=== PATIENT | female | born 1965 | race Caucasian/White ===

== ENCOUNTER 2017-12-24 20:36 | Emergency (ER) | payer OTHER, SELFPAY ==
[2017-12-24 21:08] VITALS: BP 127/78; PULSE 87; RESP 18; TEMP 37.1; O2SAT 99; BMI 25.7
--- NOTE | 2017-12-24 21:46 | ED.LOWEXIN ---
HPI - Extremity Injury (Lower) General Chief Complaint: Extremity Injury, Lower Stated Complaint: LT KNEE PAIN S/P SURGERY TODAY Time Seen by Provider: 12/24/17 21:46 Source: patient and RN notes reviewed Mode of arrival: wheelchair Limitations: no limitations History of Present Illness HPI Narrative: Patient is a 52-year-old female who presents with left knee pain. She had an outpatient arthroscopic again this morning he was released about 4:00 p.m.. She has bled through her bandage and her knee is pain is quite severe. She has no numbness or tingling. She does have Oxy Contin at home she has not taken any because she knew she was coming to the ER. She is able to move her toes. But she is not able to weight bear. Onset (ago): hour(s) Severity: severe Related Data Home Medications Medication Instructions Recorded Confirmed oxycodone 5 mg PO Q4-6H PRN MDD 4 12/24/17 12/24/17 Previous Rx's Medication Instructions Recorded progesterone micronized 100 mg PO BID #60 cap 03/18/17 ibuprofen 800 mg PO BID PRN #180 tab 04/17/17 albuterol sulfate [Ventolin HFA] 1 puff INH QID PRN #2 inh 07/14/17 cyclobenzaprine 10 mg PO HS PRN #90 tab 07/14/17 hydrocodone-acetaminophen 1 tab PO Q6HP PRN #30 tab 07/23/17 estradiol 1 mg PO QDAY #90 tab 07/28/17 nicotine [Nicoderm CQ] 14 mg TD SEE INSTRUCTIONS #30 patch 08/20/17 hydroxyzine pamoate [Vistaril] 1 - 2 mg PO Q6HP PRN #15 cap 09/19/17 alprazolam [Xanax] 0.5 mg PO BID PRN #30 tab 09/30/17 Allergies Allergy/AdvReac Type Severity Reaction Status Date / Time codeine [CODEINE] Allergy Mild NAUSEA Verified 12/24/17 21:11 Review of Systems Review of Systems All systems reviewed & are unremarkable except as noted in HPI and below Constitutional Denies chills, Denies fever(s), Denies lethargy and Denies weakness Cardiovascular Reports dyspnea on exertion Respiratory Reports cough and Reports dyspnea on exertion Gastrointestinal Gastrointestinal: Denies abdominal pain, Denies nausea and Denies vomiting Musculoskeletal Reports as per HPI, Denies muscle weakness, Denies numbness, Denies stiffness and Denies tingling Neurologic Denies numbness, Denies tingling, Denies paresthesias, Denies tremor(s) and Denies weakness Hematologic/Lymphatic Reports as per HPI PFSH Surgical History History of splenectomy Social History Smoking Status: Current every day smoker Exam Const General: in distress (In pain, crying) Resp Effort & Inspection: normal respiratory effort and able to speak in complete sentences Cardio Pulses: dorsalis pedis present on the left Skin General: No erythema, No mottling, No purpura and warm Other: No active bleeding at incision sites. Right inferior site was bleeding but it is now controlled. Steri-Strips in place. Neuro General: alert, awake and oriented x3 Extrem Right lower extremity: knee Details: swelling (Postsurgical swelling) and abnormal ROM Details: pain with active ROM during and pain with passive ROM during Course Hospital Course: Dressing removed site exam and no active bleeding. Dressing is replaced. His pain is much better controlled. She is offered crutches however she has crutches at home. Orders Ordered: Discontinued Medications Acetaminophen (Tylenol) 975 mg PO NOW ONE Stop: 12/24/17 21:47 Last Admin: 12/24/17 22:14 Dose: 975 mg Hydromorphone HCl (Dilaudid) 1 mg SUBCUT Q4H PRN PRN Reason: Severe Pain Last Admin: 12/24/17 22:15 Dose: 1 mg Last Vital Signs Temp 97.0 F L 12/24/17 23:38 Pulse 86 12/24/17 23:38 Resp 14 12/24/17 23:38 BP 111/73 12/24/17 23:38 Pulse Ox 99 12/24/17 23:38 Discharge Plan Departure Patient Disposition: Home, Self-Care Clinical Impression: Postoperative hemorrhage from incision, Post-operative pain Discharge Date/Time: 12/24/17 23:39 Interventions: ED Discharge Assessment Last Done: 12/24/17 23:38 Instructions: DI for Post-Surgical Bleeding Activity Restrictions/Additional Instructions: *You have been diagnosed with postoperative pain and postoperative bleeding *What to do: Keep dressing on and follow Orthopedic's instructions *Take medications as previously directed *Follow up with your primary care provider in 2-3 days, follow up with Orthopedics as instructed *Return to ER if you should have numbness, tingling, persistent bleeding or any new, worsening or concerning symptoms Prescriptions: No Action progesterone micronized 100 MG capsule 100 mg PO BID Qty: 60 RF: 3 ibuprofen 800 MG tablet 800 mg PO BID PRNQty: 180 RF: 1 albuterol sulfate [Ventolin HFA] 90 MCG/PUFF HFA aerosol inhaler 1 puff INH QID PRNQty: 2 RF: 3 cyclobenzaprine 10 MG tablet 10 mg PO HS PRNQty: 90 RF: 3 hydrocodone-acetaminophen 5 MG/325 MG tablet 1 tab PO Q6HP PRNQty: 30 RF: 0 estradiol 1 MG tablet 1 mg PO QDAY Qty: 90 RF: 3 nicotine [Nicoderm CQ] 14 MG patch 24 hour 14 mg TD SEE INSTRUCTIONS Qty: 30 RF: 1 hydroxyzine pamoate [Vistaril] 25 MG capsule 1 - 2 mg PO Q6HP PRNQty: 15 RF: 0 alprazolam [Xanax] 0.5 MG tablet 0.5 mg PO BID PRNQty: 30 RF: 2 oxycodone 5 mg Tablet 5 mg PO Q4-6H MDD 4 PRN (Reason: Pain (Scale Score 4-6)) RF: 0 Referrals: Elaina Resendiz PA-C [Primary Care Provider] - Pasha Alonso MD [Physician] -
[2017-12-24] MEDS: ACETAMINOPHEN 325 MG TABLET 975 MG PO (22:14)
[2017-12-24] MEDS: HYDROMORPHONE 2 MG INJ 1 MG SUBCUT (22:15)
[2017-12-24 23:38] VITALS: BP 111/73; PULSE 86; RESP 14; TEMP 36.1; O2SAT 99
== END 2017-12-24 23:39 | disposition home or self-care (01) ==
PROVIDERS: Emergency Provider Emergency Medicine; Family Provider Physician Assistant; PCP Physician Assistant
DX: L76.32 Postprocedural hematoma of skin and subcutaneous tissue following other procedure (principal)
CPT/HCPCS: 96372; 99282; 99283; J1170

== ENCOUNTER 2018-03-19 18:31 | Emergency (ER) | payer OTHER, SELFPAY ==
[2018-03-19 18:57] VITALS: BP 142/90; PULSE 80; RESP 16; TEMP 36.7; O2SAT 99; BMI 56.7
--- NOTE | 2018-03-19 19:12 | ED.NECK ---
HPI - Neck Pain/Injury <REENA Camacho - Last Filed: 03/19/18 22:19> General Chief Complaint: Neck Pain/Injury Stated Complaint: LEFT SHOULDER INJURY Time Seen by Provider: 03/19/18 19:12 Source: patient Mode of arrival: ambulatory Limitations: no limitations History of Present Illness HPI Narrative: 52-year-old female here for complaint of pain into left posterior shoulder status post getting hit in the back of the ball with a fall this evening. She states that she was out on a patio when a ball came up from people playing in the sand and hit her on her left shoulder. She denies any head injury. She reports increased pain with motion of the left shoulder. No other injuries or concerns at this timeframe. She is ambulatory into the emergency room. Related Data Home Medications Medication Instructions Recorded Confirmed oxycodone 5 mg PO Q4-6H PRN MDD 4 12/24/17 01/23/18 Previous Rx's Medication Instructions Recorded progesterone micronized 100 mg PO BID #60 cap 03/18/17 ibuprofen 800 mg PO BID PRN #180 tab 04/17/17 albuterol sulfate [Ventolin HFA] 1 puff INH QID PRN #2 inh 07/14/17 cyclobenzaprine 10 mg PO HS PRN #90 tab 07/14/17 estradiol 1 mg PO QDAY #90 tab 07/28/17 alprazolam [Xanax] 0.5 mg PO BID PRN #30 tab 09/30/17 promethazine 6.25 mg-codeine 10 5 ml PO Q6H PRN #118 ml MDD 10 mL 01/23/18 mg/5 mL syrup beclomethasone dipropionate 80 1 puff INHALATION BID #8.7 gram 01/26/18 mcg/actuation aerosol inhaler Allergies Allergy/AdvReac Type Severity Reaction Status Date / Time codeine [CODEINE] AdvReac Mild NAUSEA Verified 01/23/18 09:09 Review of Systems <REENA Camacho - Last Filed: 03/19/18 22:19> Constitutional Denies chills, Denies fever(s), Denies lethargy and Denies weakness Eyes Denies change in vision, Denies eye discharge, Denies irritation and Denies loss of vision ENT Ears, Nose, Mouth, and Throat: Denies change in voice, Denies neck pain and Denies sore throat Cardiovascular Denies chest pain, Denies irregular heart rhythm, Denies lightheadedness, Denies palpitations, Denies dyspnea, Denies dyspnea on exertion and Denies orthopnea Respiratory Denies cough, Denies dyspnea, Denies dyspnea on exertion and Denies wheezing Gastrointestinal Gastrointestinal: Denies abdominal pain, Denies change in bowel habits, Denies diarrhea, Denies nausea and Denies vomiting Genitourinary Denies hematuria, Denies flank pain, Denies urinary incontinence and Denies urinary urgency Musculoskeletal Denies neck pain Comments: Left posterior shoulder pain Integumentary/Breasts Denies pruritus, Denies erythema, Denies rash and Denies wounds Neurologic Denies confusion, Denies loss of vision and Denies weakness Psychiatric Denies anxiety, Denies confusion, Denies depression, Denies homicidal ideation and Denies suicidal ideation Endocrine Denies palpitations Hematologic/Lymphatic Denies easy bruising Allergic/Immunologic Denies wheezing Exam <REENA Camacho - Last Filed: 03/19/18 22:19> Initial Vital Signs Initial Vital Signs: Vital Signs Temperature 98.1 F 03/19/18 18:57 Pulse Rate 80 03/19/18 18:57 Respiratory Rate 16 03/19/18 18:57 Blood Pressure 142/90 H 03/19/18 18:57 Pulse Oximetry 99 03/19/18 18:57 Const General: cooperative and well developed Nutritional Appearance: well nourished Orientation: alert, awake, oriented x3 and not confused [facility] Mouth: oral mucosae normal and moist mucous membranes Eyes Conjunctivae: conjunctivae normal Sclera: sclerae normal Pupils: PERRL EOM: EOM intact bilaterally Chest Chest: normal inspection of the chest Resp Effort & Inspection: normal respiratory effort, able to speak in complete sentences, no respiratory distress and no use of accessory muscles Auscultation: clear to auscultation bilaterally, no rales, no rhonchi and no wheezes Cardio Rate: regular rate Rhythm: regular rhythm Heart Sounds: no click, no gallops, no murmurs and no rubs Skin General: no rashes or lesions noted, No jaundice and No petechiae Neuro General: alert, oriented x3, gait normal and no focal motor deficits Speech: speech normal Extrem General: full ROM, no clubbing, cyanosis or edema, no pedal edema and no calf tenderness <DO Crystal Dougherty Last Filed: 03/20/18 03:23> Initial Vital Signs Initial Vital Signs: Vital Signs Temperature 98.1 F 03/19/18 18:57 Pulse Rate 80 03/19/18 18:57 Respiratory Rate 16 03/19/18 18:57 Blood Pressure 142/90 H 03/19/18 18:57 Pulse Oximetry 99 03/19/18 18:57 Course <REENA Camacho - Last Filed: 03/19/18 22:19> Orders Ordered: ED Orders 03/19/18 19:44 XR shoulder LT min 2V Stat Discontinued Medications Ibuprofen (Advil) 400 mg PO NOW ONE Stop: 03/19/18 19:46 Last Admin: 03/19/18 19:50 Dose: 400 mg Vital Signs - 8 hr 03/19/18 19:57 03/19/18 20:37 Temperature 98.1 F 98.0 F Pulse Rate 80 75 Respiratory Rate 16 16 Blood Pressure 142/90 H Blood Pressure [Left Arm] 148/89 H Pulse Oximetry 99 99 <Peggy Dale DO - Last Filed: 03/20/18 03:23> Orders Ordered: ED Orders 03/19/18 19:44 XR shoulder LT min 2V Stat Discontinued Medications Ibuprofen (Advil) 400 mg PO NOW ONE Stop: 03/19/18 19:46 Last Admin: 03/19/18 19:50 Dose: 400 mg Vital Signs - 8 hr 03/19/18 19:57 03/19/18 20:37 Temperature 98.1 F 98.0 F Pulse Rate 80 75 Respiratory Rate 16 16 Blood Pressure 142/90 H Blood Pressure [Left Arm] 148/89 H Pulse Oximetry 99 99 MDM - Neck Pain/Injury <REENA Camacho - Last Filed: 03/19/18 22:19> Imaging Data Left shoulder: Radiologist's impression: Age/Sex: 52 / F Date of Service: 03/19/18 Loc: ED Accession Number: [id number] Procedure: XR shoulder LT min 2V Ordering Provider: Davide Cabrera PROCEDURE: XR SHOULDER LT MIN 2V INDICATIONS: States was hit with a ball to the posterior left shoulder TECHNIQUE: 3 views of the shoulder were acquired. COMPARISON: None. FINDINGS: Bones: No fractures or dislocations. No suspicious bony lesions. Visualized ribs appear intact. Mild to moderate a.c. and glenohumeral joint osteoarthritis. Soft tissues: No suspicious soft tissue calcifications. What appears to be a bone island within the humeral head marrow space is noted, measuring approximately 8 mm in maximal dimension IMPRESSION: No trauma found. Mild to moderate a.c. and glenohumeral joint osteoarthritis. Small bone island noted within the medullary space of the humeral head. Dictated by: Srinath Waters M.D. on 03/19/2018 at 21:08 Approved by: Srinath Waters M.D. on 03/19/2018 at 21:08 MDM Narrative Medical decision making narrative: X-ray of the left shoulder was obtained and was negative for any acute findings. Patient will eloped prior to results being returned from radiology. Patient was instructed to follow up with her primary care provider in the next few days. Return emergency room for any worsening symptom Discharge Plan Departure Patient Disposition: Left Against Medical Advice Clinical Impression: Acute pain of left shoulder Discharge Date/Time: 03/19/18 21:06 Interventions: ED Discharge Assessment Last Done: 03/19/18 21:04 Instructions: DI for Shoulder Pain Activity Restrictions/Additional Instructions: Tylenol Motrin as needed for any discomfort. Follow up with primary care provider. Return emergency room for any worsening symptoms. Prescriptions: No Action promethazine-codeine 6.25-10 mg/5 mL syrup 5 ml PO Q6H MDD 10 mL PRN (Reason: cough) Qty: 118 RF: 0 progesterone micronized 100 MG capsule 100 mg PO BID Qty: 60 RF: 3 ibuprofen 800 MG tablet 800 mg PO BID PRNQty: 180 RF: 1 albuterol sulfate [Ventolin HFA] 90 MCG/PUFF HFA aerosol inhaler 1 puff INH QID PRNQty: 2 RF: 3 cyclobenzaprine 10 MG tablet 10 mg PO HS PRNQty: 90 RF: 3 estradiol 1 MG tablet 1 mg PO QDAY Qty: 90 RF: 3 alprazolam [Xanax] 0.5 MG tablet 0.5 mg PO BID PRNQty: 30 RF: 2 beclomethasone dipropionate [Qvar] 80 mcg/actuation aerosol 1 puff INHALATION BID Qty: 8.7 RF: 3 oxycodone 5 mg Tablet 5 mg PO Q4-6H MDD 4 PRN (Reason: Pain (Scale Score 4-6)) RF: 0 Stand Alone Forms: Against Medical Advice <Peggy Dale DO - Last Filed: 03/20/18 03:23> Cosign ED Attending Jessica Attestation: I was immediately available in the department for consultation. Documentation has been reviewed. I agree with assessment and plan.
--- NOTE | 2018-03-19 19:44 | DI.RAD.S_ITS ---
PROCEDURE: XR SHOULDER LT MIN 2V INDICATIONS: States was hit with a ball to the posterior left shoulder TECHNIQUE: 3 views of the shoulder were acquired. COMPARISON: None. FINDINGS: Bones: No fractures or dislocations. No suspicious bony lesions. Visualized ribs appear intact. Mild to moderate a.c. and glenohumeral joint osteoarthritis. Soft tissues: No suspicious soft tissue calcifications. What appears to be a bone island within the humeral head marrow space is noted, measuring approximately 8 mm in maximal dimension IMPRESSION: No trauma found. Mild to moderate a.c. and glenohumeral joint osteoarthritis. Small bone island noted within the medullary space of the humeral head. Dictated by: Srinath Waters M.D. on 03/19/2018 at 21:08 Approved by: Srinath Waters M.D. on 03/19/2018 at 21:08
[2018-03-19] MEDS: IBUPROFEN 400 MG TABLET PO (19:50)
[2018-03-19 19:57] VITALS: BP 142/90; PULSE 80; RESP 16; TEMP 36.7; O2SAT 99; BMI 56.7
--- NOTE | 2018-03-19 19:58 | PC.NURSE ---
Pt states left shoulder pain 5/10 onset at 5pm today when hit by bocce ball at [employer]. Pt given icepack.
[2018-03-19 20:37] VITALS: BP 148/89; PULSE 75; RESP 16; TEMP 36.7; O2SAT 99
--- NOTE | 2018-03-19 21:02 | PC.NURSE ---
Pt states wants to leave she is fine and will followup with PCP, states she came here for insurance documenation purpose in case of a lawsuit.
== END 2018-03-19 21:06 | disposition left against medical advice (07) ==
PROVIDERS: Emergency Provider Nurse Practitioner Family; Family Provider Physician Assistant; PCP Family Medicine
DX: M25.512 Pain in left shoulder (principal); W21.09XA Struck by other hit or thrown ball, initial encounter
CPT/HCPCS: 73030; 99282; 99283

== ENCOUNTER → 2018-10-25 13:30 | Outpatient (CLI) | payer OTHER, SELFPAY ==
[2018-10-28 20:45] LABS: Fecal Immunochemical Test DETECTED (NOT DETECTED)
== END ==
PROVIDERS: PCP Student in an Organized Health Care Education/Training Program; Visit Provider Student in an Organized Health Care Education/Training Program
DX: Z12.11 Encounter for screening for malignant neoplasm of colon (principal)
CPT/HCPCS: 82274

== ENCOUNTER 2018-11-20 12:42 | Emergency (ER) | payer OTHER, SELFPAY ==
[2018-11-20 12:50] VITALS: BP 138/67; PULSE 99; RESP 14; TEMP 37.3; O2SAT 96
--- NOTE | 2018-11-20 13:15 | DI.RAD.S_ITS ---
PROCEDURE: XR HAND RT MIN 3V INDICATIONS: car hernández crushed it. Pain diya base of 2nd finger. IN ED WR TECHNIQUE: 3 views of the hand(s) acquired. COMPARISON: None. FINDINGS: Bones: No fractures or dislocations. Carpal bones are normally aligned. No suspicious bony lesions. First CMC and triscaphe joint degeneration Soft tissues: No suspicious soft tissue calcifications. IMPRESSION: No fracture Dictated by: Mathieu Preciado M.D. on 11/20/2018 at 14:03 Approved by: Mathieu Preciado M.D. on 11/20/2018 at 14:05
[2018-11-20] MEDS: KETOROLAC 60 MG/2 ML VIAL 30 MG IM (14:52)
--- NOTE | 2018-11-20 14:58 | ED.UPPEXIN ---
HPI - Extremity Injury (Upper) <DALTON Willoughby-BC - Last Filed: 11/20/18 15:19> General Chief Complaint: Extremity Injury, Upper Stated Complaint: r Time Seen by Provider: 11/20/18 14:30 Source: patient Mode of arrival: ambulatory Limitations: no limitations History of Present Illness HPI narrative: Patient is a 53-year-old female current everyday smoker with history of chronic neck pain and asthma who presents after closing her right hand in a car door. She took ibuprofen approximately 5 hours ago. She applied ice while waiting in the emergency department. She denies any lacerations or abrasions, but states is red and swollen. She is right-hand dominant and works writing. Related Data Previous Rx's Medication Instructions Recorded albuterol sulfate HFA 90 1 puff INHALATION QID PRN #6.7 gram 09/17/18 mcg/actuation aerosol inhaler cyclobenzaprine 10 mg tablet 10 mg PO HS PRN #90 tab 09/17/18 estradiol 1 mg tablet 1 mg PO QDAY #90 tab 09/17/18 ibuprofen 800 mg tablet 800 mg PO TID PRN #90 tab 09/17/18 diclofenac 1 % topical gel 4 gram TOP QID PRN #100 gram MDD 4 11/03/18 applications ketorolac 10 mg tablet 10 mg PO ONCE PRN #4 tab 11/03/18 Allergies Allergy/AdvReac Type Severity Reaction Status Date / Time No Known Drug Allergies Allergy Verified 11/20/18 13:14 Review of Systems <DALTON Willoughby-BC - Last Filed: 11/20/18 15:19> Review of Systems GENERAL: Denies chills, fatigue, malaise, fever, sweats. HEENT: Denies sinus pain, ear pain, sore throat, difficulty swallowing, dizziness. RESPIRATORY: Denies dyspnea, cough, wheezing, hemoptysis, sputum. CARDIOVASCULAR: Denies chest pain, palpitations, orthopnea, edema, GASTROINTESTINAL: Denies nausea, vomiting, abdominal pain, diarrhea, constipation, melena. : Denies dysuria, frequency, incontinence, hematuria, urinary retention. MUSCULOSKELETAL: See HPI SKIN: See HPI NEUROLOGIC: Denies weakness, headache, numbness, change in speech, confusion, seizures, incoordination. PSYCHIATRIC: No concerning psychosocial issues. 12 point review of systems is negative except for those stated above PFSH <CADE Willoughby - Last Filed: 11/20/18 15:19> Medical History Arthritis (Chronic Unknown) Asthma (Chronic Unknown) Chronic neck pain (Chronic Unknown) Hepatitis C antibody test positive (Chronic) Hx of idiopathic thrombocytopenic purpura (Resolved 2007) Surgical History H/O hernia repair (Resolved) Hx of arthroscopy of knee (Resolved ~2002) History of splenectomy (2007) Family History (Updated 03/17/18 @ 10:34 by Ruhtann Torres LPN) Family/Other Adopted Social History Smoking Status: Current every day smoker quit status: considering quitting (Has nicotine patches) alcohol intake: current (Occasionally. Couple of glasses usually.) substance use type: does not use Family History (Updated 03/17/18 @ 10:34 by Ruthann Torres LPN) Family/Other Adopted Social History Smoking Status: Current every day smoker quit status: considering quitting (Has nicotine patches) alcohol intake: current (Occasionally. Couple of glasses usually.) substance use type: does not use Exam <CADE Willoughby - Last Filed: 11/20/18 15:19> Narrative Exam Narrative: GENERAL: This is a well-nourished, well-developed patient, holding ice on hand HEAD: Atraumatic. Normocephalic. No temporal or scalp tenderness. EYES: Pupils equal round and reactive. Extraocular motions intact. No scleral icterus. No injection or drainage. ENT: Nose without bleeding, purulent drainage or septal hematoma. Throat without erythema, tonsillar hypertrophy or exudate. Uvula midline. Airway patent. NECK: Trachea midline. No JVD or lymphadenopathy. Supple, nontender, no meningeal signs. CARDIOVASCULAR: Regular rate and rhythm RESPIRATORY: No increased respiratory effort. No accessory muscle use. EXTREMITIES: Generalized pain to palpation right hand. Slight swelling noted on the dorsal aspect of right hand. Positive radial pulse. Capillary refill less than 2 seconds all fingers right hand. Patient is able to make a fist. BACK: Nontender without deformity or crepitance. No flank tenderness. NEURO: AOx3. SKIN: Slight swelling noted over the base of right pointer finger. Pain to palpation all knuckles of hand. No ecchymosis abrasion laceration or opening of the skin. Initial Vital Signs Initial Vital Signs: Vital Signs Temperature 99.1 F 11/20/18 12:50 Pulse Rate 99 H 11/20/18 12:50 Respiratory Rate 14 11/20/18 12:50 Blood Pressure 138/67 11/20/18 12:50 Pulse Oximetry 96 11/20/18 12:50 <Rosmery Goldstein DO - Last Filed: 11/20/18 18:13> Initial Vital Signs Initial Vital Signs: Vital Signs Temperature 99.1 F 11/20/18 12:50 Pulse Rate 99 H 11/20/18 12:50 Respiratory Rate 14 11/20/18 12:50 Blood Pressure 138/67 11/20/18 12:50 Pulse Oximetry 96 11/20/18 12:50 Course <KIMBERLY WilloughbyBC - Last Filed: 11/20/18 15:19> Orders Ordered: ED Orders 11/20/18 13:15 XR hand RT min 3V Stat Discontinued Medications Ketorolac Tromethamine (Toradol) 30 mg IM NOW ONE Stop: 11/20/18 14:41 Last Admin: 11/20/18 14:52 Dose: 30 mg Vital Signs - 8 hr 11/20/18 12:50 11/20/18 15:19 Temperature 99.1 F Pulse Rate 99 H 92 H Respiratory Rate 14 Blood Pressure 138/67 123/76 Pulse Oximetry 96 <DO Crystal Shea Last Filed: 11/20/18 18:13> Orders Ordered: ED Orders 11/20/18 13:15 XR hand RT min 3V Stat Discontinued Medications Ketorolac Tromethamine (Toradol) 30 mg IM NOW ONE Stop: 11/20/18 14:41 Last Admin: 11/20/18 14:52 Dose: 30 mg Vital Signs - 8 hr 11/20/18 12:50 11/20/18 15:19 Temperature 99.1 F Pulse Rate 99 H 92 H Respiratory Rate 14 Blood Pressure 138/67 123/76 Pulse Oximetry 96 MDM - Extremity Injury (Upper) <DALTON Willoughby-BC - Last Filed: 11/20/18 15:19> Imaging Data hand xray : Radiologist's impression: [address] [address] XRay Report Signed Patient: Debbie Dixon LMR#: [id number] : 1965Acct:[id number] Age/Sex: 53 / FDate of Service: 11/20/18 Loc: ED Accession Number: [id number] Procedure: XR hand RT min 3V Ordering Provider: Rosmery Goldstein D.O. PROCEDURE: XR HAND RT MIN 3V INDICATIONS: car hernández crushed it. Pain diya base of 2nd finger. IN ED WR TECHNIQUE: 3 views of the hand(s) acquired. COMPARISON: None. FINDINGS: Bones: No fractures or dislocations. Carpal bones are normally aligned. No suspicious bony lesions. First CMC and triscaphe joint degeneration Soft tissues: No suspicious soft tissue calcifications. IMPRESSION: No fracture Dictated by: Mathieu Preciado M.D. on 11/20/2018 at 14:03 Approved by: Mathieu Preciado M.D. on 11/20/2018 at 14:05 [facility] Narrative Medical decision making narrative: The patient is a 53-year-old female who presents with hand pain after closing her hand in the car door. She had a negative x-ray finding no fracture. She was given Toradol in the emergency department. I encouraged rest ice compression elevation as well as [id number]-[id number] pain medications as needed and able. I discussed following up with her primary care provider coming back to the emergency department for any acute concerns. She is neurovascularly intact throughout her right hand. Discharge Plan Departure Patient Disposition: Home Clinical Impression: Contusion of hand Qualifiers: Encounter type: initial encounter Laterality: right Qualified Code(s): S60.221A - Contusion of right hand, initial encounter Discharge Date/Time: 11/20/18 15:20 Interventions: ED Discharge Assessment Last Done: 11/20/18 15:19 Instructions: DI for Contusion, DI for Hand Pain Activity Restrictions/Additional Instructions: Your x-ray came back with no fracture today. Please use [id number] medications as needed and able as well as rest ice compression elevation. Please follow up with her primary care provider for worsening or no improvement next few days. Please come back to the emergency department for any acute concerns such as shortness of breath or chest pain. please do not take ibuprofen for 6-8 hours after the Toradol in the emergency department. Prescriptions: No Action albuterol sulfate [Ventolin HFA] 90 mcg/actuation HFA aerosol inhaler 1 puff INHALATION QID PRN (Reason: shortness of breath or wheezing) Qty: 6.7 RF: 11 estradiol 1 mg tablet 1 mg PO QDAY Qty: 90 RF: 1 cyclobenzaprine 10 mg tablet 10 mg PO HS PRN (Reason: muscle spasm) Qty: 90 RF: 1 ibuprofen 800 mg tablet 800 mg PO TID PRN (Reason: pain) Qty: 90 RF: 5 Hold Instructions: While on Ketorolac ketorolac 10 mg tablet 10 mg PO ONCE PRN (Reason: pain) Qty: 4 RF: 0 diclofenac sodium 1 % gel 4 gram TOP QID MDD 4 applications PRN (Reason: pain (scale score 4-6)) Qty: 100 RF: 2 Referrals: Lazaro Solorzano MD [Primary Care Provider] - Stand Alone Forms: Work Release Note <Rosmery Goldstein DO - Last Filed: 11/20/18 18:13> Cosign ED Attending Coslilianaature Attestation: I was immediately available in the department for consultation. This documentation has been reviewed and I agree with assessment and plan. Supervised by Rosmery Goldstein DO
[2018-11-20 15:19] VITALS: BP 123/76; PULSE 92
--- NOTE | 2018-11-20 15:19 | ED_ITS ---
HPI - Extremity Injury (Upper) <DALTON Willoughby-BC - Last Filed: 11/20/18 15:19> General Chief Complaint: Extremity Injury, Upper Stated Complaint: r Time Seen by Provider: 11/20/18 14:30 Source: patient Mode of arrival: ambulatory Limitations: no limitations History of Present Illness HPI narrative: Patient is a 53-year-old female current everyday smoker with history of chronic neck pain and asthma who presents after closing her right hand in a car door. She took ibuprofen approximately 5 hours ago. She applied ice while waiting in the emergency department. She denies any lacerations or abrasions, but states is red and swollen. She is right-hand dominant and works writing. Related Data Previous Rx's Medication Instructions Recorded albuterol sulfate HFA 90 1 puff INHALATION QID PRN #6.7 gram 09/17/18 mcg/actuation aerosol inhaler cyclobenzaprine 10 mg tablet 10 mg PO HS PRN #90 tab 09/17/18 estradiol 1 mg tablet 1 mg PO QDAY #90 tab 09/17/18 ibuprofen 800 mg tablet 800 mg PO TID PRN #90 tab 09/17/18 diclofenac 1 % topical gel 4 gram TOP QID PRN #100 gram MDD 4 11/03/18 applications ketorolac 10 mg tablet 10 mg PO ONCE PRN #4 tab 11/03/18 Allergies Allergy/AdvReac Type Severity Reaction Status Date / Time No Known Drug Allergies Allergy Verified 11/20/18 13:14 Review of Systems <DALTON Willoughby-BC - Last Filed: 11/20/18 15:19> Review of Systems GENERAL: Denies chills, fatigue, malaise, fever, sweats. HEENT: Denies sinus pain, ear pain, sore throat, difficulty swallowing, dizziness. RESPIRATORY: Denies dyspnea, cough, wheezing, hemoptysis, sputum. CARDIOVASCULAR: Denies chest pain, palpitations, orthopnea, edema, GASTROINTESTINAL: Denies nausea, vomiting, abdominal pain, diarrhea, constipation, melena. : Denies dysuria, frequency, incontinence, hematuria, urinary retention. MUSCULOSKELETAL: See HPI SKIN: See HPI NEUROLOGIC: Denies weakness, headache, numbness, change in speech, confusion, seizures, incoordination. PSYCHIATRIC: No concerning psychosocial issues. 12 point review of systems is negative except for those stated above PFSH <CADE Willoughby - Last Filed: 11/20/18 15:19> Medical History Arthritis (Chronic Unknown) Asthma (Chronic Unknown) Chronic neck pain (Chronic Unknown) Hepatitis C antibody test positive (Chronic) Hx of idiopathic thrombocytopenic purpura (Resolved 2007) Surgical History H/O hernia repair (Resolved) Hx of arthroscopy of knee (Resolved ~2002) History of splenectomy (2007) Family History (Updated 03/17/18 @ 10:34 by Ruthann Torres LPN) Family/Other Adopted Social History Smoking Status: Current every day smoker quit status: considering quitting (Has nicotine patches) alcohol intake: current (Occasionally. Couple of glasses usually.) substance use type: does not use Family History (Updated 03/17/18 @ 10:34 by Ruthann Torres LPN) Family/Other Adopted Social History Smoking Status: Current every day smoker quit status: considering quitting (Has nicotine patches) alcohol intake: current (Occasionally. Couple of glasses usually.) substance use type: does not use Exam <CADE Willoughby - Last Filed: 11/20/18 15:19> Narrative Exam Narrative: GENERAL: This is a well-nourished, well-developed patient, holding ice on hand HEAD: Atraumatic. Normocephalic. No temporal or scalp tenderness. EYES: Pupils equal round and reactive. Extraocular motions intact. No scleral icterus. No injection or drainage. ENT: Nose without bleeding, purulent drainage or septal hematoma. Throat without erythema, tonsillar hypertrophy or exudate. Uvula midline. Airway patent. NECK: Trachea midline. No JVD or lymphadenopathy. Supple, nontender, no meningeal signs. CARDIOVASCULAR: Regular rate and rhythm RESPIRATORY: No increased respiratory effort. No accessory muscle use. EXTREMITIES: Generalized pain to palpation right hand. Slight swelling noted on the dorsal aspect of right hand. Positive radial pulse. Capillary refill less than 2 seconds all fingers right hand. Patient is able to make a fist. BACK: Nontender without deformity or crepitance. No flank tenderness. NEURO: AOx3. SKIN: Slight swelling noted over the base of right pointer finger. Pain to palpation all knuckles of hand. No ecchymosis abrasion laceration or opening of the skin. Initial Vital Signs Initial Vital Signs: Vital Signs Temperature 99.1 F 11/20/18 12:50 Pulse Rate 99 H 11/20/18 12:50 Respiratory Rate 14 11/20/18 12:50 Blood Pressure 138/67 11/20/18 12:50 Pulse Oximetry 96 11/20/18 12:50 <Rosmery Goldstein DO - Last Filed: 11/20/18 18:13> Initial Vital Signs Initial Vital Signs: Vital Signs Temperature 99.1 F 11/20/18 12:50 Pulse Rate 99 H 11/20/18 12:50 Respiratory Rate 14 11/20/18 12:50 Blood Pressure 138/67 11/20/18 12:50 Pulse Oximetry 96 11/20/18 12:50 Course <KIMBERLY WilloughbyBC - Last Filed: 11/20/18 15:19> Orders Ordered: ED Orders 11/20/18 13:15 XR hand RT min 3V Stat Discontinued Medications Ketorolac Tromethamine (Toradol) 30 mg IM NOW ONE Stop: 11/20/18 14:41 Last Admin: 11/20/18 14:52 Dose: 30 mg Vital Signs - 8 hr 11/20/18 12:50 11/20/18 15:19 Temperature 99.1 F Pulse Rate 99 H 92 H Respiratory Rate 14 Blood Pressure 138/67 123/76 Pulse Oximetry 96 <DO Crystal Shea Last Filed: 11/20/18 18:13> Orders Ordered: ED Orders 11/20/18 13:15 XR hand RT min 3V Stat Discontinued Medications Ketorolac Tromethamine (Toradol) 30 mg IM NOW ONE Stop: 11/20/18 14:41 Last Admin: 11/20/18 14:52 Dose: 30 mg Vital Signs - 8 hr 11/20/18 12:50 11/20/18 15:19 Temperature 99.1 F Pulse Rate 99 H 92 H Respiratory Rate 14 Blood Pressure 138/67 123/76 Pulse Oximetry 96 MDM - Extremity Injury (Upper) <DALTON Willoughby-BC - Last Filed: 11/20/18 15:19> Imaging Data hand xray : Radiologist's impression: [address] [address] XRay Report Signed Patient: Debbie Dixon LMR#: [id number] : 1965Acct:[id number] Age/Sex: 53 / FDate of Service: 11/20/18 Loc: ED Accession Number: [id number] Procedure: XR hand RT min 3V Ordering Provider: Rosmery Goldstein D.O. PROCEDURE: XR HAND RT MIN 3V INDICATIONS: car hernández crushed it. Pain diya base of 2nd finger. IN ED WR TECHNIQUE: 3 views of the hand(s) acquired. COMPARISON: None. FINDINGS: Bones: No fractures or dislocations. Carpal bones are normally aligned. No suspicious bony lesions. First CMC and triscaphe joint degeneration Soft tissues: No suspicious soft tissue calcifications. IMPRESSION: No fracture Dictated by: Mathieu Preciado M.D. on 11/20/2018 at 14:03 Approved by: Mathieu Preciado M.D. on 11/20/2018 at 14:05 [facility] Narrative Medical decision making narrative: The patient is a 53-year-old female who presents with hand pain after closing her hand in the car door. She had a negative x-ray finding no fracture. She was given Toradol in the emergency department. I encouraged rest ice compression elevation as well as [id number] nter pain medications as needed and able. I discussed following up with her primary care provider coming back to the emergency department for any acute concerns. She is neurovascularly intact throughout her right hand. Discharge Plan Departure Patient Disposition: Home Clinical Impression: Contusion of hand Qualifiers: Encounter type: initial encounter Laterality: right Qualified Code(s): S60.221A - Contusion of right hand, initial encounter Discharge Date/Time: 11/20/18 15:20 Interventions: ED Discharge Assessment Last Done: 11/20/18 15:19 Instructions: DI for Contusion, DI for Hand Pain Activity Restrictions/Additional Instructions: Your x-ray came back with no fracture today. Please use [id number] medications as needed and able as well as rest ice compression elevation. Please follow up with her primary care provider for worsening or no improvement next few days. Please come back to the emergency department for any acute concerns such as shortness of breath or chest pain. please do not take ibuprofen for 6-8 hours after the Toradol in the emergency department. Prescriptions: No Action albuterol sulfate [Ventolin HFA] 90 mcg/actuation HFA aerosol inhaler 1 puff INHALATION QID PRN (Reason: shortness of breath or wheezing) Qty: 6.7 RF: 11 estradiol 1 mg tablet 1 mg PO QDAY Qty: 90 RF: 1 cyclobenzaprine 10 mg tablet 10 mg PO HS PRN (Reason: muscle spasm) Qty: 90 RF: 1 ibuprofen 800 mg tablet 800 mg PO TID PRN (Reason: pain) Qty: 90 RF: 5 Hold Instructions: While on Ketorolac ketorolac 10 mg tablet 10 mg PO ONCE PRN (Reason: pain) Qty: 4 RF: 0 diclofenac sodium 1 % gel 4 gram TOP QID MDD 4 applications PRN (Reason: pain (scale score 4-6)) Qty: 100 RF: 2 Referrals: Lazaro Solorzano MD [Primary Care Provider] - Stand Alone Forms: Work Release Note <Rosmery Goldstein DO - Last Filed: 11/20/18 18:13> Cosign ED Attending Cosignature Attestation: I was immediately available in the department for consultation. This documentation has been reviewed and I agree with assessment and plan. Supervised by Rosmery Goldstein DO
== END 2018-11-20 15:20 | disposition home or self-care (01) ==
PROVIDERS: Emergency Provider Nurse Practitioner Family; PCP Student in an Organized Health Care Education/Training Program
DX: S60.221A Contusion of right hand, initial encounter (principal)
CPT/HCPCS: 73130; 96372; 99282; 99283; J1885

== ENCOUNTER → 2018-12-06 13:27 | Outpatient (CLI) | payer OTHER, SELFPAY ==
[2018-12-06 14:16] LABS: Add Manual Diff / Slide Review NO; Basophils Absolute Auto 100 /uL (0-100); Basophils Percent Auto 1.2 % (0-2); Eosinophils Absolute Auto 300 /uL (0-450); Eosinophils Percent Auto 3.9 % (2-4); Hematocrit 35.4 % (36-46); Hemoglobin 12.1 g/dL (12.0-16.0); Lymphocytes Absolute Auto 3800 /uL (1100-4500); Lymphocytes Percent Auto 44.4 % (25-40); Mean Corpuscular HGB Conc 34.1 % (30-36); Mean Corpuscular Hemoglobin 32.2 PG (26-34); Mean Corpuscular Volume 94.2 fL (80-100); Monocytes Absolute Auto 700 /uL (0-900); Monocytes Percent Auto 7.6 % (3-14); Neutrophils Absolute Auto 3700 /uL (1500-7000); Neutrophils Percent Auto 42.9 % (50-75); Platelet Count 304 X10^3/uL (150-400); Red Blood Cell Count 3.76 X10^6/uL (4.0-5.2); Red Cell Distribution Width 12.5 % (11.6-14.8); White Blood Cell Count 8.6 X10^3/uL (4.5-11.0)
[2018-12-06 14:32] LABS: Alanine Aminotransferase 35 IU/L (9-52); Albumin 3.9 g/dL (3.5-5.0); Albumin Globulin Ratio 1.4 (1.0-2.8); Alkaline Phosphatase 66 U/L (38-126); Aspartate Aminotransferase 25 IU/L (14-36); Bilirubin Total 0.3 mg/dL (0.2-1.3); Blood Urea Nitrogen 20 mg/dL (7-17); Calcium 9.1 mg/dL (8.4-10.2); Carbon Dioxide 24 mmol/L (22-32); Chloride 104 mmol/L (98-107); Cholesterol 116 mg/dL (140-199); Estimated Glomerular Filt Rate > 60.0 mL/min (>60); Globulin 2.7 g/dL (1.7-4.1); Glucose 87 mg/dL (70-100); HDL Cholesterol 61 mg/dL (40-60); HEMOLYSIS < 15 (0-50); LDL Cholesterol Calculated 26 mg/dL (<100); Potassium 4.5 mmol/L (3.4-5.1); Sodium 136 mmol/L (137-145); Total Protein 6.6 g/dL (6.3-8.2); Triglycerides 147 mg/dL (35-150)
[2018-12-06 15:25] LABS: Vitamin D 25 Hydroxy (D3) 52.7 ng/mL (30.0-100.0)
== END ==
PROVIDERS: PCP Student in an Organized Health Care Education/Training Program; Visit Provider Physician Assistant
DX: B18.2 Chronic viral hepatitis C (principal); D69.6 Thrombocytopenia, unspecified; E55.9 Vitamin D deficiency, unspecified; Z90.81 Acquired absence of spleen; Z13.220 Encounter for screening for lipoid disorders
CPT/HCPCS: 36415; 80053; 80061; 82306; 85025; 87902

== ENCOUNTER → 2019-01-20 14:10 | Outpatient (CLI) | payer OTHER, SELFPAY ==
--- NOTE | 2019-01-20 | DI.MRI.S_ITS ---
PROCEDURE: MR KNEE RT WO CON INDICATIONS: Medial and posterior right knee pain TECHNIQUE: Noncontrast sagittal PD fast spin echo and T2 fast spin echo with fat saturation, sagittal 3-D FLASH with fat saturation; coronal T1 spin echo and PD fast spin echo with fat saturation, and axial PD fast spin echo with fat saturation through the knee. COMPARISON: None. FINDINGS: Image quality: Excellent. Menisci: Medial meniscal tear involving the posterior horn and extending to the undersurface. There is associated para meniscal cyst measuring 1.2 x 0.6 cm on sagittal image 26 series 8. Prominent myxoid degeneration involving the anterior horn of the lateral meniscus. Cruciate ligaments: The anterior and posterior cruciate ligaments appear intact. There is early mucoid degeneration of the anterior cruciate ligament with associated periligamentous intraosseous ganglion cystic change or edema in the tibial eminence. Medial structures: The medial collateral ligament appears intact. The posterior oblique ligament, semimembranosus tendon insertions, oblique popliteal ligament, and meniscocapsular junction appear intact. Visualized portions of the pes anserinus tendons appear normal. No abnormal bursal fluid. Lateral structures: The lateral collateral ligament, long and short heads of the biceps femoris tendon appear intact. The popliteus tendon appears normal; the popliteofibular ligament appears intact. The posterosuperior and anteroinferior popliteomeniscal fascicles appear intact. The arcuate and fabellofibular ligaments appear intact, on either side of the lateral inferior geniculate artery. Iliotibial band appears normal. Anterior structures: The quadriceps and patellar tendons appear intact. Minimal proximal patellar tendinopathy Patellar alignment is normal. No femoral trochlear dysplasia or ventral trochlear prominence. No edema in the infrapatellar fat pad. Bones and cartilage: No focal marrow contusion or discrete low signal fracture line. Within the medial compartment, diffuse partial-thickness loss of femoral and tibial articular cartilage. Within the lateral compartment, intrasubstance signal change involving the weightbearing tibial articular cartilage without focal defect. Within the patellofemoral compartment, surface fraying of the cartilage overlying the median patellar ridge. Joint space: No pathologic joint effusion. Small Pop's cyst which may be ruptured. No intra-articular loose body identified. IMPRESSION: Medial meniscal tear involving the posterior horn, with associated parameniscal cyst. Degenerative joint disease as above. Small Pop's cyst, ruptured. Minimal proximal patellar tendinopathy. Early/mild mucoid degeneration of the anterior cruciate ligament. Dictated by: Mathieu Preciado M.D. on 01/20/2019 at 15:56 Approved by: Mathieu Preciado M.D. on 01/20/2019 at 16:05
== END ==
PROVIDERS: PCP Student in an Organized Health Care Education/Training Program; Visit Provider Orthopaedic Surgery
DX: M25.561 Pain in right knee (principal); S83.241A Other tear of medial meniscus, current injury, right knee, initial encounter; M17.11 Unilateral primary osteoarthritis, right knee; M66.0 Rupture of popliteal cyst
CPT/HCPCS: 73721

== ENCOUNTER → 2019-02-15 13:22 | Outpatient (CLI) | payer OTHER, SELFPAY ==
[2019-02-15 16:14] LABS: Alanine Aminotransferase 20 IU/L (9-52); Albumin 4.1 g/dL (3.5-5.0); Albumin Globulin Ratio 1.4 (1.0-2.8); Alkaline Phosphatase 72 U/L (38-126); Aspartate Aminotransferase 16 IU/L (14-36); BUN Creatinine Ratio 21.4 (6-22); Bilirubin Total 0.4 mg/dL (0.2-1.3); Blood Urea Nitrogen 15 mg/dL (7-17); Calcium 9.5 mg/dL (8.4-10.2); Carbon Dioxide 26 mmol/L (22-32); Chloride 103 mmol/L (98-107); Estimated Glomerular Filt Rate > 60.0 mL/min (>60); Glucose 120 mg/dL (70-100); HEMOLYSIS < 15 (0-50); Potassium 4.1 mmol/L (3.4-5.1); Sodium 137 mmol/L (137-145); Total Protein 7.1 g/dL (6.3-8.2)
== END ==
PROVIDERS: PCP Student in an Organized Health Care Education/Training Program; Visit Provider Physician Assistant
DX: B19.20 Unspecified viral hepatitis C without hepatic coma (principal)
CPT/HCPCS: 36415; 80053; 87522

== ENCOUNTER → 2019-03-08 11:45 | Outpatient (CLI) | payer OTHER, SELFPAY ==
[2019-03-08 12:34] LABS: Cholesterol 182 mg/dL (140-199); HDL Cholesterol 77 mg/dL (40-60); LDL Cholesterol Calculated 81 mg/dL (<100); Triglycerides 119 mg/dL (35-150)
[2019-03-08 12:37] LABS: Rheumatoid Factor < 8.6 IU/mL (<12.0)
== END ==
PROVIDERS: PCP Student in an Organized Health Care Education/Training Program; Visit Provider Orthopaedic Surgery
DX: M25.561 Pain in right knee (principal); G89.29 Other chronic pain
CPT/HCPCS: 36415; 80061; 86430

== ENCOUNTER → 2019-05-12 14:45 | Outpatient (CLI) | payer OTHER, SELFPAY ==
[2019-05-12 15:33] LABS: Add Manual Diff / Slide Review NO; Basophils Absolute Auto 0 /uL (0-100); Basophils Percent Auto 0.4 % (0-2); Eosinophils Absolute Auto 300 /uL (0-450); Eosinophils Percent Auto 3.1 % (2-4); Hematocrit 36.6 % (36-46); Hemoglobin 12.5 g/dL (12.0-16.0); Lymphocytes Absolute Auto 3600 /uL (1100-4500); Lymphocytes Percent Auto 34.9 % (25-40); Mean Corpuscular HGB Conc 34.1 % (30-36); Mean Corpuscular Hemoglobin 32.2 PG (26-34); Mean Corpuscular Volume 94.3 fL (80-100); Monocytes Absolute Auto 900 /uL (0-900); Monocytes Percent Auto 8.6 % (3-14); Neutrophils Absolute Auto 5400 /uL (1500-7000); Platelet Count 377 X10^3/uL (150-400); Red Blood Cell Count 3.88 X10^6/uL (4.0-5.2); Red Cell Distribution Width 12.6 % (11.6-14.8); White Blood Cell Count 10.2 X10^3/uL (4.5-11.0)
== END ==
PROVIDERS: PCP Student in an Organized Health Care Education/Training Program; Visit Provider Physician Assistant
DX: B19.20 Unspecified viral hepatitis C without hepatic coma (principal)
CPT/HCPCS: 36415; 85025; 87522

== ENCOUNTER 2019-05-24 06:12 | Emergency (ER) | payer OTHER, SELFPAY ==
[2019-05-24 06:20] VITALS: BP 143/95; PULSE 71; RESP 19; TEMP 36.7; O2SAT 100; BMI 22.3
[2019-05-24] MEDS: ALBUTEROL/IPRATROPIUM 3 ML AMPUL INH (06:29)
--- NOTE | 2019-05-24 06:30 | ED_ITS ---
HPI - SOB/Dyspnea General Chief Complaint: Shortness of Breath/Dyspnea Stated Complaint: hard time breathing chest hurts on antibiotics Time Seen by Provider: 05/24/19 06:13 Source: patient Mode of arrival: Ambulatory Limitations: no limitations History of Present Illness HPI Narrative: 54-year-old female who has had several days of cough, congestion, wheezing, subjective fevers, problems breathing. Last she went to the walk-in clinic where she was given steroids and doxycycline. She states she has been taking these medications. She also states that she has had a history of wheezing in the past. She has an albuterol inhaler at home. Denies any formal diagnosis of asthma. States that since last she has had continued problems with breathing. Has been using her albuterol at home without much improvement. Has been taking the other medications. Return to the emergency department today for worsening symptoms Related Data Previous Rx's Medication Instructions Recorded albuterol sulfate 90 mcg/actuation 1 puff INHALATION QID PRN #6.7 gram 09/17/18 aerosol inhaler ibuprofen 800 mg tablet 800 mg PO TID PRN #90 tab 09/17/18 diclofenac sodium 1 % topical gel 4 gram TOP QID PRN #100 gram MDD 4 11/03/18 applications cyclobenzaprine 10 mg tablet 10 mg PO HS PRN #90 tab 12/24/18 estradiol 1 mg tablet 1 mg PO QDAY #90 tab 02/23/19 hydroxyzine HCl 25 mg tablet 25 mg PO BEDTIME PRN #14 tab 03/09/19 doxycycline monohydrate 100 mg 100 mg PO BID 7 Days #14 tab 05/19/19 tablet prednisone 20 mg tablet 20 mg PO DAILY #14 tab 05/19/19 Allergies Allergy/AdvReac Type Severity Reaction Status Date / Time No Known Drug Allergies Allergy Verified 05/19/19 08:17 Review of Systems Constitutional Constitutional: Reports fever(s) (Subjective) ENT Ears, Nose, Mouth, and Throat: Denies dizziness Cardiovascular Cardiovascular: Denies chest pain, Reports dyspnea and Reports dyspnea on exertion Respiratory Respiratory: Reports chest congestion, Reports cough, Reports pain on inspiration, Reports dyspnea, Reports dyspnea on exertion and Reports wheezing Gastrointestinal Gastrointestinal: Denies abdominal pain, Denies nausea and Denies vomiting Musculoskeletal Musculoskeletal: Denies myalgias and Denies arthralgias Integumentary/Breasts Skin/Breast: Denies lesions and Denies rash Neurologic Neurologic: Denies behavioral changes and Denies dizziness Psychiatric Psychiatric: Denies behavioral changes Hematologic/Lymphatic Hematologic/Lymphatic: Denies easy bleeding and Denies easy bruising Allergic/Immunologic Allergic/Immunologic: Reports wheezing [facility] Medical History Arthritis (Chronic Unknown) Asthma (Chronic Unknown) Chronic neck pain (Chronic Unknown) Hepatitis C antibody test positive (Chronic) Hx of idiopathic thrombocytopenic purpura (Resolved 2007) Surgical History H/O hernia repair (Resolved) History of splenectomy (2007) Hx of arthroscopy of knee (Resolved ~2002) Family History (Updated 03/17/18 @ 10:34 by Ruthann Torres LPN) Family/Other Adopted Social History Smoking Status: Current every day smoker quit status: considering quitting (Has nicotine patches) alcohol intake: current (Occasionally. Couple of glasses usually.) substance use type: does not use Family History (Updated 03/17/18 @ 10:34 by Ruthann Torres LPN) Family/Other Adopted Social History Smoking Status: Current every day smoker quit status: considering quitting (Has nicotine patches) alcohol intake: current (Occasionally. Couple of glasses usually.) substance use type: does not use Exam Initial Vital Signs Initial Vital Signs: Vital Signs Temperature 98.1 F 05/24/19 06:20 Pulse Rate 71 05/24/19 06:20 Respiratory Rate 19 05/24/19 06:20 Blood Pressure 143/95 H 05/24/19 06:20 Pulse Oximetry 100 05/24/19 06:20 Const General: cooperative, comfortable and well developed Orientation: alert and awake Resp Effort & Inspection: no respiratory distress, no retractions and tachypneic Auscultation: rhonchi and wheezes Cardio Rate: regular rate Rhythm: regular rhythm Pulses: radial pulses present Skin Lesions: no lesions Rashes: no rashes Neuro General: alert and awake Cognition: normal cognition Speech: speech normal Extrem General: normal to inspection and capillary refill normal Psych Appearance: grossly normal and well kempt Course Orders Ordered: ED Orders 05/24/19 06:16 EKG-12 Lead Routine Discontinued Medications Albuterol/Ipratropium (Duoneb) 3 ml INH NOW ONE Stop: 05/24/19 06:26 Last Admin: 05/24/19 06:29 Dose: 3 ml Documented by: MESSI Vital Signs Vital signs: Vital Signs - 8 hr 05/24/19 06:20 05/24/19 06:31 05/24/19 06:51 Temperature 98.1 F Pulse Rate 71 68 80 Respiratory Rate 19 20 22 Blood Pressure 143/95 H Blood Pressure [Right Arm] 131/85 Pulse Oximetry 100 99 96 05/24/19 06:55 Temperature Pulse Rate 77 Respiratory Rate 18 Blood Pressure Blood Pressure [Right Arm] Pulse Oximetry 96 MDM - SOB/Dyspnea ECG Data Attestation: I personally reviewed and interpreted this ECG as follows: Prior ECG tracings: not available for review Interpretation: Sinus rhythm Ventricular rate 82 Normal axis Normal QRS Normal QTC No ST T wave changes MDM Narrative Medical decision making narrative: 54-year-old female. Currently is on antib iotics and steroids prescribed by prior providers. She was encouraged to continue to take these. She did report improvement after the nebulizer here in the ER. She was provided AeroChamber. She reported improvement of her symptoms. no fevers. Will hold on any x-rays for now. Did discuss the use of antihistamines. She expressed understanding and agreement plan. Discharge Plan Departure Patient Disposition: Home Clinical Impression: Wheezing Instructions: DI for Reactive Airway Disease-Adult Activity Restrictions/Additional Instructions: Recommend that you continue the steroids in the antibiotics. I also recommend you start on an antihistamine such as Claritin or Veda or Zyrtec. You can buy these [id number]. Use the AeroChamber and the albuterol inhaler like we discussed. Return to the emergency department for any new or worsening symptoms Prescriptions: No Action prednisone 20 mg tablet 20 mg PO DAILY Qty: 14 RF: 0 doxycycline monohydrate 100 mg tablet 100 mg PO BID 7 Days Qty: 14 RF: 0 cyclobenzaprine 10 mg tablet 10 mg PO HS PRN (Reason: muscle spasm) Qty: 90 RF: 1 estradiol 1 mg tablet 1 mg PO QDAY Qty: 90 RF: 3 albuterol sulfate [Ventolin HFA] 90 mcg/actuation HFA aerosol inhaler 1 puff INHALATION QID PRN (Reason: shortness of breath or wheezing) Qty: 6.7 RF: 11 ibuprofen 800 mg tablet 800 mg PO TID PRN (Reason: pain) Qty: 90 RF: 5 Hold Instructions: While on Ketorolac diclofenac sodium 1 % gel 4 gram TOP QID MDD 4 applications PRN (Reason: pain (scale score 4-6)) Qty: 100 RF: 2 hydroxyzine HCl 25 mg tablet 25 mg PO BEDTIME PRN (Reason: anxiety) Qty: 14 RF: 0 Hold Instructions: Switch to pamoate Referrals: Lazaro Solorzano MD [Primary Care Provider] - Stand Alone Forms: Work Release Note
[2019-05-24 06:31] VITALS: PULSE 68; RESP 20; O2SAT 99
--- NOTE | 2019-05-24 06:42 | PC.NURSE ---
reports being on abx for a week, not getting better. Now states feels like my lungs are drowning Denies chest pain.
[2019-05-24 06:51] VITALS: BP 131/85; PULSE 80; RESP 22; O2SAT 96
[2019-05-24 06:55] VITALS: PULSE 77; RESP 18; O2SAT 96
[2019-05-24 07:13] VITALS: BP 133/75; PULSE 80; RESP 22; O2SAT 96
== END 2019-05-24 07:14 | disposition home or self-care (01) ==
PROVIDERS: Emergency Provider Emergency Medicine; PCP Student in an Organized Health Care Education/Training Program
DX: R06.2 Wheezing (principal)
CPT/HCPCS: 93005; 94640; 99282; 99283

== ENCOUNTER → 2019-05-26 14:57 | Outpatient (CLI) | payer OTHER, SELFPAY ==
--- NOTE | 2019-05-26 14:59 | DI.RAD.S_ITS ---
PROCEDURE: XR CHEST 2V INDICATIONS: Cough TECHNIQUE: 2 views of the chest were acquired. COMPARISON: [facility], CHEST 1 VIEW, 02/28/2015, 14:14. [facility], CHEST 2 VIEW, 08/14/2014, 14:54. FINDINGS: Surgical changes and devices: None. Lungs and pleura: Lungs are clear. No pleural effusions or pneumothorax. Mediastinum: Mediastinal contours are normal. Heart size is normal. Bones and chest wall: No suspicious bony abnormalities. Soft tissues appear unremarkable. IMPRESSION: Relatively large lung volumes, a COPD versus aggressive inspiratory effort. No source of cough is found. Dictated by: Srinath Waters M.D. on 05/26/2019 at 15:13 Approved by: Srinath Waters M.D. on 05/26/2019 at 15:23
== END ==
PROVIDERS: PCP Student in an Organized Health Care Education/Training Program; Visit Provider Student in an Organized Health Care Education/Training Program
DX: R05 Cough (principal); R06.2 Wheezing
CPT/HCPCS: 71046

== ENCOUNTER → 2019-06-22 11:49 | Outpatient (CLI) | payer OTHER, SELFPAY | PROVIDERS: PCP Student in an Organized Health Care Education/Training Program; Visit Provider Physician Assistant | DX: J02.9 Acute pharyngitis, unspecified (principal) | CPT/HCPCS: 87070 ==

== ENCOUNTER → 2019-07-15 06:52 | Outpatient (CLI) | payer OTHER, SELFPAY ==
[2019-07-15 09:41] LABS: Add Manual Diff / Slide Review NO; Basophils Absolute Auto 0 /uL (0-100); Basophils Percent Auto 0.3 % (0-2); Eosinophils Absolute Auto 100 /uL (0-450); Eosinophils Percent Auto 0.7 % (2-4); Hemoglobin 13.9 g/dL (12.0-16.0); Lymphocytes Absolute Auto 4200 /uL (1100-4500); Lymphocytes Percent Auto 36.4 % (25-40); Mean Corpuscular HGB Conc 34.6 % (30-36); Mean Corpuscular Hemoglobin 32.4 PG (26-34); Mean Corpuscular Volume 93.6 fL (80-100); Monocytes Absolute Auto 700 /uL (0-900); Monocytes Percent Auto 6.1 % (3-14); Neutrophils Absolute Auto 6500 /uL (1500-7000); Neutrophils Percent Auto 56.5 % (50-75); Platelet Count 364 X10^3/uL (150-400); Red Blood Cell Count 4.28 X10^6/uL (4.0-5.2); Red Cell Distribution Width 12.9 % (11.6-14.8); White Blood Cell Count 11.5 X10^3/uL (4.5-11.0)
--- NOTE | 2019-07-22 08:08 | PM.PFT.1 ---
Pulmonary Function Test Referral & Results Date Patient Seen: 07/15/19 Requesting provider: Lazaro Solorzano Results: The spirometry demonstrates an FVC of 3.98 L which is 114% of predicted. The FEV1 was measured at 2.35 L which is 85% of predicted. The FEV1/FVC ratio was 59 which is 73% of predicted. Following the administration of bronchodilator there was a 17% improvement in FEV1 and a 45% improvement in FEF 25-75%. Lung volumes show an SVC of 3.71 L which is 115% of predicted. The diffusing capacity was measured at 24.70 which is 101% of predicted. The maximum voluntary ventilation was normal Interpretation: This study demonstrates mild obstructive lung disease with evidence of benefit following bronchodilator particularly small airway flow based on improvement in FEF 25-75% as above Otherwise the remainder of the study is normal Altogether this is consistent with a diagnosis of asthma
== END ==
PROVIDERS: Family Provider Physician Assistant; PCP Student in an Organized Health Care Education/Training Program; Visit Provider Student in an Organized Health Care Education/Training Program
DX: J44.9 Chronic obstructive pulmonary disease, unspecified (principal); B19.20 Unspecified viral hepatitis C without hepatic coma
CPT/HCPCS: 36415; 85025; 87522; 94060; 94726; 94729

== ENCOUNTER → 2020-10-30 08:31 | Outpatient (CLI) | payer BC, SELFPAY | PROVIDERS: Family Provider Physician Assistant; PCP Student in an Organized Health Care Education/Training Program; Visit Provider Physician Assistant | DX: L03.012 Cellulitis of left finger (principal) | CPT/HCPCS: 87070; 87077; 87147; 87205 ==

== ENCOUNTER → 2020-12-08 09:28 | Outpatient (CLI) | payer BC, SELFPAY ==
[2020-12-08 12:21] LABS: COVID19 -Nasal RAPID Negative (Negative)
== END ==
PROVIDERS: Family Provider Physician Assistant; PCP Student in an Organized Health Care Education/Training Program; Visit Provider Physician Assistant
DX: Z20.822 Contact with and (suspected) exposure to COVID-19 (principal)
CPT/HCPCS: 87635

== ENCOUNTER → 2021-03-30 10:51 | Outpatient (CLI) | payer BC, SELFPAY ==
[2021-03-30 11:42] LABS: COVID19 -Nasal RAPID Negative (Negative)
== END ==
PROVIDERS: Family Provider Physician Assistant; PCP Student in an Organized Health Care Education/Training Program; Visit Provider Physician Assistant
DX: R05 Cough (principal); R09.81 Nasal congestion; R53.83 Other fatigue; Z20.822 Contact with and (suspected) exposure to COVID-19
CPT/HCPCS: 87635

== ENCOUNTER → 2022-05-22 14:44 | Outpatient (CLI) | payer OTHER, SELFPAY | PROVIDERS: Family Provider Physician Assistant; PCP Student in an Organized Health Care Education/Training Program; Visit Provider Student in an Organized Health Care Education/Training Program | DX: J02.9 Acute pharyngitis, unspecified (principal) | CPT/HCPCS: 87070 ==

== ENCOUNTER → 2022-05-24 16:38 | Outpatient (CLI) | payer OTHER, SELFPAY ==
--- NOTE | 2022-05-24 16:39 | DI.RAD.S_ITS ---
PROCEDURE: XR CHEST 2V INDICATIONS: Chest congestion TECHNIQUE: 2 views of the chest were acquired. COMPARISON: [facility], , CHEST 1 VIEW, 02/28/2015, 14:14. [facility], , XR CHEST 2V, 05/26/2019, 14:58. FINDINGS: Surgical changes and devices: Left upper quadrant postoperative clips are seen. Lungs and pleura: Lungs are clear. No pleural effusions or pneumothorax. The lungs are hyperexpanded, with flattening of the hemidiaphragms seen. Mediastinum: Mediastinal contours are normal. Heart size is normal. Bones and chest wall: No suspicious bony abnormalities. Accentuated thoracic kyphosis is seen. Age-appropriate bony degenerative changes are seen. Soft tissues appear unremarkable. IMPRESSION: Hyperexpanded lungs, without an acute cardiopulmonary process identified. No focal infiltrates are seen. Postoperative and degenerative changes are seen. Dictated by: Dima Balderrama M.D. on 05/24/2022 at 16:30 Approved by: Dima Balderrama M.D. on 05/24/2022 at 16:31
== END ==
PROVIDERS: Family Provider Physician Assistant; PCP Student in an Organized Health Care Education/Training Program; Referring Provider Nurse Practitioner Family; Visit Provider Nurse Practitioner Family
DX: R09.89 Other specified symptoms and signs involving the circulatory and respiratory systems (principal)
CPT/HCPCS: 71046

== ENCOUNTER → 2022-09-17 10:05 | Outpatient (CLI) | payer OTHER, SELFPAY ==
[2022-09-17 14:05] LABS: Ur Creatinine Normal (Normal); Ur Specific Gravity Normal (Normal); Urine Tetrahydrocannabinol Negative (Negative); Urine pH Normal (Normal)
[2022-09-17 14:06] LABS: UR Morphine/Opiate cutoff 300 Negative (Negative); Urine Amphetamines Positive (Negative); Urine Barbiturates Negative (Negative); Urine Benzodiazepines Negative (Negative); Urine Cocaine Negative (Negative); Urine MDMA Negative (Negative); Urine Methadone Negative (Negative); Urine Methamphetamines Positive (Negative); Urine Oxycodone Negative (Negative); Urine Phencyclidine Negative (Negative); Urine Tricyclic Antidepressant Negative (Negative)
== END ==
PROVIDERS: Family Provider Physician Assistant; PCP Student in an Organized Health Care Education/Training Program; Referring Provider Student in an Organized Health Care Education/Training Program; Visit Provider Student in an Organized Health Care Education/Training Program
DX: F11.10 Opioid abuse, uncomplicated (principal)
CPT/HCPCS: 80305

== ENCOUNTER 2023-04-25 17:06 | Emergency (ER) | payer OTHER, SELFPAY ==
[2023-04-25 17:21] VITALS: BP 99/65; PULSE 82; RESP 18; TEMP 36.6; O2SAT 96; BMI 22.3
[2023-04-25 17:50] VITALS: PULSE 81; RESP 16; O2SAT 94
[2023-04-25] MEDS: ALBUTEROL/IPRATROPIUM 3 ML AMPUL INH (17:50)
[2023-04-25] MEDS: predniSONE 20 MG TABLET 40 MG PO (18:00)
--- NOTE | 2023-04-25 18:03 | ED_ITS ---
HPI - SOB/Dyspnea <Irving Wilson PA-C - Last Filed: 04/25/23 18:21> General Chief Complaint: Shortness of Breath/Dyspnea Stated Complaint: SOB Time Seen by Provider: 04/25/23 17:46 Source: patient Mode of arrival: Ambulatory Limitations: no limitations History of Present Illness HPI Narrative: This is a 58-year-old female with a history of asthma presents emergency department due to acute on onset asthma exacerbation. Patient states that she ran out of her albuterol inhaler who was unable to get a refill causing her come in due to increased shortness of breath. She denies any chest pain, nausea, vomiting, or abdominal pain, fevers, or any other concerning signs or symptoms. Related Data Previous Rx's Medication Instructions Recorded albuterol sulfate 90 mcg/actuation 1 puff inhalation QID PRN 06/26/22 aerosol inhaler (Ventolin HFA) shortness of breath or wheezing #18 grams estradiol 1 mg tablet 1 mg PO QDAY #90 tabs 06/30/22 ipratropium 0.5 mg-albuterol 3 mg 3 ml inhalation BEDTIME PRN 06/30/22 (2.5 mg base)/3 mL nebulization shortness of breath or wheezing soln #90 mL fluocinonide 0.1 % topical cream 1 applic topical BID PRN rash #60 08/25/22 grams ipratropium 20 mcg-albuterol 100 1 puff inhalation QID #4 grams 11/17/22 mcg/actuation mist for inhalation (Combivent Respimat) fluticasone 250 mcg-salmeterol 50 1 inh inhalation BID #60 ea 01/26/23 mcg/dose blistr powdr for inhalation (Wixela Inhub) ibuprofen 800 mg tablet 800 mg PO TID PRN pain #90 tabs 03/09/23 albuterol sulfate 90 mcg/actuation 1 inh inhalation Q4-6H PRN 04/25/23 breath activated powder inhaler shortness of breath #1 ea Allergies Allergy/AdvReac Type Severity Reaction Status Date / Time No Known Drug Allergies Allergy Verified 04/25/23 17:25 Review of Systems <Irving Wilson PA-C - Last Filed: 04/25/23 18:21> Review of Systems Narrative: GENERAL: Denies chills, fatigue, malaise, fever, sweats. HEENT: Denies sinus pain, ear pain, sore throat, difficulty swallowing, dizziness. RESPIRATORY: Reports shortness of breath, wheezing, denies cough, , hemoptysis, sputum. CARDIOVASCULAR: Denies chest pain, palpitations, orthopnea, edema, GASTROINTESTINAL: Denies nausea, vomiting, abdominal pain, diarrhea, constipation, melena. : Denies dysuria, frequency, incontinence, hematuria, urinary retention. MUSCULOSKELETAL: denies weakness, joint pain, or bony pain SKIN: Denies rash, skin lesions, or other NEUROLOGIC: Denies weakness, headache, numbness, change in speech, confusion, seizures, incoordination. PSYCHIATRIC: No concerning psychosocial issues. 12 point review of systems is negative except for those stated above Patient History <Irving Wilson PA-C - Last Filed: 04/25/23 18:21> Medical History (Updated 04/25/23 @ 18:20 by Irving Wilson PA-C) Arthritis (Unknown) Chronic hepatitis C Chronic neck pain (Unknown) Hepatitis C antibody test positive Hx of idiopathic thrombocytopenic purpura (2007) Osteoarthritis of both hands Surgical History H/O hernia repair History of splenectomy (2007) Hx of arthroscopy of knee (~2002) Status post knee replacement Family History Family/Other Adopted Social History Smoking Status: Current every day smoker quit status: considering quitting alcohol intake: current substance use type: does not use Smoking Status: Current every day smoker alcohol intake frequency: a few times a month Substance Use Type: does not use Exam <Irving Wilson PA-C - Last Filed: 04/25/23 18:21> Narrative Exam Narrative: GENERAL: [] year old patient appears stated age. Well-developed patient, in mild distress. HEAD: Atraumatic. Normocephalic. EYES: Pupils equal round and reactive. Extraocular motions intact. No scleral icterus. No injection or drainage. ENT: Nose without bleeding, purulent drainage. Throat without erythema, tonsillar hypertrophy or exudate. Airway patent. NECK: Trachea midline. Non tender CARDIOVASCULAR: Regular rate and rhythm without murmurs, gallops, or rubs. RESPIRATORY: Unable to assess prior to breathing treatment being given. After breathing treatment lungs were Clear to auscultation. Breath sounds equal bilaterally. No wheezes, rales, or rhonchi. GASTROINTESTINAL: Abdomen soft, non-tender, nondistended. EXTREMITIES: No edema or joint tenderness. BACK: Nontender without deformity or crepitance. No flank tenderness. NEURO: AOx3. SKIN: No rash or erythema of visible areas Initial Vital Signs Initial Vital Signs: Vital Signs Temperature 98 F 04/25/23 17:21 Pulse Rate 82 04/25/23 17:21 Respiratory Rate 18 04/25/23 17:21 Blood Pressure 99/65 04/25/23 17:21 Pulse Oximetry 96 04/25/23 17:21 Oxygen Delivery Method Room Air 04/25/23 17:21 <Rosmery Goldstein DO - Last Filed: 04/25/23 18:41> Initial Vital Signs Initial Vital Signs: Vital Signs Temperature 98 F 04/25/23 17:21 Pulse Rate 82 04/25/23 17:21 Respiratory Rate 18 04/25/23 17:21 Blood Pressure 99/65 04/25/23 17:21 Pulse Oximetry 96 04/25/23 17:21 Oxygen Delivery Method Room Air 04/25/23 17:21 Course <Irving Wilson PA-C - Last Filed: 04/25/23 18:21> Orders Ordered: ED Orders 04/25/23 17:29 RT Consult Eval and Treat NOW Discontinued Medications Albuterol/Ipratropium (Albuterol/Ipratropium 3 Ml Ampul) 3 ml INH NOW ONE Stop: 04/25/23 17:41 Last Admin: 04/25/23 17:50 Dose: 3 ml Documented By: RADHA Prednisone (Prednisone 20 Mg Tablet) 40 mg PO NOW ONE Stop: 04/25/23 17:48 Last Admin: 04/25/23 18:00 Dose: 40 mg Documented By: JUSTIN Vital Signs Vital signs: Vital Signs - 8 hr 04/25/23 17:21 04/25/23 17:50 Temperature 98 F Pulse Rate 82 81 Respiratory Rate 18 16 Blood Pressure 99/65 Pulse Oximetry 96 94 Oxygen Delivery Method Room Air Room Air <Rosmery Goldstein DO - Last Filed: 04/25/23 18:41> Orders Ordered: ED Orders 04/25/23 17:29 RT Consult Eval and Treat NOW Discontinued Medications Albuterol/Ipratropium (Albuterol/Ipratropium 3 Ml Ampul) 3 ml INH NOW ONE Stop: 04/25/23 17:41 Last Admin: 04/25/23 17:50 Dose: 3 ml Documented By: RADHA Prednisone (Prednisone 20 Mg Tablet) 40 mg PO NOW ONE Stop: 04/25/23 17:48 Last Admin: 04/25/23 18:00 Dose: 40 mg Documented By: JUSTIN Vital Signs Vital signs: Vital Signs - 8 hr 04/25/23 17:21 04/25/23 17:50 Temperature 98 F Pulse Rate 82 81 Respiratory Rate 18 16 Blood Pressure 99/65 Pulse Oximetry 96 94 Oxygen Delivery Method Room Air Room Air MDM - SOB/Dyspnea <Irving Wilson PA-C - Last Filed: 04/25/23 18:21> MDM Narrative Medical decision making narrative: MDM * differential diagnosis includes but not limited to asthma exacerbation, pneumonia, URI, COVID-19, COPD exacerbation * Prior records reviewed: Patient was seen here approximately 4 years ago due to wheezing. Received nebulizer treatment in the emergency department with improved symptoms. * My lab interpretation: None obtained * My imaging interpretation: None obtained this is a 58-year-old female with a history of asthma presents to the emergency department due to a mild asthma exacerbation. Patient ran of her usual rescue inhaler causing her to come in due to worsening symptoms. Patient not present with a significant chest pain, fevers, abdominal pain, or any other concerning signs or symptoms. Patient was giving breathing treatment as well as 40 mg of prednisone p.o. which significantly helped improve her symptoms. No wheezing after treatment. Kenton perez will be prescribed a refill of her albuterol inhaler and recommended she follow up with the primary care provider for continued care. * Clinical Decision Rules/Scores evaluated: None * Independent discussions with: None ED Course: Shared Decision Making: Discussed plan with patient who is comfortable with the plan Social Considerations: None Disposition: Discharged to home Discharge Plan Departure Patient Disposition: Home Clinical Impression: Asthma with exacerbation Instructions: DI for Asthma -- Adult Activity Restrictions/Additional Instructions: Thank you for coming to the [facility] Emergency Department today. I am glad you are feeling better after the breathing treatments steroids. I have refilled your medication and sent to the [facility]'s in [place]. Please follow up with the primary care provider for continued care. I hope you feel better soon. Please follow up with your primary care provider within a week if your symptoms continue. If you do not have a primary care provider please contact the [facility] Resource line at [phone]. They will ask some questions about your medical history and help you get set up with a provider in the community. Prescriptions: New albuterol sulfate 90 mcg/actuation aerosol powdr breath activated 1 inh inhalation Q4-6H PRN (Reason: shortness of breath) Qty: 1 0RF No Action albuterol sulfate [Ventolin HFA] 90 mcg/actuation HFA aerosol inhaler 1 puff INHALATION QID PRN (Reason: shortness of breath or wheezing) Qty: 18 6RF fluocinonide 0.1 % cream 1 applic topical BID PRN (Reason: rash) Qty: 60 0RF Combivent Respimat 20-100 mcg/actuation mist 1 puff INHALATION QID Qty: 4 11RF Rx Instructions: space evenly during waking hours fluticasone propion-salmeterol [Wixela Inhub] 250-50 mcg/dose blister with device 1 inh inhalation BID Qty: 60 1RF Rx Instructions: PT WILL NEED TO BE SEEN BEFORE ANYMORE FILL 01/26/23 ibuprofen 800 mg tablet 800 mg PO TID PRN (Reason: pain) Qty: 90 0RF Hold Instructions: While on Ketorolac estradiol 1 mg tablet 1 mg PO QDAY Qty: 90 3RF ipratropium-albuterol 0.5 mg-3 mg(2.5 mg base)/3 mL solution for nebulization 3 ml inhalation BEDTIME PRN (Reason: shortness of breath or wheezing) Qty: 90 1RF Referrals: Lazaro Solorzano MD [Primary Care Provider] - Stand Alone Forms: Patient Portal/API <Rosmery Goldstein DO - Last Filed: 04/25/23 18:41> Cosign ED Attending Jennieature Attestation: I was immediately available in the department for consultation. Documentation has been reviewed.
[2023-04-25 18:11] VITALS: BP 135/79; PULSE 81; RESP 19; O2SAT 94
== END 2023-04-25 18:35 | disposition home or self-care (01) ==
PROVIDERS: Emergency Provider Physician Assistant Medical; Family Provider Physician Assistant; PCP Student in an Organized Health Care Education/Training Program
DX: J45.901 Unspecified asthma with (acute) exacerbation (principal)
CPT/HCPCS: 94640; 99283

== ENCOUNTER 2024-03-21 11:19 | Inpatient (IN) | payer OTHER, SELFPAY ==
[2024-03-21] VITALS (32 sets, daily range): BP systolic 98–147; BP diastolic 54–72; PULSE 78–112; RESP 17–35; TEMP 37.2–37.6; O2SAT 91–98; BMI 22.3; BMI 23.3
[2024-03-21] MEDS: MORPHINE 4 MG/ML INJ IV ×2 (11:29→14:25)
[2024-03-21] MEDS: ONDANSETRON 4 MG/2 ML INJ IV (11:29)
[2024-03-21 11:41] LABS: Add Manual Diff / Slide Review NO; Basophils Absolute Auto 0 /uL (0-100); Basophils Percent Auto 0.2 % (0-2); Eosinophils Absolute Auto 0 /uL (0-450); Hematocrit 36.7 % (36-46); Hemoglobin 12.1 g/dL (12.0-16.0); Lymphocytes Absolute Auto 900 /uL (1100-4500); Lymphocytes Percent Auto 4.1 % (25-40); Monocytes Absolute Auto 500 /uL (0-900); Monocytes Percent Auto 2.2 % (3-14); Neutrophils Absolute Auto 20100 /uL (1500-7000); Neutrophils Percent Auto 93.5 % (50-75); Platelet Count 316 X10^3/uL (150-400); Red Blood Cell Count 4.03 X10^6/uL (4.0-5.2); Red Cell Distribution Width 13.1 % (11.6-14.8); White Blood Cell Count 21.5 X10^3/uL (4.5-11.0)
[2024-03-21 11:51] LABS: Alanine Aminotransferase 21 IU/L (<35); Albumin 4.1 g/dL (3.5-5.0); Albumin Globulin Ratio 1.5 (1.0-2.8); Alkaline Phosphatase 67 U/L (38-126); Aspartate Aminotransferase 24 IU/L (14-36); BUN Creatinine Ratio 41.9 (6-22); Bilirubin Total 0.5 mg/dL (0.2-1.3); Blood Urea Nitrogen 26 mg/dL (7-17); Calcium 9.1 mg/dL (8.4-10.2); Carbon Dioxide 27 mmol/L (22-32); Chloride 105 mmol/L (98-107); Estimated Glomerular Filt Rate > 60 mL/min (>60); Globulin 2.8 g/dL (1.7-4.1); Glucose 133 mg/dL (70-100); HEMOLYSIS 22 (0-50); Lipase 37 U/L (23-300); Potassium 4.1 mmol/L (3.4-5.1); Sodium 137 mmol/L (137-145); Total Protein 6.9 g/dL (6.3-8.2)
--- NOTE | 2024-03-21 11:55 | EKG_ITS ---
[address] [address] Test Date: 2024-03-21 Pat Name: Debbie Dixon Department: [facility] Room: Gender: Female Web Services Developer: : [id number] Requested By: Order Number: [id number] Reading MD: Spike Sánchez MD Measurements Intervals [place] Rate: 80 P: 63 WV: 154 QRS: 65 QRSD: 80 T: 59 QT: 366 QTc: 422 Interpretive Statements Normal sinus rhythm with sinus arrhythmia Electronically Signed On 03-21-2024 12:03:03 PDT by Spike Sánchez MD
--- NOTE | 2024-03-21 13:27 | ED.ABDPAIN ---
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 States little bit of back pain but states it is mostly in the front. She states she has had bowel movements she denies black or bloody stools denies diarrhea or constipation. States she was felt like she is needed to urinate and felt very painful when she needs to urinate but has not been able to actually urinate since this morning. Patient appears quite uncomfortable during evaluation. She states she is on prescription medications but has trouble remembering what they are currently. States she has had prior splenectomy. Denies any drug allergies, uses tobacco daily denies alcohol denies recreational drugs but has history of methamphetamine and opiate abuse. Primary care physician is Dr. Sanchez. Related Data Home Medications Medication Instructions Recorded Confirmed progesterone micronized 100 mg 100 mg PO ONCE PM 01/25/24 01/25/24 capsule Previous Rx's Medication Instructions Recorded albuterol sulfate 90 mcg/actuation 1 inh inhalation Q4-6H PRN 04/25/23 breath activated powder inhaler shortness of breath #1 ea albuterol sulfate 90 mcg/actuation 1 puff inhalation QID PRN 04/28/23 aerosol inhaler (Ventolin HFA) shortness of breath or wheezing #18 grams fluticasone 250 mcg-salmeterol 50 1 inh inhalation BID #60 ea 08/24/23 mcg/dose blistr powdr for inhalation (Advair Diskus) ipratropium 20 mcg-albuterol 100 1 puff inhalation QID #4 grams 08/24/23 mcg/actuation mist for inhalation (Combivent Respimat) ibuprofen 800 mg tablet 800 mg PO QD-TID PRN severe back 11/30/23 or joint pain #90 tabs amoxicillin 875 mg-potassium 1 tab PO BID #14 tabs 01/25/24 clavulanate 125 mg tablet estradiol 1 mg tablet 1 mg PO QDAY #90 tabs 07/22/24 Allergies Allergy/AdvReac Type Severity Reaction Status Date / Time No Known Drug Allergies Allergy Verified 03/21/24 11:20 Review of Systems Review of Systems ROS Unobtainable: All systems reviewed & are unremarkable except as noted in HPI and below Patient History Medical History Eczema, dyshidrotic (~2020) Anxiety Chronic hepatitis C Osteoarthritis of both hands Hepatitis C antibody test positive Arthritis (Unknown) Chronic neck pain (Unknown) Hx of idiopathic thrombocytopenic purpura (2007) Surgical History Anesthesia H/O hernia repair Hx of arthroscopy of knee (~2002) History of splenectomy (2007) Status post knee replacement Family History Family/Other Adopted Social History Smoking Status: Current every day smoker quit status: considering quitting alcohol intake: current substance use type: does not use Smoking Status: Current every day smoker alcohol intake frequency: a few times a month Substance Use Type: does not use Exam Narrative Exam Narrative: GENERAL: Alert and oriented x three, thin female in moderate distress. HEENT: Head normocephalic, atraumatic, EOMI, pupils reactive, face symmetric, mucous membranes appear dry NECK: Supple, full range of motion CARDIOVASCULAR: Regular rate and rhythm without murmurs, rubs or gallops. No edema bilateral lower extremities. RESPIRATORY: Breath sounds equal bilaterally, no wheezes rales or rhonchi. No tachypnea, no accessory muscle use. ABDOMEN: Soft, patient is slightly distended. She has quite a bit of tenderness bilateral lower abdomen is equal left compared to right.. Normoactive bowel sounds all 4 quadrants. No guarding, positive for rebound, rigidity, no mass, patient has healed incisions consistent with prior splenectomy history. : No CVA tenderness EXTREMITIES: Normal range of motion, no clubbing or edema. Neurovascularly intact NEUROLOGICAL: Cranial nerves II through XII grossly intact. Moving all extremities SKIN: Warm, dry, no petechiae, no rashes or lesions. Initial Vital Signs Initial Vital Signs: Vital Signs Temperature 99.1 F 03/21/24 11:20 Pulse Rate 78 03/21/24 11:20 Respiratory Rate 17 03/21/24 11:20 Blood Pressure 135/64 03/21/24 11:20 Pulse Oximetry 95 03/21/24 11:20 Oxygen Delivery Method Room Air 03/21/24 11:20 Course Orders Ordered: ED Orders 03/21/24 11:15 Complete Blood Count AUTO DIFF Stat Comprehensive Metabolic Panel Stat Lactate (Lactic Acid) Stat Lipase Stat Procalcitonin Stat 03/21/24 11:20 EKG-12 Lead Stat 03/21/24 13:34 CT abdomen pelvis w con Stat 03/21/24 13:59 Blood Culture Stat 03/21/24 14:16 Ammonia (NH3) Stat 03/21/24 14:30 UA Complete [Urinalysis and Microscopic] Stat 03/21/24 16:06 US abdomen limited Stat 03/21/24 16:11 GI Panel (Film Array) Stat Sodium Chloride (Normal Saline 0.9%) 1,000 mls @ 1,000 mls/hr IV BOLUS ONE Stop: 03/21/24 19:12 Last Admin: 03/21/24 18:26 Dose: 1,000 mls/hr Documented By: EDWIN Ondansetron HCl (Ondansetron 4 Mg/2 Ml Inj) 4 mg IV NOW PRN PRN Reason: Nausea And Vomiting Last Admin: 03/21/24 11:29 Dose: 4 mg Documented By: EDWIN Ondansetron HCl (Ondansetron 4 Mg Odt) 4 mg PO NOW PRN PRN Reason: Nausea And Vomiting Discontinued Medications Lactated Ringer's (Lactated Ringers) 1,769.01 mls @ 589.67 mls/hr 30 ml/kg infuse over 3 hr (1769.01 ml) IV NOW ONE Stop: 03/21/24 16:33 Last Infusion: 03/21/24 17:30 Dose: Infused Documented By: Admin: 03/21/24 14:32 Dose: 589.67 mls/hr Documented By: EDWIN Piperacillin Sod/Tazobactam (Sod 4.5 gm/ Sodium Chloride) 100 mls @ 200 mls/hr IV NOW ONE Stop: 03/21/24 13:35 Last Infusion: 03/21/24 15:40 Dose: Infused Documented By: Admin: 03/21/24 14:34 Dose: 200 mls/hr Documented By: EDWIN Morphine Sulfate (Morphine 4 Mg/Ml Inj) 4 mg IV NOW ONE Stop: 03/21/24 11:22 Last Admin: 03/21/24 11:29 Dose: 4 mg Documented By: EDWIN Morphine Sulfate (Morphine 4 Mg/Ml Inj) 4 mg IV NOW ONE Stop: 03/21/24 13:36 Last Admin: 03/21/24 14:25 Dose: 4 mg Documented By: EDWIN Vital Signs Vital signs: Vital Signs - 8 hr 03/21/24 11:20 03/21/24 11:21 03/21/24 11:30 Temperature 99.1 F Pulse Rate 78 80 93 H Respiratory Rate 17 Blood Pressure 135/64 Pulse Oximetry 95 98 96 Oxygen Delivery Method Room Air 03/21/24 11:30 03/21/24 12:00 03/21/24 12:02 Temperature Pulse Rate 79 Respiratory Rate 22 Blood Pressure 147/65 H 117/62 Pulse Oximetry 93 Oxygen Delivery Method Room Air 03/21/24 12:02 03/21/24 12:30 03/21/24 12:30 Temperature Pulse Rate 80 86 Respiratory Rate 26 H 17 Blood Pressure 120/59 L Pulse Oximetry 94 94 Oxygen Delivery Method 03/21/24 13:00 03/21/24 13:00 03/21/24 13:30 Temperature Pulse Rate 88 97 H Respiratory Rate 23 22 Blood Pressure 128/58 L Pulse Oximetry 94 95 Oxygen Delivery Method Room Air 03/21/24 13:30 03/21/24 14:00 03/21/24 14:00 Temperature Pulse Rate 95 H Respiratory Rate 24 Blood Pressure 125/58 L 120/59 L Pulse Oximetry 95 Oxygen Delivery Method 03/21/24 14:30 03/21/24 14:30 03/21/24 15:00 Temperature Pulse Rate 93 H 101 H Respiratory Rate 25 H 19 Blood Pressure 141/72 H Pulse Oximetry 95 94 Oxygen Delivery Method Room Air 03/21/24 15:20 03/21/24 15:20 03/21/24 15:30 Temperature Pulse Rate 98 H Respiratory Rate 20 Blood Pressure 132/62 136/64 Pulse Oximetry 94 Oxygen Delivery Method 03/21/24 15:30 03/21/24 16:00 03/21/24 16:00 Temperature Pulse Rate 100 H 103 H Respiratory Rate 19 19 Blood Pressure 136/68 Pulse Oximetry 95 94 Oxygen Delivery Method Room Air 03/21/24 16:05 03/21/24 16:30 03/21/24 16:32 Temperature 99.0 F Pulse Rate 109 H 109 H Respiratory Rate 23 22 Blood Pressure Pulse Oximetry 93 94 Oxygen Delivery Method 03/21/24 16:32 03/21/24 17:00 03/21/24 17:00 Temperature Pulse Rate 96 H Respiratory Rate 18 Blood Pressure 118/54 L 125/60 Pulse Oximetry 94 Oxygen Delivery Method Room Air 03/21/24 17:30 03/21/24 17:30 03/21/24 18:00 Temperature Pulse Rate 99 H 102 H Respiratory Rate 17 17 Blood Pressure 130/62 Pulse Oximetry 94 92 Oxygen Delivery Method 03/21/24 18:01 03/21/24 18:01 Temperature Pulse Rate 102 H Respiratory Rate 20 Blood Pressure 104/57 L Pulse Oximetry 93 Oxygen Delivery Method Room Air MDM - Abdominal Pain Lab Data 03/21/24 11:15 03/21/24 11:15 Labs: Lab Results 03/21/24 03/21/24 03/21/24 Range/Units 11:15 14:16 14:30 WBC 21.5 H (4.5-11.0) X10^3/uL RBC 4.03 (4.0-5.2) X10^6/uL Hgb 12.1 (12.0-16.0) g/dL Hct 36.7 (36-46) % MCV 91.0 (80-100) fL MCH 30.0 (26-34) PG MCHC 33.0 (30-36) % RDW 13.1 (11.6-14.8) % Plt Count 316 (150-400) X10^3/uL Neut % (Auto) 93.5 H (50-75) % Lymph % (Auto) 4.1 L (25-40) % Centre % (Auto) 2.2 L (3-14) % Eos % (Auto) 0.0 L (2-4) % Baso % (Auto) 0.2 (0-2) % Neut # (Auto) 26106 H (7450-0216) /uL Lymph # (Auto) 900 L (5281-0928) /uL Centre # (Auto) 500 (0-900) /uL Eos # (Auto) 0 (0-450) /uL Baso # (Auto) 0 (0-100) /uL Sodium 137 (137-145) mmol/L Potassium 4.1 (3.4-5.1) mmol/L Chloride 105 (98-107) mmol/L Carbon Dioxide 27 (22-32) mmol/L BUN 26 H (7-17) mg/dL Creatinine 0.62 (0.52-1.04) mg/dL Estimated GFR > 60 (>60) mL/min BUN/Creatinine Ratio 41.9 H (6-22) Glucose 133 H (70-100) mg/dL Lactate 1.7 (0.7-2.1) mmol/L Calcium 9.1 (8.4-10.2) mg/dL Total Bilirubin 0.5 (0.2-1.3) mg/dL AST 24 (14-36) IU/L ALT 21 (<35) IU/L Alkaline Phosphatase 67 (38-126) U/L Ammonia < 9 L (9-30) umol/L Total Protein 6.9 (6.3-8.2) g/dL Albumin 4.1 (3.5-5.0) g/dL Globulin 2.8 (1.7-4.1) g/dL Albumin/Globulin Ratio 1.5 (1.0-2.8) Lipase 37 (23-300) U/L Procalcitonin 1.33 H (<0.5) ng/mL Urine Color Yellow Urine Appearance Clear Urine pH 8.5 H (4.5-8.0) Ur Specific [place] 1.015 (1.000-1.035) Urine Protein Trace H (Negative) Urine Glucose (UA) Negative (Negative) g/dL Urine Ketones Negative (NEGATIVE) Urine Occult Blood Negative (Negative) Urine Nitrate Negative (Negative) Urine Bilirubin Negative (NEGATIVE) Urine Urobilinogen 1.0 (0.2) E.U./dL Ur Leukocyte Esterase Negative (NEGATIVE) Urine RBC None seen (0-5/HPF) Urine WBC 0-1/hpf (0-5/HPF) Ur Squamous Epith Cells 1-5 /hpf (0-5/HPF) Urine Bacteria None seen (None) Ur Culture Indicated? Cult not indicated Vol Urine Centrifuged 10ml (spun) Imaging Data CT scan - abdomen/pelvis: Radiologist's Impression: Debbie Dixon??58??F??1965 ? Allergy/Adv: No Known Drug Allergies Close Abdomen/Pelvis CT (Signed) Herberth Pop - 03/21/24 Chest X-Ray (Signed) Dima Balderrama - 05/24/22 PFT Result 07/15/19 Chest X-Ray (Signed) Srinath Waters - 05/26/19 Knee MRI (Signed) Mathieu Preciado - 01/20/19 Hand X-Ray (Signed) Mathieu Preciado - 11/20/18 Shoulder X-Ray (Signed) Srinath Waters - 03/19/18 [facility]?[place] [address] CT Scan Report Signed Patient: Debbie Dixon MR#: [id number] : 1965 Acct:[id number] Age/Sex: 58 / F Date of Service: 03/21/24 Loc: ED Accession Number: [id number] Procedure: CT abdomen pelvis w con Ordering Provider: Rosmery Goldstein D.O. PROCEDURE: CT ABDOMEN PELVIS W CON INDICATIONS: abd pain, b/l lower, hx splenectomy for itp TECHNIQUE: After the administration of intravenous contrast, axial sections acquired from the lung bases to the pubic symphysis. Coronal and sagittal reformats were performed. For radiation dose reduction, the following was used: automated exposure control, adjustment of mA and/or kV according to patient size. COMPARISON: None. FINDINGS: Image quality: Diagnostic Lower chest: Lower lung atelectasis. Change moderately patulous esophagus, with mild distal wall thickening and fluid. Liver: There is nonspecific periportal edema Gallbladder and biliary system: Gallbladder is mildly distended. CBD is at the upper limit of normal, about 7 mm. There is mild intrahepatic dilation Pancreas: No ductal dilation Spleen: Absent Adrenals: No discrete nodules Kidneys: No solid mass or hydronephrosis Vessels and lymph nodes: The main portal vein is patent. No abdominal aortic aneurysm. No pathologic lymph nodes by size criteria. Bowel and peritoneum: The stomach is moderately distended. There is no acute small bowel obstruction. There is moderate wall thickening throughout the jejunal loops. There is also moderate to large fecal loading. Small amount pelvic ascites. There is no drainable abscess. Scattered segmental areas of colonic wall thickening and under distention, for example in the mid descending colon Body wall: Small fat containing midline ventral hernias Pelvis: Bladder is not well evaluated on this study. Carreno is in place. Unremarkable limited CT evaluation of the reproductive organs Bones: Degenerative changes. No acute or suspicious abnormality. IMPRESSION: Moderate multifocal findings of enterocolitis. There is no acute small bowel obstruction. Overall moderate to large fecal loading also seen. Nonspecific periportal edema in the liver, as well as small ascites. Mildly distended biliary tree and gallbladder, consider LFT correlation. Moderately patulous distal esophagus, possibly related to esophagitis and reflux. Consider endoscopy correlation if needed. Other findings as above. Dictated by: Herberth Pop M.D. on 03/21/2024 at 15:18 Approved by: Herberth Pop M.D. on 03/21/2024 at 15:25 ECG Data Attestation: I personally reviewed and interpreted this ECG as follows: Prior ECG tracings: available for review Interpretation: Sinus rhythm with sinus arrhythmia rate 80 WA 154 QRS 80 QTC 422, no acute ST elevation, possible artifact in V2. No other acute ST changes appreciated. Patient has prior from 05/24/2019 which appears similar no acute ST changes noted. MDM Narrative Medical decision making narrative: 58-year-old history of prior splenectomy, patient presents with the acute lower abdominal pain bilateral with some difficulty with urination the past 12-24 hours. Patient is afebrile did have a heart rate in the 90s initially, has not been hypotensive but has a white count of 21, patient is painful on examination. Patient's hemoglobin is 12 platelets are 316 predominance of neutrophils, total neutrophil count is 20,000 range. Electrolytes are overall appropriate, BUN 26, creatinine 0.62 glucose is 133 calcium is 9.1, bilirubin AST ALT are all appropriate lipase is negative. Patient has not been able to give a urine. Patient given sepsis fluids, lactate, blood cultures and procalcitonin were added on. Patient is started on IV antibiotic with Zosyn. Patient had bladder scan to evaluate for urinary retention. They show 270 on bladder scan. Patient had Carreno catheter placed. Lactate normal at 1.7 ammonia is less than 9, procalcitonin is 1.33. Cath urine shows pH 8.5 trace protein negative glucose negative for ketones blood, negative for nitrates bilirubin no RBCs 1 white cell 1-5 squamous no bacteria. Plan for CT abdomen pelvis to evaluate for diverticulitis, colitis, urinary infection versus other.? Patient did receive a dose of pain medication somewhat helpful but she is still very uncomfortable. CT abdomen pelvis shows moderate multifocal findings of enterocolitis no acute small-bowel obstruction. Overall moderate to large fecal loading also seen. Nonspecific periportal edema in the liver as well as small ascites. Mildly distended biliary tree and gallbladder considered LFT correlation, moderately patulous distal esophagus. On recheck patient states she feels improved but is still very tender on examination she is tender in right upper quadrant but throughout her abdomen as well. Plan for abdominal ultrasound limited to evaluate gallbladder. Patient states she has had some diarrhea we will attempt to get a GI panel for her colitis with white count positive procalcitonin. Patient has been afebrile heart rates been slowly increasing over time, blood pressure has not dropped no hypoxia increased respiratory rate but patient is quite uncomfortable on exam she generally appears unwell. White count of 21 with a positive procalcitonin. Patient is quite tender particularly in the right upper quadrant but throughout exam. CT shows possible some gallbladder changes but also some moderate enterocolitis. Discussed with Dr. Aquino on-call for General surgery we will obtain abdominal ultrasound if negative admit to medicine for observation they are happy to consult. If positive to re-contact. Agrees with plan to cover with IV antibiotics. Ultrasound shows overall echogenicities mildly heterogeneous increased suspect periportal edema and echogenicity. Capsular fluid present possible free fluid adjacent to gallbladder which is distended CBD measures 12 mm no intrahepatic dilation. Pancreatic head unremarkable. Correlate with LFTs MRCP or ERCP further eval needed. Not specific free fluid adjacent to gallbladder and liver. No sonographic Fuentes's sign. Spoke with Dr. Torres who reviewed antibiotics so far asked for call for PICC line to be placed as patient is tachycardic is increased throughout the day her blood pressure slowly decreased. Dr. Torres saw patient in the department. Call out for PICC line. Re-contacted Dr. Aquino for formal consult and evaluation as patient is still significantly tender on exam with slowly worsening vitals. Critical Care Time Critical Care Time Critical Care Time: Yes Total Critical Care Time: 45 Attestation: The high probability of a clinically significant, sudden or life threatening deterioration of the cardiac, GI system(s) required my full and direct attention, intervention and personal management. The aggregate critical care time was [--] minutes. This time is in addition to time spent performing reported procedures but includes the following: [x] Data Review and interpretation [x] Patient assessment and monitoring of vital signs [x] Documentation [x] Medication orders and management Discharge Plan Departure Patient Disposition: Admitted As Inpatient Clinical Impression: Sepsis, Enterocolitis Admit Date/Time: 03/21/24 18:14 Admit Provider: Tacho Torres
--- NOTE | 2024-03-21 13:34 | DI.CT.S_ITS ---
PROCEDURE: CT ABDOMEN PELVIS W CON INDICATIONS: abd pain, b/l lower, hx splenectomy for itp TECHNIQUE: After the administration of intravenous contrast, axial sections acquired from the lung bases to the pubic symphysis. Coronal and sagittal reformats were performed. For radiation dose reduction, the following was used: automated exposure control, adjustment of mA and/or kV according to patient size. COMPARISON: None. FINDINGS: Image quality: Diagnostic Lower chest: Lower lung atelectasis. Change moderately patulous esophagus, with mild distal wall thickening and fluid. Liver: There is nonspecific periportal edema Gallbladder and biliary system: Gallbladder is mildly distended. CBD is at the upper limit of normal, about 7 mm. There is mild intrahepatic dilation Pancreas: No ductal dilation Spleen: Absent Adrenals: No discrete nodules Kidneys: No solid mass or hydronephrosis Vessels and lymph nodes: The main portal vein is patent. No abdominal aortic aneurysm. No pathologic lymph nodes by size criteria. Bowel and peritoneum: The stomach is moderately distended. There is no acute small bowel obstruction. There is moderate wall thickening throughout the jejunal loops. There is also moderate to large fecal loading. Small amount pelvic ascites. There is no drainable abscess. Scattered segmental areas of colonic wall thickening and under distention, for example in the mid descending colon Body wall: Small fat containing midline ventral hernias Pelvis: Bladder is not well evaluated on this study. Carreno is in place. Unremarkable limited CT evaluation of the reproductive organs Bones: Degenerative changes. No acute or suspicious abnormality. IMPRESSION: Moderate multifocal findings of enterocolitis. There is no acute small bowel obstruction. Overall moderate to large fecal loading also seen. Nonspecific periportal edema in the liver, as well as small ascites. Mildly distended biliary tree and gallbladder, consider LFT correlation. Moderately patulous distal esophagus, possibly related to esophagitis and reflux. Consider endoscopy correlation if needed. Other findings as above. Dictated by: eHrberth Pop M.D. on 03/21/2024 at 15:18 Approved by: Herberth Pop M.D. on 03/21/2024 at 15:25
[2024-03-21 13:53] LABS: Lactate (Lactic Acid) 1.7 mmol/L (0.7-2.1)
[2024-03-21 14:10] LABS: Procalcitonin 1.33 ng/mL (<0.5)
[2024-03-21] MEDS: LACTATED RINGERS 1,769.01 ML 589.67 ML IV (14:32)
[2024-03-21] MEDS: PIPERACILLIN/TAZO 4.5 GM in SODIUM CHLORIDE 0.9% 100 ML IV (14:34)
[2024-03-21 14:36] LABS: Appearance Urine UA CLEAR; Bilirubin Urine UA NEGATIVE (NEGATIVE); Color Urine UA YELLOW; Glucose Urine UA NEGATIVE (Negative); Ketones Urine UA NEGATIVE (NEGATIVE); Leukocyte Esterase Urine UA NEGATIVE (NEGATIVE); Nitrite Urine UA NEGATIVE (Negative); Occult Blood Urine UA NEGATIVE (Negative); Protein Urine UA TRACE (Negative); Specific Gravity Urine UA 1.015 (1.000-1.035)
[2024-03-21 14:40] LABS: Ammonia (NH3) < 9 umol/L (9-30)
[2024-03-21 14:43] LABS: pH Urine UA 8.5 (4.5-8.0)
[2024-03-21 14:51] LABS: Bacteria Urine None Seen; RBC Urine None Seen (0-5/HPF); Squamous Epithelial Cell Urine 1-5 /HPF (0-5/HPF); Urine Volume 10mL (spun); WBC Urine 0-1/HPF (0-5/HPF)
[2024-03-21 14:52] LABS: Culture Indicated Urine Cult Not Indicated
--- NOTE | 2024-03-21 16:06 | DI.US.S_ITS ---
PROCEDURE: US ABDOMEN LIMITED INDICATIONS: abd pain, gallbladder thickend, r/o cholecystitis TECHNIQUE: Real-time focused scanning was performed of the abdomen, with image documentation. COMPARISON: None. FINDINGS: Liver measures 16 cm. Overall echogenicity is mildly heterogeneous and increased. Suspected periportal edema and echogenicity, and pericapsular fluid is present. Possible free fluid adjacent to the gallbladder, which is distended. No radiopaque stones or focal tenderness. CBD measures 12 mm. There is intrahepatic dilation. Pancreatic head is unremarkable. IMPRESSION: Nonspecific heterogeneous echogenic appearance of the liver, particularly along the portal triads, correlate with LFTs. Findings may represent hepatitis or reactive edema to other causes. Biliary ductal dilation is seen. Correlate with LFTs. MRCP or ERCP could further evaluate if needed. Nonspecific free fluid adjacent to the gallbladder and liver. No sonographic Fuentes sign. Dictated by: Herberth Pop M.D. on 03/21/2024 at 17:32 Approved by: Herberth Pop M.D. on 03/21/2024 at 17:34
--- NOTE | 2024-03-21 18:09 | P.HP_ITS ---
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 States little bit of back pain but states it is mostly in the front. She states she has had bowel movements she denies black or bloody stools denies diarrhea or constipation. States she was felt like she is needed to urinate and felt very painful when she needs to urinate but has not been able to actually urinate since this morning. Patient appears quite uncomfortable during evaluation. She states she is on prescription medications but has trouble remembering what they are currently. States she has had prior splenectomy. Denies any drug allergies, uses tobacco daily denies alcohol denies recreational drugs but has history of methamphetamine and opiate abuse. Primary care physician is Dr. Sanchez. Additional informational: She has been ill for about 2 days. She was diffuse abdominal pain which feels cramping like gas pain. She has had some small amounts of diarrhea but nothing high volume or constant. She has had pain like this before which improved with a GI cocktail. She denies any fevers, chills, vomiting, or hematemesis. No hematuria, or dysuria. A Carreno was placed in the ED with a about 300 mL of urine out. She notes some difficulty getting her urine to come out recently but no bleeding, or burning. [facility] Medical History Eczema, dyshidrotic (~2020) Anxiety Chronic hepatitis C Osteoarthritis of both hands Hepatitis C antibody test positive Arthritis (Unknown) Chronic neck pain (Unknown) Hx of idiopathic thrombocytopenic purpura (2007) Surgical History Anesthesia H/O hernia repair Hx of arthroscopy of knee (~2002) History of splenectomy (2007) Status post knee replacement Family History Family/Other Adopted Social History Smoking Status: Current every day smoker quit status: considering quitting alcohol intake: current substance use type: does not use Meds Home Medications and Allergies Home Medications Medication Instructions Recorded Confirmed Type albuterol sulfate 90 mcg/actuation 1 inh inhalation Q4-6H PRN 04/25/23 01/25/24 Rx breath activated powder inhaler shortness of breath #1 ea albuterol sulfate 90 mcg/actuation 1 puff inhalation QID PRN 04/28/23 01/25/24 Rx aerosol inhaler (Ventolin HFA) shortness of breath or wheezing #18 grams fluticasone 250 mcg-salmeterol 50 1 inh inhalation BID #60 ea 08/24/23 01/25/24 Rx mcg/dose blistr powdr for inhalation (Advair Diskus) ipratropium 20 mcg-albuterol 100 1 puff inhalation QID #4 grams 08/24/23 01/25/24 Rx mcg/actuation mist for inhalation (Combivent Respimat) ibuprofen 800 mg tablet 800 mg PO QD-TID PRN severe back 11/30/23 01/25/24 Rx or joint pain #90 tabs amoxicillin 875 mg-potassium 1 tab PO BID #14 tabs 01/25/24 01/25/24 Rx clavulanate 125 mg tablet progesterone micronized 100 mg 100 mg PO ONCE PM 01/25/24 01/25/24 History capsule estradiol 1 mg tablet 1 mg PO QDAY #90 tabs 03/07/24 Rx Allergies Allergy/AdvReac Type Severity Reaction Status Date / Time No Known Drug Allergies Allergy Verified 03/21/24 11:20 Review of Systems Review of Systems Narrative: All else reviewed and otherwise unremarkable except as noted in the history and physical. Exam Vital Signs (past 8 hours): - 03/21/24 11:20 03/21/24 11:21 03/21/24 11:30 Temperature 99.1 F Pulse Rate 78 80 93 H Respiratory Rate 17 Blood Pressure 135/64 Pulse Oximetry 95 98 96 Oxygen Delivery Method Room Air 03/21/24 11:30 03/21/24 12:00 03/21/24 12:02 Temperature Pulse Rate 79 Respiratory Rate 22 Blood Pressure 147/65 H 117/62 Pulse Oximetry 93 Oxygen Delivery Method Room Air 03/21/24 12:02 03/21/24 12:30 03/21/24 12:30 Temperature Pulse Rate 80 86 Respiratory Rate 26 H 17 Blood Pressure 120/59 L Pulse Oximetry 94 94 Oxygen Delivery Method 03/21/24 13:00 03/21/24 13:00 03/21/24 13:30 Temperature Pulse Rate 88 97 H Respiratory Rate 23 22 Blood Pressure 128/58 L Pulse Oximetry 94 95 Oxygen Delivery Method Room Air 03/21/24 13:30 03/21/24 14:00 03/21/24 14:00 Temperature Pulse Rate 95 H Respiratory Rate 24 Blood Pressure 125/58 L 120/59 L Pulse Oximetry 95 Oxygen Delivery Method 03/21/24 14:30 03/21/24 14:30 03/21/24 15:00 Temperature Pulse Rate 93 H 101 H Respiratory Rate 25 H 19 Blood Pressure 141/72 H Pulse Oximetry 95 94 Oxygen Delivery Method Room Air 03/21/24 15:20 03/21/24 15:20 03/21/24 15:30 Temperature Pulse Rate 98 H Respiratory Rate 20 Blood Pressure 132/62 136/64 Pulse Oximetry 94 Oxygen Delivery Method 03/21/24 15:30 03/21/24 16:00 03/21/24 16:00 Temperature Pulse Rate 100 H 103 H Respiratory Rate 19 19 Blood Pressure 136/68 Pulse Oximetry 95 94 Oxygen Delivery Method Room Air 03/21/24 16:05 03/21/24 16:30 03/21/24 16:32 Temperature 99.0 F Pulse Rate 109 H 109 H Respiratory Rate 23 22 Blood Pressure Pulse Oximetry 93 94 Oxygen Delivery Method 03/21/24 16:32 03/21/24 17:00 03/21/24 17:00 Temperature Pulse Rate 96 H Respiratory Rate 18 Blood Pressure 118/54 L 125/60 Pulse Oximetry 94 Oxygen Delivery Method Room Air 03/21/24 17:30 03/21/24 17:30 Temperature Pulse Rate 99 H Respiratory Rate 17 Blood Pressure 130/62 Pulse Oximetry 94 Oxygen Delivery Method Oxygen Delivery Method Room Air Narrative Exam Narrative: NAD, alert and oriented, fluent speech, calm. Normocephalic skull, EOMI, anicteric sclera, symmetric pupils. Oropharynx unremarkable, no droop. Neck supple, midline trachea, no adenopathy. Lungs clear, normal rate and effort. Heart regular, no murmur gallop or rub. Abdomen is soft, non distended and fairly tender to palpation all quadrants. There is no guarding or rebound but her exam is concerning. Extremities are free of edema. Skin is free of rash or lesions. Joints are not swollen or deformed. Judgment appears to be normal. Objective Imaging CT scan - abdomen: Radiologist's impression: Moderate multifocal findings of enterocolitis. There is no acute small bowel obstruction. Overall moderate to large fecal loading also seen. Nonspecific periportal edema in the liver, as well as small ascites. Mildly distended biliary tree and gallbladder, consider LFT correlation. Moderately patulous distal esophagus, possibly related to esophagitis and reflux. Consider endoscopy correlation if needed. Other findings as above. US - abdomen: Radiologist's impression: IMPRESSION: Nonspecific heterogeneous echogenic appearance of the liver, particularly along the portal triads, correlate with LFTs. Findings may represent hepatitis or reactive edema to other causes. Biliary ductal dilation is seen. Correlate with LFTs. MRCP or ERCP could further evaluate if needed. Nonspecific free fluid adjacent to the gallbladder and liver. No sonographic Fuentes sign. Labs 03/21/24 11:15 03/21/24 11:15 Labs: Laboratory Results - last 24 hr 03/21/24 03/21/24 03/21/24 11:15 14:16 14:30 WBC 21.5 H RBC 4.03 Hgb 12.1 Hct 36.7 MCV 91.0 MCH 30.0 MCHC 33.0 RDW 13.1 Plt Count 316 Neut % (Auto) 93.5 H Lymph % (Auto) 4.1 L [place] % (Auto) 2.2 L Eos % (Auto) 0.0 L Baso % (Auto) 0.2 Neut # (Auto) 19966 H Lymph # (Auto) 900 L [place] # (Auto) 500 Eos # (Auto) 0 Baso # (Auto) 0 Sodium 137 Potassium 4.1 Chloride 105 Carbon Dioxide 27 BUN 26 H Creatinine 0.62 Estimated GFR > 60 BUN/Creatinine Ratio 41.9 H Glucose 133 H Lactate 1.7 Calcium 9.1 Total Bilirubin 0.5 AST 24 ALT 21 Alkaline Phosphatase 67 Ammonia < 9 L Total Protein 6.9 Albumin 4.1 Globulin 2.8 Albumin/Globulin Ratio 1.5 Lipase 37 Procalcitonin 1.33 H Urine Color Yellow Urine Appearance Clear Urine pH 8.5 H Ur Specific [place] 1.015 Urine Protein Trace H Urine Glucose (UA) Negative Urine Ketones Negative Urine Occult Blood Negative Urine Nitrate Negative Urine Bilirubin Negative Urine Urobilinogen 1.0 Ur Leukocyte Esterase Negative Urine RBC None seen Urine WBC 0-1/hpf Ur Squamous Epith Cells 1-5 /hpf Urine Bacteria None seen Ur Culture Indicated? Cult not indicated Vol Urine Centrifuged 10ml (spun) Assessment & Plan Assessment & Plan narrative: 1. Severe abdominal pain with leukocytosis, present on admission. The differential includes enteral colitis, infectious colitis, or ischemic colitis. The liver is abnormal on imaging as well. LFTs are normal however. 2. Chronic hepatitis-C, present on admission and active. 3. Prior splenectomy, present on admission and active. This related to ITP. 4. Severe sepsis with abdominal pain, hypotension, leukocytosis. She was given a 30 mL/kilogram bolus of lactated Ringer's and will be followed with maintenance fluid. Plan: -central access with a PICC line for fluid resuscitation and pressors if needed. -broad-spectrum antibiotics with Zosyn, stool PCR and urine cultures. C diff toxin is on the differential. -surgical consult given the acuity of her abdominal exam. Ischemic colitis is on the differential. -monitor lactic acid, the 1st was normal. She is full resuscitation. Admitted inpatient status, 2 nights are expected. Time-Based Coding :: 35 min spent with patient and on the chart (including review of chart, obtaining history, exam, reviewing outside data, placing orders, documenting exam and treatment plan, and counseling patient) on 03/21. Quality MIPS - Admit I confirm the patient?s Advance Care Plan is present, Code status is documented, Surrogate decision maker is in patient?s record [If Yes, STOP here]: Yes MIPS - Meds 'Current medications' to include all prescriptions, [id number] products, herbals, cannabis/cannabidiol products, and vitamin/mineral/dietary (nutritional) supplements. I have utilized all available resources to obtain, update, or review the patient?s current medications. [If Yes, STOP here]: Yes
[2024-03-21] MEDS: SODIUM CHLORIDE 0.9% 1,000 ML 1000 ML IV (18:26)
[2024-03-21 18:50] LABS: Lactate (Lactic Acid) 1.5 mmol/L (0.7-2.1)
[2024-03-21] MEDS: ALBUTEROL/IPRATROPIUM 3 ML AMPUL INH (19:30)
[2024-03-21] MEDS: LACTATED RINGERS 1,000 ML 100 ML IV (19:58)
[2024-03-21] MEDS: HEPARIN 5,000 UNIT/ML VIAL 5000 UNIT SUBCUT (20:42)
[2024-03-21] MEDS: FAMOTIDINE 20 MG/2 ML VIAL IV (20:43)
[2024-03-21] MEDS: ACETAMINOPHEN 325 MG TABLET 650 MG PO (20:46)
[2024-03-21] MEDS: HYDROMORPHONE 0.5 MG INJ IV (21:48)
[2024-03-22] VITALS (7 sets, daily range): BP systolic 107–141; BP diastolic 58–66; PULSE 86–94; RESP 18–24; TEMP 36.8–37.4; O2SAT 94–100
[2024-03-22] MEDS: HYDROMORPHONE 0.5 MG INJ IV ×4 (02:10→22:06)
[2024-03-22] MEDS: PIPERACILLIN/TAZO 3.375 GM in SODIUM CHLORIDE 0.9% 100 ML IV ×3 (02:28→17:10)
--- NOTE | 2024-03-22 06:53 | PC.NURSE ---
pt reports that she is withdrawing from fentanyl. pt states that she snorts 2-3 pills a day and has done this for the past two years. Pt states that her last time using was march 21 at approximately 0700. pt has abdominal pain and is diaphoretic. notified. no new orders have been placed.
[2024-03-22 06:54] LABS: Hematocrit 31.8 % (36-46); Hemoglobin 10.7 g/dL (12.0-16.0); Mean Corpuscular HGB Conc 33.5 % (30-36); Mean Corpuscular Hemoglobin 30.4 PG (26-34); Mean Corpuscular Volume 90.6 fL (80-100); Platelet Count 269 X10^3/uL (150-400); Red Blood Cell Count 3.51 X10^6/uL (4.0-5.2); Red Cell Distribution Width 13.3 % (11.6-14.8)
[2024-03-22 06:57] LABS: Add Manual Diff / Slide Review YES
[2024-03-22 06:58] LABS: White Blood Cell Count 30.5 X10^3/uL (4.5-11.0)
[2024-03-22 07:02] LABS: Alanine Aminotransferase 27 IU/L (<35); Albumin 3.2 g/dL (3.5-5.0); Albumin Globulin Ratio 1.2 (1.0-2.8); Alkaline Phosphatase 71 U/L (38-126); Aspartate Aminotransferase 29 IU/L (14-36); BUN Creatinine Ratio 29.9 (6-22); Bilirubin Total 0.6 mg/dL (0.2-1.3); Blood Urea Nitrogen 20 mg/dL (7-17); Calcium 8.3 mg/dL (8.4-10.2); Carbon Dioxide 24 mmol/L (22-32); Chloride 107 mmol/L (98-107); Estimated Glomerular Filt Rate > 60 mL/min (>60); Globulin 2.6 g/dL (1.7-4.1); Glucose 116 mg/dL (70-100); HEMOLYSIS < 15 (0-50); Potassium 3.6 mmol/L (3.4-5.1); Sodium 135 mmol/L (137-145); Total Protein 5.8 g/dL (6.3-8.2)
--- NOTE | 2024-03-22 07:05 | PC.NURSE ---
Lab notified this RN of a critical lab value. White blood cell count 30.5 MD notified. No new orders placed.
[2024-03-22 07:08] LABS: Neutrophils Absolute Manual 28670 /uL (3000-5900); Total Cells Counted 100
[2024-03-22 07:09] LABS: RBC Morphology Normal Morphology
--- NOTE | 2024-03-22 07:18 | PM.PN.1 ---
Subjective Subjective Interval history: Summary: She was admitted with a diffuse abdominal pain and a white count of 20 K. Surgery was consulted from the emergency department. Overnight she admitted using fentanyl and has had withdrawal symptoms[place] [address]. S: Her abdomen is still has [place] [address]. No nausea. Minimal flatus. CT revealed evidence of enterocolitis. She did admit to using fentanyl and has been placed on methadone this morning to mitigate withdrawal symptoms. Exam Vital Signs (past 8 hours): - 03/22/24 02:06 03/22/24 05:42 Temperature 99.3 F 98.2 F Pulse Rate 94 H 89 Respiratory Rate 18 24 Blood Pressure 115/59 L 107/61 Pulse Oximetry 96 94 Oxygen Flow Rate 0 Oxygen Delivery Method Room Air Oxygen Flow Rate 0 Narrative Exam Narrative: NAD, alert and oriented. Fluent speech. Lungs are clear, normal rate and effort. Heart is regular, no murmur gallop or rub. Abdomen: Hypoactive bowel tones, exquisitely tender in lower quadrants on left and right. No rebound. Extremities are free of edema. Objective Imaging CT scan - abdomen: Radiologist's impression: CT scan - abdomen: Radiologist's impression: Moderate multifocal findings of enterocolitis. There is no acute small bowel obstruction. Overall moderate to large fecal loading also seen. Nonspecific periportal edema in the liver, as well as small ascites. Mildly distended biliary tree and gallbladder, consider LFT correlation. Moderately patulous distal esophagus, possibly related to esophagitis and reflux. Consider endoscopy correlation if needed. Other findings as above. US - abdomen: Radiologist's impression: IMPRESSION: Nonspecific heterogeneous echogenic appearance of the liver, particularly along the portal triads, correlate with LFTs. Findings may represent hepatitis or reactive edema to other causes. Biliary ductal dilation is seen. Correlate with LFTs. MRCP or ERCP could further evaluate if needed. Nonspecific free fluid adjacent to the gallbladder and liver. No sonographic Fuentes sign. Labs 03/22/24 06:33 03/22/24 06:33 Labs: Laboratory Results - last 24 hr 03/21/24 03/21/24 03/21/24 11:15 14:16 14:30 WBC 21.5 H RBC 4.03 Hgb 12.1 Hct 36.7 MCV 91.0 MCH 30.0 MCHC 33.0 RDW 13.1 Plt Count 316 Neut % (Auto) 93.5 H Lymph % (Auto) 4.1 L [place] % (Auto) 2.2 L Eos % (Auto) 0.0 L Baso % (Auto) 0.2 Neut # (Auto) 02925 H Lymph # (Auto) 900 L [place] # (Auto) 500 Eos # (Auto) 0 Baso # (Auto) 0 Total Counted Seg Neutrophils % Band Neutrophils % Lymphocytes % (Manual) Monocytes % (Manual) Metamyelocytes % Neutrophils # (Manual) RBC Morphology Sodium 137 Potassium 4.1 Chloride 105 Carbon Dioxide 27 BUN 26 H Creatinine 0.62 Estimated GFR > 60 BUN/Creatinine Ratio 41.9 H Glucose 133 H Lactate 1.7 Calcium 9.1 Total Bilirubin 0.5 AST 24 ALT 21 Alkaline Phosphatase 67 Ammonia < 9 L Total Protein 6.9 Albumin 4.1 Globulin 2.8 Albumin/Globulin Ratio 1.5 Lipase 37 Procalcitonin 1.33 H Urine Color Yellow Urine Appearance Clear Urine pH 8.5 H Ur Specific [place] 1.015 Urine Protein Trace H Urine Glucose (UA) Negative Urine Ketones Negative Urine Occult Blood Negative Urine Nitrate Negative Urine Bilirubin Negative Urine Urobilinogen 1.0 Ur Leukocyte Esterase Negative Urine RBC None seen Urine WBC 0-1/hpf Ur Squamous Epith Cells 1-5 /hpf Urine Bacteria None seen Ur Culture Indicated? Cult not indicated Vol Urine Centrifuged 10ml (spun) 03/21/24 03/22/24 18:35 06:33 WBC 30.5 H* RBC 3.51 L Hgb 10.7 L Hct 31.8 L MCV 90.6 MCH 30.4 MCHC 33.5 RDW 13.3 Plt Count 269 Neut % (Auto) Not Reportable Lymph % (Auto) Not Reportable [place] % (Auto) Not Reportable Eos % (Auto) Not Reportable Baso % (Auto) Not Reportable Neut # (Auto) Lymph # (Auto) Not Reportable [place] # (Auto) Not Reportable Eos # (Auto) Baso # (Auto) Not Reportable Total Counted 100 Seg Neutrophils % 71.0 H Band Neutrophils % 23.0 H Lymphocytes % (Manual) 4.0 L Monocytes % (Manual) 1.0 L Metamyelocytes % 1.0 H Neutrophils # (Manual) 45612 H RBC Morphology Normal morphology Sodium 135 L Potassium 3.6 Chloride 107 Carbon Dioxide 24 BUN 20 H Creatinine 0.67 Estimated GFR > 60 BUN/Creatinine Ratio 29.9 H Glucose 116 H Lactate 1.5 Calcium 8.3 L Total Bilirubin 0.6 AST 29 ALT 27 Alkaline Phosphatase 71 Ammonia Total Protein 5.8 L Albumin 3.2 L Globulin 2.6 Albumin/Globulin Ratio 1.2 Lipase Procalcitonin Urine Color Urine Appearance Urine pH Ur Specific [place] Urine Protein Urine Glucose (UA) Urine Ketones Urine Occult Blood Urine Nitrate Urine Bilirubin Urine Urobilinogen Ur Leukocyte Esterase Urine RBC Urine WBC Ur Squamous Epith Cells Urine Bacteria Ur Culture Indicated? Vol Urine Centrifuged [facility] Medical History Eczema, dyshidrotic (~2020) Anxiety Chronic hepatitis C Osteoarthritis of both hands Hepatitis C antibody test positive Arthritis (Unknown) Chronic neck pain (Unknown) Hx of idiopathic thrombocytopenic purpura (2007) Surgical History Anesthesia H/O hernia repair Hx of arthroscopy of knee (~2002) History of splenectomy (2007) Status post knee replacement Family History Family/Other Adopted Social History household members: spouse Smoking Status: Current every day smoker quit status: considering quitting alcohol intake: current substance use type: does not use Assessment & Plan Assessment & Plan narrative: 1. Severe abdominal pain with severe leukocytosis, present on admission. The differential includes enteral colitis, infectious colitis, or ischemic colitis. The liver is abnormal on imaging as well. LFTs are normal however. 2. Chronic hepatitis-C, present on admission and active. 3. Prior splenectomy, present on admission and active. This related to ITP. 4. Severe sepsis with abdominal pain, hypotension, and leukocytosis. She was given a 30 mL/kilogram bolus of lactated Ringer's and will be followed with maintenance fluid. 5. Fentanyl use with withdrawal, new and active. Plan: -continue IV fluids -broad-spectrum antibiotics with Zosyn, stool PCR and urine cultures. C diff toxin is on the differential. -surgical consult called from ED. -discuss with surgery -repeat WBC count 1300. She is full resuscitation. Admitted inpatient status, 2 nights are expected. Time-Based Coding :: 25 min spent with patient and on the chart (including review of chart, obtaining history, exam, reviewing outside data, placing orders, documenting exam and treatment plan, and counseling patient) on 03/22. Quality VTE Deep Vein Thrombosis/Pulmonary Embolism Present on Admission: No
[2024-03-22] MEDS: BUDESONIDE 0.5 MG/2 ML NEB INH (07:24)
[2024-03-22] MEDS: ALBUTEROL 2.5 MG/3 ML NEB (ADULT) INH ×2 (07:24→11:08)
--- NOTE | 2024-03-22 08:07 | P.CONS_ITS ---
History of Present Illness Consult details Date Patient Seen: 03/22/24 Time Patient Seen: 08:08 Chief complaint: Abd pain Narrative: Debbie Dixon is a 58-year-old woman who presented to the emergency yesterday with 2 days of abdominal pain. She has a history of splenectomy for ITP many years ago. She has a history of chronic hepatitis-C and substance abuse. She smokes. Her CT scan showed some ascites and enterocolitis. Her lactate was normal in the ER. She is unaware if she has ever had vaccination against the encapsulated organisms. Meds Home Medications and Allergies Home Medications Medication Instructions Recorded Confirmed Type ibuprofen 800 mg tablet 800 mg PO QD-TID PRN severe back 11/30/23 03/21/24 Rx or joint pain #90 tabs estradiol 1 mg tablet 1 mg PO QDAY #90 tabs 03/07/24 03/21/24 Rx albuterol sulfate 90 mcg/actuation 1 puff inhalation QID PRN 03/21/24 03/21/24 History aerosol inhaler Shortness Of Breath Or Wheezing fluticasone 250 mcg-salmeterol 50 1 inh inhalation BID 03/21/24 03/21/24 History mcg/dose blistr powdr for inhalation (Wixela Inhub) Allergies Allergy/AdvReac Type Severity Reaction Status Date / Time No Known Drug Allergies Allergy Verified 03/21/24 11:20 Exam Vital Signs (past 8 hours): - 03/22/24 02:06 03/22/24 05:42 03/22/24 07:24 Temperature 99.3 F 98.2 F Pulse Rate 94 H 89 90 Respiratory Rate 18 24 Blood Pressure 115/59 L 107/61 Pulse Oximetry 96 94 98 Oxygen Delivery Method Room Air Oxygen Flow Rate 0 Oxygen Delivery Method Room Air Oxygen Flow Rate 0 Const General: anxious Other: Abdomen is diffusely tender to palpation Objective Labs 03/22/24 12:58 03/22/24 06:33 Labs: Laboratory Results - last 24 hr 03/21/24 03/21/24 03/21/24 11:15 14:16 14:30 WBC 21.5 H RBC 4.03 Hgb 12.1 Hct 36.7 MCV 91.0 MCH 30.0 MCHC 33.0 RDW 13.1 Plt Count 316 Neut % (Auto) 93.5 H Lymph % (Auto) 4.1 L [place] % (Auto) 2.2 L Eos % (Auto) 0.0 L Baso % (Auto) 0.2 Neut # (Auto) 19744 H Lymph # (Auto) 900 L [place] # (Auto) 500 Eos # (Auto) 0 Baso # (Auto) 0 Total Counted Seg Neutrophils % Band Neutrophils % Lymphocytes % (Manual) Monocytes % (Manual) Metamyelocytes % Neutrophils # (Manual) RBC Morphology Sodium 137 Potassium 4.1 Chloride 105 Carbon Dioxide 27 BUN 26 H Creatinine 0.62 Estimated GFR > 60 BUN/Creatinine Ratio 41.9 H Glucose 133 H Lactate 1.7 Calcium 9.1 Total Bilirubin 0.5 AST 24 ALT 21 Alkaline Phosphatase 67 Ammonia < 9 L Total Protein 6.9 Albumin 4.1 Globulin 2.8 Albumin/Globulin Ratio 1.5 Lipase 37 Procalcitonin 1.33 H Urine Color Yellow Urine Appearance Clear Urine pH 8.5 H Ur Specific [place] 1.015 Urine Protein Trace H Urine Glucose (UA) Negative Urine Ketones Negative Urine Occult Blood Negative Urine Nitrate Negative Urine Bilirubin Negative Urine Urobilinogen 1.0 Ur Leukocyte Esterase Negative Urine RBC None seen Urine WBC 0-1/hpf Ur Squamous Epith Cells 1-5 /hpf Urine Bacteria None seen Ur Culture Indicated? Cult not indicated Vol Urine Centrifuged 10ml (spun) 03/21/24 03/22/24 18:35 06:33 WBC 30.5 H* RBC 3.51 L Hgb 10.7 L Hct 31.8 L MCV 90.6 MCH 30.4 MCHC 33.5 RDW 13.3 Plt Count 269 Neut % (Auto) Not Reportable Lymph % (Auto) Not Reportable [place] % (Auto) Not Reportable Eos % (Auto) Not Reportable Baso % (Auto) Not Reportable Neut # (Auto) Lymph # (Auto) Not Reportable [place] # (Auto) Not Reportable Eos # (Auto) Baso # (Auto) Not Reportable Total Counted 100 Seg Neutrophils % 71.0 H Band Neutrophils % 23.0 H Lymphocytes % (Manual) 4.0 L Monocytes % (Manual) 1.0 L Metamyelocytes % 1.0 H Neutrophils # (Manual) 44603 H RBC Morphology Normal morphology Sodium 135 L Potassium 3.6 Chloride 107 Carbon Dioxide 24 BUN 20 H Creatinine 0.67 Estimated GFR > 60 BUN/Creatinine Ratio 29.9 H Glucose 116 H Lactate 1.5 Calcium 8.3 L Total Bilirubin 0.6 AST 29 ALT 27 Alkaline Phosphatase 71 Ammonia Total Protein 5.8 L Albumin 3.2 L Globulin 2.6 Albumin/Globulin Ratio 1.2 Lipase Procalcitonin Urine Color Urine Appearance Urine pH Ur Specific [place] Urine Protein Urine Glucose (UA) Urine Ketones Urine Occult Blood Urine Nitrate Urine Bilirubin Urine Urobilinogen Ur Leukocyte Esterase Urine RBC Urine WBC Ur Squamous Epith Cells Urine Bacteria Ur Culture Indicated? Vol Urine Centrifuged [facility] Medical History Eczema, dyshidrotic (~2020) Anxiety Chronic hepatitis C Osteoarthritis of both hands Hepatitis C antibody test positive Arthritis (Unknown) Chronic neck pain (Unknown) Hx of idiopathic thrombocytopenic purpura (2007) Surgical History Anesthesia H/O hernia repair Hx of arthroscopy of knee (~2002) History of splenectomy (2007) Status post knee replacement Family History Family/Other Adopted Social History household members: spouse Tobacco & Substance Use Smoking Status: Current every day smoker quit status: considering quitting alcohol intake: current substance use type: does not use Assessment & Plan Assessment and plan (1) Enterocolitis: Status: Acute Plan Unclear etiology for abdominal pain. Lactate is normal. Leukocytosis is difficult to interpret in light of history of a splenectomy. Recommend ruling out overwhelming post splenectomy sepsis. Time-Based Coding :: [TOTAL MINUTES] spent with patient and on the chart (including review of chart, obtaining history, exam, reviewing outside data, placing orders, documenting exam and treatment plan, and counseling patient) on [DATE].
[2024-03-22] MEDS: FAMOTIDINE 20 MG/2 ML VIAL IV ×2 (08:11→21:00)
[2024-03-22] MEDS: ALPRAZolam 0.25 MG TABLET PO (08:11)
[2024-03-22] MEDS: LACTATED RINGERS 1,000 ML 100 ML IV ×2 (09:33→21:08)
--- NOTE | 2024-03-22 10:35 | CM.DANOTE ---
Initial DCP Assessment Visit Note Reviewed EMR and team rounds for pt's medical status and updates. POWERHOUSE OPERATOR went to the room to meet pt f/f, however she was found to be sleeping. Pt lives independently at baseline in her own home with her spouse here in [place]. His will also plan to transport him back home once he's medically cleared for home d/c. Payor: [facility] PCP: Tangelaanibal Sanchez Pt is a 58 year-old F with a hx of Hep-C and prior methadone/opiate abuse presents to the ED with c/o bilateral lower abd. pain. CT abd/pelvis showed multifocal findings of enterocolitis. She was started on IV antibiotics, lactate, and blood cultures are pending. They placed a PICC line, surgery was consulted. Surgery did their f/f consultation with pt today, pending documentation. Plan for now is continue IV fluids/antibiotics for severe sepsis. DCP will continue to follow and assist with any evolving d/c needs prior to her departure. Discharge Planning/Care Management CM Discharge Assessment Start: 03/22/24 10:30 Freq: Status: Active Protocol: Document 03/22/24 10:30 DPL (Rec: 03/22/24 10:35 DPL [id number]) Discharge Planning Assessment Assigned Marketing Administrative Assistant GERALDINE Loja Advance Directives? No History Provided By Medical Record Expected Length of Stay 3 Has Patient been admitted in last 30 No days? Prior Living Arrangements House Household Members spouse Type of transporation used prior to Drives own vehicle admit Independent with ADL's Yes Is patient alert and oriented? Yes Caregiver for Another No Comment No anticipated d/c needs at this time. Barriers to Discharge No Discharge Plan Home Transportation Arrangement Spouse Referrals Initiated None needed Whiteboard Updated in Patient Room with Yes name and ext. # of Marketing Administrative Assistant Review Status In Process Please Provide Date Initial DC 03/22/24 Assessment Was Performed
[2024-03-22] MEDS: METHADONE 10 MG TABLET 20 MG PO ×4 (11:04→20:59)
[2024-03-22 13:14] LABS: Hematocrit 29.8 % (36-46); Mean Corpuscular HGB Conc 33.7 % (30-36); Mean Corpuscular Hemoglobin 30.2 PG (26-34); Mean Corpuscular Volume 89.7 fL (80-100); Platelet Count 249 X10^3/uL (150-400); Red Blood Cell Count 3.32 X10^6/uL (4.0-5.2); Red Cell Distribution Width 13.2 % (11.6-14.8)
[2024-03-22 13:16] LABS: White Blood Cell Count 32.2 X10^3/uL (4.5-11.0)
[2024-03-22 13:25] LABS: Lactate (Lactic Acid) 1.4 mmol/L (0.7-2.1)
--- NOTE | 2024-03-22 13:26 | DI.RAD.S_ITS ---
PROCEDURE: XR KUB INDICATIONS: abdomen pain TECHNIQUE: One view of the abdomen acquired. COMPARISON: [facility], CT, CT ABDOMEN PELVIS W CON, 03/21/2024, 13:55. FINDINGS: Surgical changes and devices: Left upper quadrant postoperative clips are seen. Bowel: Bowel gas pattern is normal. There is a moderate volume of stool seen within the proximal colon. Soft tissues: No suspicious abdominal calcifications. Pelvic phleboliths are incidentally noted. Visualized solid organ contours appear normal in size. Bones: No suspicious bony lesions. IMPRESSION: There is a moderate amount of stool seen within the colon. Please correlate with an underlying history of constipation. Dictated by: Dima Balderrama M.D. on 03/22/2024 at 13:36 Approved by: Dima Balderrama M.D. on 03/22/2024 at 13:37
[2024-03-22 17:49] LABS: Hematocrit 30.4 % (36-46); Hemoglobin 10.1 g/dL (12.0-16.0); Mean Corpuscular HGB Conc 33.2 % (30-36); Mean Corpuscular Hemoglobin 30.2 PG (26-34); Mean Corpuscular Volume 90.7 fL (80-100); Platelet Count 248 X10^3/uL (150-400); Red Blood Cell Count 3.35 X10^6/uL (4.0-5.2); Red Cell Distribution Width 13.3 % (11.6-14.8)
[2024-03-22 17:51] LABS: Lactate (Lactic Acid) 1.5 mmol/L (0.7-2.1)
[2024-03-22 17:52] LABS: White Blood Cell Count 30.9 X10^3/uL (4.5-11.0)
[2024-03-22] MEDS: BISACODYL 10 MG SUPP PR (18:32)
[2024-03-22] MEDS: HEPARIN 5,000 UNIT/ML VIAL 5000 UNIT SUBCUT (21:00)
[2024-03-22 22:01] LABS: Adenovirus F 40/41 Not Detected (Not Detect); Astrovirus Not Detected (Not Detect); Campylobacter Not Detected (Not Detect); Clostridium difficile toxin AB Not Detected (Not Detect); Cryptosporidium Not Detected (Not Detect); Cyclospora cayetanensis Not Detected (Not Detect); Entamoeba histolytica Not Detected (Not Detect); Enteroaggregative E.coli Not Detected (Not Detect); Enteropathogenic E.coli Not Detected (Not Detect); Enterotoxigenic E.coli It/st Not Detected (Not Detect); Giardia lamblia Not Detected (Not Detect); Norovirus GI/GII Not Detected (Not Detect); Plesiomonsa shigelloides Not Detected (Not Detect); Rotavirus A Not Detected (Not Detect); Salmonella Not Detected (Not Detect); Sapovirus Not Detected (Not Detect); Shiga-like toxin-prod E.coli Not Detected (Not Detect); Shigella/Enteroinvasive E.coli Not Detected (Not Detect); Vibrio Not Detected (Not Detect); Vibrio cholerae Not Detected (Not Detect); Yersinia enterocolitica Not Detected (Not Detect)
[2024-03-23] VITALS (9 sets, daily range): BP systolic 108–153; BP diastolic 60–77; PULSE 77–88; RESP 16–20; TEMP 36–37.7; O2SAT 87–96
[2024-03-23] MEDS: ACETAMINOPHEN 325 MG TABLET 650 MG PO (00:33)
[2024-03-23] MEDS: PIPERACILLIN/TAZO 3.375 GM in SODIUM CHLORIDE 0.9% 100 ML IV ×3 (01:02→17:38)
[2024-03-23] MEDS: LACTATED RINGERS 1,000 ML 100 ML IV ×2 (05:56→13:56)
[2024-03-23 06:45] LABS: Alanine Aminotransferase 17 IU/L (<35); Albumin 2.8 g/dL (3.5-5.0); Albumin Globulin Ratio 1.1 (1.0-2.8); Alkaline Phosphatase 83 U/L (38-126); Aspartate Aminotransferase 33 IU/L (14-36); BUN Creatinine Ratio 22.1 (6-22); Bilirubin Total 0.4 mg/dL (0.2-1.3); Blood Urea Nitrogen 15 mg/dL (7-17); Calcium 8.2 mg/dL (8.4-10.2); Carbon Dioxide 23 mmol/L (22-32); Chloride 107 mmol/L (98-107); Estimated Glomerular Filt Rate > 60 mL/min (>60); Globulin 2.5 g/dL (1.7-4.1); Glucose 89 mg/dL (70-100); HEMOLYSIS < 15 (0-50); Potassium 3.1 mmol/L (3.4-5.1); Sodium 132 mmol/L (137-145); Total Protein 5.3 g/dL (6.3-8.2)
[2024-03-23 06:49] LABS: Hematocrit 27.3 % (36-46); Hemoglobin 9.4 g/dL (12.0-16.0); Mean Corpuscular HGB Conc 34.4 % (30-36); Mean Corpuscular Hemoglobin 30.8 PG (26-34); Mean Corpuscular Volume 89.5 fL (80-100); Platelet Count 218 X10^3/uL (150-400); Red Blood Cell Count 3.05 X10^6/uL (4.0-5.2); Red Cell Distribution Width 13.2 % (11.6-14.8); White Blood Cell Count 25.5 X10^3/uL (4.5-11.0)
[2024-03-23 06:53] LABS: Add Manual Diff / Slide Review YES
[2024-03-23 07:05] LABS: Neutrophils Absolute Manual 23715 /uL (3000-5900); RBC Morphology Normal Morphology; Total Cells Counted 100
--- NOTE | 2024-03-23 07:07 | PM.PN.1 ---
Subjective Subjective Interval history: Subjective: She was admitted with abdominal pain and profound leukocytosis, this is improving. Initial white count was 30, then 32, 25 today. She was diffusely tender but this is improving. She was had a bowel movement. No nausea. She denies any shortness a breath. No diarrhea or rectal bleeding. Stool studies are negative. Exam Vital Signs (past 8 hours): - 03/23/24 00:00 03/23/24 00:33 03/23/24 01:13 Temperature 99.8 F H 99.8 F H 99.1 F Pulse Rate 87 Respiratory Rate 19 Blood Pressure 115/60 Pulse Oximetry 87 L 92 Oxygen Flow Rate 0 03/23/24 01:13 03/23/24 05:00 Temperature 99.1 F 97.5 F L Pulse Rate 77 Respiratory Rate 19 Blood Pressure 108/64 Pulse Oximetry 95 Oxygen Flow Rate Oxygen Delivery Method Room Air Oxygen Flow Rate 0 Narrative Exam Narrative: NAD, alert and oriented. Fluent speech. Lungs are clear, normal rate and effort. Heart is regular, no murmur gallop or rub. Abdomen is soft, non distended. Her abdomen is tender but much less so today. Extremities are free of edema. Objective Labs 03/23/24 06:14 03/23/24 06:14 Labs: Laboratory Results - last 24 hr 03/22/24 03/22/24 03/22/24 06:33 12:58 17:30 WBC 32.2 H* 30.9 H* RBC 3.32 L 3.35 L Hgb 10.0 L 10.1 L Hct 29.8 L 30.4 L MCV 89.7 90.7 MCH 30.2 30.2 MCHC 33.7 33.2 RDW 13.2 13.3 Plt Count 249 248 Neut % (Auto) Lymph % (Auto) Calvert % (Auto) Eos % (Auto) Baso % (Auto) Lymph # (Auto) Calvert # (Auto) Baso # (Auto) Total Counted 100 Seg Neutrophils % 71.0 H Band Neutrophils % 23.0 H Lymphocytes % (Manual) 4.0 L Atypical Lymphs % Monocytes % (Manual) 1.0 L Metamyelocytes % 1.0 H Neutrophils # (Manual) 00919 H RBC Morphology Normal morphology Sodium Potassium Chloride Carbon Dioxide BUN Creatinine Estimated GFR BUN/Creatinine Ratio Glucose Lactate 1.4 1.5 Calcium Total Bilirubin AST ALT Alkaline Phosphatase Total Protein Albumin Globulin Albumin/Globulin Ratio Stl C. cayetanensis PCR Stool Rotavirus (PCR) Stool Adenovirus (PCR) Stool Astrovirus (PCR) Stool Cryptosporidium PCR Stl E.coli Shiga Tox PCR St Sh/Enteroin Ecoli PCR Stl Enterotoxigenic E PCR Stool EPEC (PCR) Stl E. histolytica PCR Stool Giardia Lamblia PCR Stool Sapovirus (PCR) Stl P. shigelloides PCR St Y.enterocolitica PCR Stool Vibrio (PCR) Stl Vibrio cholerae PCR Stl Enteroaggr Ecoli PCR Stl Norovirus GI/GII PCR Campylobacter (PCR) C. difficile Tox (PCR) Salmonella (PCR) 03/22/24 03/23/24 20:31 06:14 WBC 25.5 H RBC 3.05 L Hgb 9.4 L Hct 27.3 L MCV 89.5 MCH 30.8 MCHC 34.4 RDW 13.2 Plt Count 218 Neut % (Auto) Not Reportable Lymph % (Auto) Not Reportable Calvert % (Auto) Not Reportable Eos % (Auto) Not Reportable Baso % (Auto) Not Reportable Lymph # (Auto) Not Reportable Calvert # (Auto) Not Reportable Baso # (Auto) Not Reportable Total Counted 100 Seg Neutrophils % 88.0 H Band Neutrophils % 5.0 Lymphocytes % (Manual) 1.0 L Atypical Lymphs % 4.0 H Monocytes % (Manual) 2.0 Metamyelocytes % Neutrophils # (Manual) 30989 H RBC Morphology Normal morphology Sodium 132 L Potassium 3.1 L Chloride 107 Carbon Dioxide 23 BUN 15 Creatinine 0.68 Estimated GFR > 60 BUN/Creatinine Ratio 22.1 H Glucose 89 Lactate Calcium 8.2 L Total Bilirubin 0.4 AST 33 ALT 17 Alkaline Phosphatase 83 Total Protein 5.3 L Albumin 2.8 L Globulin 2.5 Albumin/Globulin Ratio 1.1 Stl C. cayetanensis PCR Not detected Stool Rotavirus (PCR) Not detected Stool Adenovirus (PCR) Not detected Stool Astrovirus (PCR) Not detected Stool Cryptosporidium PCR Not detected Stl E.coli Shiga Tox PCR Not detected St Sh/Enteroin Ecoli PCR Not detected Stl Enterotoxigenic E PCR Not detected Stool EPEC (PCR) Not detected Stl E. histolytica PCR Not detected Stool Giardia Lamblia PCR Not detected Stool Sapovirus (PCR) Not detected Stl P. shigelloides PCR Not detected St Y.enterocolitica PCR Not detected Stool Vibrio (PCR) Not detected Stl Vibrio cholerae PCR Not detected Stl Enteroaggr Ecoli PCR Not detected Stl Norovirus GI/GII PCR Not detected Campylobacter (PCR) Not detected C. difficile Tox (PCR) Not detected Salmonella (PCR) Not detected PFSH Medical History Eczema, dyshidrotic (~2020) Anxiety Chronic hepatitis C Osteoarthritis of both hands Hepatitis C antibody test positive Arthritis (Unknown) Chronic neck pain (Unknown) Hx of idiopathic thrombocytopenic purpura (2007) Surgical History Anesthesia H/O hernia repair Hx of arthroscopy of knee (~2002) History of splenectomy (2007) Status post knee replacement Family History Family/Other Adopted Social History household members: spouse Smoking Status: Current every day smoker quit status: considering quitting alcohol intake: current substance use type: does not use Assessment & Plan Assessment & Plan narrative: 1. Severe abdominal pain with severe leukocytosis, present on admission and improving. Possible ischemic colitis. 2. Chronic hepatitis-C, present on admission and active. 3. Prior splenectomy, present on admission and active. This related to ITP. 4. Severe sepsis with abdominal pain, hypotension, and leukocytosis. She was given a 30 mL/kilogram bolus of lactated Ringer's and will be followed with maintenance fluid. 5. Fentanyl use with withdrawal, new and active. Plan: -discontinue IV fluids -broad-spectrum antibiotics with Zosyn, plan on a 5 day course. -discussed with general surgery, Dr. Banerjee. -monitor WBC, out of bed, ambulate. Advance diet. She is full resuscitation. Admitted inpatient status, 2 nights are expected. LUPIS: 03/24 if white count and pain are improved substantially. Time-Based Coding :: 20 min spent with patient and on the chart (including review of chart, obtaining history, exam, reviewing outside data, placing orders, documenting exam and treatment plan, and counseling patient) on 03/23. Quality VTE Deep Vein Thrombosis/Pulmonary Embolism Present on Admission: No
[2024-03-23] MEDS: BUDESONIDE 0.5 MG/2 ML NEB INH ×2 (08:38→18:40)
[2024-03-23] MEDS: ALBUTEROL 2.5 MG/3 ML NEB (ADULT) INH ×3 (08:38→18:40)
[2024-03-23] MEDS: FAMOTIDINE 20 MG/2 ML VIAL IV (09:01)
[2024-03-23] MEDS: METHADONE 10 MG TABLET 20 MG PO ×4 (09:01→21:10)
[2024-03-23] MEDS: HEPARIN 5,000 UNIT/ML VIAL 5000 UNIT SUBCUT ×2 (09:01→21:10)
[2024-03-23] MEDS: POTASSIUM CHLORIDE 20 MEQ TAB 40 MEQ PO ×2 (11:09→15:45)
--- NOTE | 2024-03-23 11:17 | CM.DPC ---
Reviewed EMR and team rounds for status updates. Per Hospitalist, pt will need another 2-days inpt before being medically stable for home d/c. Will continue to monitor for any further needs.
--- NOTE | 2024-03-23 11:37 | P.PN_ITS ---
Subjective Subjective Date Patient Seen: 03/23/24 Time Patient Seen: 11:37 Interval history: Feeling better today +BM Exam Vital Signs (past 8 hours): - 03/23/24 05:00 03/23/24 08:00 Temperature 97.5 F L 96.8 F L Pulse Rate 77 78 Respiratory Rate 19 Blood Pressure 108/64 115/61 Pulse Oximetry 95 Oxygen Delivery Method Room Air Oxygen Flow Rate 0 Narrative Exam Narrative: Adult woman alert and oriented Abdomen-Soft, mildly tender to palpation no peritonitis Objective Labs 03/23/24 06:14 03/23/24 06:14 Labs: Laboratory Results - last 24 hr 03/22/24 03/22/24 03/22/24 12:58 17:30 20:31 WBC 32.2 H* 30.9 H* RBC 3.32 L 3.35 L Hgb 10.0 L 10.1 L Hct 29.8 L 30.4 L MCV 89.7 90.7 MCH 30.2 30.2 MCHC 33.7 33.2 RDW 13.2 13.3 Plt Count 249 248 Neut % (Auto) Lymph % (Auto) [place]erry % (Auto) Eos % (Auto) Baso % (Auto) Lymph # (Auto) [place] # (Auto) Baso # (Auto) Total Counted Seg Neutrophils % Band Neutrophils % Lymphocytes % (Manual) Atypical Lymphs % Monocytes % (Manual) Neutrophils # (Manual) RBC Morphology Sodium Potassium Chloride Carbon Dioxide BUN Creatinine Estimated GFR BUN/Creatinine Ratio Glucose Lactate 1.4 1.5 Calcium Total Bilirubin AST ALT Alkaline Phosphatase Total Protein Albumin Globulin Albumin/Globulin Ratio Stl C. cayetanensis PCR Not detected Stool Rotavirus (PCR) Not detected Stool Adenovirus (PCR) Not detected Stool Astrovirus (PCR) Not detected Stool Cryptosporidium PCR Not detected Stl E.coli Shiga Tox PCR Not detected St Sh/Enteroin Ecoli PCR Not detected Stl Enterotoxigenic E PCR Not detected Stool EPEC (PCR) Not detected Stl E. histolytica PCR Not detected Stool Giardia Lamblia PCR Not detected Stool Sapovirus (PCR) Not detected Stl P. shigelloides PCR Not detected St Y.enterocolitica PCR Not detected Stool Vibrio (PCR) Not detected Stl Vibrio cholerae PCR Not detected Stl Enteroaggr Ecoli PCR Not detected Stl Norovirus GI/GII PCR Not detected Campylobacter (PCR) Not detected C. difficile Tox (PCR) Not detected Salmonella (PCR) Not detected 03/23/24 06:14 WBC 25.5 H RBC 3.05 L Hgb 9.4 L Hct 27.3 L MCV 89.5 MCH 30.8 MCHC 34.4 RDW 13.2 Plt Count 218 Neut % (Auto) Not Reportable Lymph % (Auto) Not Reportable Ferry % (Auto) Not Reportable Eos % (Auto) Not Reportable Baso % (Auto) Not Reportable Lymph # (Auto) Not Reportable [place]erry # (Auto) Not Reportable Baso # (Auto) Not Reportable Total Counted 100 Seg Neutrophils % 88.0 H Band Neutrophils % 5.0 Lymphocytes % (Manual) 1.0 L Atypical Lymphs % 4.0 H Monocytes % (Manual) 2.0 Neutrophils # (Manual) 52376 H RBC Morphology Normal morphology Sodium 132 L Potassium 3.1 L Chloride 107 Carbon Dioxide 23 BUN 15 Creatinine 0.68 Estimated GFR > 60 BUN/Creatinine Ratio 22.1 H Glucose 89 Lactate Calcium 8.2 L Total Bilirubin 0.4 AST 33 ALT 17 Alkaline Phosphatase 83 Total Protein 5.3 L Albumin 2.8 L Globulin 2.5 Albumin/Globulin Ratio 1.1 Stl C. cayetanensis PCR Stool Rotavirus (PCR) Stool Adenovirus (PCR) Stool Astrovirus (PCR) Stool Cryptosporidium PCR Stl E.coli Shiga Tox PCR St Sh/Enteroin Ecoli PCR Stl Enterotoxigenic E PCR Stool EPEC (PCR) Stl E. histolytica PCR Stool Giardia Lamblia PCR Stool Sapovirus (PCR) Stl P. shigelloides PCR St Y.enterocolitica PCR Stool Vibrio (PCR) Stl Vibrio cholerae PCR Stl Enteroaggr Ecoli PCR Stl Norovirus GI/GII PCR Campylobacter (PCR) C. difficile Tox (PCR) Salmonella (PCR) [facility] Medical History Eczema, dyshidrotic (~2020) Anxiety Chronic hepatitis C Osteoarthritis of both hands Hepatitis C antibody test positive Arthritis (Unknown) Chronic neck pain (Unknown) Hx of idiopathic thrombocytopenic purpura (2007) Surgical History Anesthesia H/O hernia repair Hx of arthroscopy of knee (~2002) History of splenectomy (2008) Status post knee replacement Family History Family/Other Adopted Social History household members: spouse Smoking Status: Current every day smoker quit status: considering quitting alcohol intake: current substance use type: does not use Assessment & Plan Assessment & Plan narrative: 58F with enterocolitis and constipation improving. WBC downtrending. Continue abx No surgical intervention needed. Time-Based Coding :: [TOTAL MINUTES] spent with patient and on the chart (including review of chart, obtaining history, exam, reviewing outside data, placing orders, documenting exam and treatment plan, and counseling patient) on [DATE]. Quality VTE Deep Vein Thrombosis/Pulmonary Embolism Present on Admission: No
[2024-03-23] MEDS: ALPRAZolam 0.25 MG TABLET PO (17:48)
[2024-03-23] MEDS: BISACODYL 10 MG SUPP PR (17:48)
[2024-03-23] MEDS: NICOTINE 14 PATCH 14 MG TOP (17:55)
[2024-03-23] MEDS: FAMOTIDINE 20 MG TABLET PO (21:09)
[2024-03-24] MEDS: LACTATED RINGERS 1,000 ML 100 ML IV (01:16)
[2024-03-24] MEDS: PIPERACILLIN/TAZO 3.375 GM in SODIUM CHLORIDE 0.9% 100 ML IV (01:16)
[2024-03-24] MEDS: ALBUTEROL 2.5 MG/3 ML NEB (ADULT) INH ×3 (01:23→14:27)
[2024-03-24 03:00] VITALS: BP 160/94; PULSE 84; RESP 19; TEMP 37.2; O2SAT 95
[2024-03-24 06:54] LABS: Add Manual Diff / Slide Review NO; Basophils Absolute Auto 0 /uL (0-100); Basophils Percent Auto 0.2 % (0-2); Eosinophils Absolute Auto 100 /uL (0-450); Eosinophils Percent Auto 0.7 % (2-4); Hematocrit 26.6 % (36-46); Hemoglobin 8.9 g/dL (12.0-16.0); Lymphocytes Absolute Auto 1400 /uL (1100-4500); Mean Corpuscular HGB Conc 33.4 % (30-36); Mean Corpuscular Volume 89.7 fL (80-100); Monocytes Absolute Auto 800 /uL (0-900); Monocytes Percent Auto 4.2 % (3-14); Neutrophils Absolute Auto 15700 /uL (1500-7000); Neutrophils Percent Auto 86.9 % (50-75); Platelet Count 228 X10^3/uL (150-400); Red Blood Cell Count 2.97 X10^6/uL (4.0-5.2); Red Cell Distribution Width 13.6 % (11.6-14.8); White Blood Cell Count 18.1 X10^3/uL (4.5-11.0)
[2024-03-24 07:08] LABS: Alanine Aminotransferase 17 IU/L (<35); Albumin 2.9 g/dL (3.5-5.0); Albumin Globulin Ratio 1.1 (1.0-2.8); Alkaline Phosphatase 77 U/L (38-126); Aspartate Aminotransferase 30 IU/L (14-36); BUN Creatinine Ratio 14.9 (6-22); Bilirubin Total 0.5 mg/dL (0.2-1.3); Blood Urea Nitrogen 10 mg/dL (7-17); Calcium 8.2 mg/dL (8.4-10.2); Carbon Dioxide 23 mmol/L (22-32); Chloride 108 mmol/L (98-107); Estimated Glomerular Filt Rate > 60 mL/min (>60); Globulin 2.7 g/dL (1.7-4.1); Glucose 96 mg/dL (70-100); HEMOLYSIS < 15 (0-50); Potassium 3.5 mmol/L (3.4-5.1); Sodium 135 mmol/L (137-145); Total Protein 5.6 g/dL (6.3-8.2)
--- NOTE | 2024-03-24 07:42 | P.PN_ITS ---
Subjective Subjective Interval history: Summary: She was [place] [address]. She has been on empiric antibiotics for entero colitis by CT scan. Surgery has been following, and feels he was no indication for surgery. The patient is improving with a white count down to 18,000 today. No diarrhea, negative stool PCR. She does abuse fentanyl. Subjective: She was improving. She had a bowel movement today and has been walking a lot. She has been eating without nausea. Her white count he was improving but is still at 18,000. She lost her IV and we will convert to oral medications today. We are also tapering her methadone. She was his fentanyl outside of the hospital. Exam Vital Signs (past 8 hours): - 03/24/24 03:00 Temperature 98.9 F Pulse Rate 84 Respiratory Rate 19 Blood Pressure 160/94 H Pulse Oximetry 95 Oxygen Delivery Method Room Air Oxygen Flow Rate 0 Narrative Exam Narrative: NAD, alert and oriented. Fluent speech. Lungs are clear, normal rate and effort. Heart is regular, no murmur gallop or rub. Abdomen is soft, somewhat distended and hypertympanic, positive bowel tones, less tender in the lower quadrants. Extremities are free of edema. Objective Imaging CT scan - abdomen: Radiologist's impression: Radiologist's impression: Moderate multifocal findings of enterocolitis. There is no acute small bowel obstruction. Overall moderate to large fecal loading also seen. Nonspecific periportal edema in the liver, as well as small ascites. Mildly distended biliary tree and gallbladder, consider LFT correlation. Moderately patulous distal esophagus, possibly related to esophagitis and reflux. Consider endoscopy correlation if needed. Other findings as above. US - abdomen: Radiologist's impression: Radiologist's impression: IMPRESSION: Nonspecific heterogeneous echogenic appearance of the liver, particularly along the portal triads, correlate with LFTs. Findings may represent hepatitis or reactive edema to other causes. Biliary ductal dilation is seen. Correlate with LFTs. MRCP or ERCP could further evaluate if needed. Nonspecific free fluid adjacent to the gallbladder and liver. No sonographic Fuentes sign. Labs 03/24/24 06:45 03/24/24 06:45 Labs: Laboratory Results - last 24 hr 03/24/24 06:45 WBC 18.1 H RBC 2.97 L Hgb 8.9 L Hct 26.6 L MCV 89.7 MCH 30.0 MCHC 33.4 RDW 13.6 Plt Count 228 Neut % (Auto) 86.9 H Lymph % (Auto) 8.0 L Scott % (Auto) 4.2 Eos % (Auto) 0.7 L Baso % (Auto) 0.2 Neut # (Auto) 45084 H Lymph # (Auto) 1400 Scott # (Auto) 800 Eos # (Auto) 100 Baso # (Auto) 0 Sodium 135 L Potassium 3.5 Chloride 108 H Carbon Dioxide 23 BUN 10 Creatinine 0.67 Estimated GFR > 60 BUN/Creatinine Ratio 14.9 Glucose 96 Calcium 8.2 L Total Bilirubin 0.5 AST 30 ALT 17 Alkaline Phosphatase 77 Total Protein 5.6 L Albumin 2.9 L Globulin 2.7 Albumin/Globulin Ratio 1.1 [facility] Medical History Eczema, dyshidrotic (~2020) Anxiety Chronic hepatitis C Osteoarthritis of both hands Hepatitis C antibody test positive Arthritis (Unknown) Chronic neck pain (Unknown) Hx of idiopathic thrombocytopenic purpura (2007) Surgical History Anesthesia H/O hernia repair Hx of arthroscopy of knee (~2002) History of splenectomy (2007) Status post knee replacement Family History Family/Other Adopted Social History household members: spouse Smoking Status: Current every day smoker quit status: considering quitting alcohol intake: current substance use type: does not use Assessment & Plan Assessment & Plan narrative: 1. Severe abdominal pain with leukocytosis, present on admission and improving. 2. Chronic hepatitis-C, present on admission and active. 3. Prior splenectomy, present on admission and active. This related to ITP. 4. Severe sepsis with abdominal pain, hypotension, leukocytosis. She was given a 30 mL/kilogram bolus of lactated Ringer's and will be followed with maintenance fluid. Present on admission and improving. 5. Fentanyl abuse, , present on admission and active. Plan: -switch to PO Abx, negative stool PCR. -continue to monitor, hospital discharge tomorrow with her white counts under 15,000 and she continues to improve. -OOB, advance activity. -she was placed on methadone to prevent withdrawal upon arrival to the hospital, we are tapering this. I will bring it down to 20 mg b.i.d. starting this evening She is full resuscitation. Admitted inpatient status, 2 nights are expected. LUPIS: 03/25. Time-Based Coding :: 20 min spent with patient and on the chart (including review of chart, obtaining history, exam, reviewing outside data, placing orders, documenting exam and treatment plan, and counseling patient) on 03/24. Quality VTE Deep Vein Thrombosis/Pulmonary Embolism Present on Admission: No
[2024-03-24 08:00] VITALS: BP 138/82; PULSE 90; RESP 18; TEMP 36.8; O2SAT 93
[2024-03-24] MEDS: METHADONE 10 MG TABLET 20 MG PO ×3 (08:16→20:10)
[2024-03-24] MEDS: estradioL 1 MG TABLET PO (08:16)
[2024-03-24] MEDS: HEPARIN 5,000 UNIT/ML VIAL 5000 UNIT SUBCUT ×2 (08:16→20:54)
[2024-03-24] MEDS: FAMOTIDINE 20 MG TABLET PO ×2 (08:16→20:10)
[2024-03-24] MEDS: NICOTINE 14 PATCH 14 MG TOP (08:16)
[2024-03-24 09:19] VITALS: PULSE 81; RESP 18; O2SAT 90
[2024-03-24] MEDS: BUDESONIDE 0.5 MG/2 ML NEB INH (09:19)
--- NOTE | 2024-03-24 10:36 | CM.DPC ---
DCP Cont. Reviewed EMR and team rounds for status updates. Pt is beginning to improve, however still has quite an elevated white blood cell count, and she will also be having a surgical consult due to the acuity of her abdominal pain. Per Hospitalist, likely ready for home d/c on Thursday. Monitor closely for d/c needs.
[2024-03-24] MEDS: ACETAMINOPHEN 325 MG TABLET 650 MG PO (12:15)
[2024-03-24] MEDS: AMOXICILLIN/CLAV 875/125 MG 1 TAB PO ×2 (12:15→20:10)
[2024-03-24 14:28] VITALS: O2SAT 93
[2024-03-24] MEDS: POTASSIUM CHLORIDE 20 MEQ TAB 40 MEQ PO (14:40)
[2024-03-24] MEDS: ONDANSETRON 4 MG/2 ML INJ IV (18:34)
[2024-03-24] MEDS: ALPRAZolam 0.25 MG TABLET PO (18:34)
[2024-03-24 19:00] VITALS: BP 137/63; PULSE 82; RESP 18; TEMP 36.4; O2SAT 87
[2024-03-24 20:00] VITALS: BP 137/63; PULSE 82; RESP 18; TEMP 36.4; O2SAT 87
[2024-03-25] VITALS (10 sets, daily range): BP systolic 123–174; BP diastolic 62–77; PULSE 85–95; RESP 16–20; TEMP 37–38.1; O2SAT 91–105
[2024-03-25] MEDS: ALPRAZolam 0.25 MG TABLET PO ×2 (01:24→20:28)
[2024-03-25] MEDS: ACETAMINOPHEN 325 MG TABLET 650 MG PO ×2 (01:24→18:32)
[2024-03-25] MEDS: ALBUTEROL 2.5 MG/3 ML NEB (ADULT) INH ×4 (01:29→20:00)
[2024-03-25 06:39] LABS: Hematocrit 27.6 % (36-46); Hemoglobin 9.2 g/dL (12.0-16.0); Mean Corpuscular HGB Conc 33.4 % (30-36); Mean Corpuscular Hemoglobin 29.9 PG (26-34); Mean Corpuscular Volume 89.5 fL (80-100); Platelet Count 265 X10^3/uL (150-400); Red Blood Cell Count 3.08 X10^6/uL (4.0-5.2); Red Cell Distribution Width 13.3 % (11.6-14.8); White Blood Cell Count 17.5 X10^3/uL (4.5-11.0)
[2024-03-25 06:56] LABS: BUN Creatinine Ratio 15.2 (6-22); Blood Urea Nitrogen 10 mg/dL (7-17); Calcium 8.4 mg/dL (8.4-10.2); Carbon Dioxide 26 mmol/L (22-32); Chloride 104 mmol/L (98-107); Estimated Glomerular Filt Rate > 60 mL/min (>60); Glucose 89 mg/dL (70-100); HEMOLYSIS < 15 (0-50); Sodium 134 mmol/L (137-145)
[2024-03-25] MEDS: BUDESONIDE 0.5 MG/2 ML NEB INH ×2 (08:59→20:00)
[2024-03-25] MEDS: FAMOTIDINE 20 MG TABLET PO ×2 (09:35→20:28)
[2024-03-25] MEDS: METHADONE 10 MG TABLET 20 MG PO ×2 (09:35→20:28)
[2024-03-25] MEDS: NICOTINE 14 PATCH 14 MG TOP ×2 (09:35→20:28)
[2024-03-25] MEDS: HEPARIN 5,000 UNIT/ML VIAL 5000 UNIT SUBCUT ×2 (09:35→20:28)
[2024-03-25] MEDS: estradioL 1 MG TABLET PO (09:35)
[2024-03-25] MEDS: AMOXICILLIN/CLAV 875/125 MG 1 TAB PO ×2 (09:36→20:28)
[2024-03-25] MEDS: SODIUM CHLORIDE 0.9% FLUSH 10 ML IV ×2 (09:36→20:29)
--- NOTE | 2024-03-25 10:27 | CM.DPC ---
Addendum entered by GERALDINE Wei 03/25/24 13:25: DCP consulted by hospitalist to refer pt to outpatient [facility]/MAT services. Per hospitalist, pt still experiencing SBO and will wait for bowel movement until medically cleared. DCP met with pt in room, pt was found sitting up in chair. Pt was cooperative and appreciative when discussing MAT services and counseling. Pt reports fentanyl use and would be interested in suboxone interventions. [facility] provided handout for [facility] for pt to refer to for contact, pt consented to this DC to send referral utilizing email address ([email or web address]) and other contact information. Pt declined intake scheduling at this time, hopes to connect with [facility] right before discharge/when medically stable. [facility] sent online referral to [facility] with pt demographic information, per pt's consent. Plan: Pt stay one more night, until medically cleared for discharge. Spouse to transport when cleared. CM team following for any other discharge needs. ALETHA Ferrara Original Note: DCP Continued: Reviewed EMR and team rounds for pt?s medical status. No new discharge needs identified at this time. Per hospitalist, pt should be ready for discharge today if white count still improving. Plan: Anticipating discharge today, or when medically cleared, with spouse to transport. CM Team will continue to follow if any discharge needs arise. ALETHA Ferrara
--- NOTE | 2024-03-25 11:09 | PM.PN.1 ---
Subjective Subjective Date Patient Seen: 03/25/24 Time Patient Seen: 10:05 Interval history: Summary: She was admitted [place] [address]. She has been on empiric antibiotics for entero colitis by CT scan. Surgery has been following, and feels he was no indication for surgery. The patient is improving with a white count down to 18,000 today. No diarrhea, negative stool PCR. She does abuse fentanyl. Interval history: She reports ongoing abdominal distention. She has been passing flatus. She is interested in drug treatment options after discharge. Exam Vital Signs (past 8 hours): - 03/25/24 07:00 03/25/24 08:00 03/25/24 09:00 Temperature 98.6 F Pulse Rate 90 91 H Respiratory Rate 20 18 Blood Pressure 145/77 H Pulse Oximetry 91 94 Oxygen Delivery Method Room Air Room Air Oxygen Flow Rate 0 Fraction of Inspired Oxygen 21 SaO2/FiO2 Ratio 428 Oxygen Delivery Method Room Air Oxygen Flow Rate 0 Narrative Exam Narrative: GENERAL: This is a thin female patient, in no apparent distress. HEAD: Atraumatic. Normocephalic. No temporal or scalp tenderness. EYES: Pupils equal round and reactive. Extraocular motions intact. No scleral icterus. No injection or drainage. ENT: Mucous membranes pink and moist. NECK: Trachea midline. No JVD, bruits or lymphadenopathy. Supple, nontender, no meningeal signs. CARDIOVASCULAR: Regular rate and rhythm without murmurs, gallops, or rubs. RESPIRATORY: Clear to auscultation. GASTROINTESTINAL: Abdomen with rare bowel tones, soft, non-tender, moderately distended. EXTREMITIES: No clubbing, cyanosis, or edema. BACK: Nontender without deformity or crepitance. No flank tenderness. NEUROLOGIC: Alert, oriented, speech fluent, full upper and lower motor strength, no focal deficits evident. DERMATOLOGIC: No rashes or skin lesions. Objective Labs 03/25/24 06:12 03/25/24 06:12 Labs: Laboratory Results - last 24 hr 03/25/24 06:12 WBC 17.5 H RBC 3.08 L Hgb 9.2 L Hct 27.6 L MCV 89.5 MCH 29.9 MCHC 33.4 RDW 13.3 Plt Count 265 Sodium 134 L Potassium 4.0 Chloride 104 Carbon Dioxide 26 BUN 10 Creatinine 0.66 Estimated GFR > 60 BUN/Creatinine Ratio 15.2 Glucose 89 Calcium 8.4 PFSH Medical History Eczema, dyshidrotic (~2020) Anxiety Chronic hepatitis C Osteoarthritis of both hands Hepatitis C antibody test positive Arthritis (Unknown) Chronic neck pain (Unknown) Hx of idiopathic thrombocytopenic purpura (2007) Surgical History Anesthesia H/O hernia repair Hx of arthroscopy of knee (~2002) History of splenectomy (2007) Status post knee replacement Family History Family/Other Adopted Social History household members: spouse Smoking Status: Current every day smoker quit status: considering quitting alcohol intake: current substance use type: does not use Assessment & Plan Assessment & Plan narrative: 1. Severe abdominal pain with leukocytosis, present on admission and slowly improving with gradually decreasing white blood count. 2. Chronic hepatitis-C, present on admission and active. 3. Prior splenectomy, present on admission and active. This related to ITP. 4. Severe sepsis with abdominal pain, hypotension, leukocytosis. She was given a 30 mL/kilogram bolus of lactated Ringer's and will be followed with maintenance fluid. Present on admission and improving. 5. Fentanyl abuse, , present on admission and active. Plan: -switch to PO Abx, negative stool PCR. -continue to monitor, hospital discharge tomorrow with her white counts under 15,000 and she continues to improve. -OOB, advance activity. -she was placed on methadone to prevent withdrawal upon arrival to the hospital, we are tapering this. Decrease to 10 mg b.i.d. starting this evening -explore outpatient drug treatment options She is full resuscitation. Admitted inpatient status, 2 nights are expected. LUPIS: 03/26. Time-Based Coding :: [TOTAL MINUTES] spent with patient and on the chart (including review of chart, obtaining history, exam, reviewing outside data, placing orders, documenting exam and treatment plan, and counseling patient) on [DATE]. Quality VTE Deep Vein Thrombosis/Pulmonary Embolism Present on Admission: No PROFEE Charge codes Subsequent inpatient/observation care: 67270
[2024-03-25 12:29] LABS: Acinetobacter calcoa-baumannii Not Detected (Not Detect); Bacteroides fragilis Not Detected (Not Detect); Candida albicans Not Detected (Not Detect); Candida auris Not Detected (Not Detect); Candida glabrata Not Detected (Not Detect); Candida krusei Not Detected (Not Detect); Candida parapsilosis Not Detected (Not Detect); Candida tropicalis Not Detected (Not Detect); Cryptococcus neoformans/gatti Not Detected (Not Detect); Enterobacter cloacae complex Not Detected (Not Detect); Enterobacterales Not Detected (Not Detect); Enterococcus faecalis Not Detected (Not Detect); Enterococcus faecium Not Detected (Not Detect); Haemophilus influenzae Not Detected (Not Detect); Klebsiella aerogenes Not Detected (Not Detect); Listeria monocytogenes Not Detected (Not Detect); Neisseria meningitidis Not Detected (Not Detect); Proteus species Not Detected (Not Detect); Pseudomonas aeruginosa Not Detected (Not Detect); Salmonella species Not Detected (Not Detect); Serratia marcescens Not Detected (Not Detect); Staphylococcus epidermidis Not Detected (Not Detect); Staphylococcus lugdunensis Not Detected (Not Detect); Staphylococcus species Not Detected (Not Detect); Stenotrophomonas maltophilia Not Detected (Not Detect); Streptococcus agalactiae (Gr B Not Detected (Not Detect); Streptococcus pneumonia Not Detected (Not Detect); Streptococcus pyogenes (Gr A) Not Detected (Not Detect); Streptococcus species Not Detected (Not Detect)
--- NOTE | 2024-03-25 19:51 | PC.NURSE ---
Pt reported that her nicotine patch fell off at approx 18:30. [address] Dr. Perez, ok to put another patch on tonight.
[2024-03-26] VITALS (23 sets, daily range): BP systolic 103–158; BP diastolic 60–87; PULSE 80–137; RESP 16–31; TEMP 36.7–37.4; O2SAT 87–97
--- NOTE | 2024-03-26 | DI.CT.S_ITS ---
PROCEDURE: CT ABDOMEN PELVIS W CON INDICATIONS: EXTREMEABDOMEN PAIN TECHNIQUE: After the administration of intravenous contrast, axial sections acquired from the lung bases to the pubic symphysis. Coronal and sagittal reformats were performed. For radiation dose reduction, the following was used: automated exposure control, adjustment of mA and/or kV according to patient size. COMPARISON: [facility], CT, CT ABDOMEN PELVIS W CON, 03/21/2024, 13:55. FINDINGS: Image quality: Diagnostic. Lower Chest: Bilateral pleural effusions, right greater than left.1 ABDOMEN: Liver: No solid mass. Gallbladder: No radiopaque gallstones or wall thickening. Biliary ducts: No biliary dilation. Pancreas: No ductal dilation. Spleen: Absent2 Adrenal Glands: No adrenal nodules. Kidneys and Ureters: No hydronephrosis. No solid mass. No complex renal cystic lesion which requires follow up. Stomach and Bowel: The jejunum demonstrates diffuse circumferential wall thickening which extends into the ileum. There is now distention of bowel loops. The colon demonstrates no significant wall thickening but does show a large stool burden. High attenuation material in the distal colon likely represents prior ingested oral contrast. Peritoneum: There is free fluid throughout the abdomen as well as a large amount of anti-dependent free air. Smaller foci of free air are seen throughout the mesentery. Ventral Wall: No significant ventral hernia. Abdominal Nodes: No retroperitoneal or mesenteric adenopathy by size criteria. Vessels: Aorta and inferior vena cava are normal in size. PELVIS: Pelvic Organs: Unremarkable. Bladder: No bladder wall thickening, accounting for underdistention. Pelvic Nodes: No enlarged lymph nodes. Miscellaneous: No inguinal hernias are seen. Bones: No aggressive osseous abnormality. IMPRESSION: Constellation of findings concerning for perforation of small-bowel secondary to enteritis. Dictated by: Macy Suárez M.D. on 03/26/2024 at 11:19 Approved by: Macy Suárez M.D. on 03/26/2024 at 11:38
--- NOTE | 2024-03-26 | PATH_ITS ---
[facility] Accession Number: [id number] No. of containers..01 Tissue . 01 Material submitted: . sigmoid colon - SIGMOID COLON, SEGMENTAL RESECTION . 01 Diagnosis: SIGMOID COLON, SEGMENTAL RESECTION: Segment of colon with transmural perforation and associated abscess formation. No dysplasia or malignancy identified. [facility] 03/31/2024 112 Local . 01 Electronically signed: . Agapito Zepeda MD, Pathologist NPI- [id number] . 01 Gross description: . Received in formalin with two identifiers and sigmoid colon, is an unoriented segment of colon (14.5 cm in length by 3.7 cm in diameter) with huitron smooth serosa and a full thickness defect measuring 3.1 x 2.4 cm with visible mucosa and fecal material. The defect is directly adjacent to one staple line which is inked blue, the defect is inked orange, and the opposite staple line is inked black. Adherent material consistent with exudate is identified. The lumen contains solid brown fecal material and the mucosa is huitron and velvety with diffusely attenuated folds, and no polyps or lesions identified. The pandya average 0.3 cm thick with no diverticula identified. No lymph node candidates are identified upon palpation. Industrial Electrical Engineer sections are submitted as follows: A1: Industrial Electrical Engineer blue margin en face. A2: Industrial Electrical Engineer black margin en face. A3: Area of defect. A4: Unremarkable full thickness sections. ([id number]) . The remaining orange-inked area of defect is submitted entirely in A5-A8. ([id number]) /[facility] 03/31/2024 1123 Local . 01 Microscopic: . SIGMOID COLON: Sections of the perforated colon shows focal mucosal necrosis and more extensive dense active inflammation involving the subserosal adipose tissue. Admixed foreign material consistent with fecal debris is present among inflammatory exudate in places. . 01 Pathologist provided ICD-10: K63.1, K65.1 . 01 CPT . 065218 Specimen Comment: A courtesy copy of this report has been sent to [phone] Performed at: [address] [address], [place], [place] [id number] MD Agapito Zepeda MD Phone: [phone]
--- NOTE | 2024-03-26 | DI.CT.S_ITS ---
PROCEDURE: CT ANGIO CHEST PE PROTOCOL INDICATIONS: abd pain,hypoxia TECHNIQUE: After the administration of intravenous contrast, 2 mm thick sections acquired from the pulmonary apices to the posterior costophrenic angles. 3-dimensional maximum intensity projection (MIP) coronal and sagittal reformats were then acquired through the thorax. For radiation dose reduction, the following was used: automated exposure control, adjustment of mA and/or kV according to patient size. COMPARISON: None. FINDINGS: Image quality: Diagnostic. Contrast bolus is insufficient for the diagnosis of pulmonary embolism. Pulmonary arteries: Pulmonary arteries are normal in size. Aorta: Normal in course and caliber without dissection. No significant atherosclerosis. Lower Neck: No enlarged lymph nodes. Thyroid: No thyroid nodules which require sonographic follow up, per consensus guidelines. Axillae: No enlarged lymph nodes. Chest Wall: Unremarkable. Bones: Unremarkable. Lungs and Pleura: There bilateral pleural effusions, right larger than left, with associated compressive atelectasis. No focal consolidation or pneumothorax. Heart: Heart size is normal. No pericardial effusion. Thoracic Vessels: No aortic aneurysm. Mediastinum and Kena: No enlarged lymph nodes. Esophagus: No wall thickening. Some layering intraluminal fluid and gas distally. Upper Abdomen: See same day CT report. IMPRESSION: Bilateral pleural effusions without other acute cardiopulmonary process. Nondiagnostic for pulmonary embolism. Dictated by: Macy Suárez M.D. on 03/26/2024 at 11:39 Approved by: Macy Suárez M.D. on 03/26/2024 at 11:47
[2024-03-26] MEDS: ACETAMINOPHEN 325 MG TABLET 650 MG PO (04:03)
[2024-03-26] MEDS: ALPRAZolam 0.25 MG TABLET PO ×2 (04:03→10:06)
[2024-03-26 06:28] LABS: Hematocrit 26.6 % (36-46); Mean Corpuscular HGB Conc 33.7 % (30-36); Mean Corpuscular Hemoglobin 29.9 PG (26-34); Mean Corpuscular Volume 88.8 fL (80-100); Platelet Count 283 X10^3/uL (150-400); Red Cell Distribution Width 13.1 % (11.6-14.8); White Blood Cell Count 18.4 X10^3/uL (4.5-11.0)
[2024-03-26 06:47] LABS: BUN Creatinine Ratio 12.5 (6-22); Blood Urea Nitrogen 8 mg/dL (7-17); Calcium 8.4 mg/dL (8.4-10.2); Carbon Dioxide 28 mmol/L (22-32); Chloride 103 mmol/L (98-107); Estimated Glomerular Filt Rate > 60 mL/min (>60); Glucose 110 mg/dL (70-100); HEMOLYSIS < 15 (0-50); Potassium 3.8 mmol/L (3.4-5.1); Sodium 134 mmol/L (137-145)
[2024-03-26] MEDS: BUDESONIDE 0.5 MG/2 ML NEB INH ×2 (08:50→19:50)
[2024-03-26] MEDS: ALBUTEROL 2.5 MG/3 ML NEB (ADULT) INH ×2 (08:50→19:50)
[2024-03-26] MEDS: METHADONE 10 MG TABLET 20 MG PO (09:35)
[2024-03-26] MEDS: FAMOTIDINE 20 MG TABLET PO (09:35)
[2024-03-26] MEDS: estradioL 1 MG TABLET PO (09:35)
[2024-03-26] MEDS: HEPARIN 5,000 UNIT/ML VIAL 5000 UNIT SUBCUT ×2 (09:36→20:12)
[2024-03-26] MEDS: AMOXICILLIN/CLAV 875/125 MG 1 TAB PO (09:36)
[2024-03-26] MEDS: NICOTINE 14 PATCH 14 MG TOP (09:36)
[2024-03-26] MEDS: SODIUM CHLORIDE 0.9% FLUSH 10 ML IV ×2 (09:37→20:12)
--- NOTE | 2024-03-26 10:19 | PM.PN.1 ---
Subjective Subjective Date Patient Seen: 03/26/24 Time Patient Seen: 09:30 Interval history: Summary: She was admitted with acute [place] [address]. She has been on empiric antibiotics for entero colitis by CT scan. Surgery has been following, and feels he was no indication for surgery. The patient is improving with a white count down to 18,000 today. No diarrhea, negative stool PCR. She does abuse fentanyl. Interval history: She reports improved abdominal distention, and has been up walking about. She has been eating and passing flatus and had a bowel movement yesterday.. She has been passing flatus. She was given requested information yesterday regarding drug treatment options after discharge. Exam Vital Signs (past 8 hours): - 03/26/24 07:00 03/26/24 08:50 Temperature 99.3 F Pulse Rate 85 80 Respiratory Rate 16 16 Blood Pressure 118/62 Pulse Oximetry 92 96 Oxygen Delivery Method Room Air Oxygen Flow Rate 0 Fraction of Inspired Oxygen 21 SaO2/FiO2 Ratio 428 Oxygen Delivery Method Room Air Oxygen Flow Rate 0 Narrative Exam Narrative: GENERAL: This is a thin female patient, in no apparent distress. EYES: Pupils equal round and reactive. Extraocular motions intact. No scleral icterus. No injection or drainage. ENT: Mucous membranes pink and moist. NECK: Supple, nontender, no meningeal signs. CARDIOVASCULAR: Regular rate and rhythm without murmurs, gallops, or rubs. RESPIRATORY: Clear to auscultation. GASTROINTESTINAL: Abdomen with rare bowel tones, soft, non-tender, mildly distended. EXTREMITIES: No clubbing, cyanosis, or edema. NEUROLOGIC: Alert, oriented, speech fluent, full upper and lower motor strength, no focal deficits evident. DERMATOLOGIC: No rashes or skin lesions. Objective Labs 03/26/24 06:06 03/26/24 06:06 Labs: Laboratory Results - last 24 hr 03/21/24 03/26/24 11:17 06:06 WBC 18.4 H RBC 3.00 L Hgb 9.0 L Hct 26.6 L MCV 88.8 MCH 29.9 MCHC 33.7 RDW 13.1 Plt Count 283 Sodium 134 L Potassium 3.8 Chloride 103 Carbon Dioxide 28 BUN 8 Creatinine 0.64 Estimated GFR > 60 BUN/Creatinine Ratio 12.5 Glucose 110 H Calcium 8.4 A.calcoaceticus-baumannii cmplx PCR Not detected Bacteroides fragilis Not detected Katie albicans (PCR) Not detected Katie auris (PCR) Not detected C. glabrata (PCR) Not detected C. krusei (PCR) Not detected C. parapsilosis (PCR) Not detected C. tropicalis (PCR) Not detected C. neoform/gattii (PCR) Not detected Enterobacterales (PCR) Not detected E. cloacae complex PCR Not detected Enterococc faecalis PCR Not detected Enterococc faecium PCR Not detected E. coli (PCR) Not detected H. influenzae (PCR) Not detected Klebsiella aerogenes (PCR) Not detected Klebsiella oxytoca PCR Not detected Klebsiella pneumoniae Not detected List. monocytogenes PCR Not detected N. meningitidis (PCR) Not detected Proteus species (PCR) Not detected Salmonella spp. (PCR) Not detected Serratia marcescens PCR Not detected Staphylococcus sp PCR Not detected Staph aureus (PCR) Not detected mecA/C & MREJ Resist Gene Not applicable mecA/C-Methicil Resis Gene Not applicable mcr-1 Colistin Res Gene PCR Not applicable Staph epidermidis (PCR) Not detected Staph lugdunensis PCR Not detected S. maltophilia (PCR) Not detected Streptococcus sp PCR Not detected Group A Strep (PCR) Not detected Strep agalactiae (PCR) Not detected Strep pneumoniae (PCR) Not detected P. aeruginosa (PCR) Not detected Gee/B-Vanco Res Genes Not applicable blaIMP Car res Gene PCR Not applicable KPC-Carbap Res Gene PCR Not applicable blaNDM Car Res Gene PCR Not applicable OXA-48 Carbapenem Resis Gene (PCR) Not applicable blaVIM Car Res Gene PCR Not applicable CTX-M Gene Resistance (PCR) Not applicable [facility] Medical History Eczema, dyshidrotic (~2020) Anxiety Chronic hepatitis C Osteoarthritis of both hands Hepatitis C antibody test positive Arthritis (Unknown) Chronic neck pain (Unknown) Hx of idiopathic thrombocytopenic purpura (2007) Surgical History Anesthesia H/O hernia repair Hx of arthroscopy of knee (~2002) History of splenectomy (2007) Status post knee replacement Family History Family/Other Adopted Social History household members: spouse Smoking Status: Current every day smoker quit status: considering quitting alcohol intake: current substance use type: does not use Assessment & Plan Assessment & Plan narrative: 1. Severe abdominal pain with leukocytosis, present on admission and slowly improving with gradually decreasing white blood count, slightly increased today but overall improving. Negative stool PCR. 2. Chronic hepatitis-C, present on admission and active. 3. Prior splenectomy, present on admission and active. This related to ITP. 4. Severe sepsis with abdominal pain, hypotension, leukocytosis. She was given a 30 mL/kilogram bolus of lactated Ringer's and will be followed with maintenance fluid. Present on admission and improving. 5. Fentanyl abuse, , present on admission and active. Plan: -continue PO Abx -continue to monitor, hospital discharge tomorrow with her white counts under 15,000 and she continues to improve. -OOB, advance activity. -she was placed on methadone to prevent withdrawal upon arrival to the hospital, we are tapering this. Decrease to 10 mg b.i.d. starting last evening, once daily today and stop at discharge -outpatient drug treatment Full code. Admitted inpatient status, 2 nights are expected. LUPIS: 03/26. Time-Based Coding :: [TOTAL MINUTES] spent with patient and on the chart (including review of chart, obtaining history, exam, reviewing outside data, placing orders, documenting exam and treatment plan, and counseling patient) on [DATE]. Quality VTE Deep Vein Thrombosis/Pulmonary Embolism Present on Admission: No IH PROFEE Charge codes Subsequent inpatient/observation care: 43015
[2024-03-26] MEDS: SIMETHICONE 80 MG TABLET PO (10:47)
[2024-03-26] MEDS: HYDROMORPHONE 0.5 MG INJ IV ×4 (11:13→20:13)
--- NOTE | 2024-03-26 11:27 | DI.RAD.S_ITS ---
PROCEDURE: XR ABDOMEN 1V INDICATIONS: abdominal pain TECHNIQUE: One view of the abdomen acquired. COMPARISON: None. FINDINGS: Surgical changes and devices: None. Bowel: Bowel gas pattern is nonobstructive. Soft tissues: No suspicious abdominal calcifications. Visualized solid organ contours appear normal in size. Bones: No suspicious bony lesions. IMPRESSION: No acute abnormality. Dictated by: Macy Suárez M.D. on 03/26/2024 at 11:09 Approved by: Macy Suárez M.D. on 03/26/2024 at 11:11
--- NOTE | 2024-03-26 12:13 | PM.PREOP ---
Pre-operative Note Interval Note History & Physical reviewed/Exam performed by Physician: Yes Changes to H&P: Yes H&P completed within 30 days and has changed as indicated here:: persistent elevated WBC, was clinically improved until sudden onset abdominal pain today and CT scan shows free air and increased free fluid. Enlarging bilateral pleural effusions. Going to OR for Xlap
[2024-03-26] MEDS: SODIUM CHLORIDE 0.9% 500 ML 1000 ML IV (12:15)
--- NOTE | 2024-03-26 13:16 | PC.NURSE ---
event note/abdominal pain approximately 0950 pt up to the bathroom, pulled cord/call light in the bathroom. This RN and TRAY PACKER went to check on pt. pt states having sudden increase in abdominal pain. Pt states had an ensure at breakfast and felt her stomach rumbling and went in to try and have a bowel movement but just feels pain. Pt assisted back to bed and encouraged a side laying position to alleviate gas pressure. Pt medicated with xanax at approx 1000 (reference EMAR) and web ex message sent to notifying of discomfort and requesting simethicone or other. Order received/administered (EMAR). VSS but pain continued. Medicated with Dilaudid approx 1100 and asked to come see pt as pain was not improving and was now stating SOB with sats noted to be 87% on RA. O2 via NC. assessed pt and ordered stat x-ray followed by stat CT. imaging performed. pt notified by MD of need for surgery. This RN notified pt's spouse of the same. [address] ABDUL up to AC to transfer pt to surgery. Spouse updated on the same.
[2024-03-26] MEDS: ACETAMINOPHEN IV 1,000 MG/100 ML VIAL 400 MG IV (13:25)
--- NOTE | 2024-03-26 13:37 | CM.DPC ---
DCP Cont. Reviewed EMR and team rounds for status updates. Per Hospitalist, pt will need 1-more day before she's medically stable for home d/c. No anticipated needs from DCP. Spouse will transport home.
--- NOTE | 2024-03-26 13:51 | SUR.OPER ---
Supine on padded OR bed, head on pillow, arms secured on padded arm boards at <90 degrees abduction, legs uncrossed, safety belt at thigh, tape over blanket over lower legs.
[2024-03-26] MEDS: BUPIVACAINE 0.25% (PF) 30 ML, EPINEPHrine 0.15 MG INJ (14:03)
[2024-03-26] MEDS: LACTATED RINGERS 1,000 ML 42 ML IV (14:23)
--- NOTE | 2024-03-26 16:02 | P.OP_ITS ---
Operative Date/Time/Diagnoses Date of procedure: 03/26/24 Time of procedure: 16:02 Pre-op diagnosis: Perforated viscus Post-op diagnosis: same Procedure & Clinicians Procedure: Exploratory laparotomy with Maye's procedure Same procedure as scheduled: Yes Indications: Colonic perforation with fecal contamination of the peritoneum Surgeon: Molly Nugent Click Yes if Unassisted: Yes Anesthesia Type: General Operative Notes Findings: Patient had a colonic perforation which spilled mostly liquid stool into the abdomen. It emanated from a sacral ulcer in the sigmoid colon. There is cons istent formed stool below the site of perforation with evidence of intraloop abscesses possibly from a previous perforation. Small bowel looks fine, no ischemia. Given that the rectosigmoid colon still contained formed stool and that the contamination was so profound I decided to do a Maye diverting colostomy. Wound VAC would have been optimal however the narrowness of her abdomen did not allow us to occupied with both wound VAC and stoma bag. Skin was left open with wet-to-dry dressing Closure Type: non-primary Specimen(s): other (Sigmoid colon) Applied: drain(s) (15 RADHA drains x 2) Estimated Blood Loss (mL): 15 Blood products transfused: none Procedure in detail: Preop diagnosis: Perforated viscus Postop diagnosis: Same Operative procedure: Exploratory laparotomy with diverting colostomy Surgeon: Lilia Nugent MD Anesthetic was general with ET tube intubation Findings: Abdomen filled with liquid stool coming from perforation of the sigmoid colon. Sigmoid colon and rectum were filled with solid stool. Sacral ulcer was identified at the site of perforation Procedure: Patient placed in a supine position. Prepped and draped in sterile fashion to expose her abdomen. Midline incision was created using electrocautery and open technique we were greeted immediately with proximally 3 L of liquid stool found throughout the abdomen. This was removed and the abdomen was rinsed with normal saline to the best of our ability to remove the contamination. Once we had good visualization it was clear that a sacral ulcer was the cause a perforation in the sigmoid colon. Colon was resected the length of the perforation, small interloop abscesses were unroofed and removed from the small bowel. I then created a stoma site in the left lower quadrant through which I matured the stoma. Again abdomen was washed out, a drain was placed in the right colic gutter up and over the liver. The 2nd 15. Drain was placed into the pelvis. Fascia was closed with a running looped 0 PDS. SubQ was irrigated again. An attempt was made to place a wound VAC simultaneously with a colostomy bag, however we were unsuccessful in acquiring a seal. The wound VAC was removed and we went to a wet-to-dry dressing for the midline incision. Stoma bag was put in place. Sterile dressings were placed and patient remained intubated was taken to the ICU in improving but guarded condition. Needle, sponges, and instruments were were counted prior to closure of fascia. Blood loss: 15 mL Specimen: Sigmoid colon Complications: none Post-operative Condition: stable Disposition: ICU
--- NOTE | 2024-03-26 16:06 | SUR.PHASEI ---
Patient transported directly to ICU room 230 in stable condition, remains intubated. Transported with assistance of Anesthesiology and OR circulating nurse on monitoring specialist. All Vital signs stable. Bedside report given to FRANKO Hardin .
[2024-03-26] MEDS: DEXTROSE 5%-0.9% NS 1,000 ML 125 ML IV ×2 (16:10→23:38)
[2024-03-26] MEDS: propofoL 1,000 MG/100 ML VIAL 4.08 MG IV (16:18)
--- NOTE | 2024-03-26 16:41 | PM.CN.EICU ---
History of Present Illness Consult details IF CAMERA ACTIVATED, patient seen via real-time interactive audiovisual communication: Camera activated Chief complaint: Abd pain Consent obtained for tele-surveillance dual rate officer care: Yes Patient Location: ICU Provider location (State): [place] Other participants/roles: Hospitalist Narrative: Patient is a 58 year old female with history of Hep C and chronic pain syndrome on methadone who presents with abdominal pain on 03/21/2024. Today patient was found to be hypoxemia with severe abdominal pain. CT abdomen/pelvis showed free air with fluids consistent with perforation from stercoral colitis. She was taken to OR emergently and underwent ex-lap w/ Maye's procedure. Taken out to ICU intubated and sedated. Tele intensivsit consulted for vent management. Currently intubated and sedated with propofol. [facility]LY [facility], LAT[facility] Medical History Eczema, dyshidrotic (~2020) Anxiety Chronic hepatitis C Osteoarthritis of both hands Hepatitis C antibody test positive Arthritis (Unknown) Chronic neck pain (Unknown) Hx of idiopathic thrombocytopenic purpura (2007) Surgical History Anesthesia H/O hernia repair Hx of arthroscopy of knee (~2002) History of splenectomy (2007) Status post knee replacement Family History Family/Other Adopted Social History household members: spouse Smoking Status: Current every day smoker quit status: considering quitting alcohol intake: current substance use type: does not use Current Medications Current Medications Medications: Home Medications ibuprofen 800 mg tablet 800 mg PO QD-TID PRN severe back or joint pain #90 tabs 11/30/23 [Rx Confirmed 03/21/24] estradiol 1 mg tablet 1 mg PO QDAY #90 tabs 03/07/24 [Rx Confirmed 03/21/24] albuterol sulfate 90 mcg/actuation aerosol inhaler 1 puff inhalation QID PRN Shortness Of Breath Or Wheezing 03/21/24 [History Confirmed 03/21/24] fluticasone 250 mcg-salmeterol 50 mcg/dose blistr powdr for inhalation (Wixela Inhub) 1 inh inhalation BID 03/21/24 [History Confirmed 03/21/24] Visit Medications (administered) Generic Name Dose Route Start Last Admin Trade Name Freq PRN Reason Stop Dose Admin Acetaminophen 650 mg 03/21/24 18:50 03/26/24 04:03 Acetaminophen 325 Mg Tablet PO 650 mg Q6H PRN Administration Fever/Mild Pain (1-3) Albuterol 2.5 mg 03/22/24 00:08 03/25/24 01:29 Albuterol 2.5 Mg/3 Ml Neb (Adult) INH 2.5 mg [id number] PRN Administration Shortness Of Breath Albuterol 2.5 mg 03/23/24 07:00 03/26/24 14:17 Albuterol 2.5 Mg/3 Ml Neb (Adult) INH Not Given [id number] SHAHRAM Alprazolam 0.25 mg 03/22/24 04:38 03/26/24 10:06 Alprazolam 0.25 Mg Tablet PO 0.25 mg Q6H PRN Administration Anxiety Bisacodyl 10 mg 03/22/24 17:36 03/23/24 17:48 Bisacodyl 10 Mg Supp NV 10 mg PRN PRN Administration Constipation Budesonide 0.5 mg 03/22/24 08:00 03/26/24 08:50 Budesonide 0.5 Mg/2 Ml Neb INH 0.5 mg RTBID SHAHRAM Administration Estradiol 1 mg 03/24/24 09:00 03/26/24 09:35 Estradiol 1 Mg Tablet PO 1 mg DAILY SHAHRAM Administration Heparin Sodium (Porcine) 5,000 unit 03/21/24 21:00 03/26/24 09:36 Heparin 5,000 Unit/Ml Vial SUBCUT 5,000 unit BID SHAHRAM Administration Hydromorphone HCl 0.5 mg 03/26/24 11:42 03/26/24 12:15 Hydromorphone 0.5 Mg Inj IV 0.5 mg Q1H PRN Administration Pain, Severe (7-10) Lactated Ringer's 1,000 mls @ 42 mls/hr 03/26/24 13:00 03/26/24 14:23 Lactated Ringers IV 42 mls/hr CONT SHAHRAM Administration Dextrose/Sodium Chloride 1,000 mls @ 125 mls/hr 03/26/24 16:15 03/26/24 16:10 Dextrose 5%-0.9% Ns IV 125 mls/hr CONT SHAHRAM Administration Propofol 1,000 mg in 100 mls @ 2.04 mls/hr 03/26/24 16:15 03/26/24 16:18 Propofol IV 10 mcg/kg/min TITRATE SHAHRAM 4.08 mls/hr Administration Protocol 5 MCG/KG/MIN Nicotine 14 mg 03/23/24 17:50 03/26/24 09:36 Nicotine 14 Patch TOP 14 mg DAILY SHAHRAM Administration Ondansetron HCl 4 mg 03/21/24 11:20 03/21/24 11:29 Ondansetron 4 Mg/2 Ml Inj IV 4 mg NOW PRN Administration Nausea And Vomiting Sodium Chloride 10 ml 03/25/24 09:00 03/26/24 09:37 Sodium Chloride 0.9% Flush IV 10 ml BID SHAHRAM Administration Exam Vital Signs (past 8 hours): - 03/26/24 08:50 03/26/24 10:26 03/26/24 11:00 Temperature 98.7 F Pulse Rate 80 120 H Respiratory Rate 16 Blood Pressure Pulse Oximetry 96 87 L Oxygen Delivery Method Room Air Oxygen Flow Rate 0 03/26/24 11:02 03/26/24 12:01 03/26/24 12:33 Temperature Pulse Rate 132 H 137 H Respiratory Rate Blood Pressure 146/84 H 158/87 H Pulse Oximetry 95 94 95 Oxygen Delivery Method Oxygen Flow Rate 4 6 6 Fraction of Inspired Oxygen 21 SaO2/FiO2 Ratio 428 Oxygen Delivery Method Room Air Oxygen Flow Rate 6 Narrative Exam Narrative: Intubated and sedated Objective Labs 03/26/24 06:06 03/26/24 06:06 Labs: Laboratory Results - last 24 hr 03/26/24 06:06 WBC 18.4 H RBC 3.00 L Hgb 9.0 L Hct 26.6 L MCV 88.8 MCH 29.9 MCHC 33.7 RDW 13.1 Plt Count 283 Sodium 134 L Potassium 3.8 Chloride 103 Carbon Dioxide 28 BUN 8 Creatinine 0.64 Estimated GFR > 60 BUN/Creatinine Ratio 12.5 Glucose 110 H Calcium 8.4 Assessment & Plan Assessment & Plan narrative: Neuro: # Acute encephalopathy -- Secondary to sepsis and sedatives -- Intubated and sedated -- Daily SAT -- On propofol gtt -- RASS goal -1 to 0 RESP: # Acute respiratory insufficiency -- Intubated and sedated -- Secondary to sepsis w/ ALI -- Check CXR and ABG -- HOB elevation - Aspiration precaution -- Goal SpO2 > 88% -- Daily SAT and SBT CVS: -- Not in shock -- MAP goal > 65 -- Sepsis rx as below ID: # severe sepsis -- Secondary to bowel perforation -- On zosyn -- Follow up cx -- MAP goal > 65 -- On IVF per surgery GI: # Sterocoral colitis c/w perofration -- s/p ex-lap w/ Maye procedure -- Strict NPO -- On IVF -- On zosyn -- Management per surgery ENDO: -- Goal BS < 180 -- Need accucheck every 6 hr VTE: Heparin SQ PPI: Protonix IV daily Time-Based Coding :: 35 minutes spent with patient and on the chart (including review of chart, obtaining history, exam, reviewing outside data, placing orders, documenting exam and treatment plan, and counseling patient) on [DATE].
[2024-03-26 17:14] LABS: Base Excess ABG -5.4 mmol/L (-2-3); Blood Gas Mode Assist Cont Ventilat; Delivery System Adult Ventilator; HCO3 ABG 23 mmol/L (23-27); Oxygen Saturation ABG 88 % (95-100); PCO2 ABG 56.8 mmHg (35-45); PO2 ABG 67 mmHg (80-100); TCO2 ABG 24 mmol/L (23-27); pH ABG 7.22 (7.35-7.45)
[2024-03-26] MEDS: PIPERACILLIN/TAZO 3.375 GM in SODIUM CHLORIDE 0.9% 100 ML IV (17:17)
[2024-03-26 17:26] LABS: Hematocrit 41.4 % (36-46); Hemoglobin 13.9 g/dL (12.0-16.0); Mean Corpuscular HGB Conc 33.6 % (30-36); Mean Corpuscular Hemoglobin 30.5 PG (26-34); Mean Corpuscular Volume 90.9 fL (80-100); Platelet Count 335 X10^3/uL (150-400); Red Blood Cell Count 4.56 X10^6/uL (4.0-5.2); Red Cell Distribution Width 13.6 % (11.6-14.8); White Blood Cell Count 5.3 X10^3/uL (4.5-11.0)
[2024-03-26 17:27] LABS: Alanine Aminotransferase 21 IU/L (<35); Albumin 2.3 g/dL (3.5-5.0); Albumin Globulin Ratio 0.9 (1.0-2.8); Alkaline Phosphatase 254 U/L (38-126); Aspartate Aminotransferase 32 IU/L (14-36); BUN Creatinine Ratio 16.3 (6-22); Bilirubin Total 0.7 mg/dL (0.2-1.3); Blood Urea Nitrogen 13 mg/dL (7-17); Carbon Dioxide 21 mmol/L (22-32); Chloride 104 mmol/L (98-107); Estimated Glomerular Filt Rate > 60 mL/min (>60); Globulin 2.5 g/dL (1.7-4.1); Glucose 179 mg/dL (70-100); HEMOLYSIS < 15 (0-50); Potassium 4.7 mmol/L (3.4-5.1); Sodium 132 mmol/L (137-145); Total Protein 4.8 g/dL (6.3-8.2)
[2024-03-26] MEDS: fentaNYL 1,000 MCG in DEXTROSE 5% IN WATER 230 ML 11.9 MCG IV (17:30)
[2024-03-26 17:33] LABS: Add Manual Diff / Slide Review YES
[2024-03-26 17:49] LABS: Neutrophils Absolute Manual 3816 /uL (3000-5900); Total Cells Counted 100
[2024-03-26 17:50] LABS: RBC Morphology Normal Morphology
[2024-03-26] MEDS: CHLORHEXIDINE GLUCONATE 15 ML CUP PO ×2 (19:01→23:12)
--- NOTE | 2024-03-26 20:29 | DI.RAD.S_ITS ---
PROCEDURE: XR CHEST 1V INDICATIONS: ETT confirmation TECHNIQUE: One view of the chest was acquired. COMPARISON: [facility], CR, XR CHEST 2V, 05/24/2022, 16:43. [facility], CR, XR CHEST 2V, 05/26/2019, 14:58. FINDINGS: Surgical changes and devices: Endotracheal tube extends below the medial clavicular head lower margin but does not come in close proximity to the sarahy. Lungs and pleura: Lungs are clear on the left but there is reduced inspiration on the right and alveolar consolidation from atelectasis or mild pneumonia seen at the right lower lobe.. No pleural effusions or pneumothorax. Mediastinum: Mediastinal contours appear normal. Heart size is normal. Bones and chest wall: No suspicious bony lesions. Overlying soft tissues appear unremarkable. IMPRESSION: The endotracheal tube could be withdrawn approximately 2-3 cm. However it is not within the right mainstem bronchus. Reduced inspiratory volume on the right, right lung base atelectasis or mild pneumonia. Dictated by: Srinath Waters M.D. on 03/26/2024 at 21:29 Approved by: Srinath Waters M.D. on 03/26/2024 at 21:30
--- NOTE | 2024-03-26 20:35 | PM.ICURNDS ---
- Date Patient Seen: 03/26/24 :: This patient was seen via real time interactive two-way audiovisual telecommunication. Note: Patient admitted for bowel perforation s/p Gerardo's procedure. Remains intubated and sedated postop. CXR pending. Per RN, stoma appears dark in color. Recommend notifying surgery team and check stat lactic acid. Ordered 1 liter bolus. D/w bo ABDUL.
[2024-03-26] MEDS: LACTATED RINGERS 1,000 ML 1000 ML IV (20:58)
--- NOTE | 2024-03-26 22:15 | DI.RAD.S_ITS ---
PROCEDURE: XR CHEST 1V INDICATIONS: Confirm OG placement TECHNIQUE: One view of the chest was acquired. COMPARISON: [facility], CR, XR CHEST 1V, 03/26/2024, 20:31. [facility], CR, XR CHEST 2V, 05/24/2022, 16:43. FINDINGS: Surgical changes and devices: Esophagogastric tube extends into the gastric antrum.. Lungs and pleura: Lungs are unchanged with right greater than left lung base pneumonia pattern. No pleural effusions or pneumothorax. Mediastinum: Mediastinal contours appear normal. Heart size is normal. Bones and chest wall: No suspicious bony lesions. Overlying soft tissues appear unremarkable. IMPRESSION: Esophagogastric tube positioning normal. Otherwise no change. Dictated by: Srinath Waters M.D. on 03/26/2024 at 23:11 Approved by: Srinath Waters M.D. on 03/26/2024 at 23:11
[2024-03-26 22:32] LABS: Lactate (Lactic Acid) 4.4 mmol/L (0.7-2.1)
[2024-03-26 23:52] LABS: Reflexed Lactate in 2 Hours Y
[2024-03-27] VITALS (111 sets, daily range): BP systolic 78–153; BP diastolic 48–77; PULSE 89–130; RESP 27–37; TEMP 36.8–37.4; O2SAT 90–97
[2024-03-27 00:33] LABS: Lactate 2HR (Lactic Acid Rflx) 4.2 mmol/L (0.7-2.1)
[2024-03-27] MEDS: PIPERACILLIN/TAZO 3.375 GM in SODIUM CHLORIDE 0.9% 100 ML IV ×3 (01:18→17:30)
[2024-03-27] MEDS: HYDROMORPHONE 0.5 MG INJ IV (01:33)
[2024-03-27] MEDS: propofoL 1,000 MG/100 ML VIAL 8.568 MG IV (02:42)
[2024-03-27 05:21] LABS: Add Manual Diff / Slide Review NO; Basophils Absolute Auto 0 /uL (0-100); Basophils Percent Auto 0.2 % (0-2); Eosinophils Absolute Auto 0 /uL (0-450); Eosinophils Percent Auto 0.2 % (2-4); Hematocrit 44.1 % (36-46); Hemoglobin 14.6 g/dL (12.0-16.0); Lymphocytes Absolute Auto 700 /uL (1100-4500); Lymphocytes Percent Auto 4.8 % (25-40); Mean Corpuscular HGB Conc 33.1 % (30-36); Mean Corpuscular Volume 90.8 fL (80-100); Monocytes Absolute Auto 500 /uL (0-900); Monocytes Percent Auto 3.5 % (3-14); Neutrophils Absolute Auto 12700 /uL (1500-7000); Neutrophils Percent Auto 91.3 % (50-75); Platelet Count 356 X10^3/uL (150-400); Red Blood Cell Count 4.86 X10^6/uL (4.0-5.2); Red Cell Distribution Width 14.5 % (11.6-14.8); White Blood Cell Count 13.9 X10^3/uL (4.5-11.0)
[2024-03-27 05:37] LABS: Blood Urea Nitrogen 20 mg/dL (7-17); Calcium 7.5 mg/dL (8.4-10.2); Carbon Dioxide 13 mmol/L (22-32); Chloride 107 mmol/L (98-107); Estimated Glomerular Filt Rate 36 mL/min (>60); Glucose 235 mg/dL (70-100); HEMOLYSIS 39 (0-50); Potassium 4.5 mmol/L (3.4-5.1); Sodium 134 mmol/L (137-145)
[2024-03-27] MEDS: LACTATED RINGERS 1,000 ML 1000 ML IV (06:05)
[2024-03-27] MEDS: BUDESONIDE 0.5 MG/2 ML NEB INH ×2 (07:23→19:31)
[2024-03-27] MEDS: ALBUTEROL 2.5 MG/3 ML NEB (ADULT) INH ×3 (07:23→19:31)
[2024-03-27] MEDS: SODIUM CHLORIDE 0.9% 500 ML 1000 ML IV ×9 (07:50→18:03)
[2024-03-27] MEDS: CHLORHEXIDINE GLUCONATE 15 ML CUP PO ×3 (08:10→17:30)
[2024-03-27] MEDS: DEXTROSE 5%-0.9% NS 1,000 ML 125 ML IV (08:10)
[2024-03-27] MEDS: fentaNYL 1,000 MCG in DEXTROSE 5% IN WATER 230 ML 13.6 MCG IV (09:00)
--- NOTE | 2024-03-27 09:32 | P.PN_ITS ---
Subjective Subjective Date Patient Seen: 03/27/24 Time Patient Seen: 07:40 Interval history: Summary: She was admitted [place] [id number]. She has been on empiric antibiotics for entero colitis by CT scan. Surgery has been following, and feels he was no indication for surgery. The patient is improving with a white count down to 18,000 today. No diarrhea, negative stool PCR. She does abuse fentanyl. Interval history: She experienced acute abdominal pain yesterday morning and was found to have pneumoperitoneum. She was taken to the operating room where she was found to have a distal descending colon perforation from stercoral colitis from impacted stool due to narcotic ileus from fentanyl use. She was mildly hypoxic and kept intubated overnight. She developed mild hypotension. She was given some fluid boluses by the ICU service overnight but remains tachycardic this morning with elevated creatinine of 1.66. Lactate was elevated at 4.2. She has poor IV access peripherally and a PICC line is planned this morning. Exam Vital Signs (past 8 hours): - 03/27/24 02:00 03/27/24 02:00 03/27/24 02:30 Temperature Pulse Rate 119 H Respiratory Rate 32 H Blood Pressure 107/68 115/56 L Pulse Oximetry 95 Oxygen Delivery Method Oxygen Flow Rate Fraction of Inspired Oxygen 03/27/24 02:30 03/27/24 03:00 03/27/24 03:00 Temperature 98.3 F Pulse Rate 120 H 120 H Respiratory Rate 31 H 32 H Blood Pressure Pulse Oximetry 95 94 94 Oxygen Delivery Method Oxygen Flow Rate 0 Fraction of Inspired Oxygen 50 03/27/24 03:00 03/27/24 03:30 03/27/24 03:30 Temperature Pulse Rate 120 H Respiratory Rate 31 H Blood Pressure 121/74 96/70 Pulse Oximetry 94 Oxygen Delivery Method Oxygen Flow Rate Fraction of Inspired Oxygen 03/27/24 04:00 03/27/24 04:00 03/27/24 04:00 Temperature Pulse Rate 121 H Respiratory Rate 32 H Blood Pressure 103/67 Pulse Oximetry 94 Oxygen Delivery Method Mechanical Ventilation Oxygen Flow Rate Fraction of Inspired Oxygen 03/27/24 04:30 03/27/24 04:30 03/27/24 04:55 Temperature Pulse Rate 121 H 121 H Respiratory Rate 31 H 31 H Blood Pressure 89/68 L Pulse Oximetry 94 95 Oxygen Delivery Method Oxygen Flow Rate Fraction of Inspired Oxygen 03/27/24 04:55 03/27/24 05:00 03/27/24 05:00 Temperature 98.3 F Pulse Rate 121 H Respiratory Rate 32 H Blood Pressure 105/55 L 95/52 L Pulse Oximetry 94 Oxygen Delivery Method Oxygen Flow Rate 0 Fraction of Inspired Oxygen 50 03/27/24 05:00 03/27/24 05:30 03/27/24 05:30 Temperature Pulse Rate 122 H Respiratory Rate 31 H Blood Pressure 95/52 L 99/63 Pulse Oximetry 93 Oxygen Delivery Method Oxygen Flow Rate Fraction of Inspired Oxygen 03/27/24 06:00 03/27/24 06:00 03/27/24 06:00 Temperature 98.3 F Pulse Rate 123 H Respiratory Rate 33 H Blood Pressure 92/58 L Pulse Oximetry 93 93 Oxygen Delivery Method Oxygen Flow Rate 0 Fraction of Inspired Oxygen 50 03/27/24 06:30 03/27/24 06:38 03/27/24 06:38 Temperature Pulse Rate 120 H 114 H Respiratory Rate 31 H 29 H Blood Pressure 108/64 Pulse Oximetry 94 95 Oxygen Delivery Method Oxygen Flow Rate Fraction of Inspired Oxygen 03/27/24 07:00 03/27/24 07:00 03/27/24 07:23 Temperature Pulse Rate 108 H 110 H Respiratory Rate 28 H 27 H Blood Pressure 109/71 Pulse Oximetry 97 96 Oxygen Delivery Method Mechanical Ventilation Oxygen Flow Rate Fraction of Inspired Oxygen 40 03/27/24 07:30 03/27/24 07:30 03/27/24 08:00 Temperature Pulse Rate 115 H Respiratory Rate 30 H Blood Pressure 108/65 Pulse Oximetry 93 Oxygen Delivery Method Mechanical Ventilation Oxygen Flow Rate Fraction of Inspired Oxygen 03/27/24 08:00 03/27/24 08:00 03/27/24 08:30 Temperature Pulse Rate 116 H 112 H Respiratory Rate 29 H 29 H Blood Pressure 114/67 Pulse Oximetry 94 95 Oxygen Delivery Method Oxygen Flow Rate Fraction of Inspired Oxygen 03/27/24 08:30 03/27/24 08:52 03/27/24 09:00 Temperature 99.3 F Pulse Rate Respiratory Rate Blood Pressure 122/71 124/67 Pulse Oximetry Oxygen Delivery Method Oxygen Flow Rate Fraction of Inspired Oxygen 03/27/24 09:00 Temperature Pulse Rate 108 H Respiratory Rate 28 H Blood Pressure Pulse Oximetry 96 Oxygen Delivery Method Oxygen Flow Rate Fraction of Inspired Oxygen Fraction of Inspired Oxygen 40 SaO2/FiO2 Ratio 240 Oxygen Delivery Method Mechanical Ventilation Oxygen Flow Rate 0 Narrative Exam Narrative: GENERAL: This is a thin female patient, intubated and sedated on propofol infusion. EYES: Pupils equal round and reactive. Extraocular motions intact. No scleral icterus. No injection or drainage. ENT: Mucous membranes pink and moist. Orotracheal and orogastric tubes in place. NECK: Unremarkable. CARDIOVASCULAR: Tachycardic rhythm without murmurs, gallops, or rubs. RESPIRATORY: Clear to auscultation, vent sounds. GASTROINTESTINAL: Abdomen with colostomy site in place, bandages in place are clean, dry and intact. GENITOURINARY: Carreno catheter in place. LOW URINE OUTPUTS NOTED OVERNIGHT. EXTREMITIES: No clubbing, cyanosis, or edema. NEUROLOGIC: Sedated, intubated, exam not feasible. DERMATOLOGIC: No rashes or skin lesions. Objective Labs 03/27/24 04:33 03/27/24 05:18 Labs: Laboratory Results - last 24 hr 03/26/24 03/26/24 03/26/24 17:06 17:10 22:12 WBC 5.3 D RBC 4.56 Hgb 13.9 Hct 41.4 MCV 90.9 MCH 30.5 MCHC 33.6 RDW 13.6 Plt Count 335 Neut % (Auto) Not Reportable Lymph % (Auto) Not Reportable [place] % (Auto) Not Reportable Eos % (Auto) Not Reportable Baso % (Auto) Not Reportable Neut # (Auto) Lymph # (Auto) Not Reportable [place] # (Auto) Not Reportable Eos # (Auto) Baso # (Auto) Not Reportable Total Counted 100 Seg Neutrophils % 25.0 L Band Neutrophils % 47.0 H Lymphocytes % (Manual) 15.0 L Monocytes % (Manual) 12.0 H Myelocytes % 1.0 H Neutrophils # (Manual) 3816 RBC Morphology Normal morphology ABG pH 7.22 L* ABG pCO2 56.8 H ABG pO2 67 L ABG HCO3 23 ABG Total CO2 24 ABG O2 Saturation 88 L ABG Base Excess -5.4 L O2 Delivery Device Adult ventilator Mode of Support Assist cont ventilat Sodium 132 L Potassium 4.7 Chloride 104 Carbon Dioxide 21 L BUN 13 Creatinine 0.80 Estimated GFR > 60 BUN/Creatinine Ratio 16.3 Glucose 179 H Lactate 4.4 H* Calcium 8.0 L Total Bilirubin 0.7 AST 32 ALT 21 Alkaline Phosphatase 254 H D Total Protein 4.8 L Albumin 2.3 L Globulin 2.5 Albumin/Globulin Ratio 0.9 L 03/27/24 03/27/24 03/27/24 00:14 04:33 05:18 WBC 13.9 H D RBC 4.86 Hgb 14.6 Hct 44.1 MCV 90.8 MCH 30.0 MCHC 33.1 RDW 14.5 Plt Count 356 Neut % (Auto) 91.3 H Lymph % (Auto) 4.8 L [place] % (Auto) 3.5 Eos % (Auto) 0.2 L Baso % (Auto) 0.2 Neut # (Auto) 87933 H Lymph # (Auto) 700 L [place] # (Auto) 500 Eos # (Auto) 0 Baso # (Auto) 0 Total Counted Seg Neutrophils % Band Neutrophils % Lymphocytes % (Manual) Monocytes % (Manual) Myelocytes % Neutrophils # (Manual) RBC Morphology ABG pH ABG pCO2 ABG pO2 ABG HCO3 ABG Total CO2 ABG O2 Saturation ABG Base Excess O2 Delivery Device Mode of Support Sodium 134 L Potassium 4.5 Chloride 107 Carbon Dioxide 13 L BUN 20 H Creatinine 1.66 H Estimated GFR 36 L BUN/Creatinine Ratio 12.0 Glucose 235 H Lactate 4.2 H* Calcium 7.5 L Total Bilirubin AST ALT Alkaline Phosphatase Total Protein Albumin Globulin Albumin/Globulin Ratio [facility] Medical History Eczema, dyshidrotic (~2020) Anxiety Chronic hepatitis C Osteoarthritis of both hands Hepatitis C antibody test positive Arthritis (Unknown) Chronic neck pain (Unknown) Hx of idiopathic thrombocytopenic purpura (2007) Surgical History Anesthesia H/O hernia repair Hx of arthroscopy of knee (~2002) History of splenectomy (2007) Status post knee replacement Family History Family/Other Adopted Social History household members: spouse Smoking Status: Current every day smoker quit status: considering quitting alcohol intake: current substance use type: does not use Assessment & Plan Assessment & Plan narrative: 1. Severe abdominal pain with leukocytosis, present on admission and slowly improving with gradually decreasing white blood count, slightly increased today but overall improving. Negative stool PCR. 2. Perforated descending colon due to stercoral colitis with cecal intraperitoneal contamination, status post exploratory laparotomy with diverting colostomy 03/26/2024. Postoperative management of her surgery. Continue IV Zosyn. 3. Acute hypoxemic respiratory failure, likely noncardiogenic pulmonary edema. monitor on ventilator and hopeful extubation today. 4. Sepsis with elevated lactate, likely due to poor tissue perfusion from volume depletion. Hydrate intravenously and monitor closely. 5. Acute kidney injury due to volume depletion/sepsis. Monitor with hydration. 6. Chronic hepatitis-C, present on admission and active. 7. Prior splenectomy, present on admission and active. This related to ITP. 8. Severe sepsis with abdominal pain, hypotension, leukocytosis. She was given a 30 mL/kilogram bolus of lactated Ringer's and will be followed with maintenance fluid. Present on admission and improving. 9. Fentanyl abuse, present on admission and active. 10. DVT prophylaxis: Heparin 5000 units subcutaneous b.i.d.. Plan: -ventilator protocol, possible extubation/weaning trial later today -volume resuscitation -continue IV Zosyn -she was placed on methadone to prevent withdrawal upon arrival to the hospital. She is on IV fentanyl for analgesia presently. -continue ICU level care -outpatient drug treatment will need to be arranged Full code. 45 minutes of critical care time spent today. Time-Based Coding :: [TOTAL MINUTES] spent with patient and on the chart (including review of chart, obtaining history, exam, reviewing outside data, placing orders, documenting exam and treatment plan, and counseling patient) on [DATE]. Quality VTE Deep Vein Thrombosis/Pulmonary Embolism Present on Admission: No PROFEE Charge codes Critical Care: 73784
[2024-03-27] MEDS: HEPARIN 5,000 UNIT/ML VIAL 5000 UNIT SUBCUT ×2 (09:34→20:02)
[2024-03-27] MEDS: PANTOPRAZOLE 40 MG VIAL 20 MG IV (09:34)
[2024-03-27] MEDS: SODIUM CHLORIDE 0.9% FLUSH 10 ML IV ×2 (09:37→20:13)
[2024-03-27 10:30] LABS: Allen Test for ABG Passed? Positive; Base Excess ABG -9.1 mmol/L (-2-3); Blood Gas Collection Site Left Radial; Blood Gas Mode Assist Cont Ventilat; Delivery System Adult Ventilator; HCO3 ABG 17 mmol/L (23-27); Oxygen Saturation ABG 88 % (95-100); PEEP 7; PO2 ABG 61 mmHg (80-100); Respiratory Rate 24; TCO2 ABG 16 mmol/L (23-27)
[2024-03-27] MEDS: SODIUM CHLORIDE 0.9% 1,000 ML 1000 ML IV (10:43)
[2024-03-27] MEDS: LACTATED RINGERS 1,000 ML 100 ML IV (10:43)
--- NOTE | 2024-03-27 10:45 | DI.RAD.S_ITS ---
PROCEDURE: XR CHEST 1V INDICATIONS: picc line placement TECHNIQUE: One view of the chest was acquired. COMPARISON: [facility], CR, XR CHEST 1V, 03/26/2024, 22:47. [facility], CR, XR CHEST 1V, 03/26/2024, 20:31. FINDINGS: Surgical changes and devices: Endotracheal tube terminates greater than 2 cm above the sarahy. An enteric tube terminates within the stomach. A right upper extremity PICC terminates in the SVC. Lungs and pleura: Hypoinflated without focal consolidation or effusion. Mediastinum: Mediastinal contours appear normal. Heart size is normal. Bones and chest wall: No suspicious bony lesions. Overlying soft tissues appear unremarkable. IMPRESSION: Appropriately positioned right upper extremity PICC. Dictated by: Macy Suárez M.D. on 03/27/2024 at 10:10 Approved by: Macy Suárez M.D. on 03/27/2024 at 10:12
[2024-03-27] MEDS: FLUCONAZOLE 400 MG/200 ML PIGGYBACK 100 MG IV (11:16)
--- NOTE | 2024-03-27 11:34 | P.PN_ITS ---
Subjective Subjective Date Patient Seen: 03/27/24 Time Patient Seen: 11:34 Interval history: Remains intubated and pre renal dehydration. Sedated Exam Vital Signs (past 8 hours): - 03/27/24 04:00 03/27/24 04:00 03/27/24 04:00 Temperature Pulse Rate 121 H Respiratory Rate 32 H Blood Pressure 103/67 Pulse Oximetry 94 Oxygen Delivery Method Mechanical Ventilation Oxygen Flow Rate Fraction of Inspired Oxygen 03/27/24 04:30 03/27/24 04:30 03/27/24 04:55 Temperature Pulse Rate 121 H 121 H Respiratory Rate 31 H 31 H Blood Pressure 89/68 L Pulse Oximetry 94 95 Oxygen Delivery Method Oxygen Flow Rate Fraction of Inspired Oxygen 03/27/24 04:55 03/27/24 05:00 03/27/24 05:00 Temperature 98.3 F Pulse Rate 121 H Respiratory Rate 32 H Blood Pressure 105/55 L 95/52 L Pulse Oximetry 94 Oxygen Delivery Method Oxygen Flow Rate 0 Fraction of Inspired Oxygen 50 03/27/24 05:00 03/27/24 05:30 03/27/24 05:30 Temperature Pulse Rate 122 H Respiratory Rate 31 H Blood Pressure 95/52 L 99/63 Pulse Oximetry 93 Oxygen Delivery Method Oxygen Flow Rate Fraction of Inspired Oxygen 03/27/24 06:00 03/27/24 06:00 03/27/24 06:00 Temperature 98.3 F Pulse Rate 123 H Respiratory Rate 33 H Blood Pressure 92/58 L Pulse Oximetry 93 93 Oxygen Delivery Method Oxygen Flow Rate 0 Fraction of Inspired Oxygen 50 03/27/24 06:30 03/27/24 06:38 03/27/24 06:38 Temperature Pulse Rate 120 H 114 H Respiratory Rate 31 H 29 H Blood Pressure 108/64 Pulse Oximetry 94 95 Oxygen Delivery Method Oxygen Flow Rate Fraction of Inspired Oxygen 03/27/24 07:00 03/27/24 07:00 03/27/24 07:23 Temperature Pulse Rate 108 H 110 H Respiratory Rate 28 H 27 H Blood Pressure 109/71 Pulse Oximetry 97 96 Oxygen Delivery Method Mechanical Ventilation Oxygen Flow Rate Fraction of Inspired Oxygen 40 03/27/24 07:30 03/27/24 07:30 03/27/24 08:00 Temperature Pulse Rate 115 H Respiratory Rate 30 H Blood Pressure 108/65 Pulse Oximetry 93 Oxygen Delivery Method Mechanical Ventilation Oxygen Flow Rate Fraction of Inspired Oxygen 03/27/24 08:00 03/27/24 08:00 03/27/24 08:30 Temperature Pulse Rate 116 H 112 H Respiratory Rate 29 H 29 H Blood Pressure 114/67 Pulse Oximetry 94 95 Oxygen Delivery Method Oxygen Flow Rate Fraction of Inspired Oxygen 03/27/24 08:30 03/27/24 08:52 03/27/24 09:00 Temperature 99.3 F Pulse Rate Respiratory Rate Blood Pressure 122/71 124/67 Pulse Oximetry Oxygen Delivery Method Oxygen Flow Rate Fraction of Inspired Oxygen 03/27/24 09:00 03/27/24 09:30 03/27/24 09:30 Temperature Pulse Rate 108 H 109 H Respiratory Rate 28 H 29 H Blood Pressure 131/65 Pulse Oximetry 96 93 Oxygen Delivery Method Oxygen Flow Rate Fraction of Inspired Oxygen 03/27/24 10:00 03/27/24 10:00 03/27/24 10:10 Temperature Pulse Rate 117 H 121 H Respiratory Rate 32 H 33 H Blood Pressure 131/68 Pulse Oximetry 91 91 Oxygen Delivery Method Oxygen Flow Rate Fraction of Inspired Oxygen 03/27/24 10:20 03/27/24 10:30 03/27/24 10:30 Temperature Pulse Rate 122 H 123 H Respiratory Rate 33 H 34 H Blood Pressure 133/77 Pulse Oximetry 90 L 90 L Oxygen Delivery Method Oxygen Flow Rate Fraction of Inspired Oxygen 03/27/24 10:40 03/27/24 10:50 03/27/24 11:00 Temperature Pulse Rate 124 H 123 H 120 H Respiratory Rate 33 H 30 H 32 H Blood Pressure Pulse Oximetry 90 L 90 L 92 Oxygen Delivery Method Oxygen Flow Rate Fraction of Inspired Oxygen 03/27/24 11:00 Temperature Pulse Rate Respiratory Rate Blood Pressure 130/69 Pulse Oximetry Oxygen Delivery Method Oxygen Flow Rate Fraction of Inspired Oxygen Fraction of Inspired Oxygen 40 SaO2/FiO2 Ratio 240 Oxygen Delivery Method Mechanical Ventilation Oxygen Flow Rate 0 Const General: cooperative and comfortable Nutritional Appearance: average body habitus Orientation: alert, awake and oriented x3 HENMT Head: normocephalic and atraumatic Ears: hearing grossly normal bilaterally Eyes Periorbital: periorbital findings normal Neck Neck: trachea midline and No JVD Resp Effort & Inspection: normal respiratory effort Cardio Rate: tachycardic Rhythm: regular rhythm GI Inspection: distended Palpation: soft Skin General: No turgor normal Neuro General: patient alert, patient awake and patient oriented x3 Cognition: normal cognition Speech: speech normal Extrem General: normal to inspection Psych Appearance: grossly normal Mental Status: mental status grossly normal Judgment: judgment good Objective Labs 03/27/24 04:33 03/27/24 05:18 Labs: Laboratory Results - last 24 hr 03/26/24 03/26/24 03/26/24 17:06 17:10 22:12 WBC 5.3 D RBC 4.56 Hgb 13.9 Hct 41.4 MCV 90.9 MCH 30.5 MCHC 33.6 RDW 13.6 Plt Count 335 Neut % (Auto) Not Reportable Lymph % (Auto) Not Reportable [place] % (Auto) Not Reportable Eos % (Auto) Not Reportable Baso % (Auto) Not Reportable Neut # (Auto) Lymph # (Auto) Not Reportable [place] # (Auto) Not Reportable Eos # (Auto) Baso # (Auto) Not Reportable Total Counted 100 Seg Neutrophils % 25.0 L Band Neutrophils % 47.0 H Lymphocytes % (Manual) 15.0 L Monocytes % (Manual) 12.0 H Myelocytes % 1.0 H Neutrophils # (Manual) 3816 RBC Morphology Normal morphology ABG Sample Site ABG pH 7.22 L* ABG pCO2 56.8 H ABG pO2 67 L ABG HCO3 23 ABG Total CO2 24 ABG O2 Saturation 88 L ABG Base Excess -5.4 L [place] Test Respiration Rate O2 Delivery Device Adult ventilator Mode of Support Assist cont ventilat FiO2 % PEEP or CPAP Sodium 132 L Potassium 4.7 Chloride 104 Carbon Dioxide 21 L BUN 13 Creatinine 0.80 Estimated GFR > 60 BUN/Creatinine Ratio 16.3 Glucose 179 H Lactate 4.4 H* Calcium 8.0 L Total Bilirubin 0.7 AST 32 ALT 21 Alkaline Phosphatase 254 H D Total Protein 4.8 L Albumin 2.3 L Globulin 2.5 Albumin/Globulin Ratio 0.9 L 03/27/24 03/27/24 03/27/24 00:14 04:33 05:18 WBC 13.9 H D RBC 4.86 Hgb 14.6 Hct 44.1 MCV 90.8 MCH 30.0 MCHC 33.1 RDW 14.5 Plt Count 356 Neut % (Auto) 91.3 H Lymph % (Auto) 4.8 L [place] % (Auto) 3.5 Eos % (Auto) 0.2 L Baso % (Auto) 0.2 Neut # (Auto) 35179 H Lymph # (Auto) 700 L [place] # (Auto) 500 Eos # (Auto) 0 Baso # (Auto) 0 Total Counted Seg Neutrophils % Band Neutrophils % Lymphocytes % (Manual) Monocytes % (Manual) Myelocytes % Neutrophils # (Manual) RBC Morphology ABG Sample Site ABG pH ABG pCO2 ABG pO2 ABG HCO3 ABG Total CO2 ABG O2 Saturation ABG Base Excess [place] Test Respiration Rate O2 Delivery Device Mode of Support FiO2 % PEEP or CPAP Sodium 134 L Potassium 4.5 Chloride 107 Carbon Dioxide 13 L BUN 20 H Creatinine 1.66 H Estimated GFR 36 L BUN/Creatinine Ratio 12.0 Glucose 235 H Lactate 4.2 H* Calcium 7.5 L Total Bilirubin AST ALT Alkaline Phosphatase Total Protein Albumin Globulin Albumin/Globulin Ratio 03/27/24 10:27 WBC RBC Hgb Hct MCV MCH MCHC RDW Plt Count Neut % (Auto) Lymph % (Auto) [place] % (Auto) Eos % (Auto) Baso % (Auto) Neut # (Auto) Lymph # (Auto) [place] # (Auto) Eos # (Auto) Baso # (Auto) Total Counted Seg Neutrophils % Band Neutrophils % Lymphocytes % (Manual) Monocytes % (Manual) Myelocytes % Neutrophils # (Manual) RBC Morphology ABG Sample Site Left radial ABG pH 7.29 L* ABG pCO2 35.0 ABG pO2 61 L ABG HCO3 17 L ABG Total CO2 16 L ABG O2 Saturation 88 L ABG Base Excess -9.1 L [place] Test Positive Respiration Rate 24 O2 Delivery Device Adult ventilator Mode of Support Assist cont ventilat FiO2 % 30.0 % PEEP or CPAP 7 Sodium Potassium Chloride Carbon Dioxide BUN Creatinine Estimated GFR BUN/Creatinine Ratio Glucose Lactate Calcium Total Bilirubin AST ALT Alkaline Phosphatase Total Protein Albumin Globulin Albumin/Globulin Ratio FORMERLY [facility], [facility]–1983 Medical History Eczema, dyshidrotic (~2020) Anxiety Chronic hepatitis C Osteoarthritis of both hands Hepatitis C antibody test positive Arthritis (Unknown) Chronic neck pain (Unknown) Hx of idiopathic thrombocytopenic purpura (2007) Surgical History Anesthesia H/O hernia repair Hx of arthroscopy of knee (~2002) History of splenectomy (2007) Status post knee replacement Family History Family/Other Adopted Social History household members: spouse Smoking Status: Current every day smoker quit status: considering quitting alcohol intake: current substance use type: does not use Assessment & Plan Post-op Postoperative Procedures: Procedures Operation Date: 03/26/24 13:15 Actual Procedure Side Surgeon p Exploratory Laparotomy GEN with colostomy and wound vac placement Molly Nugent MD Postoperative day: 9 Postoperative status narrative: Dealing acutely with watery diarrhea and feeling unwell. CT is conserning for ileus, 3rd spacing of fluid and ileus. Labs support dehydration. Postoperative plan narrative: Allow diet. check stool for Cdif. IV hydration and replacement of electrolytes. Dr. De La Cruz consulted to evaluate for any cardiac issues. Quality VTE Deep Vein Thrombosis/Pulmonary Embolism Present on Admission: No
--- NOTE | 2024-03-27 11:53 | PM.PNPO.1 ---
Subjective Subjective Date Patient Seen: 03/27/24 Time Patient Seen: 11:53 Interval history: Intubated, sedated and prerenal dehydration. S/p Zelaya's for colonic perforation due to pressure ulcer of constipation. Exam Vital Signs (past 8 hours): - 03/27/24 04:00 03/27/24 04:00 03/27/24 04:00 Temperature Pulse Rate 121 H Respiratory Rate 32 H Blood Pressure 103/67 Pulse Oximetry 94 Oxygen Delivery Method Mechanical Ventilation Oxygen Flow Rate Fraction of Inspired Oxygen 03/27/24 04:30 03/27/24 04:30 03/27/24 04:55 Temperature Pulse Rate 121 H 121 H Respiratory Rate 31 H 31 H Blood Pressure 89/68 L Pulse Oximetry 94 95 Oxygen Delivery Method Oxygen Flow Rate Fraction of Inspired Oxygen 03/27/24 04:55 03/27/24 05:00 03/27/24 05:00 Temperature 98.3 F Pulse Rate 121 H Respiratory Rate 32 H Blood Pressure 105/55 L 95/52 L Pulse Oximetry 94 Oxygen Delivery Method Oxygen Flow Rate 0 Fraction of Inspired Oxygen 50 03/27/24 05:00 03/27/24 05:30 03/27/24 05:30 Temperature Pulse Rate 122 H Respiratory Rate 31 H Blood Pressure 95/52 L 99/63 Pulse Oximetry 93 Oxygen Delivery Method Oxygen Flow Rate Fraction of Inspired Oxygen 03/27/24 06:00 03/27/24 06:00 03/27/24 06:00 Temperature 98.3 F Pulse Rate 123 H Respiratory Rate 33 H Blood Pressure 92/58 L Pulse Oximetry 93 93 Oxygen Delivery Method Oxygen Flow Rate 0 Fraction of Inspired Oxygen 50 03/27/24 06:30 03/27/24 06:38 03/27/24 06:38 Temperature Pulse Rate 120 H 114 H Respiratory Rate 31 H 29 H Blood Pressure 108/64 Pulse Oximetry 94 95 Oxygen Delivery Method Oxygen Flow Rate Fraction of Inspired Oxygen 03/27/24 07:00 03/27/24 07:00 03/27/24 07:23 Temperature Pulse Rate 108 H 110 H Respiratory Rate 28 H 27 H Blood Pressure 109/71 Pulse Oximetry 97 96 Oxygen Delivery Method Mechanical Ventilation Oxygen Flow Rate Fraction of Inspired Oxygen 40 03/27/24 07:30 03/27/24 07:30 03/27/24 08:00 Temperature Pulse Rate 115 H Respiratory Rate 30 H Blood Pressure 108/65 Pulse Oximetry 93 Oxygen Delivery Method Mechanical Ventilation Oxygen Flow Rate Fraction of Inspired Oxygen 03/27/24 08:00 03/27/24 08:00 03/27/24 08:30 Temperature Pulse Rate 116 H 112 H Respiratory Rate 29 H 29 H Blood Pressure 114/67 Pulse Oximetry 94 95 Oxygen Delivery Method Oxygen Flow Rate Fraction of Inspired Oxygen 03/27/24 08:30 03/27/24 08:52 03/27/24 09:00 Temperature 99.3 F Pulse Rate Respiratory Rate Blood Pressure 122/71 124/67 Pulse Oximetry Oxygen Delivery Method Oxygen Flow Rate Fraction of Inspired Oxygen 03/27/24 09:00 03/27/24 09:30 03/27/24 09:30 Temperature Pulse Rate 108 H 109 H Respiratory Rate 28 H 29 H Blood Pressure 131/65 Pulse Oximetry 96 93 Oxygen Delivery Method Oxygen Flow Rate Fraction of Inspired Oxygen 03/27/24 10:00 03/27/24 10:00 03/27/24 10:10 Temperature Pulse Rate 117 H 121 H Respiratory Rate 32 H 33 H Blood Pressure 131/68 Pulse Oximetry 91 91 Oxygen Delivery Method Oxygen Flow Rate Fraction of Inspired Oxygen 03/27/24 10:20 03/27/24 10:30 03/27/24 10:30 Temperature Pulse Rate 122 H 123 H Respiratory Rate 33 H 34 H Blood Pressure 133/77 Pulse Oximetry 90 L 90 L Oxygen Delivery Method Oxygen Flow Rate Fraction of Inspired Oxygen 03/27/24 10:40 03/27/24 10:50 03/27/24 11:00 Temperature Pulse Rate 124 H 123 H 120 H Respiratory Rate 33 H 30 H 32 H Blood Pressure Pulse Oximetry 90 L 90 L 92 Oxygen Delivery Method Oxygen Flow Rate Fraction of Inspired Oxygen 03/27/24 11:00 03/27/24 11:10 03/27/24 11:20 Temperature Pulse Rate 116 H 117 H Respiratory Rate 30 H 32 H Blood Pressure 130/69 Pulse Oximetry 93 92 Oxygen Delivery Method Oxygen Flow Rate Fraction of Inspired Oxygen 03/27/24 11:30 03/27/24 11:30 03/27/24 11:40 Temperature Pulse Rate 116 H 115 H Respiratory Rate 31 H 31 H Blood Pressure 138/65 Pulse Oximetry 93 93 Oxygen Delivery Method Oxygen Flow Rate Fraction of Inspired Oxygen 03/27/24 11:50 Temperature Pulse Rate 116 H Respiratory Rate 33 H Blood Pressure Pulse Oximetry 93 Oxygen Delivery Method Oxygen Flow Rate Fraction of Inspired Oxygen Fraction of Inspired Oxygen 40 SaO2/FiO2 Ratio 240 Oxygen Delivery Method Mechanical Ventilation Oxygen Flow Rate 0 Narrative Exam Narrative: OGT in place, abdomen is soft but distended. Stoma congested, on function. Objective Labs 03/27/24 04:33 03/27/24 05:18 Labs: Laboratory Results - last 24 hr 03/26/24 03/26/24 03/26/24 17:06 17:10 22:12 WBC 5.3 D RBC 4.56 Hgb 13.9 Hct 41.4 MCV 90.9 MCH 30.5 MCHC 33.6 RDW 13.6 Plt Count 335 Neut % (Auto) Not Reportable Lymph % (Auto) Not Reportable [place] % (Auto) Not Reportable Eos % (Auto) Not Reportable Baso % (Auto) Not Reportable Neut # (Auto) Lymph # (Auto) Not Reportable [place] # (Auto) Not Reportable Eos # (Auto) Baso # (Auto) Not Reportable Total Counted 100 Seg Neutrophils % 25.0 L Band Neutrophils % 47.0 H Lymphocytes % (Manual) 15.0 L Monocytes % (Manual) 12.0 H Myelocytes % 1.0 H Neutrophils # (Manual) 3816 RBC Morphology Normal morphology ABG Sample Site ABG pH 7.22 L* ABG pCO2 56.8 H ABG pO2 67 L ABG HCO3 23 ABG Total CO2 24 ABG O2 Saturation 88 L ABG Base Excess -5.4 L [place] Test Respiration Rate O2 Delivery Device Adult ventilator Mode of Support Assist cont ventilat FiO2 % PEEP or CPAP Sodium 132 L Potassium 4.7 Chloride 104 Carbon Dioxide 21 L BUN 13 Creatinine 0.80 Estimated GFR > 60 BUN/Creatinine Ratio 16.3 Glucose 179 H Lactate 4.4 H* Calcium 8.0 L Total Bilirubin 0.7 AST 32 ALT 21 Alkaline Phosphatase 254 H D Total Protein 4.8 L Albumin 2.3 L Globulin 2.5 Albumin/Globulin Ratio 0.9 L 03/27/24 03/27/24 03/27/24 00:14 04:33 05:18 WBC 13.9 H D RBC 4.86 Hgb 14.6 Hct 44.1 MCV 90.8 MCH 30.0 MCHC 33.1 RDW 14.5 Plt Count 356 Neut % (Auto) 91.3 H Lymph % (Auto) 4.8 L [place] % (Auto) 3.5 Eos % (Auto) 0.2 L Baso % (Auto) 0.2 Neut # (Auto) 90013 H Lymph # (Auto) 700 L [place] # (Auto) 500 Eos # (Auto) 0 Baso # (Auto) 0 Total Counted Seg Neutrophils % Band Neutrophils % Lymphocytes % (Manual) Monocytes % (Manual) Myelocytes % Neutrophils # (Manual) RBC Morphology ABG Sample Site ABG pH ABG pCO2 ABG pO2 ABG HCO3 ABG Total CO2 ABG O2 Saturation ABG Base Excess [place] Test Respiration Rate O2 Delivery Device Mode of Support FiO2 % PEEP or CPAP Sodium 134 L Potassium 4.5 Chloride 107 Carbon Dioxide 13 L BUN 20 H Creatinine 1.66 H Estimated GFR 36 L BUN/Creatinine Ratio 12.0 Glucose 235 H Lactate 4.2 H* Calcium 7.5 L Total Bilirubin AST ALT Alkaline Phosphatase Total Protein Albumin Globulin Albumin/Globulin Ratio 03/27/24 10:27 WBC RBC Hgb Hct MCV MCH MCHC RDW Plt Count Neut % (Auto) Lymph % (Auto) [place] % (Auto) Eos % (Auto) Baso % (Auto) Neut # (Auto) Lymph # (Auto) [place] # (Auto) Eos # (Auto) Baso # (Auto) Total Counted Seg Neutrophils % Band Neutrophils % Lymphocytes % (Manual) Monocytes % (Manual) Myelocytes % Neutrophils # (Manual) RBC Morphology ABG Sample Site Left radial ABG pH 7.29 L* ABG pCO2 35.0 ABG pO2 61 L ABG HCO3 17 L ABG Total CO2 16 L ABG O2 Saturation 88 L ABG Base Excess -9.1 L [place] Test Positive Respiration Rate 24 O2 Delivery Device Adult ventilator Mode of Support Assist cont ventilat FiO2 % 30.0 % PEEP or CPAP 7 Sodium Potassium Chloride Carbon Dioxide BUN Creatinine Estimated GFR BUN/Creatinine Ratio Glucose Lactate Calcium Total Bilirubin AST ALT Alkaline Phosphatase Total Protein Albumin Globulin Albumin/Globulin Ratio [facility] Medical History Eczema, dyshidrotic (~2020) Anxiety Chronic hepatitis C Osteoarthritis of both hands Hepatitis C antibody test positive Arthritis (Unknown) Chronic neck pain (Unknown) Hx of idiopathic thrombocytopenic purpura (2007) Surgical History Anesthesia H/O hernia repair Hx of arthroscopy of knee (~2002) History of splenectomy (2007) Status post knee replacement Family History Family/Other Adopted Social History household members: spouse Smoking Status: Current every day smoker quit status: considering quitting alcohol intake: current substance use type: does not use Assessment & Plan Post-op Postoperative Procedures: Procedures Operation Date: 03/26/24 13:15 Actual Procedure Side Surgeon p Exploratory Laparotomy GEN with colostomy and wound vac placement Molly Nugent MD Postoperative day: 1 Postoperative status: other (guarded condition in ICU needs resuscitation, continue broad coverage antibiotics, PPI and wound care. ) Postoperative plan narrative: Sack Maker managing ICU care. Added Fluconazole to coverage. Time Spent With Patient Time with patient: 15-24 minutes Quality VTE Deep Vein Thrombosis/Pulmonary Embolism Present on Admission: No
--- NOTE | 2024-03-27 12:17 | CM.DPC ---
DCP Cont. Reviewed EMR and team rounds for status updates. Pt was taken to the OR yesterday after she suddenly developed a perforation in her colon from stool impaction from her Fentanyl use. She was contaminated inside from stool spillage, and required a diverting colostomy, is now intubated and on IV ABO's, among other ICU interventions. Monitor for final d/c plan, likely more days inpt.
[2024-03-27] MEDS: propofoL 1,000 MG/100 ML VIAL 8.16 MG IV (12:47)
--- NOTE | 2024-03-27 13:38 | P.TELICUPN_ITS ---
Subjective Subjective IF CAMERA ACTIVATED, patient seen via real-time interactive audiovisual communication: Camera activated Consent obtained for tele-education faculty member care: Yes Patient Location: ICU Provider location (State): [place] Other participants/roles: rn Interval history: pt remains intubated and sedated. BP imrpoved. but she remains acidotic. with repeat abg and bmp pending Current Medications Current Medications Medications: Home Medications ibuprofen 800 mg tablet 800 mg PO QD-TID PRN severe back or joint pain #90 tabs 11/30/23 [Rx Confirmed 03/21/24] estradiol 1 mg tablet 1 mg PO QDAY #90 tabs 03/07/24 [Rx Confirmed 03/21/24] albuterol sulfate 90 mcg/actuation aerosol inhaler 1 puff inhalation QID PRN Shortness Of Breath Or Wheezing 03/21/24 [History Confirmed 03/21/24] fluticasone 250 mcg-salmeterol 50 mcg/dose blistr powdr for inhalation (Wixela Inhub) 1 inh inhalation BID 03/21/24 [History Confirmed 03/21/24] Visit Medications (administered) Generic Name Dose Route Start Last Admin Trade Name Freq PRN Reason Stop Dose Admin Acetaminophen 650 mg 03/21/24 18:50 03/26/24 04:03 Acetaminophen 325 Mg Tablet PO 650 mg Q6H PRN Administration Fever/Mild Pain (1-3) Albuterol 2.5 mg 03/22/24 00:08 03/25/24 01:29 Albuterol 2.5 Mg/3 Ml Neb (Adult) INH 2.5 mg [id number] PRN Administration Shortness Of Breath Albuterol 2.5 mg 03/23/24 07:00 03/27/24 13:21 Albuterol 2.5 Mg/3 Ml Neb (Adult) INH 2.5 mg [id number] SHAHRAM Administration Alprazolam 0.25 mg 03/22/24 04:38 03/26/24 10:06 Alprazolam 0.25 Mg Tablet PO 0.25 mg Q6H PRN Administration Anxiety Bisacodyl 10 mg 03/22/24 17:36 03/23/24 17:48 Bisacodyl 10 Mg Supp SC 10 mg PRN PRN Administration Constipation Budesonide 0.5 mg 03/22/24 08:00 03/27/24 07:23 Budesonide 0.5 Mg/2 Ml Neb INH 0.5 mg RTBID SHAHRAM Administration Chlorhexidine Gluconate 15 ml 03/26/24 18:00 03/27/24 13:19 Chlorhexidine Gluconate 15 Ml Cup PO 15 ml Q6HR SHAHRAM Administration Estradiol 1 mg 03/24/24 09:00 03/27/24 09:08 Estradiol 1 Mg Tablet PO Not Given DAILY SHAHRAM Heparin Sodium (Porcine) 5,000 unit 03/21/24 21:00 03/27/24 09:34 Heparin 5,000 Unit/Ml Vial SUBCUT 5,000 unit BID SHAHRAM Administration Hydromorphone HCl 0.5 mg 03/26/24 11:42 03/27/24 01:33 Hydromorphone 0.5 Mg Inj IV 0.5 mg Q1H PRN Administration Pain, Severe (7-10) Piperacillin Sod/Tazobactam 100 mls @ 25 mls/hr 03/26/24 17:00 03/27/24 09:34 Sod 3.375 gm/ Sodium Chloride IV 25 mls/hr Q8H SHAHRAM Administration Propofol 1,000 mg in 100 mls @ 2.04 mls/hr 03/26/24 16:15 03/27/24 12:47 Propofol IV 20 mcg/kg/min TITRATE SHAHRAM 8.16 mls/hr Administration Protocol 5 MCG/KG/MIN Fentanyl 1,000 mcg/ Dextrose 250 mls @ 11.9 mls/hr 03/26/24 17:15 03/27/24 10:08 IV 0.7 mcg/kg/hr TITRATE SHAHRAM 11.9 mls/hr Titration Protocol 0.7 MCG/KG/HR Lactated Ringer's 1,000 mls @ 100 mls/hr 03/27/24 10:15 03/27/24 10:43 Lactated Ringers IV 100 mls/hr CONT SHAHRAM Administration Fluconazole 400 mg in 200 mls @ 100 mls/hr 03/27/24 11:00 03/27/24 11:16 Diflucan IV 100 mls/hr Q24H SHAHRAM Administration Sodium Chloride 500 mls @ 1,000 mls/hr 03/27/24 13:12 03/27/24 13:12 Normal Saline 0.9% IV 1,000 mls/hr BOLUS PRN Administration Fluid replacement Methadone HCl 10 mg 03/26/24 21:00 03/27/24 13:19 Methadone 10 Mg Tablet PO Not Given BID SHAHRAM Nicotine 14 mg 03/23/24 17:50 03/27/24 09:09 Nicotine 14 Patch TOP Not Given DAILY SHAHRAM Ondansetron HCl 4 mg 03/21/24 11:20 03/21/24 11:29 Ondansetron 4 Mg/2 Ml Inj IV 4 mg NOW PRN Administration Nausea And Vomiting Pantoprazole Sodium 20 mg 03/27/24 09:00 03/27/24 09:34 Pantoprazole 40 Mg Vial IV 20 mg DAILY SHAHRAM Administration Sodium Chloride 10 ml 03/25/24 09:00 03/27/24 09:37 Sodium Chloride 0.9% Flush IV 10 ml BID SHAHRAM Administration Objective Ventilator Parameters: Ventilator Settings FiO2 30 RT Vent Frequency 24 Ventilator Tidal Volume 400 Exhaled Vt/kg IBW 7.5 Positive End Expiratory 7 Pressure Inspiratory Phase Time 0.7 I:E Ratio 1:2.6 Patient Position HOB >= 30 degrees Labs 03/27/24 04:33 03/27/24 05:18 Labs: Laboratory Results - last 24 hr 03/26/24 03/26/24 03/26/24 17:06 17:10 22:12 WBC 5.3 D RBC 4.56 Hgb 13.9 Hct 41.4 MCV 90.9 MCH 30.5 MCHC 33.6 RDW 13.6 Plt Count 335 Neut % (Auto) Not Reportable Lymph % (Auto) Not Reportable [place] % (Auto) Not Reportable Eos % (Auto) Not Reportable Baso % (Auto) Not Reportable Neut # (Auto) Lymph # (Auto) Not Reportable [place] # (Auto) Not Reportable Eos # (Auto) Baso # (Auto) Not Reportable Total Counted 100 Seg Neutrophils % 25.0 L Band Neutrophils % 47.0 H Lymphocytes % (Manual) 15.0 L Monocytes % (Manual) 12.0 H Myelocytes % 1.0 H Neutrophils # (Manual) 3816 RBC Morphology Normal morphology ABG Sample Site ABG pH 7.22 L* ABG pCO2 56.8 H ABG pO2 67 L ABG HCO3 23 ABG Total CO2 24 ABG O2 Saturation 88 L ABG Base Excess -5.4 L [place]acho Test Respiration Rate O2 Delivery Device Adult ventilator Mode of Support Assist cont ventilat FiO2 % PEEP or CPAP Sodium 132 L Potassium 4.7 Chloride 104 Carbon Dioxide 21 L BUN 13 Creatinine 0.80 Estimated GFR > 60 BUN/Creatinine Ratio 16.3 Glucose 179 H Lactate 4.4 H* Calcium 8.0 L Total Bilirubin 0.7 AST 32 ALT 21 Alkaline Phosphatase 254 H D Total Protein 4.8 L Albumin 2.3 L Globulin 2.5 Albumin/Globulin Ratio 0.9 L 03/27/24 03/27/24 03/27/24 00:14 04:33 05:18 WBC 13.9 H D RBC 4.86 Hgb 14.6 Hct 44.1 MCV 90.8 MCH 30.0 MCHC 33.1 RDW 14.5 Plt Count 356 Neut % (Auto) 91.3 H Lymph % (Auto) 4.8 L [place] % (Auto) 3.5 Eos % (Auto) 0.2 L Baso % (Auto) 0.2 Neut # (Auto) 85015 H Lymph # (Auto) 700 L [place] # (Auto) 500 Eos # (Auto) 0 Baso # (Auto) 0 Total Counted Seg Neutrophils % Band Neutrophils % Lymphocytes % (Manual) Monocytes % (Manual) Myelocytes % Neutrophils # (Manual) RBC Morphology ABG Sample Site ABG pH ABG pCO2 ABG pO2 ABG HCO3 ABG Total CO2 ABG O2 Saturation ABG Base Excess Tacho Test Respiration Rate O2 Delivery Device Mode of Support FiO2 % PEEP or CPAP Sodium 134 L Potassium 4.5 Chloride 107 Carbon Dioxide 13 L BUN 20 H Creatinine 1.66 H Estimated GFR 36 L BUN/Creatinine Ratio 12.0 Glucose 235 H Lactate 4.2 H* Calcium 7.5 L Total Bilirubin AST ALT Alkaline Phosphatase Total Protein Albumin Globulin Albumin/Globulin Ratio 03/27/24 10:27 WBC RBC Hgb Hct MCV MCH MCHC RDW Plt Count Neut % (Auto) Lymph % (Auto) [place] % (Auto) Eos % (Auto) Baso % (Auto) Neut # (Auto) Lymph # (Auto) [place] # (Auto) Eos # (Auto) Baso # (Auto) Total Counted Seg Neutrophils % Band Neutrophils % Lymphocytes % (Manual) Monocytes % (Manual) Myelocytes % Neutrophils # (Manual) RBC Morphology ABG Sample Site Left radial ABG pH 7.29 L* ABG pCO2 35.0 ABG pO2 61 L ABG HCO3 17 L ABG Total CO2 16 L ABG O2 Saturation 88 L ABG Base Excess -9.1 L [place] Test Positive Respiration Rate 24 O2 Delivery Device Adult ventilator Mode of Support Assist cont ventilat FiO2 % 30.0 % PEEP or CPAP 7 Sodium Potassium Chloride Carbon Dioxide BUN Creatinine Estimated GFR BUN/Creatinine Ratio Glucose Lactate Calcium Total Bilirubin AST ALT Alkaline Phosphatase Total Protein Albumin Globulin Albumin/Globulin Ratio Exam Vital Signs (past 8 hours): - 03/27/24 06:00 03/27/24 06:00 03/27/24 06:00 Temperature 98.3 F Pulse Rate 123 H Respiratory Rate 33 H Blood Pressure 92/58 L Pulse Oximetry 93 93 Oxygen Delivery Method Oxygen Flow Rate 0 Fraction of Inspired Oxygen 50 03/27/24 06:30 03/27/24 06:38 03/27/24 06:38 Temperature Pulse Rate 120 H 114 H Respiratory Rate 31 H 29 H Blood Pressure 108/64 Pulse Oximetry 94 95 Oxygen Delivery Method Oxygen Flow Rate Fraction of Inspired Oxygen 03/27/24 07:00 03/27/24 07:00 03/27/24 07:23 Temperature Pulse Rate 108 H 110 H Respiratory Rate 28 H 27 H Blood Pressure 109/71 Pulse Oximetry 97 96 Oxygen Delivery Method Mechanical Ventilation Oxygen Flow Rate Fraction of Inspired Oxygen 40 03/27/24 07:30 03/27/24 07:30 03/27/24 08:00 Temperature Pulse Rate 115 H Respiratory Rate 30 H Blood Pressure 108/65 Pulse Oximetry 93 Oxygen Delivery Method Mechanical Ventilation Oxygen Flow Rate Fraction of Inspired Oxygen 03/27/24 08:00 03/27/24 08:00 03/27/24 08:30 Temperature Pulse Rate 116 H 112 H Respiratory Rate 29 H 29 H Blood Pressure 114/67 Pulse Oximetry 94 95 Oxygen Delivery Method Oxygen Flow Rate Fraction of Inspired Oxygen 03/27/24 08:30 03/27/24 08:52 03/27/24 09:00 Temperature 99.3 F Pulse Rate Respiratory Rate Blood Pressure 122/71 124/67 Pulse Oximetry Oxygen Delivery Method Oxygen Flow Rate Fraction of Inspired Oxygen 03/27/24 09:00 03/27/24 09:30 03/27/24 09:30 Temperature Pulse Rate 108 H 109 H Respiratory Rate 28 H 29 H Blood Pressure 131/65 Pulse Oximetry 96 93 Oxygen Delivery Method Oxygen Flow Rate Fraction of Inspired Oxygen 03/27/24 10:00 03/27/24 10:00 03/27/24 10:10 Temperature Pulse Rate 117 H 121 H Respiratory Rate 32 H 33 H Blood Pressure 131/68 Pulse Oximetry 91 91 Oxygen Delivery Method Oxygen Flow Rate Fraction of Inspired Oxygen 03/27/24 10:20 03/27/24 10:30 03/27/24 10:30 Temperature Pulse Rate 122 H 123 H Respiratory Rate 33 H 34 H Blood Pressure 133/77 Pulse Oximetry 90 L 90 L Oxygen Delivery Method Oxygen Flow Rate Fraction of Inspired Oxygen 03/27/24 10:40 03/27/24 10:50 03/27/24 11:00 Temperature Pulse Rate 124 H 123 H 120 H Respiratory Rate 33 H 30 H 32 H Blood Pressure Pulse Oximetry 90 L 90 L 92 Oxygen Delivery Method Oxygen Flow Rate Fraction of Inspired Oxygen 03/27/24 11:00 03/27/24 11:10 03/27/24 11:20 Temperature Pulse Rate 116 H 117 H Respiratory Rate 30 H 32 H Blood Pressure 130/69 Pulse Oximetry 93 92 Oxygen Delivery Method Oxygen Flow Rate Fraction of Inspired Oxygen 03/27/24 11:30 03/27/24 11:30 03/27/24 11:40 Temperature Pulse Rate 116 H 115 H Respiratory Rate 31 H 31 H Blood Pressure 138/65 Pulse Oximetry 93 93 Oxygen Delivery Method Oxygen Flow Rate Fraction of Inspired Oxygen 03/27/24 11:50 03/27/24 12:00 03/27/24 12:00 Temperature Pulse Rate 116 H 118 H Respiratory Rate 33 H 33 H Blood Pressure 137/76 Pulse Oximetry 93 92 Oxygen Delivery Method Oxygen Flow Rate Fraction of Inspired Oxygen 03/27/24 12:00 03/27/24 12:10 03/27/24 12:20 Temperature Pulse Rate 119 H 121 H Respiratory Rate 34 H 33 H Blood Pressure Pulse Oximetry 91 91 Oxygen Delivery Method Mechanical Ventilation Oxygen Flow Rate Fraction of Inspired Oxygen 03/27/24 12:30 03/27/24 12:30 03/27/24 12:40 Temperature Pulse Rate 122 H 124 H Respiratory Rate 35 H 34 H Blood Pressure 134/68 Pulse Oximetry 91 90 L Oxygen Delivery Method Oxygen Flow Rate Fraction of Inspired Oxygen 03/27/24 12:50 03/27/24 13:00 03/27/24 13:00 Temperature Pulse Rate 124 H 123 H Respiratory Rate 33 H 35 H Blood Pressure 129/71 Pulse Oximetry 90 L 90 L Oxygen Delivery Method Oxygen Flow Rate Fraction of Inspired Oxygen 03/27/24 13:22 Temperature Pulse Rate 121 H Respiratory Rate 35 H Blood Pressure Pulse Oximetry 92 Oxygen Delivery Method Mechanical Ventilation Oxygen Flow Rate Fraction of Inspired Oxygen 30 Fraction of Inspired Oxygen 30 SaO2/FiO2 Ratio 306 Oxygen Delivery Method Mechanical Ventilation Oxygen Flow Rate 0 Narrative Exam Narrative: intubated sedated synchronous with vent rate controlled Quality TeleICU VTE Deep Vein Thrombosis/Pulmonary Embolism Present on Admission: No Assessment & Plan Assessment & Plan narrative: Neuro: # Acute encephalopathy -- Secondary to sepsis and sedatives -- Intubated and sedated -- Daily SAT -- On propofol gtt -- RASS goal -1 to 0 RESP: # Acute respiratory insufficiency -- Intubated and sedated -- Secondary to sepsis w/ ALI -- LTVV --trend abg -- HOB elevation - Aspiration precaution -- Goal SpO2 > 88% -- Daily SAT and SBT -- not a candidate for etubation given acidosis CVS: -- Not in shock -- MAP goal > 65 -- Sepsis rx as below ID: # severe sepsis -- Secondary to bowel perforation -- On zosyn -- Follow up cx -- MAP goal > 65 -- On IVF per surgery GI: # Sterocoral colitis c/w perofration -- s/p ex-lap w/ Maye procedure -- Strict NPO -- On IVF -- On zosyn -- Management per surgery ENDO: -- Goal BS < 180 -- Need accucheck every 6 hr Renal -- trend bmp -- monitoir UO -- worsenign acidosis, f/u repeat bicarb since LR bolus x2 VTE: Heparin SQ PPI: Protonix IV daily Time-Based Coding :: [35] spent with patient and on the chart (including review of chart, obtaining history, exam, reviewing outside data, placing orders, documenting exam and treatment plan, and counseling patient) on [03/27/24].
[2024-03-27 13:39] LABS: Lactate (Lactic Acid) 6.6 mmol/L (0.7-2.1)
[2024-03-27 14:44] LABS: Allen Test for ABG Passed? Positive; Base Excess ABG -9.4 mmol/L (-2-3); Blood Gas Collection Site Left Radial; Blood Gas Mode Assist Cont Ventilat; Delivery System Adult Ventilator; HCO3 ABG 16 mmol/L (23-27); Oxygen Saturation ABG 91 % (95-100); PCO2 ABG 31.9 mmHg (35-45); PEEP 7; PO2 ABG 65 mmHg (80-100); Respiratory Rate 24; TCO2 ABG 15 mmol/L (23-27); pH ABG 7.31 (7.35-7.45)
[2024-03-27 14:47] LABS: Reflexed Lactate in 2 Hours Y
--- NOTE | 2024-03-27 15:16 | DI.RAD.S_ITS ---
PROCEDURE: XR CHEST 1V INDICATIONS: increased work of breathing TECHNIQUE: One view of the chest was acquired. COMPARISON: [facility], CR, XR CHEST 1V, 03/27/2024, 10:45. [facility], CR, XR CHEST 1V, 03/26/2024, 22:47. FINDINGS: Surgical changes and devices: Endotracheal tube terminates greater than 2 cm above the sarahy. An enteric tube terminates within the stomach. A right upper extremity PICC terminates in the SVC. Lungs and pleura: Right basilar consolidation is unchanged. Mediastinum: Mediastinal contours appear normal. Heart size is normal. Bones and chest wall: No suspicious bony lesions. Overlying soft tissues appear unremarkable. IMPRESSION: 1. Appropriately positioned lines and tubes as described. 2. Unchanged right basilar pneumonia. Dictated by: Macy Suárez M.D. on 03/27/2024 at 14:35 Approved by: Macy Suárez M.D. on 03/27/2024 at 14:37
--- NOTE | 2024-03-27 15:28 | PC.NURSE ---
Addendum entered by Winifred Guzman R.N. 03/27/24 16:25: Took over care of pt at 1600, all gtts infusing as ordered, critical lab values called to provider and charge nurse per protocol, new orders received. Precedex, and calcium gluconate added to gtts Addendum entered by Lashawn Bates R.N. 03/27/24 15:48: Dr. De La Cruz discussing with eICU provider. Providers comfortable with keeping patient in this level of care. New orders received. Provider to call family. HR 130, BP 139/60, RR 33 on mechanical ventilation, O2 92%. Original Note: notified provider of continued tachycardia, worsening distension of abdomen, critical lab results. Provider Dr. De La Cruz at bedside. Provider Dr. Nugent surgery notified, discussing with Dr. De La Cruz.
[2024-03-27 15:49] LABS: Lactate 2HR (Lactic Acid Rflx) 5.1 mmol/L (0.7-2.1)
[2024-03-27 15:54] LABS: BUN Creatinine Ratio 16.1 (6-22); Blood Urea Nitrogen 20 mg/dL (7-17); Carbon Dioxide 13 mmol/L (22-32); Chloride 111 mmol/L (98-107); Estimated Glomerular Filt Rate 51 mL/min (>60); Glucose 128 mg/dL (70-100); HEMOLYSIS 25 (0-50); Potassium 4.5 mmol/L (3.4-5.1); Sodium 132 mmol/L (137-145)
[2024-03-27 15:58] LABS: Calcium 6.3 mg/dL (8.4-10.2)
[2024-03-27] MEDS: dexmedeTOMIDine in 0.9 % NaCL 400 MCG/100 ML PLAST..BAG 10.2 MCG IV (16:09)
[2024-03-27] MEDS: CALCIUM GLUCONATE 9.3 MEQ in SODIUM CHLORIDE 0.9% 50 ML 140 MEQ IV (16:32)
[2024-03-27] MEDS: LACTATED RINGERS 1,000 ML 150 ML IV (18:07)
--- NOTE | 2024-03-27 18:27 | PC.NURSE ---
Repeated notifications to Dr De La Cruz regarding pt dropping BP (currently 88/53 MAP 66 dropped from 122/66) orders were to give boluses of 500mL NS (see emar for documentation). Updated Dr Post on current BP, new orders for Albumin 25% and Levophed pressers if the albumin is unsuccessful. Dr Post is to be notified if Albumin gtt does not increase BP to a MAP above 65. Pt is resting peacefully, chest rise and fall noted RR 32, no further needs at this time.
[2024-03-27] MEDS: ALBUMIN HUMAN 12.5 GM/50 ML VIAL IV (19:40)
[2024-03-27] MEDS: propofoL 1,000 MG/100 ML VIAL 12.24 MG IV (19:59)
--- NOTE | 2024-03-27 20:45 | PM.ICURNDS ---
- :: This patient was seen via real time interactive two-way audiovisual telecommunication. pt has been hypotensive over the last few hours, seems non responive to fluid bolus but addiiotnal albumin is being given now. I ordered levophed as we need to go up on sedation and will likely have a further impact on reducing BP. she remains acidotic, and will have a low threshold for starting a bicarb gtt
[2024-03-27] MEDS: NOREPINEPHRINE BITARTRATE/D5W 4 MG/250 ML PLAST..BAG 25.5 MG IV (21:04)
[2024-03-27] MEDS: ALBUMIN HUMAN 50 GM/200 ML VIAL IV (21:08)
[2024-03-27] MEDS: dexmedeTOMIDine in 0.9 % NaCL 400 MCG/100 ML PLAST..BAG 11.9 MCG IV (22:31)
[2024-03-28] VITALS (109 sets, daily range): BP systolic 90–159; BP diastolic 51–93; PULSE 82–100; RESP 24–45; TEMP 36.6–38.1; O2SAT 90–97
[2024-03-28] MEDS: CHLORHEXIDINE GLUCONATE 15 ML CUP PO ×4 (00:15→18:26)
[2024-03-28] MEDS: PIPERACILLIN/TAZO 3.375 GM in SODIUM CHLORIDE 0.9% 100 ML IV ×3 (01:14→17:21)
[2024-03-28] MEDS: fentaNYL 1,000 MCG in DEXTROSE 5% IN WATER 230 ML 15.3 MCG IV ×2 (01:56→17:16)
[2024-03-28] MEDS: LACTATED RINGERS 1,000 ML 150 ML IV ×2 (01:57→09:21)
[2024-03-28] MEDS: propofoL 1,000 MG/100 ML VIAL 10.2 MG IV ×2 (01:59→11:40)
[2024-03-28 04:12] LABS: Hematocrit 22.9 % (36-46); Hemoglobin 7.8 g/dL (12.0-16.0); Mean Corpuscular HGB Conc 33.9 % (30-36); Mean Corpuscular Volume 88.4 fL (80-100); Platelet Count 303 X10^3/uL (150-400); Red Blood Cell Count 2.59 X10^6/uL (4.0-5.2); Red Cell Distribution Width 14.4 % (11.6-14.8); White Blood Cell Count 23.7 X10^3/uL (4.5-11.0)
[2024-03-28 04:21] LABS: Lactate (Lactic Acid) 2.5 mmol/L (0.7-2.1)
[2024-03-28 04:23] LABS: Alanine Aminotransferase 28 IU/L (<35); Albumin 2.2 g/dL (3.5-5.0); Alkaline Phosphatase 109 U/L (38-126); Aspartate Aminotransferase 42 IU/L (14-36); BUN Creatinine Ratio 17.8 (6-22); Bilirubin Total 0.7 mg/dL (0.2-1.3); Blood Urea Nitrogen 24 mg/dL (7-17); Calcium 7.3 mg/dL (8.4-10.2); Carbon Dioxide 17 mmol/L (22-32); Chloride 112 mmol/L (98-107); Estimated Glomerular Filt Rate 46 mL/min (>60); Globulin 2.2 g/dL (1.7-4.1); Glucose 92 mg/dL (70-100); HEMOLYSIS < 15 (0-50); Potassium 4.4 mmol/L (3.4-5.1); Sodium 134 mmol/L (137-145); Total Protein 4.4 g/dL (6.3-8.2)
[2024-03-28 05:05] LABS: Hematocrit 23.1 % (36-46); Hemoglobin 7.7 g/dL (12.0-16.0); Mean Corpuscular HGB Conc 33.3 % (30-36); Mean Corpuscular Hemoglobin 29.5 PG (26-34); Mean Corpuscular Volume 88.4 fL (80-100); Platelet Count 297 X10^3/uL (150-400); Red Blood Cell Count 2.61 X10^6/uL (4.0-5.2); Red Cell Distribution Width 14.2 % (11.6-14.8); White Blood Cell Count 23.5 X10^3/uL (4.5-11.0)
--- NOTE | 2024-03-28 05:06 | PC.NURSE ---
Addendum entered by Kusum Ward R.N. 03/28/24 05:26: OG put out 150 mL overnight Original Note: Neuro: Sedated on propofol, precedex, and fentanyl. Appears comfortable when resting but gets extremely agitated during turns and cares. CACERES but not to command. Pulm: Vent at 30% and 7+, set to RR24 but pt overbreathing the vent 30-36. No inline secretions so unable to send sputum culture. LS very diminished on R base Cardiac: SR, 90s. BP soft - albumin given and norepi titrated, goal MAP >65. +1-2 generalized edema GI: NPO. OG to LIS - large amount brown drainage. New ostomy has loose brown stool. Abd increasingly firm and distended overnight - There seems to be wound dehiscence at the lower midline - Dr. Nugent was called at 0000 about this, CTM : Carreno with adequate UOP, tea colored Drains: 2 RADHA drains on R abdomen Skin: Midline incision is partially closed with ne. There is shadowing on the dressing. The upper and lower parts were left open and have wet to dry dressings - the bottom dressing was changed overnight. Access: DL PICC on R, R PIV, L PIVx2 Labs: Hgb dropped from 14.6 to 7.7 overnight - Dr. Nugent was notified of this at 0440, type and screen ordered. Heparin on hold
[2024-03-28 05:43] LABS: Reflexed Lactate in 2 Hours Y
[2024-03-28] MEDS: dexmedeTOMIDine in 0.9 % NaCL 400 MCG/100 ML PLAST..BAG 10.2 MCG IV ×2 (06:31→17:53)
--- NOTE | 2024-03-28 06:48 | PM.CALLCOV.1 ---
Call Coverage Note Note Date of Patient Contact: 03/28/24 Narrative of Care Provided: Possible post op bleeding contributing to instability.Lovenox held and a type and screen done
[2024-03-28] MEDS: ALBUTEROL 2.5 MG/3 ML NEB (ADULT) INH ×3 (07:12→17:31)
[2024-03-28] MEDS: BUDESONIDE 0.5 MG/2 ML NEB INH ×2 (07:12→17:31)
[2024-03-28] MEDS: PANTOPRAZOLE 40 MG VIAL 20 MG IV (08:40)
[2024-03-28] MEDS: SODIUM CHLORIDE 0.9% FLUSH 10 ML IV ×2 (08:41→21:22)
--- NOTE | 2024-03-28 09:30 | DI.CT.S_ITS ---
PROCEDURE: CT ABDOMEN PELVIS WO CON INDICATIONS: abd dist h/h drop after recent Maye w/ colostomy TECHNIQUE: Axial sections were acquired from the lung bases to the pubic symphysis. Coronal and sagittal reformats were performed. For radiation dose reduction, the following was used: automated exposure control, adjustment of mA and/or kV according to patient size. COMPARISON: [facility], CT, CT ABDOMEN PELVIS W CON, 03/26/2024, 11:47. FINDINGS: Image quality: Diagnostic. Lower Chest: Moderate bilateral pleural effusions and compressive bibasilar atelectasis. ABDOMEN: Liver: No contour-deforming solid mass. Gallbladder: No radiopaque gallstones or wall thickening. Biliary ducts: No biliary dilation. Pancreas: No ductal dilation. Spleen: Surgically absent Adrenal Glands: No adrenal nodules. Right Kidney: No stones or hydronephrosis. Right Ureter: No hydroureter. Left Kidney: No stones or hydronephrosis. Left Ureter: No hydroureter. Stomach and Bowel: Interval proximal colectomy with left-sided colostomy. Multiple surgical drains are in place. Peritoneum: There is mild diffuse a site ease. Multiple surgical drains are in place. Prominent bowel loops suggest ileus pattern. No identifiable focal abscess cavities seen. No intra-abdominal hemorrhage identified. Ventral Wall: Midline ventral abdominal vertical wound healing by secondary intention in its superior and inferior aspect with surgical skin ne in between. Abdominal Nodes: No enlarged retroperitoneal or mesenteric lymph nodes. Vessels: Aorta and inferior vena cava are normal in size. PELVIS: Pelvic Organs: Unremarkable. Bladder: Decompressed by a Carreno catheter. Pelvic Nodes: Unremarkable. Miscellaneous: No inguinal hernias are seen. Anasarca. Bones: Unremarkable. IMPRESSION: 1. Interval proximal colectomy and colostomy for perforated viscus. 2. No evidence of acute intra-abdominal hemorrhage. 3. Mild ascites, diffuse anasarca. 4. Abdominal wound healing by secondary intention. 5. Moderate bilateral pleural effusions, bibasilar atelectasis. 6. Remote splenectomy. Dictated by: Bob Coker M.D. on 03/28/2024 at 11:04 Approved by: Bob Coker M.D. on 03/28/2024 at 11:09
[2024-03-28 10:11] LABS: Allen Test for ABG Passed? Positive; Base Excess ABG -4.6 mmol/L (-2-3); Blood Gas Collection Site Left Radial; Blood Gas Mode Assist Cont Ventilat; Delivery System Adult Ventilator; HCO3 ABG 19 mmol/L (23-27); Oxygen Saturation ABG 93 % (95-100); PCO2 ABG 28.8 mmHg (35-45); PEEP 7; PO2 ABG 63 mmHg (80-100); Respiratory Rate 24; TCO2 ABG 19 mmol/L (23-27); pH ABG 7.43 (7.35-7.45)
--- NOTE | 2024-03-28 10:14 | PC.NURSE ---
Addendum entered by Lashawn Bates R.N. 03/28/24 17:04: notified provider Tony of needing a new order for a restraint at approximately 1300. Again at 1700. Addendum entered by Lashawn Bates R.N. 03/28/24 15:59: During transport to [place], pt awake, attempting to pull at lines, attempting to sit up in bed, thrashing head, three separate boluses of fentanyl administered from fentanyl drip pump of 25mcg, equaling 75mcg total during transport to and from [place]. Original Note: Day shift hospitalist Dr. Jimenez notified of critical lab results, worsening abdominal distension, and minimal urinary output. Hospitalist at bedside, new orders received.
--- NOTE | 2024-03-28 11:14 | DIET.CONS ---
Dietary Consultation Note Admission Date: 03/21/2024 18:14 Assessment: 58 y F admitted for abd. pain and sepsis. S/p ex-lap w/ Maye procedure, required post-op mechanical ventilation. Nutrition consulted for nutrition support. EMR reviewed. Per healthcare team rounds, TPN ordered to start today. Propofol running at 25 mcg/kg/min providing 269 kcals per day NPO/clear liquids 03/21-03/23. General diet 03/24-03/26 with recorded po intakes avg <50%. Ht: 162.56 cm Wt: 68 kg (03/24/24) vs 62 kg (upon admission- 03/21/24) BMI: 23.3 UBW: 54.431 kg on 01/25/24, 62.709 kg on 08/24/23 Last BM: 03/26/24 (03/26/24 09:20) MNA: 12 Sven Score: 13 Diet: 03/26/24 12:15 NPO Diet Diet Modifications: May Advance Diet as Tolerated: No NPO Type: Strict Labs: RBC 2.61 X10^6/uL (4.0-5.2) L 03/28/24 05:01 Hgb 7.7 g/dL (12.0-16.0) L 03/28/24 05:01 Hct 23.1 % (36-46) L 03/28/24 05:01 Creatinine 1.35 mg/dL (0.52-1.04) H 03/28/24 04:04 Lactate 2.0 mmol/L (0.7-2.1) 03/28/24 06:10 Nutrition Diagnosis: Inadequate oral intake r/t GI alterations aeb NPO, bowel perforation Interventions: 1. Recc continuous TPN via PICC as follows: Day 1: Clinimix 5/20 running at 20 mL/h. If pt tolerating with no signs of refeeding, advance to day 2. Day 2: Goal rate of 1 L Clinimix 5/20 running at 42 mL/h with 250 mL IVFE 3x/wk. Goal rate with lipids + current rate propofol meets 90% of estimated energy needs (1364 kcals) and 50% of estimated protein needs (50 g). Based on limited formulary adjustments available at this hospital, TPN does not meet protein needs. Recommend transferring patient to facility with formulary that will meet this patient's protein needs. 2. Recc K+, Mg, phos labs BID for first 3 days 3. Recc triglyceride level monitoring once weekly EER: [id number] kcals (25 kcals/kg per sepsis using 62 kg) 105-110 g protein (1.7-1.8 g/kg per sepsis, surgery/wound using 62 kg) Monitoring/Evaluations: start of TPN, rate, labs, f/u tomorrow Electronically Signed by: Luly Wagner 03/28/24 11:14 Clinical Dietitian [address] [id number]
--- NOTE | 2024-03-28 11:35 | P.TELICUPN_ITS ---
Subjective Subjective IF CAMERA ACTIVATED, patient seen via real-time interactive audiovisual communication: Camera activated Consent obtained for tele-data analyst report writer care: Yes Patient Location: ICU Provider location (State): [place] Other participants/roles: rn Interval history: pt intubated and sedated. CT chest done this AM after signifcant drop in hgb. she is off vasopressors and there is no obvious bleed on CT. I have sent repeat cbc Current Medications Current Medications Medications: Home Medications ibuprofen 800 mg tablet 800 mg PO QD-TID PRN severe back or joint pain #90 tabs 11/30/23 [Rx Confirmed 03/21/24] estradiol 1 mg tablet 1 mg PO QDAY #90 tabs 03/07/24 [Rx Confirmed 03/21/24] albuterol sulfate 90 mcg/actuation aerosol inhaler 1 puff inhalation QID PRN Shortness Of Breath Or Wheezing 03/21/24 [History Confirmed 03/21/24] fluticasone 250 mcg-salmeterol 50 mcg/dose blistr powdr for inhalation (Nuryxela Inhub) 1 inh inhalation BID 03/21/24 [History Confirmed 03/21/24] Visit Medications (administered) Generic Name Dose Route Start Last Admin Trade Name Freq PRN Reason Stop Dose Admin Acetaminophen 650 mg 03/21/24 18:50 03/26/24 04:03 Acetaminophen 325 Mg Tablet PO 650 mg Q6H PRN Administration Fever/Mild Pain (1-3) Albuterol 2.5 mg 03/22/24 00:08 03/25/24 01:29 Albuterol 2.5 Mg/3 Ml Neb (Adult) INH 2.5 mg [id number] PRN Administration Shortness Of Breath Albuterol 2.5 mg 03/23/24 07:00 03/28/24 07:12 Albuterol 2.5 Mg/3 Ml Neb (Adult) INH 2.5 mg [id number] SHAHRAM Administration Alprazolam 0.25 mg 03/22/24 04:38 03/26/24 10:06 Alprazolam 0.25 Mg Tablet PO 0.25 mg Q6H PRN Administration Anxiety Bisacodyl 10 mg 03/22/24 17:36 03/23/24 17:48 Bisacodyl 10 Mg Supp VT 10 mg PRN PRN Administration Constipation Budesonide 0.5 mg 03/22/24 08:00 03/28/24 07:12 Budesonide 0.5 Mg/2 Ml Neb INH 0.5 mg RTBID SHAHRAM Administration Chlorhexidine Gluconate 15 ml 03/26/24 18:00 03/28/24 05:38 Chlorhexidine Gluconate 15 Ml Cup PO 15 ml Q6HR SHAHRAM Administration Estradiol 1 mg 03/24/24 09:00 03/27/24 09:08 Estradiol 1 Mg Tablet PO Not Given DAILY SHAHRAM Heparin Sodium (Porcine) 5,000 unit 03/21/24 21:00 03/27/24 20:02 Heparin 5,000 Unit/Ml Vial SUBCUT 5,000 unit BID SHAHRAM Administration Heparin Sodium (Porcine) 50 unit 03/27/24 21:00 03/28/24 08:40 Heparin Flush (Cl/Picc/Mid-Line) 50 Unit/5 Ml Syringe IV 50 unit BID SHAHRAM Administration Hydromorphone HCl 0.5 mg 03/26/24 11:42 03/27/24 01:33 Hydromorphone 0.5 Mg Inj IV 0.5 mg Q1H PRN Administration Pain, Severe (7-10) Piperacillin Sod/Tazobactam 100 mls @ 25 mls/hr 03/26/24 17:00 03/28/24 08:40 Sod 3.375 gm/ Sodium Chloride IV 25 mls/hr Q8H SHAHRAM Administration Propofol 1,000 mg in 100 mls @ 2.04 mls/hr 03/26/24 16:15 03/28/24 01:59 Propofol IV 25 mcg/kg/min TITRATE SHAHRAM 10.2 mls/hr Administration Protocol 5 MCG/KG/MIN Fentanyl 1,000 mcg/ Dextrose 250 mls @ 11.9 mls/hr 03/26/24 17:15 03/28/24 01:56 IV 0.9 mcg/kg/hr TITRATE SHAHRAM 15.3 mls/hr Administration Protocol 0.7 MCG/KG/HR Sodium Chloride 500 mls @ 1,000 mls/hr 03/27/24 15:44 03/28/24 09:14 Normal Saline 0.9% IV Infused BOLUS PRN Infusion Fluid replacement dexmedeTOMIDine in 0.9 % NaCL 400 mcg in 100 mls @ 3.4 mls/hr 03/27/24 16:00 03/28/24 06:31 Precedex IV 0.6 mcg/kg/hr TITRATE SHAHRAM 10.2 mls/hr Administration Protocol 0.2 MCG/KG/HR Lactated Ringer's 1,000 mls @ 150 mls/hr 03/27/24 18:00 03/28/24 09:21 Lactated Ringers IV 150 mls/hr CONT SHAHRAM Administration NOREPINEPHRINE BITARTRATE/D5W 4 mg in 250 mls @ 25.5 mls/hr 03/27/24 20:39 03/28/24 02:01 Levophed IV 0 mcg/kg/min TITRATE SHAHRAM 0 mls/hr Titration Protocol 0.1 MCG/KG/MIN Methadone HCl 10 mg 03/26/24 21:00 03/28/24 08:41 Methadone 10 Mg Tablet PO Not Given BID SHAHRAM Nicotine 14 mg 03/23/24 17:50 03/28/24 08:41 Nicotine 14 Patch TOP Not Given DAILY SHAHRAM Ondansetron HCl 4 mg 03/21/24 11:20 03/21/24 11:29 Ondansetron 4 Mg/2 Ml Inj IV 4 mg NOW PRN Administration Nausea And Vomiting Pantoprazole Sodium 20 mg 03/27/24 09:00 03/28/24 08:40 Pantoprazole 40 Mg Vial IV 20 mg DAILY SHAHRAM Administration Sodium Chloride 10 ml 03/25/24 09:00 03/28/24 08:41 Sodium Chloride 0.9% Flush IV 10 ml BID SHAHRAM Administration Objective Ventilator Parameters: Ventilator Settings FiO2 30 RT Vent Frequency 24 Ventilator Tidal Volume 400 Exhaled Vt/kg IBW 7.5 Positive End Expiratory 7 Pressure Inspiratory Phase Time 0.7 I:E Ratio 1:2.2 Patient Position HOB >= 30 degrees Labs 03/28/24 05:01 03/28/24 04:04 Labs: Laboratory Results - last 24 hr 03/21/24 03/27/24 03/27/24 11:17 13:10 14:40 WBC RBC Hgb Hct MCV MCH MCHC RDW Plt Count ABG Sample Site Left radial ABG pH 7.31 L ABG pCO2 31.9 L ABG pO2 65 L ABG HCO3 16 L ABG Total CO2 15 L ABG O2 Saturation 91 L ABG Base Excess -9.4 L Tacho Test Positive Respiration Rate 24 O2 Delivery Device Adult ventilator Mode of Support Assist cont ventilat FiO2 % 30.0 % PEEP or CPAP 7 Sodium Potassium Chloride Carbon Dioxide BUN Creatinine Estimated GFR BUN/Creatinine Ratio Glucose Lactate 6.6 H* Calcium Total Bilirubin AST ALT Alkaline Phosphatase Total Protein Albumin Globulin Albumin/Globulin Ratio A.calcoaceticus-baumannii cmplx PCR Not detected Bacteroides fragilis Not detected Katie albicans (PCR) Not detected Katie auris (PCR) Not detected C. glabrata (PCR) Not detected C. krusei (PCR) Not detected C. parapsilosis (PCR) Not detected C. tropicalis (PCR) Not detected C. neoform/gattii (PCR) Not detected Enterobacterales (PCR) Not detected E. cloacae complex PCR Not detected Enterococc faecalis PCR Not detected Enterococc faecium PCR Not detected E. coli (PCR) Not detected H. influenzae (PCR) Not detected Klebsiella aerogenes (PCR) Not detected Klebsiella oxytoca PCR Not detected Klebsiella pneumoniae Not detected List. monocytogenes PCR Not detected N. meningitidis (PCR) Not detected Proteus species (PCR) Not detected Salmonella spp. (PCR) Not detected Serratia marcescens PCR Not detected Staphylococcus sp PCR Not detected Staph aureus (PCR) Not detected mecA/C & MREJ Resist Gene Not applicable mecA/C-Methicil Resis Gene Not applicable mcr-1 Colistin Res Gene PCR Not applicable Staph epidermidis (PCR) Not detected Staph lugdunensis PCR Not detected S. maltophilia (PCR) Not detected Streptococcus sp PCR Not detected Group A Strep (PCR) Not detected Strep agalactiae (PCR) Not detected Strep pneumoniae (PCR) Not detected P. aeruginosa (PCR) Not detected Gee/B-Vanco Res Genes Not applicable blaIMP Car res Gene PCR Not applicable KPC-Carbap Res Gene PCR Not applicable blaNDM Car Res Gene PCR Not applicable OXA-48 Carbapenem Resis Gene (PCR) Not applicable blaVIM Car Res Gene PCR Not applicable CTX-M Gene Resistance (PCR) Not applicable Blood Type Antibody Screen 03/27/24 03/28/24 03/28/24 15:05 04:04 05:01 WBC 23.7 H D 23.5 H RBC 2.59 L 2.61 L Hgb 7.8 L 7.7 L Hct 22.9 L 23.1 L MCV 88.4 88.4 MCH 30.0 29.5 MCHC 33.9 33.3 RDW 14.4 14.2 Plt Count 303 297 ABG Sample Site ABG pH ABG pCO2 ABG pO2 ABG HCO3 ABG Total CO2 ABG O2 Saturation ABG Base Excess Tacho Test Respiration Rate O2 Delivery Device Mode of Support FiO2 % PEEP or CPAP Sodium 132 L 134 L Potassium 4.5 4.4 Chloride 111 H 112 H Carbon Dioxide 13 L 17 L BUN 20 H 24 H Creatinine 1.24 H 1.35 H Estimated GFR 51 L 46 L BUN/Creatinine Ratio 16.1 17.8 Glucose 128 H D 92 Lactate 5.1 H* 2.5 H Calcium 6.3 L* 7.3 L Total Bilirubin 0.7 AST 42 H ALT 28 Alkaline Phosphatase 109 D Total Protein 4.4 L Albumin 2.2 L Globulin 2.2 Albumin/Globulin Ratio 1.0 A.calcoaceticus-baumannii cmplx PCR Bacteroides fragilis Katie albicans (PCR) Katie auris (PCR) C. glabrata (PCR) C. krusei (PCR) C. parapsilosis (PCR) C. tropicalis (PCR) C. neoform/gattii (PCR) Enterobacterales (PCR) E. cloacae complex PCR Enterococc faecalis PCR Enterococc faecium PCR E. coli (PCR) H. influenzae (PCR) Klebsiella aerogenes (PCR) Klebsiella oxytoca PCR Klebsiella pneumoniae List. monocytogenes PCR N. meningitidis (PCR) Proteus species (PCR) Salmonella spp. (PCR) Serratia marcescens PCR Staphylococcus sp PCR Staph aureus (PCR) mecA/C & MREJ Resist Gene mecA/C-Methicil Resis Gene mcr-1 Colistin Res Gene PCR Staph epidermidis (PCR) Staph lugdunensis PCR S. maltophilia (PCR) Streptococcus sp PCR Group A Strep (PCR) Strep agalactiae (PCR) Strep pneumoniae (PCR) P. aeruginosa (PCR) Gee/B-Vanco Res Genes blaIMP Car res Gene PCR KPC-Carbap Res Gene PCR blaNDM Car Res Gene PCR OXA-48 Carbapenem Resis Gene (PCR) blaVIM Car Res Gene PCR CTX-M Gene Resistance (PCR) Blood Type Antibody Screen 03/28/24 03/28/24 03/28/24 05:21 06:10 10:08 WBC RBC Hgb Hct MCV MCH MCHC RDW Plt Count ABG Sample Site Left radial ABG pH 7.43 ABG pCO2 28.8 L ABG pO2 63 L ABG HCO3 19 L ABG Total CO2 19 L ABG O2 Saturation 93 L ABG Base Excess -4.6 L Tacho Test Positive Respiration Rate 24 O2 Delivery Device Adult ventilator Mode of Support Assist cont ventilat FiO2 % 30.0 % PEEP or CPAP 7 Sodium Potassium Chloride Carbon Dioxide BUN Creatinine Estimated GFR BUN/Creatinine Ratio Glucose Lactate 2.0 Calcium Total Bilirubin AST ALT Alkaline Phosphatase Total Protein Albumin Globulin Albumin/Globulin Ratio A.calcoaceticus-baumannii cmplx PCR Bacteroides fragilis Katie albicans (PCR) Katie auris (PCR) C. glabrata (PCR) C. krusei (PCR) C. parapsilosis (PCR) C. tropicalis (PCR) C. neoform/gattii (PCR) Enterobacterales (PCR) E. cloacae complex PCR Enterococc faecalis PCR Enterococc faecium PCR E. coli (PCR) H. influenzae (PCR) Klebsiella aerogenes (PCR) Klebsiella oxytoca PCR Klebsiella pneumoniae List. monocytogenes PCR N. meningitidis (PCR) Proteus species (PCR) Salmonella spp. (PCR) Serratia marcescens PCR Staphylococcus sp PCR Staph aureus (PCR) mecA/C & MREJ Resist Gene mecA/C-Methicil Resis Gene mcr-1 Colistin Res Gene PCR Staph epidermidis (PCR) Staph lugdunensis PCR S. maltophilia (PCR) Streptococcus sp PCR Group A Strep (PCR) Strep agalactiae (PCR) Strep pneumoniae (PCR) P. aeruginosa (PCR) Gee/B-Vanco Res Genes blaIMP Car res Gene PCR KPC-Carbap Res Gene PCR blaNDM Car Res Gene PCR OXA-48 Carbapenem Resis Gene (PCR) blaVIM Car Res Gene PCR CTX-M Gene Resistance (PCR) Blood Type A Positive Antibody Screen Negative Exam Vital Signs (past 8 hours): - 03/28/24 03:45 03/28/24 03:45 03/28/24 04:00 Temperature 100.0 F H Pulse Rate 85 84 Respiratory Rate 29 H 24 Blood Pressure 95/54 L Pulse Oximetry 93 94 Fraction of Inspired Oxygen 03/28/24 04:00 03/28/24 04:15 03/28/24 04:15 Temperature Pulse Rate 87 Respiratory Rate 35 H Blood Pressure 116/64 99/63 Pulse Oximetry 92 Fraction of Inspired Oxygen 03/28/24 04:30 03/28/24 04:30 03/28/24 04:45 Temperature Pulse Rate 86 86 Respiratory Rate 31 H 28 H Blood Pressure 102/59 L Pulse Oximetry 92 93 Fraction of Inspired Oxygen 03/28/24 04:45 03/28/24 05:00 03/28/24 05:00 Temperature Pulse Rate 86 Respiratory Rate 29 H Blood Pressure 95/59 L 94/55 L Pulse Oximetry 92 Fraction of Inspired Oxygen 03/28/24 05:15 03/28/24 05:15 03/28/24 05:30 Temperature Pulse Rate 86 85 Respiratory Rate 28 H 28 H Blood Pressure 90/55 L Pulse Oximetry 93 93 Fraction of Inspired Oxygen 03/28/24 05:30 03/28/24 05:45 03/28/24 05:45 Temperature Pulse Rate 85 Respiratory Rate 28 H Blood Pressure 95/55 L 96/56 L Pulse Oximetry 93 Fraction of Inspired Oxygen 03/28/24 06:00 03/28/24 06:00 03/28/24 06:15 Temperature Pulse Rate 85 86 Respiratory Rate 28 H 28 H Blood Pressure 96/55 L Pulse Oximetry 93 93 Fraction of Inspired Oxygen 03/28/24 06:15 03/28/24 07:00 03/28/24 07:00 Temperature Pulse Rate 85 Respiratory Rate 25 H Blood Pressure 97/56 L 96/59 L Pulse Oximetry 94 Fraction of Inspired Oxygen 03/28/24 07:15 03/28/24 07:15 03/28/24 08:00 Temperature 97.8 F Pulse Rate 85 Respiratory Rate 29 H Blood Pressure 91/58 L Pulse Oximetry 93 Fraction of Inspired Oxygen 03/28/24 08:00 03/28/24 08:00 03/28/24 08:15 Temperature Pulse Rate 95 H 95 H Respiratory Rate 30 H 30 H Blood Pressure 101/59 L Pulse Oximetry 92 92 Fraction of Inspired Oxygen 03/28/24 08:15 03/28/24 08:30 03/28/24 08:30 Temperature Pulse Rate 95 H Respiratory Rate 30 H Blood Pressure 103/56 L 102/59 L Pulse Oximetry 92 Fraction of Inspired Oxygen 03/28/24 08:45 03/28/24 08:45 03/28/24 09:00 Temperature Pulse Rate 93 H 91 H Respiratory Rate 32 H 33 H Blood Pressure 103/59 L Pulse Oximetry 93 90 L Fraction of Inspired Oxygen 03/28/24 09:00 03/28/24 09:08 03/28/24 09:12 Temperature 99.3 F Pulse Rate Respiratory Rate Blood Pressure 104/57 L Pulse Oximetry 91 Fraction of Inspired Oxygen 30 03/28/24 09:15 03/28/24 09:15 03/28/24 09:30 Temperature Pulse Rate 90 90 Respiratory Rate 29 H 29 H Blood Pressure 101/57 L Pulse Oximetry 93 94 Fraction of Inspired Oxygen 03/28/24 09:30 03/28/24 09:45 03/28/24 09:45 Temperature Pulse Rate 90 Respiratory Rate 29 H Blood Pressure 105/56 L 107/60 Pulse Oximetry 94 Fraction of Inspired Oxygen 03/28/24 10:00 03/28/24 10:00 03/28/24 10:15 Temperature Pulse Rate 89 87 Respiratory Rate 29 H 28 H Blood Pressure 105/61 Pulse Oximetry 94 94 Fraction of Inspired Oxygen 03/28/24 10:15 03/28/24 10:44 03/28/24 10:44 Temperature Pulse Rate 91 H Respiratory Rate Blood Pressure 106/59 L 109/58 L Pulse Oximetry Fraction of Inspired Oxygen 03/28/24 10:45 Temperature Pulse Rate 91 H Respiratory Rate 36 H Blood Pressure Pulse Oximetry 96 Fraction of Inspired Oxygen Fraction of Inspired Oxygen 30 SaO2/FiO2 Ratio 306 Oxygen Delivery Method Mechanical Ventilation Oxygen Flow Rate 0 Narrative Exam Narrative: intubated sedated symmetric chest rise synchronous with vent rate controlled Quality TeleICU VTE Deep Vein Thrombosis/Pulmonary Embolism Present on Admission: No Assessment & Plan Assessment & Plan narrative: Neuro: # Acute encephalopathy -- Secondary to sepsis and sedatives -- Intubated and sedated -- Daily SAT -- On propofol gtt -- RASS goal -2 - -3 RESP: # Acute respiratory insufficiency -- Intubated and sedated -- Secondary to sepsis w/ ALI -- LTVV --trend abg -- HOB elevation - Aspiration precaution -- Goal SpO2 > 88% -- Daily SAT and SBT -- holding off psv trias for now, if her hgb returns imrpoved will consider CVS: -- MAP goal > 65 -- Sepsis rx as below -- started on pressors last night, which i suspect is also in part to sedation. ID: # severe sepsis -- Secondary to bowel perforation -- On zosyn and fluconazole -- Follow up cx -- MAP goal > 65 -- fluid resuscitation GI: # Sterocoral colitis c/w perofration -- s/p ex-lap w/ Maye procedure -- Strict NPO - plan for TPN tonight -- On IVF -- On zosyn , -- Management per surgery ENDO: -- Goal BS < 180 -- Need accucheck every 6 hr Renal -- trend bmp -- monitoir UO -- bicarb is imrpoving VTE: Heparin SQ PPI: Protonix IV daily Time-Based Coding :: [TOTAL MINUTES] spent with patient and on the chart (including review of chart, obtaining history, exam, reviewing outside data, placing orders, documenting exam and treatment plan, and counseling patient) on [DATE].
[2024-03-28] MEDS: FLUCONAZOLE 200 MG/100 ML PIGGYBACK 100 MG IV (11:41)
--- NOTE | 2024-03-28 11:55 | PM.PN.1 ---
Subjective Subjective Interval history: 58 F with sepsis due to perforated large bowel d/t stercoral colitis. Remains intubated today. WBC remains up. Abdomen more distended today per staff. h/h drop from post-op labs today, but stable on repeat. Was on pressors temporarily overnight. Ordered CT of her abdomen which showed no evidence of leak, abscess, or hemorrhage. There is output in her ostomy. Ordered for TPN to start this evening as well. Exam Vital Signs (past 8 hours): - 03/28/24 04:00 03/28/24 04:00 03/28/24 04:15 Temperature 100.0 F H Pulse Rate 84 87 Respiratory Rate 24 35 H Blood Pressure 116/64 Pulse Oximetry 94 92 Fraction of Inspired Oxygen 03/28/24 04:15 03/28/24 04:30 03/28/24 04:30 Temperature Pulse Rate 86 Respiratory Rate 31 H Blood Pressure 99/63 102/59 L Pulse Oximetry 92 Fraction of Inspired Oxygen 03/28/24 04:45 03/28/24 04:45 03/28/24 05:00 Temperature Pulse Rate 86 86 Respiratory Rate 28 H 29 H Blood Pressure 95/59 L Pulse Oximetry 93 92 Fraction of Inspired Oxygen 03/28/24 05:00 03/28/24 05:15 03/28/24 05:15 Temperature Pulse Rate 86 Respiratory Rate 28 H Blood Pressure 94/55 L 90/55 L Pulse Oximetry 93 Fraction of Inspired Oxygen 03/28/24 05:30 03/28/24 05:30 03/28/24 05:45 Temperature Pulse Rate 85 Respiratory Rate 28 H Blood Pressure 95/55 L 96/56 L Pulse Oximetry 93 Fraction of Inspired Oxygen 03/28/24 05:45 03/28/24 06:00 03/28/24 06:00 Temperature Pulse Rate 85 85 Respiratory Rate 28 H 28 H Blood Pressure 96/55 L Pulse Oximetry 93 93 Fraction of Inspired Oxygen 03/28/24 06:15 03/28/24 06:15 03/28/24 07:00 Temperature Pulse Rate 86 85 Respiratory Rate 28 H 25 H Blood Pressure 97/56 L Pulse Oximetry 93 94 Fraction of Inspired Oxygen 03/28/24 07:00 03/28/24 07:15 03/28/24 07:15 Temperature Pulse Rate 85 Respiratory Rate 29 H Blood Pressure 96/59 L 91/58 L Pulse Oximetry 93 Fraction of Inspired Oxygen 03/28/24 08:00 03/28/24 08:00 03/28/24 08:00 Temperature 97.8 F Pulse Rate 95 H Respiratory Rate 30 H Blood Pressure 101/59 L Pulse Oximetry 92 Fraction of Inspired Oxygen 03/28/24 08:15 03/28/24 08:15 03/28/24 08:30 Temperature Pulse Rate 95 H Respiratory Rate 30 H Blood Pressure 103/56 L 102/59 L Pulse Oximetry 92 Fraction of Inspired Oxygen 03/28/24 08:30 03/28/24 08:45 03/28/24 08:45 Temperature Pulse Rate 95 H 93 H Respiratory Rate 30 H 32 H Blood Pressure 103/59 L Pulse Oximetry 92 93 Fraction of Inspired Oxygen 03/28/24 09:00 03/28/24 09:00 03/28/24 09:08 Temperature 99.3 F Pulse Rate 91 H Respiratory Rate 33 H Blood Pressure 104/57 L Pulse Oximetry 90 L Fraction of Inspired Oxygen 03/28/24 09:12 03/28/24 09:15 03/28/24 09:15 Temperature Pulse Rate 90 Respiratory Rate 29 H Blood Pressure 101/57 L Pulse Oximetry 91 93 Fraction of Inspired Oxygen 30 03/28/24 09:30 03/28/24 09:30 03/28/24 09:45 Temperature Pulse Rate 90 90 Respiratory Rate 29 H 29 H Blood Pressure 105/56 L Pulse Oximetry 94 94 Fraction of Inspired Oxygen 03/28/24 09:45 03/28/24 10:00 03/28/24 10:00 Temperature Pulse Rate 89 Respiratory Rate 29 H Blood Pressure 107/60 105/61 Pulse Oximetry 94 Fraction of Inspired Oxygen 03/28/24 10:15 03/28/24 10:15 03/28/24 10:44 Temperature Pulse Rate 87 91 H Respiratory Rate 28 H Blood Pressure 106/59 L Pulse Oximetry 94 Fraction of Inspired Oxygen 03/28/24 10:44 03/28/24 10:45 Temperature Pulse Rate 91 H Respiratory Rate 36 H Blood Pressure 109/58 L Pulse Oximetry 96 Fraction of Inspired Oxygen Fraction of Inspired Oxygen 30 SaO2/FiO2 Ratio 306 Oxygen Delivery Method Mechanical Ventilation Oxygen Flow Rate 0 Narrative Exam Narrative: GENERAL: This is a thin female patient, intubated and sedated on propofol infusion. EYES: Pupils equal round and reactive. Extraocular motions intact. No scleral icterus. No injection or drainage. ENT: Mucous membranes pink and moist. Orotracheal and orogastric tubes in place. NECK: Unremarkable. CARDIOVASCULAR: RRR without murmurs, gallops, or rubs. RESPIRATORY: Clear to auscultation b/l GASTROINTESTINAL: Abdomen with colostomy site in place. Jeffy in place midline, a few removed with gauze with serosanguinous fluid on superior and inferior aspects of patient's incision. GENITOURINARY: Carreno catheter in place. EXTREMITIES: No clubbing, cyanosis, or edema. NEUROLOGIC: Sedated, intubated, exam not feasible. DERMATOLOGIC: No rashes or skin lesions. Objective Labs 03/28/24 11:30 03/28/24 04:04 Labs: Laboratory Results - last 24 hr 03/21/24 03/27/24 03/27/24 11:17 13:10 14:40 WBC RBC Hgb Hct MCV MCH MCHC RDW Plt Count ABG Sample Site Left radial ABG pH 7.31 L ABG pCO2 31.9 L ABG pO2 65 L ABG HCO3 16 L ABG Total CO2 15 L ABG O2 Saturation 91 L ABG Base Excess -9.4 L Tacho Test Positive Respiration Rate 24 O2 Delivery Device Adult ventilator Mode of Support Assist cont ventilat FiO2 % 30.0 % PEEP or CPAP 7 Sodium Potassium Chloride Carbon Dioxide BUN Creatinine Estimated GFR BUN/Creatinine Ratio Glucose Lactate 6.6 H* Calcium Total Bilirubin AST ALT Alkaline Phosphatase Total Protein Albumin Globulin Albumin/Globulin Ratio A.calcoaceticus-baumannii cmplx PCR Not detected Bacteroides fragilis Not detected Katie albicans (PCR) Not detected Katie auris (PCR) Not detected C. glabrata (PCR) Not detected C. krusei (PCR) Not detected C. parapsilosis (PCR) Not detected C. tropicalis (PCR) Not detected C. neoform/gattii (PCR) Not detected Enterobacterales (PCR) Not detected E. cloacae complex PCR Not detected Enterococc faecalis PCR Not detected Enterococc faecium PCR Not detected E. coli (PCR) Not detected H. influenzae (PCR) Not detected Klebsiella aerogenes (PCR) Not detected Klebsiella oxytoca PCR Not detected Klebsiella pneumoniae Not detected List. monocytogenes PCR Not detected N. meningitidis (PCR) Not detected Proteus species (PCR) Not detected Salmonella spp. (PCR) Not detected Serratia marcescens PCR Not detected Staphylococcus sp PCR Not detected Staph aureus (PCR) Not detected mecA/C & MREJ Resist Gene Not applicable mecA/C-Methicil Resis Gene Not applicable mcr-1 Colistin Res Gene PCR Not applicable Staph epidermidis (PCR) Not detected Staph lugdunensis PCR Not detected S. maltophilia (PCR) Not detected Streptococcus sp PCR Not detected Group A Strep (PCR) Not detected Strep agalactiae (PCR) Not detected Strep pneumoniae (PCR) Not detected P. aeruginosa (PCR) Not detected Gee/B-Vanco Res Genes Not applicable blaIMP Car res Gene PCR Not applicable KPC-Carbap Res Gene PCR Not applicable blaNDM Car Res Gene PCR Not applicable OXA-48 Carbapenem Resis Gene (PCR) Not applicable blaVIM Car Res Gene PCR Not applicable CTX-M Gene Resistance (PCR) Not applicable Blood Type Antibody Screen 03/27/24 03/28/24 03/28/24 15:05 04:04 05:01 WBC 23.7 H D 23.5 H RBC 2.59 L 2.61 L Hgb 7.8 L 7.7 L Hct 22.9 L 23.1 L MCV 88.4 88.4 MCH 30.0 29.5 MCHC 33.9 33.3 RDW 14.4 14.2 Plt Count 303 297 ABG Sample Site ABG pH ABG pCO2 ABG pO2 ABG HCO3 ABG Total CO2 ABG O2 Saturation ABG Base Excess Tacho Test Respiration Rate O2 Delivery Device Mode of Support FiO2 % PEEP or CPAP Sodium 132 L 134 L Potassium 4.5 4.4 Chloride 111 H 112 H Carbon Dioxide 13 L 17 L BUN 20 H 24 H Creatinine 1.24 H 1.35 H Estimated GFR 51 L 46 L BUN/Creatinine Ratio 16.1 17.8 Glucose 128 H D 92 Lactate 5.1 H* 2.5 H Calcium 6.3 L* 7.3 L Total Bilirubin 0.7 AST 42 H ALT 28 Alkaline Phosphatase 109 D Total Protein 4.4 L Albumin 2.2 L Globulin 2.2 Albumin/Globulin Ratio 1.0 A.calcoaceticus-baumannii cmplx PCR Bacteroides fragilis Katie albicans (PCR) Katie auris (PCR) C. glabrata (PCR) C. krusei (PCR) C. parapsilosis (PCR) C. tropicalis (PCR) C. neoform/gattii (PCR) Enterobacterales (PCR) E. cloacae complex PCR Enterococc faecalis PCR Enterococc faecium PCR E. coli (PCR) H. influenzae (PCR) Klebsiella aerogenes (PCR) Klebsiella oxytoca PCR Klebsiella pneumoniae List. monocytogenes PCR N. meningitidis (PCR) Proteus species (PCR) Salmonella spp. (PCR) Serratia marcescens PCR Staphylococcus sp PCR Staph aureus (PCR) mecA/C & MREJ Resist Gene mecA/C-Methicil Resis Gene mcr-1 Colistin Res Gene PCR Staph epidermidis (PCR) Staph lugdunensis PCR S. maltophilia (PCR) Streptococcus sp PCR Group A Strep (PCR) Strep agalactiae (PCR) Strep pneumoniae (PCR) P. aeruginosa (PCR) Gee/B-Vanco Res Genes blaIMP Car res Gene PCR KPC-Carbap Res Gene PCR blaNDM Car Res Gene PCR OXA-48 Carbapenem Resis Gene (PCR) blaVIM Car Res Gene PCR CTX-M Gene Resistance (PCR) Blood Type Antibody Screen 03/28/24 03/28/24 03/28/24 05:21 06:10 10:08 WBC RBC Hgb Hct MCV MCH MCHC RDW Plt Count ABG Sample Site Left radial ABG pH 7.43 ABG pCO2 28.8 L ABG pO2 63 L ABG HCO3 19 L ABG Total CO2 19 L ABG O2 Saturation 93 L ABG Base Excess -4.6 L Tacho Test Positive Respiration Rate 24 O2 Delivery Device Adult ventilator Mode of Support Assist cont ventilat FiO2 % 30.0 % PEEP or CPAP 7 Sodium Potassium Chloride Carbon Dioxide BUN Creatinine Estimated GFR BUN/Creatinine Ratio Glucose Lactate 2.0 Calcium Total Bilirubin AST ALT Alkaline Phosphatase Total Protein Albumin Globulin Albumin/Globulin Ratio A.calcoaceticus-baumannii cmplx PCR Bacteroides fragilis Katie albicans (PCR) Katie auris (PCR) C. glabrata (PCR) C. krusei (PCR) C. parapsilosis (PCR) C. tropicalis (PCR) C. neoform/gattii (PCR) Enterobacterales (PCR) E. cloacae complex PCR Enterococc faecalis PCR Enterococc faecium PCR E. coli (PCR) H. influenzae (PCR) Klebsiella aerogenes (PCR) Klebsiella oxytoca PCR Klebsiella pneumoniae List. monocytogenes PCR N. meningitidis (PCR) Proteus species (PCR) Salmonella spp. (PCR) Serratia marcescens PCR Staphylococcus sp PCR Staph aureus (PCR) mecA/C & MREJ Resist Gene mecA/C-Methicil Resis Gene mcr-1 Colistin Res Gene PCR Staph epidermidis (PCR) Staph lugdunensis PCR S. maltophilia (PCR) Streptococcus sp PCR Group A Strep (PCR) Strep agalactiae (PCR) Strep pneumoniae (PCR) P. aeruginosa (PCR) Gee/B-Vanco Res Genes blaIMP Car res Gene PCR KPC-Carbap Res Gene PCR blaNDM Car Res Gene PCR OXA-48 Carbapenem Resis Gene (PCR) blaVIM Car Res Gene PCR CTX-M Gene Resistance (PCR) Blood Type A Positive Antibody Screen Negative PFSH Medical History Eczema, dyshidrotic (~2020) Anxiety Chronic hepatitis C Osteoarthritis of both hands Hepatitis C antibody test positive Arthritis (Unknown) Chronic neck pain (Unknown) Hx of idiopathic thrombocytopenic purpura (2007) Surgical History Anesthesia H/O hernia repair Hx of arthroscopy of knee (~2002) History of splenectomy (2007) Status post knee replacement Family History Family/Other Adopted Social History household members: spouse Smoking Status: Current every day smoker quit status: considering quitting alcohol intake: current substance use type: does not use Assessment & Plan Assessment & Plan narrative: 1. Sepsis with septic shock secondary to perforated colon due to stercoral colitis s/p Maye procedure with hypotension, EUGENIO, acute respiratory failure with hypoxia. 2. Acute hypoxemic respiratory failure, likely noncardiogenic pulmonary edema. monitor on ventilator and hopeful extubation today. 3. Acute kidney injury 4. Chronic hepatitis-C, present on admission and active. 5. Prior splenectomy, present on admission and active. This related to ITP. 6. Fentanyl abuse, present on admission and active. 7. DVT prophylaxis: SCDs 8. Post operative acute blood loss anemia. Plan: -monitor h/h, continue zosyn, fluconazole -assess CT which showed no acute hemorrhage, abscess, or evidence of leak. -wean from ventilator support as needed. -continue fentanyl, propofol, and precedex for sedation. -continue ICU level care -outpatient drug treatment assessment prior to discharge -consider diuresis if BP improves Full code. Surrogate is patient's sposue I spent 35 minutes providing critical care management this patient. This excludes time spent in performing separately billed procedures. Time-Based Coding :: [TOTAL MINUTES] spent with patient and on the chart (including review of chart, obtaining history, exam, reviewing outside data, placing orders, documenting exam and treatment plan, and counseling patient) on [DATE]. Quality VTE Deep Vein Thrombosis/Pulmonary Embolism Present on Admission: No
[2024-03-28 11:56] LABS: Hemoglobin 7.6 g/dL (12.0-16.0); Mean Corpuscular HGB Conc 34.6 % (30-36); Mean Corpuscular Hemoglobin 30.8 PG (26-34); Mean Corpuscular Volume 89.2 fL (80-100); Platelet Count 278 X10^3/uL (150-400); Red Blood Cell Count 2.47 X10^6/uL (4.0-5.2); Red Cell Distribution Width 14.4 % (11.6-14.8)
--- NOTE | 2024-03-28 13:32 | RT ---
Helped transport pt down to CT for an abd scan to check for a re perf or a bleed. Pt was transported on a BVM @ 15lpm. Pt did well the entire trip and was put back on prev settings on vent.
--- NOTE | 2024-03-28 13:58 | P.PN_ITS ---
Subjective Subjective Date Patient Seen: 03/28/24 Time Patient Seen: 13:58 Interval history: intubated and sedated with sepsis. CT scan today shows no undrained fluid, yet no intra abdominal blood as a reason for drop in hgb. Hgb 7.1 in a hemoconcentrated state still. acidosis resolving. Exam Vital Signs (past 8 hours): - 03/28/24 06:00 03/28/24 06:00 03/28/24 06:15 Temperature Pulse Rate 85 86 Respiratory Rate 28 H 28 H Blood Pressure 96/55 L Pulse Oximetry 93 93 Oxygen Delivery Method Fraction of Inspired Oxygen 03/28/24 06:15 03/28/24 07:00 03/28/24 07:00 Temperature Pulse Rate 85 Respiratory Rate 25 H Blood Pressure 97/56 L 96/59 L Pulse Oximetry 94 Oxygen Delivery Method Fraction of Inspired Oxygen 03/28/24 07:15 03/28/24 07:15 03/28/24 08:00 Temperature 97.8 F Pulse Rate 85 Respiratory Rate 29 H Blood Pressure 91/58 L Pulse Oximetry 93 Oxygen Delivery Method Fraction of Inspired Oxygen 03/28/24 08:00 03/28/24 08:00 03/28/24 08:15 Temperature Pulse Rate 95 H 95 H Respiratory Rate 30 H 30 H Blood Pressure 101/59 L Pulse Oximetry 92 92 Oxygen Delivery Method Fraction of Inspired Oxygen 03/28/24 08:15 03/28/24 08:30 03/28/24 08:30 Temperature Pulse Rate 95 H Respiratory Rate 30 H Blood Pressure 103/56 L 102/59 L Pulse Oximetry 92 Oxygen Delivery Method Fraction of Inspired Oxygen 03/28/24 08:45 03/28/24 08:45 03/28/24 09:00 Temperature Pulse Rate 93 H 91 H Respiratory Rate 32 H 33 H Blood Pressure 103/59 L Pulse Oximetry 93 90 L Oxygen Delivery Method Fraction of Inspired Oxygen 03/28/24 09:00 03/28/24 09:08 03/28/24 09:12 Temperature 99.3 F Pulse Rate Respiratory Rate Blood Pressure 104/57 L Pulse Oximetry 91 Oxygen Delivery Method Fraction of Inspired Oxygen 30 03/28/24 09:15 03/28/24 09:15 03/28/24 09:30 Temperature Pulse Rate 90 90 Respiratory Rate 29 H 29 H Blood Pressure 101/57 L Pulse Oximetry 93 94 Oxygen Delivery Method Fraction of Inspired Oxygen 03/28/24 09:30 03/28/24 09:45 03/28/24 09:45 Temperature Pulse Rate 90 Respiratory Rate 29 H Blood Pressure 105/56 L 107/60 Pulse Oximetry 94 Oxygen Delivery Method Fraction of Inspired Oxygen 03/28/24 10:00 03/28/24 10:00 03/28/24 10:15 Temperature Pulse Rate 89 87 Respiratory Rate 29 H 28 H Blood Pressure 105/61 Pulse Oximetry 94 94 Oxygen Delivery Method Fraction of Inspired Oxygen 03/28/24 10:15 03/28/24 10:44 03/28/24 10:44 Temperature Pulse Rate 91 H Respiratory Rate Blood Pressure 106/59 L 109/58 L Pulse Oximetry Oxygen Delivery Method Fraction of Inspired Oxygen 03/28/24 10:45 03/28/24 10:46 03/28/24 10:47 Temperature Pulse Rate 91 H 91 H 91 H Respiratory Rate 36 H 34 H 35 H Blood Pressure Pulse Oximetry 96 94 93 Oxygen Delivery Method Fraction of Inspired Oxygen 03/28/24 11:00 03/28/24 12:37 03/28/24 12:38 Temperature 100.5 F H Pulse Rate 84 83 83 Respiratory Rate 30 H 28 H 27 H Blood Pressure 100/55 L 101/61 Pulse Oximetry 92 94 94 Oxygen Delivery Method Fraction of Inspired Oxygen 30 03/28/24 12:38 03/28/24 12:39 03/28/24 12:40 Temperature Pulse Rate 83 83 Respiratory Rate 27 H 28 H Blood Pressure 107/59 L Pulse Oximetry 94 94 Oxygen Delivery Method Fraction of Inspired Oxygen 03/28/24 12:41 03/28/24 12:42 03/28/24 12:43 Temperature Pulse Rate 83 83 83 Respiratory Rate 27 H 29 H 27 H Blood Pressure Pulse Oximetry 94 94 94 Oxygen Delivery Method Fraction of Inspired Oxygen 03/28/24 12:44 03/28/24 12:45 03/28/24 12:46 Temperature Pulse Rate 83 83 83 Respiratory Rate 28 H 27 H 28 H Blood Pressure Pulse Oximetry 94 94 94 Oxygen Delivery Method Fraction of Inspired Oxygen 03/28/24 12:47 03/28/24 12:48 03/28/24 12:49 Temperature Pulse Rate 83 82 83 Respiratory Rate 28 H 27 H 27 H Blood Pressure Pulse Oximetry 94 94 94 Oxygen Delivery Method Fraction of Inspired Oxygen 03/28/24 12:50 03/28/24 12:51 03/28/24 12:52 Temperature Pulse Rate 83 83 83 Respiratory Rate 27 H 27 H 27 H Blood Pressure Pulse Oximetry 94 94 94 Oxygen Delivery Method Fraction of Inspired Oxygen 03/28/24 12:53 03/28/24 12:54 03/28/24 12:55 Temperature Pulse Rate 83 83 82 Respiratory Rate 28 H 27 H 28 H Blood Pressure Pulse Oximetry 94 94 94 Oxygen Delivery Method Fraction of Inspired Oxygen 03/28/24 12:56 03/28/24 12:57 03/28/24 12:58 Temperature Pulse Rate 82 82 82 Respiratory Rate 29 H 28 H 27 H Blood Pressure Pulse Oximetry 94 94 94 Oxygen Delivery Method Fraction of Inspired Oxygen 03/28/24 12:59 03/28/24 13:00 03/28/24 13:00 Temperature Pulse Rate 82 82 Respiratory Rate 27 H 27 H Blood Pressure 108/61 Pulse Oximetry 94 94 Oxygen Delivery Method Fraction of Inspired Oxygen 03/28/24 13:01 03/28/24 13:02 03/28/24 13:03 Temperature Pulse Rate 82 82 82 Respiratory Rate 28 H 26 H 27 H Blood Pressure Pulse Oximetry 94 94 94 Oxygen Delivery Method Fraction of Inspired Oxygen 03/28/24 13:04 03/28/24 13:05 03/28/24 13:06 Temperature Pulse Rate 82 82 82 Respiratory Rate 27 H 27 H 27 H Blood Pressure Pulse Oximetry 94 94 94 Oxygen Delivery Method Fraction of Inspired Oxygen 03/28/24 13:07 03/28/24 13:08 03/28/24 13:09 Temperature Pulse Rate 82 82 82 Respiratory Rate 27 H 27 H 28 H Blood Pressure Pulse Oximetry 94 94 94 Oxygen Delivery Method Fraction of Inspired Oxygen 03/28/24 13:24 Temperature Pulse Rate 82 Respiratory Rate 26 H Blood Pressure Pulse Oximetry 94 Oxygen Delivery Method Mechanical Ventilation Fraction of Inspired Oxygen 30 Fraction of Inspired Oxygen 30 SaO2/FiO2 Ratio 313 Oxygen Delivery Method Mechanical Ventilation Oxygen Flow Rate 0 Narrative Exam Narrative: Abdomen is less distended, OGT output, stoma functioning. Wound is clean and healthy. Not on TPN or trickle tube feeds yet. Not ready for extubation. Objective Labs 03/28/24 11:30 03/28/24 04:04 Labs: Laboratory Results - last 24 hr 03/21/24 03/26/24 03/27/24 11:17 17:06 14:40 WBC RBC Hgb Hct MCV MCH MCHC RDW Plt Count ABG Sample Site Not Reportable Left radial ABG pH 7.31 L ABG pCO2 31.9 L ABG pO2 65 L ABG HCO3 16 L ABG Total CO2 15 L ABG O2 Saturation 91 L ABG Base Excess -9.4 L Tacho Test Not Reportable Positive Respiration Rate 24 O2 Delivery Device Adult ventilator Mode of Support Assist cont ventilat FiO2 % 30.0 % PEEP or CPAP 7 Sodium Potassium Chloride Carbon Dioxide BUN Creatinine Estimated GFR BUN/Creatinine Ratio Glucose Lactate Calcium Total Bilirubin AST ALT Alkaline Phosphatase Total Protein Albumin Globulin Albumin/Globulin Ratio A.calcoaceticus-baumannii cmplx PCR Not detected Bacteroides fragilis Not detected Katie albicans (PCR) Not detected Katie auris (PCR) Not detected C. glabrata (PCR) Not detected C. krusei (PCR) Not detected C. parapsilosis (PCR) Not detected C. tropicalis (PCR) Not detected C. neoform/gattii (PCR) Not detected Enterobacterales (PCR) Not detected E. cloacae complex PCR Not detected Enterococc faecalis PCR Not detected Enterococc faecium PCR Not detected E. coli (PCR) Not detected H. influenzae (PCR) Not detected Klebsiella aerogenes (PCR) Not detected Klebsiella oxytoca PCR Not detected Klebsiella pneumoniae Not detected List. monocytogenes PCR Not detected N. meningitidis (PCR) Not detected Proteus species (PCR) Not detected Salmonella spp. (PCR) Not detected Serratia marcescens PCR Not detected Staphylococcus sp PCR Not detected Staph aureus (PCR) Not detected mecA/C & MREJ Resist Gene Not applicable mecA/C-Methicil Resis Gene Not applicable mcr-1 Colistin Res Gene PCR Not applicable Staph epidermidis (PCR) Not detected Staph lugdunensis PCR Not detected S. maltophilia (PCR) Not detected Streptococcus sp PCR Not detected Group A Strep (PCR) Not detected Strep agalactiae (PCR) Not detected Strep pneumoniae (PCR) Not detected P. aeruginosa (PCR) Not detected Gee/B-Vanco Res Genes Not applicable blaIMP Car res Gene PCR Not applicable KPC-Carbap Res Gene PCR Not applicable blaNDM Car Res Gene PCR Not applicable OXA-48 Carbapenem Resis Gene (PCR) Not applicable blaVIM Car Res Gene PCR Not applicable CTX-M Gene Resistance (PCR) Not applicable Blood Type Antibody Screen 03/27/24 03/28/24 03/28/24 15:05 04:04 05:01 WBC 23.7 H D 23.5 H RBC 2.59 L 2.61 L Hgb 7.8 L 7.7 L Hct 22.9 L 23.1 L MCV 88.4 88.4 MCH 30.0 29.5 MCHC 33.9 33.3 RDW 14.4 14.2 Plt Count 303 297 ABG Sample Site ABG pH ABG pCO2 ABG pO2 ABG HCO3 ABG Total CO2 ABG O2 Saturation ABG Base Excess Tacho Test Respiration Rate O2 Delivery Device Mode of Support FiO2 % PEEP or CPAP Sodium 132 L 134 L Potassium 4.5 4.4 Chloride 111 H 112 H Carbon Dioxide 13 L 17 L BUN 20 H 24 H Creatinine 1.24 H 1.35 H Estimated GFR 51 L 46 L BUN/Creatinine Ratio 16.1 17.8 Glucose 128 H D 92 Lactate 5.1 H* 2.5 H Calcium 6.3 L* 7.3 L Total Bilirubin 0.7 AST 42 H ALT 28 Alkaline Phosphatase 109 D Total Protein 4.4 L Albumin 2.2 L Globulin 2.2 Albumin/Globulin Ratio 1.0 A.calcoaceticus-baumannii cmplx PCR Bacteroides fragilis Katie albicans (PCR) Katie auris (PCR) C. glabrata (PCR) C. krusei (PCR) C. parapsilosis (PCR) C. tropicalis (PCR) C. neoform/gattii (PCR) Enterobacterales (PCR) E. cloacae complex PCR Enterococc faecalis PCR Enterococc faecium PCR E. coli (PCR) H. influenzae (PCR) Klebsiella aerogenes (PCR) Klebsiella oxytoca PCR Klebsiella pneumoniae List. monocytogenes PCR N. meningitidis (PCR) Proteus species (PCR) Salmonella spp. (PCR) Serratia marcescens PCR Staphylococcus sp PCR Staph aureus (PCR) mecA/C & MREJ Resist Gene mecA/C-Methicil Resis Gene mcr-1 Colistin Res Gene PCR Staph epidermidis (PCR) Staph lugdunensis PCR S. maltophilia (PCR) Streptococcus sp PCR Group A Strep (PCR) Strep agalactiae (PCR) Strep pneumoniae (PCR) P. aeruginosa (PCR) Gee/B-Vanco Res Genes blaIMP Car res Gene PCR KPC-Carbap Res Gene PCR blaNDM Car Res Gene PCR OXA-48 Carbapenem Resis Gene (PCR) blaVIM Car Res Gene PCR CTX-M Gene Resistance (PCR) Blood Type Antibody Screen 03/28/24 03/28/24 03/28/24 05:21 06:10 10:08 WBC RBC Hgb Hct MCV MCH MCHC RDW Plt Count ABG Sample Site Left radial ABG pH 7.43 ABG pCO2 28.8 L ABG pO2 63 L ABG HCO3 19 L ABG Total CO2 19 L ABG O2 Saturation 93 L ABG Base Excess -4.6 L Tacho Test Positive Respiration Rate 24 O2 Delivery Device Adult ventilator Mode of Support Assist cont ventilat FiO2 % 30.0 % PEEP or CPAP 7 Sodium Potassium Chloride Carbon Dioxide BUN Creatinine Estimated GFR BUN/Creatinine Ratio Glucose Lactate 2.0 Calcium Total Bilirubin AST ALT Alkaline Phosphatase Total Protein Albumin Globulin Albumin/Globulin Ratio A.calcoaceticus-baumannii cmplx PCR Bacteroides fragilis Katie albicans (PCR) Katie auris (PCR) C. glabrata (PCR) C. krusei (PCR) C. parapsilosis (PCR) C. tropicalis (PCR) C. neoform/gattii (PCR) Enterobacterales (PCR) E. cloacae complex PCR Enterococc faecalis PCR Enterococc faecium PCR E. coli (PCR) H. influenzae (PCR) Klebsiella aerogenes (PCR) Klebsiella oxytoca PCR Klebsiella pneumoniae List. monocytogenes PCR N. meningitidis (PCR) Proteus species (PCR) Salmonella spp. (PCR) Serratia marcescens PCR Staphylococcus sp PCR Staph aureus (PCR) mecA/C & MREJ Resist Gene mecA/C-Methicil Resis Gene mcr-1 Colistin Res Gene PCR Staph epidermidis (PCR) Staph lugdunensis PCR S. maltophilia (PCR) Streptococcus sp PCR Group A Strep (PCR) Strep agalactiae (PCR) Strep pneumoniae (PCR) P. aeruginosa (PCR) Gee/B-Vanco Res Genes blaIMP Car res Gene PCR KPC-Carbap Res Gene PCR blaNDM Car Res Gene PCR OXA-48 Carbapenem Resis Gene (PCR) blaVIM Car Res Gene PCR CTX-M Gene Resistance (PCR) Blood Type A Positive Antibody Screen Negative 03/28/24 11:30 WBC 25.0 H RBC 2.47 L Hgb 7.6 L Hct 22.0 L MCV 89.2 MCH 30.8 MCHC 34.6 RDW 14.4 Plt Count 278 ABG Sample Site ABG pH ABG pCO2 ABG pO2 ABG HCO3 ABG Total CO2 ABG O2 Saturation ABG Base Excess Tacho Test Respiration Rate O2 Delivery Device Mode of Support FiO2 % PEEP or CPAP Sodium Potassium Chloride Carbon Dioxide BUN Creatinine Estimated GFR BUN/Creatinine Ratio Glucose Lactate Calcium Total Bilirubin AST ALT Alkaline Phosphatase Total Protein Albumin Globulin Albumin/Globulin Ratio A.calcoaceticus-baumannii cmplx PCR Bacteroides fragilis Katie albicans (PCR) Katie auris (PCR) C. glabrata (PCR) C. krusei (PCR) C. parapsilosis (PCR) C. tropicalis (PCR) C. neoform/gattii (PCR) Enterobacterales (PCR) E. cloacae complex PCR Enterococc faecalis PCR Enterococc faecium PCR E. coli (PCR) H. influenzae (PCR) Klebsiella aerogenes (PCR) Klebsiella oxytoca PCR Klebsiella pneumoniae List. monocytogenes PCR N. meningitidis (PCR) Proteus species (PCR) Salmonella spp. (PCR) Serratia marcescens PCR Staphylococcus sp PCR Staph aureus (PCR) mecA/C & MREJ Resist Gene mecA/C-Methicil Resis Gene mcr-1 Colistin Res Gene PCR Staph epidermidis (PCR) Staph lugdunensis PCR S. maltophilia (PCR) Streptococcus sp PCR Group A Strep (PCR) Strep agalactiae (PCR) Strep pneumoniae (PCR) P. aeruginosa (PCR) Gee/B-Vanco Res Genes blaIMP Car res Gene PCR KPC-Carbap Res Gene PCR blaNDM Car Res Gene PCR OXA-48 Carbapenem Resis Gene (PCR) blaVIM Car Res Gene PCR CTX-M Gene Resistance (PCR) Blood Type Antibody Screen [facility] Medical History Eczema, dyshidrotic (~2020) Anxiety Chronic hepatitis C Osteoarthritis of both hands Hepatitis C antibody test positive Arthritis (Unknown) Chronic neck pain (Unknown) Hx of idiopathic thrombocytopenic purpura (2007) Surgical History Anesthesia H/O hernia repair Hx of arthroscopy of knee (~2002) History of splenectomy (2007) Status post knee replacement Family History Family/Other Adopted Social History household members: spouse Smoking Status: Current every day smoker quit status: considering quitting alcohol intake: current substance use type: does not use Assessment & Plan Post-op Postoperative Procedures: Procedures Operation Date: 03/26/24 13:15 Actual Procedure Side Surgeon p Exploratory Laparotomy GEN with colostomy and wound vac placement Molly Nugent MD Postoperative day: 2 Postoperative status: anemia Postoperative status narrative: ileus, sepsis. S/p Zelaya's for ruptured Stercoral ulcer of sigmoid colon with extensive fecal contamination Postoperative plan narrative: Supportive care, should start tpn. trickle tube feeds when OGT output is less than 200ml/12hrs. Time Spent With Patient Time with patient: less than 15 minutes Quality VTE Deep Vein Thrombosis/Pulmonary Embolism Present on Admission: No
[2024-03-28] MEDS: HYDROMORPHONE 0.5 MG INJ IV (14:19)
[2024-03-28] MEDS: propofoL 1,000 MG/100 ML VIAL 12.24 MG IV ×2 (15:50→21:22)
[2024-03-28] MEDS: AA 5 %/CALCIUM/LYTES/DEXT 20 % 500 ML with MULTIVITAMIN 10 ML, TRACE ELEMENTS 1 ML, THI... 21.333 ML IV (17:39)
[2024-03-28 17:44] LABS: Hematocrit 21.5 % (36-46); Hemoglobin 7.6 g/dL (12.0-16.0); Mean Corpuscular HGB Conc 35.4 % (30-36); Mean Corpuscular Hemoglobin 31.3 PG (26-34); Mean Corpuscular Volume 88.5 fL (80-100); Platelet Count 249 X10^3/uL (150-400); Red Blood Cell Count 2.43 X10^6/uL (4.0-5.2); Red Cell Distribution Width 14.2 % (11.6-14.8); White Blood Cell Count 24.4 X10^3/uL (4.5-11.0)
[2024-03-28 17:50] LABS: Alanine Aminotransferase 27 IU/L (<35); Albumin 2.2 g/dL (3.5-5.0); Alkaline Phosphatase 123 U/L (38-126); Aspartate Aminotransferase 42 IU/L (14-36); BUN Creatinine Ratio 19.1 (6-22); Bilirubin Total 0.5 mg/dL (0.2-1.3); Blood Urea Nitrogen 21 mg/dL (7-17); Calcium 7.1 mg/dL (8.4-10.2); Carbon Dioxide 17 mmol/L (22-32); Chloride 109 mmol/L (98-107); Estimated Glomerular Filt Rate 59 mL/min (>60); Globulin 2.2 g/dL (1.7-4.1); Glucose 173 mg/dL (70-100); HEMOLYSIS < 15 (0-50); Potassium 3.9 mmol/L (3.4-5.1); Sodium 132 mmol/L (137-145); Total Protein 4.4 g/dL (6.3-8.2)
[2024-03-28 17:58] LABS: Add Manual Diff / Slide Review YES
[2024-03-28 18:24] LABS: Neutrophils Absolute Manual 21960 /uL (3000-5900); Nucleated Red Blood Cells 5 #/Diff; Total Cells Counted 100
[2024-03-28 18:27] LABS: Anisocytosis 1+; Macrocytosis 1+; Polychromasia 1+; Smudge Cells 3+; Toxic Granulation Present; Toxic Vacuolation Present
[2024-03-29] VITALS (55 sets, daily range): BP systolic 94–187; BP diastolic 51–86; PULSE 78–109; RESP 22–41; TEMP 37.1–38.5; O2SAT 90–96
[2024-03-29] MEDS: CHLORHEXIDINE GLUCONATE 15 ML CUP PO ×5 (00:33→23:28)
[2024-03-29] MEDS: PIPERACILLIN/TAZO 3.375 GM in SODIUM CHLORIDE 0.9% 100 ML IV ×3 (00:34→17:07)
[2024-03-29] MEDS: dexmedeTOMIDine in 0.9 % NaCL 400 MCG/100 ML PLAST..BAG 8.5 MCG IV (05:05)
[2024-03-29 05:09] LABS: Phosphorous 3.1 mg/dL (2.5-4.5); Triglycerides 427 mg/dL (35-150)
[2024-03-29 05:25] LABS: Prealbumin 6.2 mg/dL (17.6-36.0)
[2024-03-29] MEDS: propofoL 1,000 MG/100 ML VIAL 10.2 MG IV (05:39)
--- NOTE | 2024-03-29 05:58 | PC.NURSE ---
Able to wean sedation a bit overnight. Vent setting remained unchanged. No hypotension. Changed the ostomy device and wound dressing. Updated family on the phone last night
[2024-03-29] MEDS: ALBUTEROL 2.5 MG/3 ML NEB (ADULT) INH ×3 (07:38→18:46)
[2024-03-29] MEDS: BUDESONIDE 0.5 MG/2 ML NEB INH ×2 (07:38→18:46)
[2024-03-29] MEDS: LORazepam 2 MG/ML INJ IV ×2 (08:33→18:29)
[2024-03-29] MEDS: fentaNYL 1,000 MCG in DEXTROSE 5% IN WATER 230 ML 15.3 MCG IV (08:56)
[2024-03-29 09:27] LABS: Add Manual Diff / Slide Review NO; Basophils Absolute Auto 100 /uL (0-100); Basophils Percent Auto 0.3 % (0-2); Eosinophils Absolute Auto 200 /uL (0-450); Eosinophils Percent Auto 0.6 % (2-4); Hematocrit 22.9 % (36-46); Hemoglobin 7.6 g/dL (12.0-16.0); Lymphocytes Absolute Auto 6600 /uL (1100-4500); Lymphocytes Percent Auto 22.6 % (25-40); Mean Corpuscular HGB Conc 33.4 % (30-36); Mean Corpuscular Hemoglobin 29.6 PG (26-34); Mean Corpuscular Volume 88.8 fL (80-100); Monocytes Absolute Auto 900 /uL (0-900); Neutrophils Absolute Auto 21500 /uL (1500-7000); Neutrophils Percent Auto 73.5 % (50-75); Platelet Count 247 X10^3/uL (150-400); Red Blood Cell Count 2.58 X10^6/uL (4.0-5.2); Red Cell Distribution Width 14.3 % (11.6-14.8); White Blood Cell Count 29.2 X10^3/uL (4.5-11.0)
[2024-03-29] MEDS: PANTOPRAZOLE 40 MG VIAL 20 MG IV (09:37)
[2024-03-29] MEDS: SODIUM CHLORIDE 0.9% FLUSH 10 ML IV ×2 (09:38→20:48)
[2024-03-29 09:40] LABS: Alanine Aminotransferase 28 IU/L (<35); Albumin 2.3 g/dL (3.5-5.0); Albumin Globulin Ratio 0.9 (1.0-2.8); Alkaline Phosphatase 158 U/L (38-126); Aspartate Aminotransferase 44 IU/L (14-36); BUN Creatinine Ratio 24.2 (6-22); Bilirubin Total 0.8 mg/dL (0.2-1.3); Blood Urea Nitrogen 23 mg/dL (7-17); Calcium 7.6 mg/dL (8.4-10.2); Carbon Dioxide 19 mmol/L (22-32); Chloride 110 mmol/L (98-107); Estimated Glomerular Filt Rate > 60 mL/min (>60); Globulin 2.5 g/dL (1.7-4.1); Glucose 237 mg/dL (70-100); HEMOLYSIS < 15 (0-50); Magnesium 2.8 mg/dL (1.6-2.3); Phosphorous 2.7 mg/dL (2.5-4.5); Potassium 3.7 mmol/L (3.4-5.1); Sodium 134 mmol/L (137-145); Total Protein 4.8 g/dL (6.3-8.2)
[2024-03-29] MEDS: FLUCONAZOLE 200 MG/100 ML PIGGYBACK 100 MG IV (11:22)
[2024-03-29] MEDS: propofoL 1,000 MG/100 ML VIAL 8.16 MG IV (12:32)
--- NOTE | 2024-03-29 12:56 | DIET.PN1 ---
Dietary Progress Note Assessment: Per RN, surgery would like to start trickle feed this evening. No OGT output noted. Advancing TPN to 1 L Clinimix 5/20 this evening. Noted TG 427. Propofol running at 20 mcg/kg/min providing 215 kcals/day. Ht: 162.56 cm Wt: 68 kg (03/24/24) vs 62 kg (upon admission- 03/21/24) BMI: 23.3 UBW: 54.431 kg on 01/25/24, 62.709 kg on 08/24/23 Last BM: 03/26/24 (03/26/24 09:20) MNA: 12 Sven Score: 13 Diet: 03/26/24 12:15 NPO Diet Diet Modifications: May Advance Diet as Tolerated: No NPO Type: Strict Labs: RBC 2.58 X10^6/uL (4.0-5.2) L 03/29/24 08:38 Hgb 7.6 g/dL (12.0-16.0) L 03/29/24 08:38 Hct 22.9 % (36-46) L 03/29/24 08:38 Creatinine 0.95 mg/dL (0.52-1.04) 03/29/24 08:38 Lactate 2.0 mmol/L (0.7-2.1) 03/28/24 06:10 Nutrition Diagnosis: Inadequate oral intake r/t GI alterations, mechanical ventilation aeb NPO status, bowel perforation Interventions: 1. Advance continuous TPN to goal rate of 1 L Clinimix 5/20 running at 42 mL/h with 250 mL IVFE 3x/wk. 2. Start continuous enteral nutrition of Pivot 1.5 at 10 mL/hr for first 24 hours. Free water flush 60 mL q 6 h. Tube feed+flush provide 420 mL fluids. Plan of care ongoing. Will f/u closely to monitor TF tolerance. Current nutrition support of 1 L Clinimix 5/20 with 10 mL Pivot 1.5 + lipids + current rate propofol meets 104% of estimated energy needs (1669 kcals) and 69% of estimated protein needs (72.5 g). EER: 8119-5375 kcals (25 kcals/kg per sepsis using 62 kg) 105-110 g protein (1.7-1.8 g/kg per sepsis, surgery/wound using 62 kg) Monitoring/Evaluations: TF tolerance, TPN tolerance, propofol rate, labs Electronically Signed by: Luly Wagner 03/29/24 12:56 Clinical Dietitian [address] [id number]
--- NOTE | 2024-03-29 13:00 | PM.PN.EICU ---
Subjective Subjective IF CAMERA ACTIVATED, patient seen via real-time interactive audiovisual communication: Camera activated Consent obtained for tele-it professional care: Yes Patient Location: ICU Provider location (State): [place] Other participants/roles: rn Interval history: pt remians intubated and sedated. SBT attmetped but she becam agiated and tachypneic on preceedex and propofol had to be restarted Current Medications Current Medications Medications: Home Medications ibuprofen 800 mg tablet 800 mg PO QD-TID PRN severe back or joint pain #90 tabs 11/30/23 [Rx Confirmed 03/21/24] estradiol 1 mg tablet 1 mg PO QDAY #90 tabs 03/07/24 [Rx Confirmed 03/21/24] albuterol sulfate 90 mcg/actuation aerosol inhaler 1 puff inhalation QID PRN Shortness Of Breath Or Wheezing 03/21/24 [History Confirmed 03/21/24] fluticasone 250 mcg-salmeterol 50 mcg/dose blistr powdr for inhalation (Wixela Inhub) 1 inh inhalation BID 03/21/24 [History Confirmed 03/21/24] Visit Medications (administered) Generic Name Dose Route Start Last Admin Trade Name Freq PRN Reason Stop Dose Admin Acetaminophen 650 mg 03/21/24 18:50 03/26/24 04:03 Acetaminophen 325 Mg Tablet PO 650 mg Q6H PRN Administration Fever/Mild Pain (1-3) Albuterol 2.5 mg 03/22/24 00:08 03/25/24 01:29 Albuterol 2.5 Mg/3 Ml Neb (Adult) INH 2.5 mg [id number] PRN Administration Shortness Of Breath Albuterol 2.5 mg 03/23/24 07:00 03/29/24 07:38 Albuterol 2.5 Mg/3 Ml Neb (Adult) INH 2.5 mg [id number] SHAHRAM Administration Alprazolam 0.25 mg 03/22/24 04:38 03/26/24 10:06 Alprazolam 0.25 Mg Tablet PO 0.25 mg Q6H PRN Administration Anxiety Bisacodyl 10 mg 03/22/24 17:36 03/23/24 17:48 Bisacodyl 10 Mg Supp VA 10 mg PRN PRN Administration Constipation Budesonide 0.5 mg 03/22/24 08:00 03/29/24 07:38 Budesonide 0.5 Mg/2 Ml Neb INH 0.5 mg RTBID SHAHRAM Administration Chlorhexidine Gluconate 15 ml 03/26/24 18:00 03/29/24 11:22 Chlorhexidine Gluconate 15 Ml Cup PO 15 ml Q6HR SHAHRAM Administration Estradiol 1 mg 03/24/24 09:00 03/27/24 09:08 Estradiol 1 Mg Tablet PO Not Given DAILY SHAHRAM Heparin Sodium (Porcine) 5,000 unit 03/21/24 21:00 03/27/24 20:02 Heparin 5,000 Unit/Ml Vial SUBCUT 5,000 unit BID SHAHRAM Administration Heparin Sodium (Porcine) 50 unit 03/27/24 21:00 03/29/24 09:38 Heparin Flush (Cl/Picc/Mid-Line) 50 Unit/5 Ml Syringe IV 50 unit BID SHAHRAM Administration Hydromorphone HCl 0.5 mg 03/26/24 11:42 03/28/24 14:19 Hydromorphone 0.5 Mg Inj IV 0.5 mg Q1H PRN Administration Pain, Severe (7-10) Piperacillin Sod/Tazobactam 100 mls @ 25 mls/hr 03/26/24 17:00 03/29/24 09:36 Sod 3.375 gm/ Sodium Chloride IV 25 mls/hr Q8H SHAHRAM Administration Propofol 1,000 mg in 100 mls @ 2.04 mls/hr 03/26/24 16:15 03/29/24 12:32 Propofol IV 20 mcg/kg/min TITRATE SHAHRAM 8.16 mls/hr Administration Protocol 5 MCG/KG/MIN Fentanyl 1,000 mcg/ Dextrose 250 mls @ 11.9 mls/hr 03/26/24 17:15 03/29/24 08:56 IV 0.9 mcg/kg/hr TITRATE SHAHRAM 15.3 mls/hr Administration Protocol 0.7 MCG/KG/HR Fluconazole 200 mg in 100 mls @ 100 mls/hr 03/28/24 11:00 03/29/24 11:22 Diflucan IV 100 mls/hr Q24H SHAHRAM Administration Sodium Chloride 500 mls @ 1,000 mls/hr 03/27/24 15:44 03/28/24 09:14 Normal Saline 0.9% IV Infused BOLUS PRN Infusion Fluid replacement dexmedeTOMIDine in 0.9 % NaCL 400 mcg in 100 mls @ 3.4 mls/hr 03/27/24 16:00 03/29/24 05:05 Precedex IV 0.5 mcg/kg/hr TITRATE SHAHRAM 8.5 mls/hr Administration Protocol 0.2 MCG/KG/HR NOREPINEPHRINE BITARTRATE/D5W 4 mg in 250 mls @ 25.5 mls/hr 03/27/24 20:39 03/28/24 02:01 Levophed IV 0 mcg/kg/min TITRATE SHAHRAM 0 mls/hr Titration Protocol 0.1 MCG/KG/MIN Multivitamins 10 ml/ Chromium/ 512 mls @ 21.333 mls/hr 03/28/24 17:00 03/28/24 17:39 Copper/Manganese/Seleni/Zn 1 IV 03/29/24 16:59 21.333 mls/hr ml/ Thiamine HCl 100 mg/ Amino 1700 SHAHRAM Administration Acids/Electrolytes Insulin Human Lispro 0 unit 03/28/24 14:00 03/29/24 09:39 Insulin Lispro 100 Unit/Ml 3ml Vial SUBCUT Not Given Q6H [facility] Protocol Methadone HCl 10 mg 03/26/24 21:00 03/29/24 09:39 Methadone 10 Mg Tablet PO Not Given BID [facility] Nicotine 14 mg 03/23/24 17:50 03/29/24 09:39 Nicotine 14 Patch TOP Not Given DAILY [facility] Ondansetron HCl 4 mg 03/21/24 11:20 03/21/24 11:29 Ondansetron 4 Mg/2 Ml Inj IV 4 mg NOW PRN Administration Nausea And Vomiting Pantoprazole Sodium 20 mg 03/27/24 09:00 03/29/24 09:37 Pantoprazole 40 Mg Vial IV 20 mg DAILY [facility] Administration Sodium Chloride 10 ml 03/25/24 09:00 03/29/24 09:38 Sodium Chloride 0.9% Flush IV 10 ml BID [facility] Administration Objective Ventilator Parameters: Ventilator Settings FiO2 30 RT Vent Frequency 24 Ventilator Tidal Volume 400 Exhaled Vt/kg IBW 7.5 Positive End Expiratory 5 Pressure Inspiratory Phase Time 0.7 I:E Ratio 1:2.6 Patient Position HOB >= 30 degrees Labs 03/29/24 08:38 03/29/24 08:38 Labs: Laboratory Results - last 24 hr 03/28/24 03/29/24 03/29/24 17:15 04:50 08:38 WBC 24.4 H 29.2 H RBC 2.43 L 2.58 L Hgb 7.6 L 7.6 L Hct 21.5 L 22.9 L MCV 88.5 88.8 MCH 31.3 29.6 MCHC 35.4 33.4 RDW 14.2 14.3 Plt Count 249 247 Neut % (Auto) Not Reportable 73.5 Lymph % (Auto) Not Reportable 22.6 L [place] % (Auto) Not Reportable 3.0 Eos % (Auto) Not Reportable 0.6 L Baso % (Auto) Not Reportable 0.3 Neut # (Auto) 80240 H Lymph # (Auto) Not Reportable 6600 H [place] # (Auto) Not Reportable 900 Eos # (Auto) 200 Baso # (Auto) Not Reportable 100 Total Counted 100 Seg Neutrophils % 77.0 H Band Neutrophils % 13.0 H Lymphocytes % (Manual) 2.0 L Atypical Lymphs % 2.0 H Monocytes % (Manual) 5.0 Metamyelocytes % 1.0 H Neutrophils # (Manual) 37500 H Nucleated RBCs 5 H Smudge Cells 3+ H Toxic Granulation Present H Toxic Vacuolation Present H Plt Morphology Comment RBC Morphology See below Polychromasia 1+ H Anisocytosis 1+ H Macrocytosis 1+ H Sodium 132 L 134 L Potassium 3.9 3.7 Chloride 109 H 110 H Carbon Dioxide 17 L 19 L BUN 21 H 23 H Creatinine 1.10 H 0.95 Estimated GFR 59 L > 60 BUN/Creatinine Ratio 19.1 24.2 H Glucose 173 H 237 H Calcium 7.1 L 7.6 L Phosphorus 3.1 2.7 Magnesium 3.0 H 2.8 H Total Bilirubin 0.5 0.8 AST 42 H 44 H ALT 27 28 Alkaline Phosphatase 123 158 H Total Protein 4.4 L 4.8 L Albumin 2.2 L 2.3 L Globulin 2.2 2.5 Albumin/Globulin Ratio 1.0 0.9 L Prealbumin 6.2 L Triglycerides 427 H Exam Vital Signs (past 8 hours): - 03/29/24 05:30 03/29/24 05:30 03/29/24 06:00 Temperature Pulse Rate 78 Respiratory Rate 24 Blood Pressure 95/53 L 96/56 L Pulse Oximetry 95 Oxygen Delivery Method 03/29/24 06:00 03/29/24 06:30 03/29/24 06:30 Temperature Pulse Rate 78 78 Respiratory Rate 26 H 25 H Blood Pressure 95/52 L Pulse Oximetry 95 95 Oxygen Delivery Method 03/29/24 07:00 03/29/24 07:00 03/29/24 07:44 Temperature Pulse Rate 80 Respiratory Rate 25 H Blood Pressure 108/62 Pulse Oximetry 95 Oxygen Delivery Method Mechanical Ventilation 03/29/24 07:44 03/29/24 08:00 03/29/24 08:00 Temperature Pulse Rate 96 H Respiratory Rate 28 H Blood Pressure 144/69 H Pulse Oximetry 94 93 Oxygen Delivery Method 03/29/24 08:00 03/29/24 08:30 03/29/24 08:30 Temperature Pulse Rate 109 H Respiratory Rate 41 H Blood Pressure 187/86 H Pulse Oximetry 91 Oxygen Delivery Method Mechanical Ventilation 03/29/24 09:00 03/29/24 09:00 03/29/24 09:30 Temperature Pulse Rate 92 H Respiratory Rate 24 Blood Pressure 112/51 L 105/55 L Pulse Oximetry 90 L Oxygen Delivery Method 03/29/24 09:30 03/29/24 10:00 03/29/24 10:00 Temperature 99.4 F Pulse Rate 86 Respiratory Rate 24 Blood Pressure 105/58 L Pulse Oximetry 92 Oxygen Delivery Method 03/29/24 10:00 03/29/24 10:30 03/29/24 10:30 Temperature Pulse Rate 84 82 Respiratory Rate 24 24 Blood Pressure 105/56 L Pulse Oximetry 93 94 Oxygen Delivery Method 03/29/24 11:00 03/29/24 11:00 03/29/24 11:30 Temperature Pulse Rate 81 Respiratory Rate 24 Blood Pressure 105/57 L 105/56 L Pulse Oximetry 94 Oxygen Delivery Method 03/29/24 11:30 03/29/24 12:00 03/29/24 12:00 Temperature 100.3 F H Pulse Rate 80 Respiratory Rate 24 Blood Pressure Pulse Oximetry 95 Oxygen Delivery Method Mechanical Ventilation 03/29/24 12:00 03/29/24 12:00 03/29/24 12:30 Temperature Pulse Rate 79 79 Respiratory Rate 24 24 Blood Pressure 105/55 L Pulse Oximetry 95 95 Oxygen Delivery Method 03/29/24 12:30 Temperature Pulse Rate Respiratory Rate Blood Pressure 105/56 L Pulse Oximetry Oxygen Delivery Method Fraction of Inspired Oxygen 30 SaO2/FiO2 Ratio 313 Oxygen Delivery Method Mechanical Ventilation Oxygen Flow Rate 0 Narrative Exam Narrative: intubated/sedated rate controlled symmetric chest rise Quality TeleICU VTE Deep Vein Thrombosis/Pulmonary Embolism Present on Admission: No Assessment & Plan Assessment & Plan narrative: Neuro: # Acute encephalopathy -- Secondary to sepsis and sedatives -- Intubated and sedated -- Daily SAT -- On propofol gtt -- RASS goal -2 - -3 -- i suspect given her h/o drug abuse her failed sat could eb form withdrawal, may need to add high dose clonidine. RESP: # Acute respiratory insufficiency -- Intubated and sedated -- Secondary to sepsis w/ ALI -- LTVV --trend abg -- HOB elevation - Aspiration precaution -- Goal SpO2 > 88% -- Daily SAT and SBT CVS: -- MAP goal > 65 -- Sepsis rx as below -- started on pressors last night, which i suspect is also in part to sedation. ID: # severe sepsis -- Secondary to bowel perforation -- On zosyn and fluconazole -- Follow up cx -- MAP goal > 65 -- fluid resuscitation GI: # Sterocoral colitis c/w perofration -- s/p ex-lap w/ Maye procedure -- Strict NPO - plan for TPN tonight -- On IVF -- On zosyn , -- Management per surgery -- no obvious hemoperitoneum, but hgb did drop signifcantly( woukd examine thighs as any hematomas there cpould suggest a large hematoma) ENDO: -- Goal BS < 180 -- Need accucheck every 6 hr Renal -- trend bmp -- monitoir UO -- bicarb is imrpoving heme -- trend h/u goal hgb > 7 VTE: Heparin SQ PPI: Protonix IV daily Time-Based Coding :: [TOTAL MINUTES] spent with patient and on the chart (including review of chart, obtaining history, exam, reviewing outside data, placing orders, documenting exam and treatment plan, and counseling patient) on [DATE].
--- NOTE | 2024-03-29 14:29 | DI.RAD.S_ITS ---
PROCEDURE: XR CHEST 1V INDICATIONS: increasing airway pressure on vent TECHNIQUE: One view of the chest was acquired. COMPARISON: [facility], , XR CHEST 1V, 03/27/2024, 15:17. FINDINGS: Surgical changes and devices: Right PICC line, endotracheal tube, and nasogastric tubes are stable. Surgical changes in the left upper quadrant of the abdomen of prior vascular coiling. Lungs and pleura: Increasing opacity in the right mid and lower lung and mildly in the left lower lung suggesting development of pleural effusions and/or atelectasis. There is thickening of the interstitial markings the perihilar region. No pneumothorax. Mediastinum: Mediastinal contours appear normal. Heart size is normal. Slight increased prominence in central venous structures. Bones and chest wall: No suspicious bony lesions. Overlying soft tissues appear unremarkable. IMPRESSION: Developing bibasilar opacities, right larger than left and central vascular and interstitial prominence may indicate volume overload, CHF, developing ARDS. Dictated by: Valarie Wiseman M.D. on 03/29/2024 at 17:37 Approved by: Valarie Wiseman M.D. on 03/29/2024 at 17:39
[2024-03-29 14:44] LABS: pH ABG 7.29 (7.35-7.45)
[2024-03-29] MEDS: FUROSEMIDE 20 MG/2 ML VIAL IV ×2 (14:47→20:09)
--- NOTE | 2024-03-29 15:05 | P.PN_ITS ---
Subjective Subjective Interval history: 58 F with sepsis due to perforated large bowel d/t stercoral colitis. Remains intubated today. WBC remains up. Failed sedation vacation with anxiety that developed. h/h is stable today. Overall improved. Surgery would like to start trickle tube feeds. Still on TPN. Did develop fever and blood cultures were repeated though fever possibly from precedex. Exam Vital Signs (past 8 hours): - 03/29/24 07:44 03/29/24 07:44 03/29/24 08:00 Temperature Pulse Rate Respiratory Rate Blood Pressure 144/69 H Pulse Oximetry 94 Oxygen Delivery Method Mechanical Ventilation 03/29/24 08:00 03/29/24 08:00 03/29/24 08:30 Temperature Pulse Rate 96 H Respiratory Rate 28 H Blood Pressure 187/86 H Pulse Oximetry 93 Oxygen Delivery Method Mechanical Ventilation 03/29/24 08:30 03/29/24 09:00 03/29/24 09:00 Temperature Pulse Rate 109 H 92 H Respiratory Rate 41 H 24 Blood Pressure 112/51 L Pulse Oximetry 91 90 L Oxygen Delivery Method 03/29/24 09:30 03/29/24 09:30 03/29/24 10:00 Temperature 99.4 F Pulse Rate 86 Respiratory Rate 24 Blood Pressure 105/55 L Pulse Oximetry 92 Oxygen Delivery Method 03/29/24 10:00 03/29/24 10:00 03/29/24 10:30 Temperature Pulse Rate 84 Respiratory Rate 24 Blood Pressure 105/58 L 105/56 L Pulse Oximetry 93 Oxygen Delivery Method 03/29/24 10:30 03/29/24 11:00 03/29/24 11:00 Temperature Pulse Rate 82 81 Respiratory Rate 24 24 Blood Pressure 105/57 L Pulse Oximetry 94 94 Oxygen Delivery Method 03/29/24 11:30 03/29/24 11:30 03/29/24 12:00 Temperature Pulse Rate 80 Respiratory Rate 24 Blood Pressure 105/56 L Pulse Oximetry 95 Oxygen Delivery Method Mechanical Ventilation 03/29/24 12:00 03/29/24 12:00 03/29/24 12:00 Temperature 100.3 F H Pulse Rate 79 Respiratory Rate 24 Blood Pressure 105/55 L Pulse Oximetry 95 Oxygen Delivery Method 03/29/24 12:30 03/29/24 12:30 03/29/24 13:00 Temperature Pulse Rate 79 79 Respiratory Rate 24 24 Blood Pressure 105/56 L Pulse Oximetry 95 95 Oxygen Delivery Method 03/29/24 13:00 03/29/24 13:30 03/29/24 13:30 Temperature Pulse Rate 79 Respiratory Rate 24 Blood Pressure 104/57 L 103/55 L Pulse Oximetry 95 Oxygen Delivery Method 03/29/24 14:00 03/29/24 14:00 Temperature Pulse Rate 80 Respiratory Rate 24 Blood Pressure 103/55 L Pulse Oximetry 95 Oxygen Delivery Method Fraction of Inspired Oxygen 30 SaO2/FiO2 Ratio 313 Oxygen Delivery Method Mechanical Ventilation Oxygen Flow Rate 0 Narrative Exam Narrative: GENERAL: This is a thin female patient, intubated and sedated on propofol infusion. EYES: Pupils equal round and reactive. Extraocular motions intact. No scleral icterus. No injection or drainage. ENT: Mucous membranes pink and moist. Orotracheal and orogastric tubes in place. NECK: Unremarkable. CARDIOVASCULAR: RRR without murmurs, gallops, or rubs. RESPIRATORY: Clear to auscultation b/l GASTROINTESTINAL: Abdomen with colostomy site in place. [place] in place midline, a few removed with gauze with serosanguinous fluid on superior and inferior aspects of patient's incision. GENITOURINARY: Carreno catheter in place. EXTREMITIES: No clubbing, cyanosis, or edema. NEUROLOGIC: Sedated, intubated, exam not feasible. DERMATOLOGIC: No rashes or skin lesions. Objective Labs 03/29/24 08:38 03/29/24 08:38 Labs: Laboratory Results - last 24 hr 03/27/24 03/28/24 03/29/24 10:27 17:15 04:50 WBC 24.4 H RBC 2.43 L Hgb 7.6 L Hct 21.5 L MCV 88.5 MCH 31.3 MCHC 35.4 RDW 14.2 Plt Count 249 Neut % (Auto) Not Reportable Lymph % (Auto) Not Reportable [place] % (Auto) Not Reportable Eos % (Auto) Not Reportable Baso % (Auto) Not Reportable Neut # (Auto) Lymph # (Auto) Not Reportable [place] # (Auto) Not Reportable Eos # (Auto) Baso # (Auto) Not Reportable Total Counted 100 Seg Neutrophils % 77.0 H Band Neutrophils % 13.0 H Lymphocytes % (Manual) 2.0 L Atypical Lymphs % 2.0 H Monocytes % (Manual) 5.0 Metamyelocytes % 1.0 H Neutrophils # (Manual) 48700 H Nucleated RBCs 5 H Smudge Cells 3+ H Toxic Granulation Present H Toxic Vacuolation Present H Plt Morphology Comment RBC Morphology See below Polychromasia 1+ H Anisocytosis 1+ H Macrocytosis 1+ H ABG pH 7.29 L* Sodium 132 L Potassium 3.9 Chloride 109 H Carbon Dioxide 17 L BUN 21 H Creatinine 1.10 H Estimated GFR 59 L BUN/Creatinine Ratio 19.1 Glucose 173 H Calcium 7.1 L Phosphorus 3.1 Magnesium 3.0 H Total Bilirubin 0.5 AST 42 H ALT 27 Alkaline Phosphatase 123 Total Protein 4.4 L Albumin 2.2 L Globulin 2.2 Albumin/Globulin Ratio 1.0 Prealbumin 6.2 L Triglycerides 427 H 03/29/24 08:38 WBC 29.2 H RBC 2.58 L Hgb 7.6 L Hct 22.9 L MCV 88.8 MCH 29.6 MCHC 33.4 RDW 14.3 Plt Count 247 Neut % (Auto) 73.5 Lymph % (Auto) 22.6 L [place] % (Auto) 3.0 Eos % (Auto) 0.6 L Baso % (Auto) 0.3 Neut # (Auto) 65426 H Lymph # (Auto) 6600 H [place] # (Auto) 900 Eos # (Auto) 200 Baso # (Auto) 100 Total Counted Seg Neutrophils % Band Neutrophils % Lymphocytes % (Manual) Atypical Lymphs % Monocytes % (Manual) Metamyelocytes % Neutrophils # (Manual) Nucleated RBCs Smudge Cells Toxic Granulation Toxic Vacuolation Plt Morphology Comment RBC Morphology Polychromasia Anisocytosis Macrocytosis ABG pH Sodium 134 L Potassium 3.7 Chloride 110 H Carbon Dioxide 19 L BUN 23 H Creatinine 0.95 Estimated GFR > 60 BUN/Creatinine Ratio 24.2 H Glucose 237 H Calcium 7.6 L Phosphorus 2.7 Magnesium 2.8 H Total Bilirubin 0.8 AST 44 H ALT 28 Alkaline Phosphatase 158 H Total Protein 4.8 L Albumin 2.3 L Globulin 2.5 Albumin/Globulin Ratio 0.9 L Prealbumin Triglycerides [facility] Medical History Eczema, dyshidrotic (~2020) Anxiety Chronic hepatitis C Osteoarthritis of both hands Hepatitis C antibody test positive Arthritis (Unknown) Chronic neck pain (Unknown) Hx of idiopathic thrombocytopenic purpura (2008) Surgical History Anesthesia H/O hernia repair Hx of arthroscopy of knee (~2002) History of splenectomy (2007) Status post knee replacement Family History Family/Other Adopted Social History household members: spouse Smoking Status: Current every day smoker quit status: considering quitting alcohol intake: current substance use type: does not use Assessment & Plan Assessment & Plan narrative: 1. Sepsis with septic shock secondary to perforated colon due to stercoral colitis with bacteroides bacteremia s/p Maye procedure with hypotension, EUGENIO, acute metabolic encephalopathy, acute respiratory failure with hypoxia. 2. Acute hypoxemic respiratory failure, likely noncardiogenic pulmonary edema. monitor on ventilator and hopeful extubation today. 3. Acute kidney injury, improved 4. Chronic hepatitis-C, present on admission and active. 5. Prior splenectomy, present on admission and active. This related to ITP. 6. Fentanyl abuse, present on admission and active. 7. DVT prophylaxis: SCDs 8. Post operative acute blood loss anemia. Plan: -monitor h/h, continue zosyn, fluconazole. -continue daily sedation vacations -discussed with surgery, dietary, okay for trickle tube feeds. -continue fentanyl, propofol, and precedex for sedation. -continue ICU level care -outpatient drug treatment assessment prior to discharge -consider diuresis if BP improves -reordered blood cultures with prior bacteremia to make sure antibiotics are effective and bacteremia cleared. Full code. Surrogate is patient's sposue I spent 35 minutes providing critical care management this patient. This excludes time spent in performing separately billed procedures. Time-Based Coding :: [TOTAL MINUTES] spent with patient and on the chart (including review of chart, obtaining history, exam, reviewing outside data, placing orders, documenting exam and treatment plan, and counseling patient) on [DATE]. Quality VTE Deep Vein Thrombosis/Pulmonary Embolism Present on Admission: No
[2024-03-29] MEDS: dexmedeTOMIDine in 0.9 % NaCL 400 MCG/100 ML PLAST..BAG 10.2 MCG IV ×2 (16:45→23:26)
--- NOTE | 2024-03-29 16:47 | PC.NURSE ---
Addendum entered by Lashawn Bates R.N. 03/29/24 18:45: Surgery Dr. Aquino suggesting dry packing into wound bed rather than wet to dry dressings. Addendum entered by Lashawn Bates R.N. 03/29/24 18:19: Dr. Jimenez notified of continued tachypnea and fever. New orders. Surgery provider Dr. Aquino at bedside, visualized stoma and drainage, no new orders. Addendum entered by Lashawn Bates R.N. 03/29/24 16:56: notified surgery bail bondsman provider Dr. Aquino of color change of stoma, purple and dusky in appearance and purulent drainage of midline incision. Original Note: SAT and SBT this am. Pt able to follow commands, squeeze hands, nod and shake head. Tracking with eyes. SBT attempted. Pt able to tolerate for roughly ten minutes. Pt became tachypneic, diaphoretic. Desaturated to 91%. (See RT flowsheet). Pt back on sedation and ventilatory settings. 1600 pt febrile 101.3 axill, purulent drainage from midline incision, tachypneic at 35 RR per minute. Provider notified. New orders received.
[2024-03-29] MEDS: AA 5 %/CALCIUM/LYTES/DEXT 20 % 1,000 ML with MULTIVITAMIN 10 ML, TRACE ELEMENTS 1 ML, T... 42.167 ML IV (17:09)
[2024-03-29] MEDS: propofoL 1,000 MG/100 ML VIAL 16.32 MG IV ×2 (17:55→23:26)
[2024-03-29] MEDS: MEROPENEM 1 GM in SODIUM CHLORIDE 0.9% 100 ML IV (18:28)
[2024-03-29 18:37] LABS: Appearance Urine UA CLEAR; Bilirubin Urine UA NEGATIVE (NEGATIVE); Color Urine UA YELLOW; Glucose Urine UA NEGATIVE (Negative); Ketones Urine UA NEGATIVE (NEGATIVE); Leukocyte Esterase Urine UA NEGATIVE (NEGATIVE); Nitrite Urine UA NEGATIVE (Negative); Occult Blood Urine UA 2+ (Negative); Protein Urine UA TRACE (Negative); Specific Gravity Urine UA 1.015 (1.000-1.035); Urobilinogen Urine UA 0.2 E.U./dL (0.2)
[2024-03-29 18:39] LABS: pH Urine UA 5.5 (4.5-8.0)
[2024-03-29 18:46] LABS: Urine Volume 10mL (spun)
[2024-03-29 18:47] LABS: Amorphous Sediment Urine 1+; Bacteria Urine None Seen; Culture Indicated Urine Cult Not Indicated; RBC Urine 0-1/HPF (0-5/HPF); Squamous Epithelial Cell Urine None Seen (0-5/HPF); WBC Urine 0-1/HPF (0-5/HPF)
[2024-03-29] MEDS: VANCOMYCIN 1,000 MG/200 ML PIGGYBACK 200 MG IV (19:52)
--- NOTE | 2024-03-29 20:09 | PM.ICURNDS ---
- Date Patient Seen: 03/29/24 Time Patient Seen: 20:11 :: This patient was seen via real time interactive two-way audiovisual telecommunication. Note: Remains intubated and sedated. Failed SBT. Currently on fluconazole, meropenem, and vancomycin. Check SAT and SBT tomorrow. D/w bedside RN.
[2024-03-30] VITALS (73 sets, daily range): BP systolic 83–194; BP diastolic 47–86; PULSE 81–120; RESP 26–39; TEMP 36.5–38.4; O2SAT 89–97
[2024-03-30] MEDS: fentaNYL 1,000 MCG in DEXTROSE 5% IN WATER 230 ML 13.6 MCG IV (01:09)
[2024-03-30] MEDS: MEROPENEM 1 GM in SODIUM CHLORIDE 0.9% 100 ML IV ×3 (02:00→18:02)
[2024-03-30] MEDS: propofoL 1,000 MG/100 ML VIAL 20.4 MG IV ×4 (05:01→19:29)
--- NOTE | 2024-03-30 06:07 | PC.NURSE ---
Addendum entered by Kusum Ward R.N. 03/30/24 07:31: CXR completed at 0645 and pt did not tolerate the movement well - HR, BP, RR, WOB all increased. Around 0730 pt flipped into Afib RVR. EKG ordered Original Note: Pt required increase in sedation overnight, not due to RASS but due to high RR, HR, and BP. Able to decrease sedation a little bit this AM. Pt's midline incision is still draining purulent drainage and the top and bottom remain open with dry dressings that were changed at 0600. Continues to be edematous t/out +2-3. Good response to IV lasix overnight. Remains on TPN with trickle tube feedings for nutrition. Daughter, Nicole, visiting last night.
[2024-03-30] MEDS: CHLORHEXIDINE GLUCONATE 15 ML CUP PO ×3 (06:15→18:03)
[2024-03-30] MEDS: dexmedeTOMIDine in 0.9 % NaCL 400 MCG/100 ML PLAST..BAG 10.2 MCG IV (06:17)
--- NOTE | 2024-03-30 06:30 | DI.RAD.S_ITS ---
PROCEDURE: XR CHEST 1V INDICATIONS: Resp failure TECHNIQUE: One view of the chest was acquired. COMPARISON: [facility], CR, XR CHEST 1V, 03/29/2024, 14:34. FINDINGS: Surgical changes and devices: Partially visualized enteric tube courses below the left hemidiaphragm and out of the field of view. Endotracheal tube terminates approximately 3.9 centimeters above the sarahy. Right-sided PICC line terminating at the cavoatrial junction. Lungs and pleura: Similar small left pleural effusion and small to moderate size right pleural effusion. Similar opacity in the right mid and lower lung. Similar opacity at the left lung base. Similar interstitial prominence in the perihilar regions. Mediastinum: Mediastinal contours appear normal. Heart size is normal. Bones and chest wall: No suspicious bony lesions. Overlying soft tissues appear unremarkable. IMPRESSION: 1. No significant interval change in bibasilar opacities. 2. Similar central interstitial prominence which may be on basis of volume overload or ARDS. 3. Similar lines and tubes. Dictated by: Saw Weaver M.D. on 03/30/2024 at 10:22 Approved by: Saw Weaver M.D. on 03/30/2024 at 10:31
[2024-03-30 06:55] LABS: Add Manual Diff / Slide Review NO; Basophils Absolute Auto 0 /uL (0-100); Basophils Percent Auto 0.2 % (0-2); Eosinophils Absolute Auto 300 /uL (0-450); Eosinophils Percent Auto 1.3 % (2-4); Hematocrit 22.9 % (36-46); Hemoglobin 7.6 g/dL (12.0-16.0); Lymphocytes Absolute Auto 1900 /uL (1100-4500); Lymphocytes Percent Auto 8.6 % (25-40); Mean Corpuscular HGB Conc 33.1 % (30-36); Mean Corpuscular Hemoglobin 29.6 PG (26-34); Mean Corpuscular Volume 89.4 fL (80-100); Monocytes Absolute Auto 1200 /uL (0-900); Monocytes Percent Auto 5.3 % (3-14); Neutrophils Absolute Auto 18600 /uL (1500-7000); Neutrophils Percent Auto 84.6 % (50-75); Platelet Count 222 X10^3/uL (150-400); Red Blood Cell Count 2.56 X10^6/uL (4.0-5.2); Red Cell Distribution Width 14.5 % (11.6-14.8)
[2024-03-30] MEDS: LORazepam 2 MG/ML INJ IV ×2 (07:03→19:25)
[2024-03-30 07:04] LABS: Alanine Aminotransferase 27 IU/L (<35); Albumin 2.3 g/dL (3.5-5.0); Albumin Globulin Ratio 0.9 (1.0-2.8); Alkaline Phosphatase 212 U/L (38-126); Aspartate Aminotransferase 53 IU/L (14-36); Bilirubin Total 0.7 mg/dL (0.2-1.3); Blood Urea Nitrogen 23 mg/dL (7-17); Calcium 7.7 mg/dL (8.4-10.2); Carbon Dioxide 22 mmol/L (22-32); Chloride 111 mmol/L (98-107); Estimated Glomerular Filt Rate > 60 mL/min (>60); Globulin 2.6 g/dL (1.7-4.1); Glucose 127 mg/dL (70-100); HEMOLYSIS < 15 (0-50); Magnesium 2.1 mg/dL (1.6-2.3); Phosphorous 3.8 mg/dL (2.5-4.5); Potassium 3.5 mmol/L (3.4-5.1); Sodium 136 mmol/L (137-145); Total Protein 4.9 g/dL (6.3-8.2)
[2024-03-30] MEDS: ALBUTEROL 2.5 MG/3 ML NEB (ADULT) INH ×3 (07:15→18:57)
[2024-03-30] MEDS: BUDESONIDE 0.5 MG/2 ML NEB INH ×2 (07:15→18:57)
--- NOTE | 2024-03-30 07:33 | EKG_ITS ---
[id number] [address] Test Date: 2024-03-30 Pat Name: Debbie Dixon Department: [facility] Room: 230 Gender: Female [employer]her: PHILOMENA : 1965 Requested By: Order Number: [id number] Reading MD: Spike Sánchez MD Measurements Intervals [place] Rate: 125 P: 78 IL: 168 QRS: 63 QRSD: 82 T: 28 QT: 278 QTc: 401 Interpretive Statements Sinus tachycardia with premature atrial complexes Electronically Signed On 03-30-2024 7:45:57 PDT by Spike Sánchez MD
[2024-03-30] MEDS: INSULIN LISPRO 100 UNIT/ML 3ML VIAL SUBCUT ×2 (08:21→14:12)
[2024-03-30] MEDS: VANCOMYCIN 1,000 MG/200 ML PIGGYBACK 200 MG IV ×2 (08:22→20:01)
[2024-03-30] MEDS: POTASSIUM CHLORIDE IN WATER 10 MEQ/100 ML PIGGYBACK 100 MEQ IV ×4 (09:32→12:30)
[2024-03-30] MEDS: PANTOPRAZOLE 40 MG VIAL 20 MG IV (09:34)
[2024-03-30] MEDS: FUROSEMIDE 20 MG/2 ML VIAL IV (09:35)
--- NOTE | 2024-03-30 09:52 | P.TELICUPN_ITS ---
Subjective Subjective IF CAMERA ACTIVATED, patient seen via real-time interactive audiovisual communication: Camera activated Consent obtained for tele-child life assistant care: Yes Patient Location: ICU Provider location (State): Other participants/roles: RN Interval history: On sedation propfol @ 50, fentanyl @ 0.9, Precedex 0.8 , CXR showing some improvement in the pul edema and Lt pleural effusion, stiill have significant pul edema and Rt sided effusion A/P: Neuro: # Acute encephalopathy -- Secondary to sepsis and sedatives -- Intubated and sedated -- Daily SAT -- On propofol ,fentayl & precedex gtt -- RASS goal -2 - -3 -- Continue clonidine. -- Check EKG , may consider adding seroquel ( risk of QTc prolongation with fluconazol) --Increase the precedex drip end slowly wean off propfol RESP: # Acute respiratory insufficiency -- Intubated and sedated -- Secondary to sepsis w/ ALI -- LTVV --trend abg -- HOB elevation - Aspiration precaution -- Goal SpO2 > 88% -- Daily SAT and SBT -- Increase lasix to 40 mg Q8H with bmp Q12h CVS: -- MAP goal > 65 -- Sepsis rx as below -- Now off pressors related to sedation. ID: # severe sepsis -- Secondary to bowel perforation -- On zosyn and fluconazole -- Follow up cx -- MAP goal > 65 -- fluid resuscitation GI: # Sterocoral colitis c/w perofration -- s/p ex-lap w/ Maye procedure -- Strict NPO - plan for TPN tonight -- On IVF -- On zosyn , -- Management per surgery -- no obvious hemoperitoneum, but hgb did drop signifcantly( woukd examine thighs as any hematomas there cpould suggest a large hematoma) ENDO: -- Goal BS < 180 -- Need accucheck every 6 hr Renal -- trend bmp -- monitoir UO -- bicarb is imrpoving heme -- trend h/u goal hgb > 7 VTE: Heparin SQ PPI: Protonix IV daily Current Medications Current Medications Medications: Home Medications ibuprofen 800 mg tablet 800 mg PO QD-TID PRN severe back or joint pain #90 tabs 11/30/23 [Rx Confirmed 03/21/24] estradiol 1 mg tablet 1 mg PO QDAY #90 tabs 03/07/24 [Rx Confirmed 03/21/24] albuterol sulfate 90 mcg/actuation aerosol inhaler 1 puff inhalation QID PRN Shortness Of Breath Or Wheezing 03/21/24 [History Confirmed 03/21/24] fluticasone 250 mcg-salmeterol 50 mcg/dose blistr powdr for inhalation (Wixela Inhub) 1 inh inhalation BID 03/21/24 [History Confirmed 03/21/24] Visit Medications (administered) Generic Name Dose Route Start Last Admin Trade Name Freq PRN Reason Stop Dose Admin Acetaminophen 650 mg 03/21/24 18:50 03/26/24 04:03 Acetaminophen 325 Mg Tablet PO 650 mg Q6H PRN Administration Fever/Mild Pain (1-3) Albuterol 2.5 mg 03/22/24 00:08 03/25/24 01:29 Albuterol 2.5 Mg/3 Ml Neb (Adult) INH 2.5 mg [id number] PRN Administration Shortness Of Breath Albuterol 2.5 mg 03/23/24 07:00 03/30/24 07:15 Albuterol 2.5 Mg/3 Ml Neb (Adult) INH 2.5 mg [id number] SHAHRAM Administration Alprazolam 0.25 mg 03/22/24 04:38 03/26/24 10:06 Alprazolam 0.25 Mg Tablet PO 0.25 mg Q6H PRN Administration Anxiety Bisacodyl 10 mg 03/22/24 17:36 03/23/24 17:48 Bisacodyl 10 Mg Supp VT 10 mg PRN PRN Administration Constipation Budesonide 0.5 mg 03/22/24 08:00 03/30/24 07:15 Budesonide 0.5 Mg/2 Ml Neb INH 0.5 mg RTBID SHAHRAM Administration Chlorhexidine Gluconate 15 ml 03/26/24 18:00 03/30/24 06:15 Chlorhexidine Gluconate 15 Ml Cup PO 15 ml Q6HR SHAHRAM Administration Estradiol 1 mg 03/24/24 09:00 03/27/24 09:08 Estradiol 1 Mg Tablet PO Not Given DAILY SHAHRAM Furosemide 20 mg 03/29/24 14:45 03/30/24 09:35 Furosemide 20 Mg/2 Ml Vial IV 20 mg BID SHAHRAM Administration Heparin Sodium (Porcine) 5,000 unit 03/21/24 21:00 03/27/24 20:02 Heparin 5,000 Unit/Ml Vial SUBCUT 5,000 unit BID SHAHRAM Administration Heparin Sodium (Porcine) 50 unit 03/27/24 21:00 03/30/24 09:45 Heparin Flush (Cl/Picc/Mid-Line) 50 Unit/5 Ml Syringe IV 50 unit BID SHAHRAM Administration Hydromorphone HCl 0.5 mg 03/26/24 11:42 03/28/24 14:19 Hydromorphone 0.5 Mg Inj IV 0.5 mg Q1H PRN Administration Pain, Severe (7-10) Propofol 1,000 mg in 100 mls @ 2.04 mls/hr 03/26/24 16:15 03/30/24 09:41 Propofol IV 50 mcg/kg/min TITRATE SHAHRAM 20.4 mls/hr Administration Protocol 5 MCG/KG/MIN Fentanyl 1,000 mcg/ Dextrose 250 mls @ 11.9 mls/hr 03/26/24 17:15 03/30/24 01:09 IV 0.8 mcg/kg/hr TITRATE SHAHRAM 13.6 mls/hr Administration Protocol 0.7 MCG/KG/HR Fluconazole 200 mg in 100 mls @ 100 mls/hr 03/28/24 11:00 03/29/24 16:08 Diflucan IV Infused Q24H SHAHRAM Infusion Sodium Chloride 500 mls @ 1,000 mls/hr 03/27/24 15:44 03/28/24 09:14 Normal Saline 0.9% IV Infused BOLUS PRN Infusion Fluid replacement dexmedeTOMIDine in 0.9 % NaCL 400 mcg in 100 mls @ 3.4 mls/hr 03/27/24 16:00 03/30/24 07:01 Precedex IV 0.8 mcg/kg/hr TITRATE SHAHRAM 13.6 mls/hr Titration Protocol 0.2 MCG/KG/HR NOREPINEPHRINE BITARTRATE/D5W 4 mg in 250 mls @ 25.5 mls/hr 03/27/24 20:39 03/28/24 02:01 Levophed IV 0 mcg/kg/min TITRATE SHAHRAM 0 mls/hr Titration Protocol 0.1 MCG/KG/MIN Multivitamins 10 ml/ Chromium/ 1,012 mls @ 42.167 mls/hr 03/29/24 17:00 03/29/24 17:09 Copper/Manganese/Seleni/Zn 1 IV 03/30/24 16:59 42.167 mls/hr ml/ Thiamine HCl 100 mg/ Amino 1700 SHAHRAM Administration Acids/Electrolytes Meropenem 1 gm/ Sodium 100 mls @ 200 mls/hr 03/29/24 18:15 03/30/24 09:49 Chloride IV 200 mls/hr Q8H SHAHRAM Administration Vancomycin HCl 1,000 mg in 200 mls @ 200 mls/hr 03/29/24 20:00 03/30/24 08:22 Vancomycin IV 200 mls/hr Q12H SHAHRAM Administration POTASSIUM CHLORIDE IN WATER 10 meq in 100 mls @ 100 mls/hr 03/30/24 09:00 03/30/24 09:32 Potassium Cl 10 Meq/100 Ml Silvia IV 03/30/24 12:59 100 mls/hr Q1H SHAHRAM Administration Insulin Human Lispro 0 unit 03/28/24 14:00 03/30/24 08:21 Insulin Lispro 100 Unit/Ml 3ml Vial SUBCUT 1 unit Q6H SHAHRAM Administration Protocol Lorazepam 2 mg 03/29/24 18:01 03/30/24 07:03 Lorazepam 2 Mg/Ml Inj IV 2 mg Q2HR PRN Administration Anxiety Methadone HCl 10 mg 03/26/24 21:00 03/30/24 09:26 Methadone 10 Mg Tablet PO Not Given BID [facility] Nicotine 14 mg 03/23/24 17:50 03/30/24 09:26 Nicotine 14 Patch TOP Not Given DAILY [facility] Ondansetron HCl 4 mg 03/21/24 11:20 03/21/24 11:29 Ondansetron 4 Mg/2 Ml Inj IV 4 mg NOW PRN Administration Nausea And Vomiting Pantoprazole Sodium 20 mg 03/27/24 09:00 03/30/24 09:34 Pantoprazole 40 Mg Vial IV 20 mg DAILY SHAHRAM Administration Sodium Chloride 10 ml 03/25/24 09:00 03/29/24 20:48 Sodium Chloride 0.9% Flush IV 10 ml BID SHAHRAM Administration Objective Ventilator Parameters: Ventilator Settings FiO2 40 RT Vent Frequency 24 Ventilator Tidal Volume 400 Exhaled Vt/kg IBW 7.5 Positive End Expiratory 5 Pressure Inspiratory Phase Time 0.7 I:E Ratio 1:2.6 Patient Position HOB >= 30 degrees Labs 03/30/24 06:45 03/30/24 06:45 Labs: Laboratory Results - last 24 hr 03/27/24 03/29/24 03/30/24 10:27 18:20 06:45 WBC 22.0 H RBC 2.56 L Hgb 7.6 L Hct 22.9 L MCV 89.4 MCH 29.6 MCHC 33.1 RDW 14.5 Plt Count 222 Neut % (Auto) 84.6 H Lymph % (Auto) 8.6 L [place] % (Auto) 5.3 Eos % (Auto) 1.3 L Baso % (Auto) 0.2 Neut # (Auto) 95908 H Lymph # (Auto) 1900 [place] # (Auto) 1200 H Eos # (Auto) 300 Baso # (Auto) 0 ABG pH 7.29 L* Sodium 136 L Potassium 3.5 Chloride 111 H Carbon Dioxide 22 BUN 23 H Creatinine 0.82 Estimated GFR > 60 BUN/Creatinine Ratio 28.0 H Glucose 127 H D Calcium 7.7 L Phosphorus 3.8 D Magnesium 2.1 Total Bilirubin 0.7 AST 53 H ALT 27 Alkaline Phosphatase 212 H Total Protein 4.9 L Albumin 2.3 L Globulin 2.6 Albumin/Globulin Ratio 0.9 L Urine Color Yellow Urine Appearance Clear Urine pH 5.5 Ur Specific [place] 1.015 Urine Protein Trace H Urine Glucose (UA) Negative Urine Ketones Negative Urine Occult Blood 2+ H Urine Nitrate Negative Urine Bilirubin Negative Urine Urobilinogen 0.2 Ur Leukocyte Esterase Negative Urine RBC 0-1/hpf Urine WBC 0-1/hpf Ur Squamous Epith Cells None seen Amorphous Sediment 1+ Urine Bacteria None seen Ur Culture Indicated? Cult not indicated Vol Urine Centrifuged 10ml (spun) Exam Vital Signs (past 8 hours): - 03/30/24 02:00 03/30/24 02:00 03/30/24 02:15 Temperature Pulse Rate 99 H Respiratory Rate 26 H Blood Pressure 148/58 H 138/62 Pulse Oximetry 92 Oxygen Delivery Method Fraction of Inspired Oxygen 03/30/24 02:15 03/30/24 02:30 03/30/24 02:30 Temperature Pulse Rate 98 H 98 H Respiratory Rate 27 H 26 H Blood Pressure 136/61 Pulse Oximetry 93 92 Oxygen Delivery Method Fraction of Inspired Oxygen 03/30/24 02:45 03/30/24 02:45 03/30/24 03:00 Temperature Pulse Rate 97 H Respiratory Rate 28 H Blood Pressure 142/66 H 145/65 H Pulse Oximetry 93 Oxygen Delivery Method Fraction of Inspired Oxygen 03/30/24 03:00 03/30/24 03:15 03/30/24 03:15 Temperature Pulse Rate 97 H 97 H Respiratory Rate 28 H 28 H Blood Pressure 141/64 H Pulse Oximetry 93 93 Oxygen Delivery Method Fraction of Inspired Oxygen 03/30/24 03:30 03/30/24 03:30 03/30/24 03:45 Temperature Pulse Rate 97 H Respiratory Rate 29 H Blood Pressure 145/64 H 140/62 Pulse Oximetry 91 Oxygen Delivery Method Fraction of Inspired Oxygen 03/30/24 03:45 03/30/24 04:00 03/30/24 04:00 Temperature Pulse Rate 96 H 96 H Respiratory Rate 28 H 28 H Blood Pressure 140/63 Pulse Oximetry 93 93 Oxygen Delivery Method Fraction of Inspired Oxygen 03/30/24 04:00 03/30/24 04:15 03/30/24 04:15 Temperature Pulse Rate 97 H Respiratory Rate 28 H Blood Pressure 144/63 H Pulse Oximetry 92 Oxygen Delivery Method Mechanical Ventilation Fraction of Inspired Oxygen 03/30/24 04:30 03/30/24 04:30 03/30/24 04:45 Temperature Pulse Rate 96 H 96 H Respiratory Rate 28 H 28 H Blood Pressure 139/55 L Pulse Oximetry 93 93 Oxygen Delivery Method Fraction of Inspired Oxygen 03/30/24 04:45 03/30/24 04:51 03/30/24 05:00 Temperature 100.5 F H Pulse Rate Respiratory Rate Blood Pressure 141/63 H 141/63 H Pulse Oximetry Oxygen Delivery Method Fraction of Inspired Oxygen 03/30/24 05:00 03/30/24 05:15 03/30/24 05:15 Temperature Pulse Rate 96 H 97 H Respiratory Rate 28 H 28 H Blood Pressure 145/63 H Pulse Oximetry 93 92 Oxygen Delivery Method Fraction of Inspired Oxygen 03/30/24 05:30 03/30/24 05:30 03/30/24 05:45 Temperature Pulse Rate 97 H Respiratory Rate 35 H Blood Pressure 139/69 141/66 H Pulse Oximetry 93 Oxygen Delivery Method Fraction of Inspired Oxygen 03/30/24 05:45 03/30/24 06:00 03/30/24 06:00 Temperature Pulse Rate 97 H 99 H Respiratory Rate 29 H 29 H Blood Pressure 142/65 H Pulse Oximetry 93 93 Oxygen Delivery Method Fraction of Inspired Oxygen 03/30/24 06:15 03/30/24 06:15 03/30/24 06:30 Temperature Pulse Rate 102 H 99 H Respiratory Rate 35 H 28 H Blood Pressure 151/72 H Pulse Oximetry 93 93 Oxygen Delivery Method Fraction of Inspired Oxygen 03/30/24 07:00 03/30/24 07:00 03/30/24 07:00 Temperature Pulse Rate 113 H Respiratory Rate 37 H Blood Pressure 194/86 H Pulse Oximetry 89 L Oxygen Delivery Method Fraction of Inspired Oxygen 40 03/30/24 07:07 03/30/24 07:07 03/30/24 07:15 Temperature Pulse Rate 105 H Respiratory Rate 30 H Blood Pressure 145/69 H Pulse Oximetry 93 94 Oxygen Delivery Method Mechanical Ventilation Fraction of Inspired Oxygen 40 03/30/24 07:30 03/30/24 08:00 03/30/24 08:00 Temperature Pulse Rate 120 H 109 H Respiratory Rate 28 H 26 H Blood Pressure 148/68 H Pulse Oximetry 93 94 Oxygen Delivery Method Fraction of Inspired Oxygen 03/30/24 08:30 03/30/24 09:00 03/30/24 09:00 Temperature Pulse Rate 106 H 100 H Respiratory Rate 27 H 26 H Blood Pressure 133/67 Pulse Oximetry 95 95 Oxygen Delivery Method Fraction of Inspired Oxygen Fraction of Inspired Oxygen 40 SaO2/FiO2 Ratio 235 Oxygen Delivery Method Mechanical Ventilation Oxygen Flow Rate 0 Quality TeleICU VTE Deep Vein Thrombosis/Pulmonary Embolism Present on Admission: No Assessment & Plan Time-Based Coding :: [TOTAL MINUTES] spent with patient and on the chart (including review of chart, obtaining history, exam, reviewing outside data, placing orders, documenting exam and treatment plan, and counseling patient) on [DATE].
[2024-03-30] MEDS: SODIUM CHLORIDE 0.9% FLUSH 10 ML IV ×2 (09:54→20:05)
[2024-03-30] MEDS: FUROSEMIDE 20 MG/2 ML VIAL 40 MG IV ×2 (10:03→18:02)
--- NOTE | 2024-03-30 10:38 | DIET.PN1 ---
Dietary Progress Note Assessment: Per tele-ICU director workforce management, increase TF today as cleared by surgery. Pt currently on 50 mcg/kg/min of propofol providing 539 kcals/day. K+, Mg, phos all within normal limits. Ht: 162.56 cm Wt: 68 kg (03/24/24) vs 62 kg (upon admission- 03/21/24) BMI: 23.3 UBW: 54.431 kg on 01/25/24, 62.709 kg on 08/24/23 Last BM: 03/26/24 (03/26/24 09:20) MNA: 12 Sven Score: 10 Diet: 03/26/24 12:15 NPO Diet Diet Modifications: May Advance Diet as Tolerated: No NPO Type: Strict 03/29/24 Dinner Tube Feeding Diet Diet Modifications: TF Supplement type: Pivot 1.5 mary alice TF mode of delivery: Continuous Starting flow rate mL/hr: 10 Flow rate goal mL/hr: 10 Titration Schedule to reach Goal Rate: - Max total daily volume in mL: 240 Free fluid: 60 Free Water Frequency: Q6H Labs: RBC 2.56 X10^6/uL (4.0-5.2) L 03/30/24 06:45 Hgb 7.6 g/dL (12.0-16.0) L 03/30/24 06:45 Hct 22.9 % (36-46) L 03/30/24 06:45 Creatinine 0.82 mg/dL (0.52-1.04) 03/30/24 06:45 Lactate 2.0 mmol/L (0.7-2.1) 03/28/24 06:10 Nutrition Diagnosis: Inadequate oral intake r/t GI alterations, mechanical ventilation aeb NPO status, bowel perforation Interventions: 1. Decrease continuous TPN to 20 mL/hr. Hold IVFE d/t lipid needs being met with 50 mcg/kg/min propofol. 2. As confirmed by surgery, advance continuous enteral nutrition of Pivot 1.5 to 20 mL/hr. Titrate 10 mL/hr q24 hr until goal rate of 30 ml/hr. Add 3, 11 g protein packets to tube feed. Flush 60 mL Q4 h. Goal rate of enteral nutrition provides 1751 kcals (subject to change based on propofol rate, 109% EER) and 101 g protein (96% EER). Feeds+flush provides 900 mL fluids. 3. Plan for d/c of TPN tomorrow evening if tube feeds continue to be tolerated. Plan of care ongoing. Will f/u closely. EER: 1795-3153 kcals (25 kcals/kg per sepsis using 62 kg) 105-110 g protein (1.7-1.8 g/kg per sepsis, surgery/wound using 62 kg) Monitoring/Evaluations: TF tolerance, TF rate, propofol rate, labs Electronically Signed by: Luly Wagner 03/30/24 10:38 Clinical Dietitian [address] [address]
--- NOTE | 2024-03-30 10:50 | DI.ECHO.S_ITS ---
[facility] : : [address] : : [place] : : [id number] : : Phone: [phone] Echocardiogram Report + + :Name: ERASMO ENCINAS Study Date: 03/30/2024 Height: 64 in : :Hospital ReadingLocation: Weight: 149 lb : : Gender: Female BSA: 1.7 m2 : :: 1965 Age: 58 yrs BP: 125/63 mmHg: :Reason For Study: HYPOXIA, VOLUME OVERLOAD : :Ordering Physician: SAKINA, : :JESSICA KING Performed By: Vidal Leblanc : :Referring: JESSICA PRESLEY : + + Interpretation Summary Normal sinus rhythm. Normal LV size; mildly increased wall thickness; normal wall motion and LV systolic function. EF is 60-65%. Normal chamber sizes. No significant valvular abnormalities. Moderate left-sided pleural effusion. No prior study available for comparison. Procedure: A two-dimensional transthoracic echocardiogram with color flow and Doppler was performed. The study quality was technically adequate. There is no prior echocardiogram noted for this patient. The patient was in sinus rhythm with heart rates between 95-100 bpm during the exam. Left Ventricle: The left ventricle is normal in size. Left ventricular wall thickness is mildly increased. The ejection fraction is estimated to be 60- 65%. Right Ventricle: The right ventricle is normal in size, thickness and function. The right ventricular systolic function is normal. Atria: The left atrial size is normal. Right atrial size is normal. The interatrial septum grossly appears intact with no obvious evidence for an atrial septal defect. Mitral Valve: The mitral valve is normal. There is no mitral valve stenosis. There is no mitral regurgitation noted. Aortic Valve: The aortic valve is not well visualized. There is no aortic valve stenosis. No aortic regurgitation is present. Tricuspid Valve: The tricuspid valve is normal. There is no tricuspid stenosis. There is mild tricuspid regurgitation. The right ventricular systolic pressure is estimated to be at least 45.7 mmHg based on an estimated right atrial pressure of 3 mm Hg. Pulmonic Valve: The pulmonic valve is not well visualized. There is no pulmonic valvular stenosis. There is no pulmonic valvular regurgitation. Great Vessels: The aortic root is normal size. The aortic arch could not be visualized. The ascending aorta could not be visualized. The IVC is of normal diameter and collapses greater than 50% with a sniff. This suggests a low right atrial pressure of 3 mm Hg. Pericardium/ Pleura There is no pericardial effusion. There is a moderate left-sided pleural effusion. MMode/2D Measurements & Calculations LVIDd: 3.6 cm LVOT diam: 1.8 cm LVIDs: 2.4 cm Ao root diam: 2.7 cm FS: 33.5 % IVSd: 1.2 cm LVPWd: 0.84 cm LV suero. diameter/BSA (cm/m^2): 2.1 LV sys. diameter/BSA (cm/m^2): 1.4 LA A2 area: 17.4 cm2 RA long axis: 4.5 cm LA A4 area: 18.4 cm2 RA area: 13.1 cm2 LA length (vol): 4.8 cm RA vol: 32.2 ml LA vol: 55.9 ml RA : 18.7 ml/m2 LA vol index: 32.4 ml/m2 IVC diam: 1.6 cm RVD1 (basal): 3.0 cm RVD2 (mid): 2.4 cm TAPSE: 2.5 cm Doppler Measurements & Calculations Ao V2 max: 197.1 cm/sec LVOT Max Heriberto: 153.9 cm/sec Ao V2 mean: 140.4 cm/sec LV V1 max P.5 mmHg Ao max P.5 mmHg LV V1 VTI: 25.3 cm Ao mean P.8 mmHg OLLIE(I,D): 2.1 cm2 Ao V2 VTI: 30.1 cm OLLIE(V,D): 2.0 cm2 sev ratio: 0.84 OLLIE indexed to BSA (cm^2/m^2): 1.2 MV E max heriberto: 80.1 cm/sec TR max heriberto: 326.7 cm/sec MV A max heriberto: 68.6 cm/sec TR max P.7 mmHg MV E/A: 1.2 PA V2 max: 119.8 cm/sec Med Peak E' Heriberto: 10.7 cm/sec PA V2 mean: 85.2 cm/sec E/E' med: 7.5 PA mean P.2 mmHg Lat Peak E' Heriberto: 13.4 cm/sec PA pr(Accel): 51.6 mmHg E/E' lat: 6.0 E/e' average: 6.7 MV dec time: 0.20 sec SV(LVOT): 63.1 ml Electronically signed by: Tabitha Garcia M.D. on Reading Physician:03/30/2024 05:14 PM
[2024-03-30] MEDS: FLUCONAZOLE 200 MG/100 ML PIGGYBACK 100 MG IV (11:08)
[2024-03-30] MEDS: dexmedeTOMIDine in 0.9 % NaCL 400 MCG/100 ML PLAST..BAG 25.5 MCG IV ×4 (12:34→23:59)
--- NOTE | 2024-03-30 15:11 | P.PN_ITS ---
Subjective Subjective Interval history: 58 F with sepsis due to perforated large bowel d/t stercoral colitis. Remains intubated today. Failed breathing trial and sedation vacation again. But Overall improved, BP is up today and WBC is finally improving. Increasing tube feeds today, no output from ostomy today. Hg stable restarted heparin SQ. With fever yeserday did broaden to meropenem and vancomycin, awaiting urine wound culture results now. Exam Vital Signs (past 8 hours): - 03/30/24 07:15 03/30/24 07:30 03/30/24 08:00 Temperature Pulse Rate 120 H 109 H Respiratory Rate 28 H 26 H Blood Pressure Pulse Oximetry 94 93 94 Oxygen Delivery Method Mechanical Ventilation Fraction of Inspired Oxygen 40 03/30/24 08:00 03/30/24 08:00 03/30/24 08:00 Temperature 99 F Pulse Rate 85 Respiratory Rate 33 H Blood Pressure 148/68 H 115/58 L Pulse Oximetry 97 Oxygen Delivery Method Mechanical Ventilation Fraction of Inspired Oxygen 40 03/30/24 08:30 03/30/24 09:00 03/30/24 09:00 Temperature Pulse Rate 106 H 100 H Respiratory Rate 27 H 26 H Blood Pressure 133/67 Pulse Oximetry 95 95 Oxygen Delivery Method Fraction of Inspired Oxygen 03/30/24 09:30 03/30/24 10:00 03/30/24 10:00 Temperature Pulse Rate 96 H 92 H Respiratory Rate 28 H 29 H Blood Pressure 115/58 L Pulse Oximetry 96 96 Oxygen Delivery Method Fraction of Inspired Oxygen 03/30/24 10:30 03/30/24 10:30 03/30/24 11:00 Temperature 97.7 F Pulse Rate 86 Respiratory Rate 32 H Blood Pressure 96/54 L Pulse Oximetry 96 Oxygen Delivery Method Fraction of Inspired Oxygen 03/30/24 11:00 03/30/24 11:30 03/30/24 12:00 Temperature Pulse Rate 81 85 90 Respiratory Rate 31 H 38 H 30 H Blood Pressure Pulse Oximetry 96 96 96 Oxygen Delivery Method Fraction of Inspired Oxygen 03/30/24 12:00 03/30/24 12:00 03/30/24 12:30 Temperature Pulse Rate 91 H Respiratory Rate 30 H Blood Pressure 107/60 Pulse Oximetry 96 Oxygen Delivery Method Mechanical Ventilation Fraction of Inspired Oxygen 03/30/24 13:00 03/30/24 13:00 03/30/24 13:30 Temperature Pulse Rate 95 H 97 H Respiratory Rate 30 H 31 H Blood Pressure 108/61 Pulse Oximetry 94 94 Oxygen Delivery Method Fraction of Inspired Oxygen 03/30/24 14:00 03/30/24 14:00 Temperature Pulse Rate 101 H Respiratory Rate 32 H Blood Pressure 147/66 H Pulse Oximetry 94 Oxygen Delivery Method Fraction of Inspired Oxygen Fraction of Inspired Oxygen 40 SaO2/FiO2 Ratio 235 Oxygen Delivery Method Mechanical Ventilation Oxygen Flow Rate 0 Narrative Exam Narrative: GENERAL: This is a thin female patient, intubated and sedated on propofol infusion. EYES: Pupils equal round and reactive. Extraocular motions intact. No scleral icterus. No injection or drainage. ENT: Mucous membranes pink and moist. Orotracheal and orogastric tubes in place. NECK: Unremarkable. CARDIOVASCULAR: RRR without murmurs, gallops, or rubs. RESPIRATORY: Clear to auscultation b/l GASTROINTESTINAL: Abdomen with colostomy site in place. Slight duskiness to ostomy site but predominantly pink. Forsan in place midline, a few removed with gauze with serosanguinous fluid on superior and inferior aspects of patient's incision. GENITOURINARY: Carreno catheter in place. EXTREMITIES: No clubbing, cyanosis, or edema. NEUROLOGIC: Sedated, intubated, exam not feasible. DERMATOLOGIC: No rashes or skin lesions. Objective Labs 03/30/24 06:45 03/30/24 06:45 Labs: Laboratory Results - last 24 hr 03/29/24 03/30/24 18:20 06:45 WBC 22.0 H RBC 2.56 L Hgb 7.6 L Hct 22.9 L MCV 89.4 MCH 29.6 MCHC 33.1 RDW 14.5 Plt Count 222 Neut % (Auto) 84.6 H Lymph % (Auto) 8.6 L [place] % (Auto) 5.3 Eos % (Auto) 1.3 L Baso % (Auto) 0.2 Neut # (Auto) 39180 H Lymph # (Auto) 1900 [place] # (Auto) 1200 H Eos # (Auto) 300 Baso # (Auto) 0 Sodium 136 L Potassium 3.5 Chloride 111 H Carbon Dioxide 22 BUN 23 H Creatinine 0.82 Estimated GFR > 60 BUN/Creatinine Ratio 28.0 H Glucose 127 H D Calcium 7.7 L Phosphorus 3.8 D Magnesium 2.1 Total Bilirubin 0.7 AST 53 H ALT 27 Alkaline Phosphatase 212 H Total Protein 4.9 L Albumin 2.3 L Globulin 2.6 Albumin/Globulin Ratio 0.9 L Urine Color Yellow Urine Appearance Clear Urine pH 5.5 Ur Specific [place] 1.015 Urine Protein Trace H Urine Glucose (UA) Negative Urine Ketones Negative Urine Occult Blood 2+ H Urine Nitrate Negative Urine Bilirubin Negative Urine Urobilinogen 0.2 Ur Leukocyte Esterase Negative Urine RBC 0-1/hpf Urine WBC 0-1/hpf Ur Squamous Epith Cells None seen Amorphous Sediment 1+ Urine Bacteria None seen Ur Culture Indicated? Cult not indicated Vol Urine Centrifuged 10ml (spun) [facility] Medical History Eczema, dyshidrotic (~2020) Anxiety Chronic hepatitis C Osteoarthritis of both hands Hepatitis C antibody test positive Arthritis (Unknown) Chronic neck pain (Unknown) Hx of idiopathic thrombocytopenic purpura (2007) Surgical History Anesthesia H/O hernia repair Hx of arthroscopy of knee (~2002) History of splenectomy (2007) Status post knee replacement Family History Family/Other Adopted Social History household members: spouse Smoking Status: Current every day smoker quit status: considering quitting alcohol intake: current substance use type: does not use Assessment & Plan Assessment & Plan narrative: 1. Sepsis with septic shock secondary to perforated colon due to stercoral colitis with bacteroides bacteremia s/p Maye procedure with hypotension, EUGENIO, acute metabolic encephalopathy, acute respiratory failure with hypoxia. 2. Acute hypoxemic respiratory failure, likely noncardiogenic pulmonary edema. monitor on ventilator and hopeful extubation today. 3. Acute kidney injury, improved 4. Chronic hepatitis-C, present on admission and active. 5. Prior splenectomy, present on admission and active. This related to ITP. 6. Fentanyl abuse, present on admission and active. 7. DVT prophylaxis: SCDs 8. Post operative acute blood loss anemia. 9. Volume overload. Plan: -monitor h/h, continue meropenem, vancomycin per pharmacy, fluconazole. Broadended from Zosyn to oscar/vanc on 03/29. -continue daily sedation vacations -discussed with surgery, dietary, increasing feeds today. -continue fentanyl, propofol, and precedex for sedation. -continue ICU level care -outpatient drug treatment assessment prior to discharge -now diuresing with furosemide TID, have also ordered echo to make sure no component of heart failure with her severe volume overload. -reordered blood cultures with prior bacteremia to make sure antibiotics are effective and bacteremia cleared. These are negative at 24 hours. Full code. Surrogate is patient's spouse I spent 35 minutes providing critical care management this patient. This excludes time spent in performing separately billed procedures. Time-Based Coding :: [TOTAL MINUTES] spent with patient and on the chart (including review of chart, obtaining history, exam, reviewing outside data, placing orders, documenting exam and treatment plan, and counseling patient) on [DATE]. Quality VTE Deep Vein Thrombosis/Pulmonary Embolism Present on Admission: No
[2024-03-30] MEDS: fentaNYL 1,000 MCG in DEXTROSE 5% IN WATER 230 ML 15.3 MCG IV (16:36)
[2024-03-30] MEDS: AA 5 %/CALCIUM/LYTES/DEXT 20 % 500 ML with MULTIVITAMIN 10 ML, TRACE ELEMENTS 1 ML, THI... 21.75 ML IV (17:17)
[2024-03-30] MEDS: ACETAMINOPHEN 325 MG TABLET 650 MG PO (18:16)
[2024-03-30 18:26] LABS: BUN Creatinine Ratio 27.5 (6-22); Blood Urea Nitrogen 22 mg/dL (7-17); Calcium 7.6 mg/dL (8.4-10.2); Carbon Dioxide 23 mmol/L (22-32); Chloride 109 mmol/L (98-107); Estimated Glomerular Filt Rate > 60 mL/min (>60); Glucose 120 mg/dL (70-100); HEMOLYSIS < 15 (0-50); Potassium 3.8 mmol/L (3.4-5.1); Sodium 136 mmol/L (137-145)
[2024-03-30] MEDS: HEPARIN 5,000 UNIT/ML VIAL 5000 UNIT SUBCUT (20:03)
--- NOTE | 2024-03-30 20:14 | P.ICUMDRN_ITS ---
- Date Patient Seen: 03/30/24 :: This patient was seen via real time interactive two-way audiovisual telecommunic ation. Note: Patient failed SBT today and is currently being diuresed. Patient is currently hypotensive which may be related to positive pressure and sedatives. Will restart levophed to titrate for MAP goal> 65. D/w bedside RN.
[2024-03-30] MEDS: NOREPINEPHRINE BITARTRATE/D5W 4 MG/250 ML PLAST..BAG 12.75 MG IV (20:24)
[2024-03-30] MEDS: propofoL 1,000 MG/100 ML VIAL 18.36 MG IV (23:58)
[2024-03-31] VITALS (62 sets, daily range): BP systolic 102–131; BP diastolic 50–77; PULSE 82–105; RESP 32–52; TEMP 36.9–39.2; O2SAT 86–98
[2024-03-31] MEDS: CHLORHEXIDINE GLUCONATE 15 ML CUP PO ×4 (00:01→17:49)
[2024-03-31] MEDS: FUROSEMIDE 20 MG/2 ML VIAL 40 MG IV ×2 (01:31→09:00)
[2024-03-31] MEDS: MEROPENEM 1 GM in SODIUM CHLORIDE 0.9% 100 ML IV ×3 (01:32→17:48)
[2024-03-31] MEDS: dexmedeTOMIDine in 0.9 % NaCL 400 MCG/100 ML PLAST..BAG 25.5 MCG IV ×6 (04:11→22:56)
[2024-03-31] MEDS: propofoL 1,000 MG/100 ML VIAL 22.44 MG IV (04:11)
--- NOTE | 2024-03-31 04:47 | PC.NURSE ---
Addendum entered by Kusum Ward R.N. 03/31/24 05:28: TPN was found running at 42 mLs/hr. At 0520 this RN noted the bag was about to be out and read a dietary note that said it should have been decreased to 20 mL/hr during days. The rate was decreased to 20 mLs/hr at 0530. Dietary note states it is due to be discontinued later today as long as she tolerates TF. Original Note: Continues to be tachypneic, RR 30-42. Sedation has all been increased without much improvement in WOB. With any stimulus the pt's HR and RR increase. Bowel sounds remain absent, almost no output in ostomy and no BM per rectum. Midline incision continues to have purulent drainage, dressing changed. Required norepi for several hours to keep MAP >65.
[2024-03-31] MEDS: fentaNYL 1,000 MCG in DEXTROSE 5% IN WATER 230 ML 23.8 MCG IV ×2 (05:13→16:37)
[2024-03-31] MEDS: BUDESONIDE 0.5 MG/2 ML NEB INH ×2 (06:04→18:22)
[2024-03-31] MEDS: ALBUTEROL 2.5 MG/3 ML NEB (ADULT) INH ×3 (06:04→18:21)
[2024-03-31 06:09] LABS: Hematocrit 24.2 % (36-46); Hemoglobin 8.1 g/dL (12.0-16.0); Mean Corpuscular HGB Conc 33.4 % (30-36); Mean Corpuscular Hemoglobin 29.8 PG (26-34); Mean Corpuscular Volume 89.1 fL (80-100); Platelet Count 230 X10^3/uL (150-400); Red Blood Cell Count 2.72 X10^6/uL (4.0-5.2); Red Cell Distribution Width 14.6 % (11.6-14.8); White Blood Cell Count 18.1 X10^3/uL (4.5-11.0)
[2024-03-31 06:10] LABS: Add Manual Diff / Slide Review YES
[2024-03-31 06:25] LABS: Alanine Aminotransferase 29 IU/L (<35); Albumin 2.4 g/dL (3.5-5.0); Albumin Globulin Ratio 0.9 (1.0-2.8); Alkaline Phosphatase 210 U/L (38-126); Aspartate Aminotransferase 45 IU/L (14-36); BUN Creatinine Ratio 29.9 (6-22); Bilirubin Total 0.6 mg/dL (0.2-1.3); Blood Urea Nitrogen 23 mg/dL (7-17); Calcium 7.6 mg/dL (8.4-10.2); Carbon Dioxide 25 mmol/L (22-32); Chloride 107 mmol/L (98-107); Estimated Glomerular Filt Rate > 60 mL/min (>60); Globulin 2.8 g/dL (1.7-4.1); Glucose 136 mg/dL (70-100); HEMOLYSIS < 15 (0-50); Magnesium 1.9 mg/dL (1.6-2.3); Neutrophils Absolute Manual 14480 /uL (3000-5900); Nucleated Red Blood Cells 17 #/Diff; Phosphorous 5.6 mg/dL (2.5-4.5); Potassium 3.6 mmol/L (3.4-5.1); Sodium 139 mmol/L (137-145); Total Cells Counted 100; Total Protein 5.2 g/dL (6.3-8.2)
[2024-03-31 06:26] LABS: Target Cells 2+
[2024-03-31 07:26] LABS: Vancomycin Trough 11.1 ug/mL (10-20)
[2024-03-31] MEDS: VANCOMYCIN 1,000 MG/200 ML PIGGYBACK 200 MG IV (07:46)
[2024-03-31] MEDS: VANCOMYCIN TROUGH 1 REQUEST MISC (07:51)
[2024-03-31] MEDS: HEPARIN 5,000 UNIT/ML VIAL 5000 UNIT SUBCUT ×2 (08:59→20:16)
[2024-03-31] MEDS: PANTOPRAZOLE 40 MG VIAL 20 MG IV (08:59)
[2024-03-31] MEDS: SODIUM CHLORIDE 0.9% FLUSH 10 ML IV ×2 (09:00→20:20)
--- NOTE | 2024-03-31 09:15 | DI.RAD.S_ITS ---
PROCEDURE: XR CHEST 1V INDICATIONS: pul edema TECHNIQUE: One view of the chest was acquired. COMPARISON: [facility], CR, XR CHEST 1V, 03/30/2024, 6:50. FINDINGS: Surgical changes and devices: Endotracheal tube terminates 2.6 cm above the sarahy. Enteric decompression tube descends below the diaphragm, tip not seen. Surgical clips in the left upper quadrant. Right upper extremity central venous catheter tip projects over the mid SVC. Lungs and pleura: Lung volumes are low with bibasilar. Small right pleural effusion and trace left pleural effusion persist, similar to prior. Diffuse interstitial prominence has decreased compared to prior. Mediastinum: Mediastinal contours appear normal. Heart size is normal. Bones and chest wall: No suspicious bony lesions. Overlying soft tissues appear unremarkable. IMPRESSION: 1. Lines and tubes are in similar positions. 2. Pulmonary edema has slightly decreased. 3. Small right and trace left pleural effusions persist. Bibasilar consolidations appear similar suggestive of atelectasis, aspiration and/or pneumonia. Dictated by: Jozef Recio M.D. on 03/31/2024 at 10:10 Approved by: Jozef Recio M.D. on 03/31/2024 at 10:13
[2024-03-31] MEDS: ALBUMIN HUMAN 12.5 GM/50 ML VIAL IV ×2 (09:32→17:31)
[2024-03-31] MEDS: ACETAMINOPHEN SUSP 650 MG/20.3 ML UDC PO ×2 (09:32→16:37)
[2024-03-31] MEDS: propofoL 1,000 MG/100 ML VIAL 20.4 MG IV (09:33)
--- NOTE | 2024-03-31 09:52 | P.TELICUPN_ITS ---
Subjective Subjective IF CAMERA ACTIVATED, patient seen via real-time interactive audiovisual communication: Camera activated Consent obtained for tele-director database care: Yes Patient Location: ICU Provider location (State): Other participants/roles: , RN Interval history: Still tachypnic despite the current sedation propfol, fentanyl & Precedex , concern withdrawal, CXR showing improvement in the pul edema and Lt pleural effusion, stiill have some Rt sided effusion, Echo showed normal volume, -1.4 L since mid night, required small dose of levo for very short time, no bowel sound or movement, plan to add versed for sedation, albumin 25% 25 gm x 2 doses, hold lasix but one dose tonight. Pending surgery rec in checking abdomen imaging, holding TF. A/P: Neuro: # Acute encephalopathy -- Secondary to sepsis and sedatives, concern for withdrawal -- Intubated and sedated -- Daily SAT -- On propofol ,fentayl & precedex gtt , adding versed -- RASS goal -2 - -3 -- Continue clonidine. RESP: # Acute respiratory insufficiency -- Intubated and sedated -- Secondary to sepsis w/ ALI -- LTVV --trend abg -- HOB elevation - Aspiration precaution -- Goal SpO2 > 88% -- Daily SAT and SBT -- lasix to 40 mg prn for euvolemia CVS: -- MAP goal > 65 -- Sepsis rx as below -- Now off pressors related to sedation. ID: # severe sepsis -- Secondary to bowel perforation -- On zosyn and fluconazole -- Follow up cx -- MAP goal > 65 -- fluid resuscitation GI: # Sterocoral colitis c/w perofration -- s/p ex-lap w/ Maye procedure -- Pending surgery rec in checking abdomen imaging, holding TF. ENDO: -- Goal BS < 180 -- Need accucheck every 6 hr Renal -- trend bmp -- monitoir UO -- bicarb is imrpoving heme -- trend h/u goal hgb > 7 VTE: Heparin SQ PPI: Protonix IV daily CCT 35 min Current Medications Current Medications Medications: Home Medications ibuprofen 800 mg tablet 800 mg PO QD-TID PRN severe back or joint pain #90 tabs 11/30/23 [Rx Confirmed 03/21/24] estradiol 1 mg tablet 1 mg PO QDAY #90 tabs 03/07/24 [Rx Confirmed 03/21/24] albuterol sulfate 90 mcg/actuation aerosol inhaler 1 puff inhalation QID PRN Shortness Of Breath Or Wheezing 03/21/24 [History Confirmed 03/21/24] fluticasone 250 mcg-salmeterol 50 mcg/dose blistr powdr for inhalation (Wixela Inhub) 1 inh inhalation BID 03/21/24 [History Confirmed 03/21/24] Visit Medications (administered) Generic Name Dose Route Start Last Admin Trade Name Freq PRN Reason Stop Dose Admin Acetaminophen 650 mg 03/30/24 18:18 03/31/24 09:32 Acetaminophen Susp 650 Mg/20.3 Ml Udc PO 650 mg Q6H PRN Administration Fever/Mild Pain (1-3) Albuterol 2.5 mg 03/22/24 00:08 03/25/24 01:29 Albuterol 2.5 Mg/3 Ml Neb (Adult) INH 2.5 mg [id number] PRN Administration Shortness Of Breath Albuterol 2.5 mg 03/23/24 07:00 03/31/24 06:04 Albuterol 2.5 Mg/3 Ml Neb (Adult) INH 2.5 mg [id number] SHAHRAM Administration Alprazolam 0.25 mg 03/22/24 04:38 03/26/24 10:06 Alprazolam 0.25 Mg Tablet PO 0.25 mg Q6H PRN Administration Anxiety Bisacodyl 10 mg 03/22/24 17:36 03/23/24 17:48 Bisacodyl 10 Mg Supp GA 10 mg PRN PRN Administration Constipation Budesonide 0.5 mg 03/22/24 08:00 03/31/24 06:04 Budesonide 0.5 Mg/2 Ml Neb INH 0.5 mg RTBID SHAHRAM Administration Chlorhexidine Gluconate 15 ml 03/26/24 18:00 03/31/24 06:34 Chlorhexidine Gluconate 15 Ml Cup PO 15 ml Q6HR SHAHRAM Administration Estradiol 1 mg 03/24/24 09:00 03/31/24 09:01 Estradiol 1 Mg Tablet PO Not Given DAILY SHAHRAM Heparin Sodium (Porcine) 5,000 unit 03/21/24 21:00 03/31/24 08:59 Heparin 5,000 Unit/Ml Vial SUBCUT 5,000 unit BID SHAHRAM Administration Heparin Sodium (Porcine) 50 unit 03/27/24 21:00 03/31/24 09:00 Heparin Flush (Cl/Picc/Mid-Line) 50 Unit/5 Ml Syringe IV 50 unit BID SHAHRAM Administration Hydromorphone HCl 0.5 mg 03/26/24 11:42 03/28/24 14:19 Hydromorphone 0.5 Mg Inj IV 0.5 mg Q1H PRN Administration Pain, Severe (7-10) Propofol 1,000 mg in 100 mls @ 2.04 mls/hr 03/26/24 16:15 03/31/24 09:33 Propofol IV 50 mcg/kg/min TITRATE SHAHRAM 20.4 mls/hr Administration Protocol 5 MCG/KG/MIN Fentanyl 1,000 mcg/ Dextrose 250 mls @ 11.9 mls/hr 03/26/24 17:15 03/31/24 05:13 IV 1.4 mcg/kg/hr TITRATE SHAHRAM 23.8 mls/hr Administration Protocol 0.7 MCG/KG/HR Fluconazole 200 mg in 100 mls @ 100 mls/hr 03/28/24 11:00 03/30/24 18:51 Diflucan IV Infused Q24H SHAHRAM Infusion Sodium Chloride 500 mls @ 1,000 mls/hr 03/27/24 15:44 03/28/24 09:14 Normal Saline 0.9% IV Infused BOLUS PRN Infusion Fluid replacement dexmedeTOMIDine in 0.9 % NaCL 400 mcg in 100 mls @ 3.4 mls/hr 03/27/24 16:00 03/31/24 07:42 Precedex IV 1.5 mcg/kg/hr TITRATE SHAHRAM 25.5 mls/hr Administration Protocol 0.2 MCG/KG/HR NOREPINEPHRINE BITARTRATE/D5W 4 mg in 250 mls @ 25.5 mls/hr 03/27/24 20:39 03/31/24 03:07 Levophed IV 0 mcg/kg/min TITRATE SHAHRAM 0 mls/hr Titration Protocol 0.1 MCG/KG/MIN Meropenem 1 gm/ Sodium 100 mls @ 200 mls/hr 03/29/24 18:15 03/31/24 02:02 Chloride IV Infused Q8H SHAHRAM Infusion Vancomycin HCl 1,000 mg in 200 mls @ 200 mls/hr 03/29/24 20:00 03/31/24 07:46 Vancomycin IV 200 mls/hr Q12H SHAHRAM Administration Multivitamins 10 ml/ Chromium/ 522 mls @ 21.75 mls/hr 03/30/24 17:00 03/31/24 06:00 Copper/Manganese/Seleni/Zn 1 IV 03/31/24 16:59 0 mls/hr ml/ Thiamine HCl 100 mg/ 1700 SHAHRAM Infusion Potassium Chloride 20 meq/ Amino Acids/Electrolytes Albumin Human 12.5 gm in 50 mls @ 60 mls/hr 03/31/24 09:30 03/31/24 09:32 Albuminar IV 03/31/24 18:19 60 mls/hr Q8H SHAHRAM Administration Insulin Human Lispro 0 unit 03/28/24 14:00 03/31/24 08:22 Insulin Lispro 100 Unit/Ml 3ml Vial SUBCUT Not Given Q6H [facility] Protocol Lorazepam 2 mg 03/29/24 18:01 03/30/24 19:25 Lorazepam 2 Mg/Ml Inj IV 2 mg Q2HR PRN Administration Anxiety Nicotine 14 mg 03/23/24 17:50 03/31/24 08:53 Nicotine 14 Patch TOP Not Given DAILY [facility] Ondansetron HCl 4 mg 03/21/24 11:20 03/21/24 11:29 Ondansetron 4 Mg/2 Ml Inj IV 4 mg NOW PRN Administration Nausea And Vomiting Pantoprazole Sodium 20 mg 03/27/24 09:00 03/31/24 08:59 Pantoprazole 40 Mg Vial IV 20 mg DAILY SHAHARM Administration Sodium Chloride 10 ml 03/25/24 09:00 03/31/24 09:00 Sodium Chloride 0.9% Flush IV 10 ml BID SHAHRAM Administration Objective Ventilator Parameters: Ventilator Settings FiO2 35 RT Vent Frequency 24 Ventilator Tidal Volume 330 Exhaled Vt/kg IBW 6 Positive End Expiratory 5 Pressure Inspiratory Phase Time 0.6 I:E Ratio 1:1.8 Patient Position HOB >= 30 degrees Labs 03/31/24 05:56 03/31/24 05:56 Labs: Laboratory Results - last 24 hr 03/30/24 03/31/24 03/31/24 18:00 05:56 06:48 WBC 18.1 H RBC 2.72 L Hgb 8.1 L Hct 24.2 L MCV 89.1 MCH 29.8 MCHC 33.4 RDW 14.6 Plt Count 230 Neut % (Auto) Not Reportable Lymph % (Auto) Not Reportable [place] % (Auto) Not Reportable Eos % (Auto) Not Reportable Baso % (Auto) Not Reportable Lymph # (Auto) Not Reportable [place] # (Auto) Not Reportable Baso # (Auto) Not Reportable Total Counted 100 Seg Neutrophils % 76.0 H Band Neutrophils % 4.0 Lymphocytes % (Manual) 11.0 L Monocytes % (Manual) 3.0 Eosinophils % (Manual) 2.0 Metamyelocytes % 4.0 H Neutrophils # (Manual) 67445 H Nucleated RBCs 17 H RBC Morphology See below Target Cells 2+ H Sodium 136 L 139 Potassium 3.8 3.6 Chloride 109 H 107 Carbon Dioxide 23 25 BUN 22 H 23 H Creatinine 0.80 0.77 Estimated GFR > 60 > 60 BUN/Creatinine Ratio 27.5 H 29.9 H Glucose 120 H 136 H Calcium 7.6 L 7.6 L Phosphorus 5.6 H D Magnesium 1.9 Total Bilirubin 0.6 AST 45 H ALT 29 Alkaline Phosphatase 210 H Total Protein 5.2 L Albumin 2.4 L Globulin 2.8 Albumin/Globulin Ratio 0.9 L Vancomycin Trough 11.1 Exam Vital Signs (past 8 hours): - 03/31/24 02:00 03/31/24 02:13 03/31/24 02:13 Temperature Pulse Rate 83 92 H Respiratory Rate 39 H 41 H Blood Pressure 107/69 Pulse Oximetry 97 94 Oxygen Delivery Method 03/31/24 03:00 03/31/24 03:30 03/31/24 03:30 Temperature Pulse Rate 97 H 103 H Respiratory Rate 36 H 37 H Blood Pressure 116/64 122/64 Pulse Oximetry 94 93 Oxygen Delivery Method 03/31/24 04:00 03/31/24 04:00 03/31/24 04:30 Temperature 98.6 F Pulse Rate 105 H Respiratory Rate 39 H Blood Pressure 124/67 127/61 Pulse Oximetry 93 Oxygen Delivery Method 03/31/24 04:30 03/31/24 05:00 03/31/24 05:00 Temperature Pulse Rate 104 H 104 H Respiratory Rate 38 H 37 H Blood Pressure 127/62 Pulse Oximetry 94 94 Oxygen Delivery Method 03/31/24 05:30 03/31/24 05:30 03/31/24 06:00 Temperature Pulse Rate 101 H Respiratory Rate 37 H Blood Pressure 117/61 Pulse Oximetry 94 Oxygen Delivery Method Mechanical Ventilation 03/31/24 06:00 03/31/24 06:00 03/31/24 06:30 Temperature Pulse Rate 98 H Respiratory Rate 37 H Blood Pressure 115/64 122/67 Pulse Oximetry 95 Oxygen Delivery Method 03/31/24 06:30 03/31/24 07:00 03/31/24 07:00 Temperature Pulse Rate 104 H 105 H Respiratory Rate 39 H 36 H Blood Pressure 128/64 Pulse Oximetry 94 94 Oxygen Delivery Method 03/31/24 07:30 03/31/24 07:30 03/31/24 08:00 Temperature 99 F Pulse Rate 105 H Respiratory Rate 37 H Blood Pressure 128/65 Pulse Oximetry 94 Oxygen Delivery Method 03/31/24 08:00 03/31/24 08:00 03/31/24 08:30 Temperature Pulse Rate 104 H Respiratory Rate 35 H Blood Pressure 125/65 114/61 Pulse Oximetry 94 Oxygen Delivery Method 03/31/24 08:30 03/31/24 09:00 03/31/24 09:00 Temperature Pulse Rate 97 H 94 H Respiratory Rate 36 H 35 H Blood Pressure 112/56 L Pulse Oximetry 95 94 Oxygen Delivery Method 03/31/24 09:32 Temperature 102.6 F H Pulse Rate Respiratory Rate Blood Pressure Pulse Oximetry Oxygen Delivery Method Fraction of Inspired Oxygen 40 SaO2/FiO2 Ratio 235 Oxygen Delivery Method Mechanical Ventilation Oxygen Flow Rate 0 Quality TeleICU VTE Deep Vein Thrombosis/Pulmonary Embolism Present on Admission: No Assessment & Plan Time-Based Coding :: [TOTAL MINUTES] spent with patient and on the chart (including review of chart, obtaining history, exam, reviewing outside data, placing orders, documenting exam and treatment plan, and counseling patient) on [DATE].
--- NOTE | 2024-03-31 10:14 | DIET.PN1 ---
Dietary Progress Note Pt w/ no bowel tones, firm abdomen. Per tele-ICU fish technologist, stop tube feeds. Surgery to assess bowel function. Will re-start TPN at 1 L this evening. Propofol at 50 mcg/kg/min providing 539 kcals/day. Ht: 162.56 cm Wt: 68 kg BMI: 23.3 Last BM: 03/26/24 (03/26/24 09:20) MNA: 12 Sven Score: 8 Diet: 03/26/24 12:15 NPO Diet Diet Modifications: May Advance Diet as Tolerated: No NPO Type: Strict 03/30/24 Lunch caregiver tray [Courtesy Tray (Peds, comfort care)] Diet Modifications: Labs: RBC 2.72 X10^6/uL (4.0-5.2) L 03/31/24 05:56 Hgb 8.1 g/dL (12.0-16.0) L 03/31/24 05:56 Hct 24.2 % (36-46) L 03/31/24 05:56 Creatinine 0.77 mg/dL (0.52-1.04) 03/31/24 05:56 Lactate 2.0 mmol/L (0.7-2.1) 03/28/24 06:10 Nutrition Diagnosis: Inadequate oral intake r/t GI alterations, mechanical ventilation aeb NPO status, bowel perforation Interventions: 1. Re-start TPN at 1 L Clinimix 5/20 running at 42 mL/hr. TPN + propofol providing 1420 kcals (95% of EER) and 50 grams protein (50% of estimated protein needs). 2. Surgery to re-assess gut function. Tube feeds stopped. Based on limited formulary adjustments available at this hospital, TPN does not meet protein needs. If unable to start tube feeds again, recommend transferring to facility with formulary that will meet this patient's protein needs Plan of care ongoing. Will f/u closely. EER: [id number] kcals (25 kcals/kg per sepsis using 62 kg) 105-110 g protein (1.7-1.8 g/kg per sepsis, surgery/wound using 62 kg) Monitoring/Evaluations: start of TPN, rate, labs, f/u tomorrow Electronically Signed by: Luly Wagner 03/31/24 10:[address] [address]
--- NOTE | 2024-03-31 10:19 | DI.CT.S_ITS ---
PROCEDURE: CT CHEST ABD PEL W CON INDICATIONS: persistent fever, abd distension, no ostomy output TECHNIQUE: After the administration of intravenous contrast, 5 mm thick sections acquired from the lung apices to the symphysis. 5 mm coronal and sagittal reformats were performed, with additional 7 mm MIP reformats through the lungs. For radiation dose reduction, the following was used: automated exposure control, adjustment of mA and/or kV according to patient size. [facility], CT, CT ABDOMEN PELVIS WO CON, 03/28/2024, 10:23. io infection and/or inflammation. We nCOMPARISON: [facility], CT, CT ABDOMEN PELVIS W CON, 03/26/2024, 11:47. [facility], CT, CT ANGIO CHEST PE PROTOCOL, 03/26/2024, 11:4.Of 7 FINDINGS: Image quality: Excellent. CHEST: Lower Neck: No enlarged lymph nodes. Thyroid: No thyroid nodules which require sonographic follow up, per consensus guidelines. Axillae: No enlarged lymph nodes. Chest Wall: Unremarkable. Lungs and Pleura: No pneumothorax or pleural effusions. Moderate right and small left pleural effusion. Bilateral lower lobe compressive atelectasis. A more focal hypodense region in the right lower lobe may reflect a superimposed infection (). Additional left lower lobe anterior ground-glass opacity, slightly increased compared to prior (). Heart: Heart size is normal. No pericardial effusion. Thoracic Vessels: The aorta and pulmonary arteries demonstrate normal size. Right upper extremity central venous catheter tip is in the lower SVC. Mediastinum and Kena: No enlarged lymph nodes. Esophagus: No wall thickening. No hiatal hernia. ABDOMEN: Liver: No solid mass. Gallbladder: Hyperdense material in the gallbladder. Biliary ducts: No biliary dilation. Pancreas: No ductal dilation. Spleen: Absent or. Adrenal Glands: No adrenal nodules. Kidneys and Ureters: No hydronephrosis. No solid mass. No complex renal cystic lesion which requires follow up. Stomach and Bowel: Enteric tube terminates in the gastric fundus/force portion of the duodenum. Interval laparotomy. Small bowel is prominent and mildly dilated measuring up to 2.9 cm with diffuse wall thickening and no discrete transition point (). Enteric contrast in the cecum and throughout the colon which demonstrates normal colonic stool burden. Peritoneum: Small to moderate volume free fluid, decreased compared to prio; however, there are areas of loculation in the gallbladder fossa and perihepatic space. Interval evolution of previous pneumoperitoneum which has decreased with a few scattered areas, for example in the lower quadrant (2/). Drain in the right upper quadrant with tip along the anterior surface of the left hepatic lobe (2/51). Additional drain in the right lower quadrant with tip in the left lower pelvis. Ventral Wall: Postsurgical changes of midline incision. Areas of dehiscence in the supraumbilical and infraumbilical portions (2/67, 2/99). No discrete underlying fluid collection. Ostomy in the left mid abdomen. Abdominal Nodes: No retroperitoneal or mesenteric adenopathy by size criteria. Moderate body wall anasarca. Vessels: Aorta and inferior vena cava are normal in size. Mild calcification of the abdominal aorta. PELVIS: Pelvic Organs: Unremarkable. Bladder: Decompressed with Carreno in place. Mucosal hyperenhancement of the bladder. Pelvic Nodes: No enlarged lymph nodes. Miscellaneous: No inguinal hernias are seen. Bones: No aggressive osseous abnormality. No acute fractures. IMPRESSION: 1. Interval laparotomy. Small bowel is mildly dilated with diffuse wall thickening and no discrete transition point. Findings are suggestive of ileus/enteritis of infectious/inflammatory etiology. Interval evolution pneumoperitoneum which has decreased compared to prior. 2. Small to moderate volume free fluid, decreased compared to prior; however, there are loculated portions, for example in the perihepatic and gallbladder fossa. 3. Midline incision with areas of dehiscence. No focal fluid collection. Moderate body wall anasarca. 4. Moderate right and small left pleural effusion with compressive atelectasis. Focal right lower lobe hypodense consolidation may reflect superimposed infection. Additional ground-glass opacity in the anterior left lower lobe slightly increased compared to prior CT dated March 28, 2024 is suggestive of infection and/or inflammation. 5. Bladder is decompressed with Carreno catheter. Mucosal hyperenhancement which may reflect cystitis of infectious or inflammatory etiology. 6. Hyperdense material in the gallbladder which may reflect sludge versus vicarious excretion of contrast. Dictated by: Jozef Recio M.D. on 03/31/2024 at 11:49 Approved by: Jozef Recio M.D. on 03/31/2024 at 12:16
[2024-03-31] MEDS: MIDAZOLAM 50 MG in DEXTROSE 5 % IN WATER 40 ML IV ×2 (10:36→21:21)
[2024-03-31] MEDS: FLUCONAZOLE 200 MG/100 ML PIGGYBACK 100 MG IV (11:24)
[2024-03-31 12:01] LABS: Vancomycin Peak 27.1 ug/mL (20-40)
--- NOTE | 2024-03-31 12:11 | PC.NURSE ---
Per tele-ICU doctor, started midazolam for sedation. During transport to CT, patient's pressures decreased resulting in restarting of norepi.
--- NOTE | 2024-03-31 12:18 | CM.DPNOTE ---
DCP Cont Reviewed chart. Patient discussed in multidisciplinary rounds. Patient is still quite sick, family at bedside on and off. Patient being taken for CT this morning, remains intubated. CM team will continue to follow clinical course closely. KAELYN
[2024-03-31] MEDS: VANCOMYCIN PEAK 1 REQUEST MISC (12:35)
[2024-03-31] MEDS: propofoL 1,000 MG/100 ML VIAL 16.32 MG IV ×2 (13:59→20:10)
[2024-03-31] MEDS: AA 5 %/CALCIUM/LYTES/DEXT 20 % 500 ML with MULTIVITAMIN 10 ML, TRACE ELEMENTS 1 ML, THI... 21.75 ML IV (17:18)
[2024-03-31] MEDS: MICAFUNGIN 100 MG in SODIUM CHLORIDE 0.9% 100 ML IV (18:11)
[2024-03-31 18:33] LABS: Allen Test for ABG Passed? Positive; Base Excess ABG 1.9 mmol/L (-2-3); Blood Gas Collection Site Left Radial; Delivery System Adult Ventilator; HCO3 ABG 26 mmol/L (23-27); Oxygen Saturation ABG 96 % (95-100); PCO2 ABG 36.6 mmHg (35-45); PEEP 5; PO2 ABG 75 mmHg (80-100); Respiratory Rate 24; TCO2 ABG 26 mmol/L (23-27); pH ABG 7.45 (7.35-7.45)
--- NOTE | 2024-03-31 19:01 | PM.PN.1 ---
Subjective Subjective Interval history: 58 F with sepsis due to perforated large bowel d/t stercoral colitis. Remains intubated today. Failed breathing trial and sedation vacation again. BP up still, WBC improving but continued fever. Repeated CT with some fluid collections, general surgery following. Blood cultures this afternoon with yeast, switched fluconazole to micafungin for possible candidemia. Exam Vital Signs (past 8 hours): - 03/31/24 11:18 03/31/24 11:18 03/31/24 11:30 Temperature Pulse Rate 90 Respiratory Rate 34 H Blood Pressure 115/60 124/70 Pulse Oximetry 95 Oxygen Delivery Method 03/31/24 11:30 03/31/24 11:59 03/31/24 11:59 Temperature Pulse Rate 91 H 88 Respiratory Rate 34 H 34 H Blood Pressure 114/68 Pulse Oximetry 95 96 Oxygen Delivery Method 03/31/24 12:00 03/31/24 12:00 03/31/24 12:30 Temperature Pulse Rate 87 Respiratory Rate 34 H Blood Pressure 119/71 118/71 Pulse Oximetry 96 Oxygen Delivery Method 03/31/24 12:30 03/31/24 12:57 03/31/24 12:57 Temperature Pulse Rate 86 86 Respiratory Rate 35 H 34 H Blood Pressure 119/72 Pulse Oximetry 96 96 Oxygen Delivery Method 03/31/24 13:00 03/31/24 13:00 03/31/24 13:30 Temperature Pulse Rate 86 Respiratory Rate 36 H Blood Pressure 120/72 123/70 Pulse Oximetry 96 Oxygen Delivery Method 03/31/24 13:30 03/31/24 14:00 03/31/24 14:00 Temperature Pulse Rate 89 Respiratory Rate 36 H Blood Pressure 115/66 Pulse Oximetry 96 Oxygen Delivery Method Mechanical Ventilation 03/31/24 14:00 03/31/24 14:30 03/31/24 14:30 Temperature Pulse Rate 88 87 Respiratory Rate 36 H 40 H Blood Pressure 115/64 Pulse Oximetry 95 96 Oxygen Delivery Method 03/31/24 14:34 03/31/24 14:34 03/31/24 15:00 Temperature Pulse Rate 87 87 Respiratory Rate 39 H 39 H Blood Pressure 111/64 Pulse Oximetry 96 96 Oxygen Delivery Method 03/31/24 15:00 03/31/24 15:30 03/31/24 15:30 Temperature Pulse Rate 87 Respiratory Rate 39 H Blood Pressure 117/60 115/58 L Pulse Oximetry 96 Oxygen Delivery Method 03/31/24 15:57 03/31/24 15:57 03/31/24 16:00 Temperature Pulse Rate 87 Respiratory Rate 38 H Blood Pressure 116/59 L 124/60 Pulse Oximetry 96 Oxygen Delivery Method 03/31/24 16:00 03/31/24 16:30 03/31/24 16:30 Temperature Pulse Rate 87 88 Respiratory Rate 39 H 41 H Blood Pressure 110/65 Pulse Oximetry 96 96 Oxygen Delivery Method 03/31/24 16:37 03/31/24 17:00 03/31/24 17:00 Temperature 101 F H 101 F H Pulse Rate 89 Respiratory Rate 36 H Blood Pressure Pulse Oximetry 96 Oxygen Delivery Method 03/31/24 17:00 03/31/24 17:30 03/31/24 17:30 Temperature Pulse Rate 89 Respiratory Rate 39 H Blood Pressure 121/60 114/64 Pulse Oximetry 96 Oxygen Delivery Method 03/31/24 17:55 03/31/24 18:00 03/31/24 18:00 Temperature Pulse Rate 90 Respiratory Rate 37 H Blood Pressure 121/67 Pulse Oximetry 96 Oxygen Delivery Method Mechanical Ventilation Fraction of Inspired Oxygen 35 SaO2/FiO2 Ratio 235 Oxygen Delivery Method Mechanical Ventilation Oxygen Flow Rate 0 Narrative Exam Narrative: GENERAL: This is a thin female patient, intubated and sedated on propofol infusion. EYES: Pupils equal round and reactive. Extraocular motions intact. No scleral icterus. No injection or drainage. ENT: Mucous membranes pink and moist. Orotracheal and orogastric tubes in place. NECK: Unremarkable. CARDIOVASCULAR: RRR without murmurs, gallops, or rubs. RESPIRATORY: Clear to auscultation b/l GASTROINTESTINAL: Abdomen with colostomy site in place. Slight duskiness to ostomy site but predominantly pink. [place] in place midline, a few removed with gauze with serosanguinous fluid on superior and inferior aspects of patient's incision. GENITOURINARY: Carreno catheter in place. EXTREMITIES: No clubbing, cyanosis, or edema. NEUROLOGIC: Sedated, intubated, exam not feasible. DERMATOLOGIC: No rashes or skin lesions. Objective Labs 03/31/24 05:56 03/31/24 05:56 Labs: Laboratory Results - last 24 hr 03/31/24 03/31/24 03/31/24 05:56 06:48 10:00 WBC 18.1 H RBC 2.72 L Hgb 8.1 L Hct 24.2 L MCV 89.1 MCH 29.8 MCHC 33.4 RDW 14.6 Plt Count 230 Neut % (Auto) Not Reportable Lymph % (Auto) Not Reportable [place] % (Auto) Not Reportable Eos % (Auto) Not Reportable Baso % (Auto) Not Reportable Lymph # (Auto) Not Reportable [place] # (Auto) Not Reportable Baso # (Auto) Not Reportable Total Counted 100 Seg Neutrophils % 76.0 H Band Neutrophils % 4.0 Lymphocytes % (Manual) 11.0 L Monocytes % (Manual) 3.0 Eosinophils % (Manual) 2.0 Metamyelocytes % 4.0 H Neutrophils # (Manual) 92491 H Nucleated RBCs 17 H RBC Morphology See below Target Cells 2+ H ABG Sample Site ABG pH ABG pCO2 ABG pO2 ABG HCO3 ABG Total CO2 ABG O2 Saturation ABG Base Excess Tacho Test Respiration Rate O2 Delivery Device FiO2 % PEEP or CPAP Sodium 139 Potassium 3.6 Chloride 107 Carbon Dioxide 25 BUN 23 H Creatinine 0.77 Estimated GFR > 60 BUN/Creatinine Ratio 29.9 H Glucose 136 H Calcium 7.6 L Phosphorus 5.6 H D Magnesium 1.9 Total Bilirubin 0.6 AST 45 H ALT 29 Alkaline Phosphatase 210 H Total Protein 5.2 L Albumin 2.4 L Globulin 2.8 Albumin/Globulin Ratio 0.9 L Vancomycin Peak 27.1 Vancomycin Trough 11.1 03/31/24 16:20 WBC RBC Hgb Hct MCV MCH MCHC RDW Plt Count Neut % (Auto) Lymph % (Auto) [place] % (Auto) Eos % (Auto) Baso % (Auto) Lymph # (Auto) [place] # (Auto) Baso # (Auto) Total Counted Seg Neutrophils % Band Neutrophils % Lymphocytes % (Manual) Monocytes % (Manual) Eosinophils % (Manual) Metamyelocytes % Neutrophils # (Manual) Nucleated RBCs RBC Morphology Target Cells ABG Sample Site Left radial ABG pH 7.45 ABG pCO2 36.6 ABG pO2 75 L ABG HCO3 26 ABG Total CO2 26 ABG O2 Saturation 96 ABG Base Excess 1.9 Tacho Test Positive Respiration Rate 24 O2 Delivery Device Adult ventilator FiO2 % 35 % PEEP or CPAP 5 Sodium Potassium Chloride Carbon Dioxide BUN Creatinine Estimated GFR BUN/Creatinine Ratio Glucose Calcium Phosphorus Magnesium Total Bilirubin AST ALT Alkaline Phosphatase Total Protein Albumin Globulin Albumin/Globulin Ratio Vancomycin Peak Vancomycin Trough PFSH Medical History Eczema, dyshidrotic (~2020) Anxiety Chronic hepatitis C Osteoarthritis of both hands Hepatitis C antibody test positive Arthritis (Unknown) Chronic neck pain (Unknown) Hx of idiopathic thrombocytopenic purpura (2007) Surgical History Anesthesia H/O hernia repair Hx of arthroscopy of knee (~2002) History of splenectomy (2007) Status post knee replacement Family History Family/Other Adopted Social History household members: spouse Smoking Status: Current every day smoker quit status: considering quitting alcohol intake: current substance use type: does not use Assessment & Plan Assessment & Plan narrative: 1. Sepsis with septic shock secondary to perforated colon due to stercoral colitis with bacteroides bacteremia, possible candidemia s/p Maye procedure with hypotension, EUGENIO, acute metabolic encephalopathy, acute respiratory failure with hypoxia. 2. Acute hypoxemic respiratory failure, likely noncardiogenic pulmonary edema. monitor on ventilator and hopeful extubation today. 3. Acute kidney injury, improved 4. Chronic hepatitis-C, present on admission and active. 5. Prior splenectomy, present on admission and active. This related to ITP. 6. Fentanyl abuse, present on admission and active. 7. DVT prophylaxis: SCDs 8. Post operative acute blood loss anemia. 9. Volume overload. Plan: -monitor h/h, continue meropenem, vancomycin per pharmacy, fluconazole changed to micafungin 100 mg daily on 03/31. Broadended from Zosyn to oscar/vanc on 03/29. -continue daily sedation vacations -discussed with surgery, dietary, increasing feeds today. -continue fentanyl, propofol, versed, and precedex for sedation. Appreciate teleintensivist consultation. -continue ICU level care -outpatient drug treatment assessment prior to discharge -now diuresing with furosemide TID, have also ordered echo to make sure no component of heart failure with her severe volume overload which was unremarkable. -reordered blood cultures 03/29 with prior bacteremia to make sure antibiotics are effective and bacteremia cleared. These are growing yeast, changed fluconazole to micafungin 03/31 -repeat CT 03/31 with overall improved fluid appearance, probable aspiration in the lungs, but some ? loculated fluid collections in the upper abdomen. Follow up surgery recommendations of CT results. Full code. Surrogate is patient's spouse I spent 35 minutes providing critical care management this patient. This excludes time spent in performing separately billed procedures. Time-Based Coding :: [TOTAL MINUTES] spent with patient and on the chart (including review of chart, obtaining history, exam, reviewing outside data, placing orders, documenting exam and treatment plan, and counseling patient) on [DATE]. Quality VTE Deep Vein Thrombosis/Pulmonary Embolism Present on Admission: No
[2024-03-31 19:06] LABS: Acinetobacter calcoa-baumannii Not Detected (Not Detect); Bacteroides fragilis Not Detected (Not Detect); Candida albicans Not Detected (Not Detect); Candida auris Not Detected (Not Detect); Candida glabrata Not Detected (Not Detect); Candida krusei Not Detected (Not Detect); Candida parapsilosis Not Detected (Not Detect); Candida tropicalis Not Detected (Not Detect); Cryptococcus neoformans/gatti Not Detected (Not Detect); Enterobacter cloacae complex Not Detected (Not Detect); Enterobacterales Not Detected (Not Detect); Enterococcus faecalis Not Detected (Not Detect); Enterococcus faecium Not Detected (Not Detect); Haemophilus influenzae Not Detected (Not Detect); Klebsiella aerogenes Not Detected (Not Detect); Listeria monocytogenes Not Detected (Not Detect); Neisseria meningitidis Not Detected (Not Detect); Proteus species Not Detected (Not Detect); Pseudomonas aeruginosa Not Detected (Not Detect); Salmonella species Not Detected (Not Detect); Serratia marcescens Not Detected (Not Detect); Staphylococcus epidermidis Not Detected (Not Detect); Staphylococcus lugdunensis Not Detected (Not Detect); Staphylococcus species Not Detected (Not Detect); Stenotrophomonas maltophilia Not Detected (Not Detect); Streptococcus agalactiae (Gr B Not Detected (Not Detect); Streptococcus pneumonia Not Detected (Not Detect); Streptococcus pyogenes (Gr A) Not Detected (Not Detect); Streptococcus species Not Detected (Not Detect)
--- NOTE | 2024-03-31 19:30 | PC.NURSE ---
Patient intubated and sedated, OG tube in place, TPN infusing, abdominal incision with ne intact mid incision with both ends open with no suture, staple or skin adhesive, packed with gauze, colostomy with no output, no bowel sound, OG tube connected to low intermittent suction with bile output, RLQ RADHA drain with minimal serosanguinous drainage, RUQ RADHA drain with minimal serous drainage.
--- NOTE | 2024-03-31 19:57 | P.ICUMDRN_ITS ---
- Date Patient Seen: 03/31/24 :: This patient was seen via real time interactive two-way audiovisual telecommunic ation. Note: Failed SBT today due to tachypnea. NGT to suction. Will continue weaning down sedation and check daily SBT. D/w bedside RN.
[2024-03-31] MEDS: VANCOMYCIN 1,250 MG/250 ML PIGGYBACK 250 MG IV (20:19)
[2024-03-31] MEDS: METOCLOPRAMIDE 10 MG/2 ML INJ 5 MG IV (21:21)
--- NOTE | 2024-03-31 21:56 | PC.NURSE ---
Hospitalist on duty called for Reglan, order received.
[2024-04-01] VITALS (44 sets, daily range): BP systolic 88–106; BP diastolic 50–59; PULSE 86–102; RESP 17–44; TEMP 36.9–38.6; O2SAT 90–96
[2024-04-01] MEDS: CHLORHEXIDINE GLUCONATE 15 ML CUP PO ×4 (00:44→18:25)
[2024-04-01] MEDS: ACETAMINOPHEN SUSP 650 MG/20.3 ML UDC PO ×3 (00:48→20:51)
[2024-04-01] MEDS: dexmedeTOMIDine in 0.9 % NaCL 400 MCG/100 ML PLAST..BAG 25.5 MCG IV ×6 (01:39→21:17)
[2024-04-01] MEDS: MEROPENEM 1 GM in SODIUM CHLORIDE 0.9% 100 ML IV ×3 (01:39→18:47)
[2024-04-01] MEDS: propofoL 1,000 MG/100 ML VIAL 16.32 MG IV ×3 (02:15→18:50)
[2024-04-01] MEDS: METOCLOPRAMIDE 10 MG/2 ML INJ 5 MG IV (03:33)
[2024-04-01] MEDS: fentaNYL 1,000 MCG in DEXTROSE 5% IN WATER 230 ML 23.8 MCG IV ×2 (03:33→14:25)
[2024-04-01] MEDS: BUDESONIDE 0.5 MG/2 ML NEB INH ×2 (06:02→20:38)
[2024-04-01] MEDS: ALBUTEROL 2.5 MG/3 ML NEB (ADULT) INH ×3 (06:02→20:08)
--- NOTE | 2024-04-01 06:57 | PC.NURSE ---
Patient OGT on LIS drained 650 ml of dark green fluid, still no bowel sound after 2 doses of Reglan.
[2024-04-01 07:35] LABS: Add Manual Diff / Slide Review NO; Basophils Absolute Auto 0 /uL (0-100); Basophils Percent Auto 0.2 % (0-2); Eosinophils Absolute Auto 300 /uL (0-450); Eosinophils Percent Auto 1.6 % (2-4); Hematocrit 21.2 % (36-46); Hemoglobin 7.1 g/dL (12.0-16.0); Lymphocytes Absolute Auto 1800 /uL (1100-4500); Lymphocytes Percent Auto 10.6 % (25-40); Mean Corpuscular HGB Conc 33.6 % (30-36); Mean Corpuscular Hemoglobin 29.7 PG (26-34); Mean Corpuscular Volume 88.4 fL (80-100); Monocytes Absolute Auto 900 /uL (0-900); Neutrophils Absolute Auto 14200 /uL (1500-7000); Neutrophils Percent Auto 82.6 % (50-75); Platelet Count 292 X10^3/uL (150-400); Red Cell Distribution Width 14.6 % (11.6-14.8); White Blood Cell Count 17.2 X10^3/uL (4.5-11.0)
[2024-04-01 07:46] LABS: Alanine Aminotransferase 54 IU/L (<35); Albumin 2.4 g/dL (3.5-5.0); Albumin Globulin Ratio 0.8 (1.0-2.8); Alkaline Phosphatase 199 U/L (38-126); Aspartate Aminotransferase 177 IU/L (14-36); BUN Creatinine Ratio 33.3 (6-22); Bilirubin Total 0.6 mg/dL (0.2-1.3); Blood Urea Nitrogen 32 mg/dL (7-17); Calcium 7.3 mg/dL (8.4-10.2); Carbon Dioxide 24 mmol/L (22-32); Chloride 108 mmol/L (98-107); Estimated Glomerular Filt Rate > 60 mL/min (>60); Glucose 108 mg/dL (70-100); HEMOLYSIS < 15 (0-50); Phosphorous 4.1 mg/dL (2.5-4.5); Potassium 3.5 mmol/L (3.4-5.1); Sodium 139 mmol/L (137-145); Total Protein 5.4 g/dL (6.3-8.2)
--- NOTE | 2024-04-01 08:24 | PM.PN.1 ---
Subjective Subjective Interval history: Interval summary: 8 F admitted with stercoral colitis which perfed now s/p Maye. She has remained intubated since her surgery. Unable to wean off sedation. Now spiking fever. Some fluid collections in her belly, blood cultures initially negative but now with yeast. Was on fluconazole but changed to Micafungin tonight. Also on meropenem and vanc. WBC is finally coming down. Unable to tolerated sedation vacations thus far.? S; not obtainable, intubated and sedated. Was started on as needed Reglan last night. Continues to have severe agitation with any attempts to turn her drips down. Exam Vital Signs (past 8 hours): - 04/01/24 00:30 04/01/24 00:30 04/01/24 00:48 Temperature 100.3 F H Pulse Rate 89 Respiratory Rate 40 H Blood Pressure 103/57 L Pulse Oximetry 95 Oxygen Delivery Method Fraction of Inspired Oxygen 04/01/24 01:00 04/01/24 01:00 04/01/24 01:29 Temperature 100.4 F H Pulse Rate 89 Respiratory Rate 38 H Blood Pressure 106/59 L Pulse Oximetry 95 Oxygen Delivery Method Fraction of Inspired Oxygen 04/01/24 02:00 04/01/24 02:00 04/01/24 02:00 Temperature Pulse Rate 88 Respiratory Rate 41 H Blood Pressure 100/54 L Pulse Oximetry 96 Oxygen Delivery Method Mechanical Ventilation Fraction of Inspired Oxygen 04/01/24 03:00 04/01/24 03:00 04/01/24 04:00 Temperature 99 F Pulse Rate 87 Respiratory Rate 42 H Blood Pressure 100/54 L Pulse Oximetry 95 Oxygen Delivery Method Fraction of Inspired Oxygen 04/01/24 04:00 04/01/24 04:00 04/01/24 05:00 Temperature Pulse Rate 87 Respiratory Rate 39 H Blood Pressure 106/51 L 104/55 L Pulse Oximetry 95 Oxygen Delivery Method Fraction of Inspired Oxygen 04/01/24 05:00 04/01/24 06:00 04/01/24 06:00 Temperature Pulse Rate 86 Respiratory Rate 41 H Blood Pressure 100/59 L Pulse Oximetry 95 Oxygen Delivery Method Mechanical Ventilation Fraction of Inspired Oxygen 04/01/24 06:00 04/01/24 06:02 Temperature Pulse Rate 89 89 Respiratory Rate 37 H 39 H Blood Pressure Pulse Oximetry 95 95 Oxygen Delivery Method Mechanical Ventilation Fraction of Inspired Oxygen 35 Fraction of Inspired Oxygen 35 SaO2/FiO2 Ratio 271 Oxygen Delivery Method Mechanical Ventilation Oxygen Flow Rate 0 Narrative Exam Narrative: Intubated, on ventilator. Sedated. Diaphoretic. Lungs are clear, heart is regular. Abdomen is distended, wound is unremarkable as are drains. There are minor bowel tones notable. Hands and feet are swollen. Skin is free of rash, or ecchymosis. Objective Labs 04/01/24 07:30 04/01/24 07:30 Labs: Laboratory Results - last 24 hr 03/29/24 03/31/24 03/31/24 08:38 10:00 16:20 WBC RBC Hgb Hct MCV MCH MCHC RDW Plt Count Neut % (Auto) Lymph % (Auto) Davison % (Auto) Eos % (Auto) Baso % (Auto) Neut # (Auto) Lymph # (Auto) Davison # (Auto) Eos # (Auto) Baso # (Auto) ABG Sample Site Left radial ABG pH 7.45 ABG pCO2 36.6 ABG pO2 75 L ABG HCO3 26 ABG Total CO2 26 ABG O2 Saturation 96 ABG Base Excess 1.9 Tacho Test Positive Respiration Rate 24 O2 Delivery Device Adult ventilator FiO2 % 35 % PEEP or CPAP 5 Sodium Potassium Chloride Carbon Dioxide BUN Creatinine Estimated GFR BUN/Creatinine Ratio Glucose Calcium Phosphorus Total Bilirubin AST ALT Alkaline Phosphatase Total Protein Albumin Globulin Albumin/Globulin Ratio Vancomycin Peak 27.1 A.calcoaceticus-baumannii cmplx PCR Not detected Bacteroides fragilis Not detected Katie albicans (PCR) Not detected Katie auris (PCR) Not detected C. glabrata (PCR) Not detected C. krusei (PCR) Not detected C. parapsilosis (PCR) Not detected C. tropicalis (PCR) Not detected C. neoform/gattii (PCR) Not detected Enterobacterales (PCR) Not detected E. cloacae complex PCR Not detected Enterococc faecalis PCR Not detected Enterococc faecium PCR Not detected E. coli (PCR) Not detected H. influenzae (PCR) Not detected Klebsiella aerogenes (PCR) Not detected Klebsiella oxytoca PCR Not detected Klebsiella pneumoniae Not detected List. monocytogenes PCR Not detected N. meningitidis (PCR) Not detected Proteus species (PCR) Not detected Salmonella spp. (PCR) Not detected Serratia marcescens PCR Not detected Staphylococcus sp PCR Not detected Staph aureus (PCR) Not detected mecA/C & MREJ Resist Gene Not applicable mecA/C-Methicil Resis Gene Not applicable mcr-1 Colistin Res Gene PCR Not applicable Staph epidermidis (PCR) Not detected Staph lugdunensis PCR Not detected S. maltophilia (PCR) Not detected Streptococcus sp PCR Not detected Group A Strep (PCR) Not detected Strep agalactiae (PCR) Not detected Strep pneumoniae (PCR) Not detected P. aeruginosa (PCR) Not detected Gee/B-Vanco Res Genes Not applicable blaIMP Car res Gene PCR Not applicable KPC-Carbap Res Gene PCR Not applicable blaNDM Car Res Gene PCR Not applicable OXA-48 Carbapenem Resis Gene (PCR) Not applicable blaVIM Car Res Gene PCR Not applicable CTX-M Gene Resistance (PCR) Not applicable 04/01/24 07:30 WBC 17.2 H RBC 2.40 L Hgb 7.1 L Hct 21.2 L MCV 88.4 MCH 29.7 MCHC 33.6 RDW 14.6 Plt Count 292 Neut % (Auto) 82.6 H Lymph % (Auto) 10.6 L Davison % (Auto) 5.0 Eos % (Auto) 1.6 L Baso % (Auto) 0.2 Neut # (Auto) 76994 H Lymph # (Auto) 1800 Davison # (Auto) 900 Eos # (Auto) 300 Baso # (Auto) 0 ABG Sample Site ABG pH ABG pCO2 ABG pO2 ABG HCO3 ABG Total CO2 ABG O2 Saturation ABG Base Excess Tacho Test Respiration Rate O2 Delivery Device FiO2 % PEEP or CPAP Sodium 139 Potassium 3.5 Chloride 108 H Carbon Dioxide 24 BUN 32 H Creatinine 0.96 Estimated GFR > 60 BUN/Creatinine Ratio 33.3 H Glucose 108 H Calcium 7.3 L Phosphorus 4.1 D Total Bilirubin 0.6 AST 177 H ALT 54 H Alkaline Phosphatase 199 H Total Protein 5.4 L Albumin 2.4 L Globulin 3.0 Albumin/Globulin Ratio 0.8 L Vancomycin Peak A.calcoaceticus-baumannii cmplx PCR Bacteroides fragilis Katie albicans (PCR) Katie auris (PCR) C. glabrata (PCR) C. krusei (PCR) C. parapsilosis (PCR) C. tropicalis (PCR) C. neoform/gattii (PCR) Enterobacterales (PCR) E. cloacae complex PCR Enterococc faecalis PCR Enterococc faecium PCR E. coli (PCR) H. influenzae (PCR) Klebsiella aerogenes (PCR) Klebsiella oxytoca PCR Klebsiella pneumoniae List. monocytogenes PCR N. meningitidis (PCR) Proteus species (PCR) Salmonella spp. (PCR) Serratia marcescens PCR Staphylococcus sp PCR Staph aureus (PCR) mecA/C & MREJ Resist Gene mecA/C-Methicil Resis Gene mcr-1 Colistin Res Gene PCR Staph epidermidis (PCR) Staph lugdunensis PCR S. maltophilia (PCR) Streptococcus sp PCR Group A Strep (PCR) Strep agalactiae (PCR) Strep pneumoniae (PCR) P. aeruginosa (PCR) Gee/B-Vanco Res Genes blaIMP Car res Gene PCR KPC-Carbap Res Gene PCR blaNDM Car Res Gene PCR OXA-48 Carbapenem Resis Gene (PCR) blaVIM Car Res Gene PCR CTX-M Gene Resistance (PCR) PFSH Medical History Eczema, dyshidrotic (~2020) Anxiety Chronic hepatitis C Osteoarthritis of both hands Hepatitis C antibody test positive Arthritis (Unknown) Chronic neck pain (Unknown) Hx of idiopathic thrombocytopenic purpura (2007) Surgical History Anesthesia H/O hernia repair Hx of arthroscopy of knee (~2002) History of splenectomy (2007) Status post knee replacement Family History Family/Other Adopted Social History household members: spouse Smoking Status: Current every day smoker quit status: considering quitting alcohol intake: current substance use type: does not use Assessment & Plan Assessment & Plan narrative: 1. Sepsis with septic shock secondary to perforated colon due to stercoral colitis with bacteroides bacteremia, possible candidemia s/p Maye procedure with hypotension, EUGENIO, acute metabolic encephalopathy, acute respiratory failure with hypoxia. 2. Acute hypoxemic respiratory failure, new and improving. 3. Acute kidney injury, improved 4. Chronic hepatitis-C, present on admission and active. 5. Prior splenectomy, present on admission and active. This related to ITP. 6. Fentanyl abuse and opiate dependence, present on admission and active. 7. DVT prophylaxis: SCDs 8. Post operative acute blood loss anemia. 9. Volume overload. 10. Ileus, new and active. Plan: -monitor h/h, continue meropenem, vancomycin per pharmacy, fluconazole changed to micafungin 100 mg daily on 03/31. Broadended from Zosyn to oscar/vanc on 03/29. -defer daily sedation vacations, start librium TID and Methadone 40 TID (as requested by ICU doctor). -discussed with surgery, dietary, increasing feeds today. -continue fentanyl, propofol, versed, and precedex for sedation. -HOB up, oral and skin care. -now diuresing with furosemide TID, have also ordered echo to make sure no component of heart failure with her severe volume overload which was unremarkable. -reordered blood cultures 03/29 with prior bacteremia to make sure antibiotics are effective and bacteremia cleared. These are growing yeast, changed fluconazole to micafungin 03/31 -repeat CT 03/31 with overall improved fluid appearance, probable aspiration in the lungs, but some ? loculated fluid collections in the upper abdomen. Follow up surgery recommendations of CT results. Full code. Surrogate is patient's spouse Spent 40 min critical care time, including meeting with family and ICU rounds with agricultural produce packer. Time-Based Coding :: [TOTAL MINUTES] spent with patient and on the chart (including review of chart, obtaining history, exam, reviewing outside data, placing orders, documenting exam and treatment plan, and counseling patient) on [DATE]. Quality VTE Deep Vein Thrombosis/Pulmonary Embolism Present on Admission: No
[2024-04-01] MEDS: VANCOMYCIN 1,250 MG/250 ML PIGGYBACK 250 MG IV ×2 (08:38→20:38)
[2024-04-01] MEDS: SODIUM CHLORIDE 0.9% FLUSH 10 ML IV ×2 (10:06→20:40)
[2024-04-01] MEDS: PANTOPRAZOLE 40 MG VIAL 20 MG IV (10:06)
[2024-04-01] MEDS: HEPARIN 5,000 UNIT/ML VIAL 5000 UNIT SUBCUT ×2 (10:06→20:39)
[2024-04-01 10:10] LABS: Triglycerides 345 mg/dL (35-150)
[2024-04-01] MEDS: MIDAZOLAM 50 MG in DEXTROSE 5 % IN WATER 40 ML IV (11:30)
--- NOTE | 2024-04-01 11:39 | P.PN_ITS ---
Subjective Subjective Date Patient Seen: 04/01/24 Time Patient Seen: 11:39 Interval history: Bilious NGT output No significant colostomy output Failed SBT this am Exam Vital Signs (past 8 hours): - 04/01/24 04:00 04/01/24 04:00 04/01/24 04:00 Temperature 99 F Pulse Rate 87 Respiratory Rate 39 H Blood Pressure 106/51 L Pulse Oximetry 95 Oxygen Delivery Method Fraction of Inspired Oxygen 04/01/24 05:00 04/01/24 05:00 04/01/24 06:00 Temperature Pulse Rate 86 Respiratory Rate 41 H Blood Pressure 104/55 L Pulse Oximetry 95 Oxygen Delivery Method Mechanical Ventilation Fraction of Inspired Oxygen 04/01/24 06:00 04/01/24 06:00 04/01/24 06:02 Temperature Pulse Rate 89 89 Respiratory Rate 37 H 39 H Blood Pressure 100/59 L Pulse Oximetry 95 95 Oxygen Delivery Method Mechanical Ventilation Fraction of Inspired Oxygen 35 04/01/24 07:00 04/01/24 07:00 04/01/24 08:00 Temperature 100.4 F H Pulse Rate 95 H Respiratory Rate 43 H Blood Pressure 106/53 L 98/54 L Pulse Oximetry 94 Oxygen Delivery Method Fraction of Inspired Oxygen 04/01/24 08:00 04/01/24 08:46 04/01/24 09:00 Temperature 100.3 F H Pulse Rate 93 H Respiratory Rate 44 H Blood Pressure 102/55 L Pulse Oximetry 94 Oxygen Delivery Method Fraction of Inspired Oxygen 04/01/24 09:00 04/01/24 10:00 04/01/24 10:00 Temperature Pulse Rate 91 H Respiratory Rate 41 H Blood Pressure 99/55 L Pulse Oximetry 95 Oxygen Delivery Method Mechanical Ventilation Fraction of Inspired Oxygen 04/01/24 10:00 Temperature Pulse Rate 88 Respiratory Rate 41 H Blood Pressure Pulse Oximetry 95 Oxygen Delivery Method Fraction of Inspired Oxygen Fraction of Inspired Oxygen 35 SaO2/FiO2 Ratio 271 Oxygen Delivery Method Mechanical Ventilation Oxygen Flow Rate 0 Narrative Exam Narrative: Gen-Adult woman sedated for mech ventilation Abdomen-Distended. Colostomy viable. Midine wound partially open with packing and ne. Drains without output Objective Labs 04/01/24 07:30 04/01/24 07:30 Labs: Laboratory Results - last 24 hr 03/29/24 03/31/24 03/31/24 08:38 10:00 16:20 WBC RBC Hgb Hct MCV MCH MCHC RDW Plt Count Neut % (Auto) Lymph % (Auto) Humphreys % (Auto) Eos % (Auto) Baso % (Auto) Neut # (Auto) Lymph # (Auto) Humphreys # (Auto) Eos # (Auto) Baso # (Auto) ABG Sample Site Left radial ABG pH 7.45 ABG pCO2 36.6 ABG pO2 75 L ABG HCO3 26 ABG Total CO2 26 ABG O2 Saturation 96 ABG Base Excess 1.9 Tacho Test Positive Respiration Rate 24 O2 Delivery Device Adult ventilator FiO2 % 35 % PEEP or CPAP 5 Sodium Potassium Chloride Carbon Dioxide BUN Creatinine Estimated GFR BUN/Creatinine Ratio Glucose Calcium Phosphorus Total Bilirubin AST ALT Alkaline Phosphatase Total Protein Albumin Globulin Albumin/Globulin Ratio Triglycerides Vancomycin Peak 27.1 A.calcoaceticus-baumannii cmplx PCR Not detected Bacteroides fragilis Not detected Katie albicans (PCR) Not detected Katie auris (PCR) Not detected C. glabrata (PCR) Not detected C. krusei (PCR) Not detected C. parapsilosis (PCR) Not detected C. tropicalis (PCR) Not detected C. neoform/gattii (PCR) Not detected Enterobacterales (PCR) Not detected E. cloacae complex PCR Not detected Enterococc faecalis PCR Not detected Enterococc faecium PCR Not detected E. coli (PCR) Not detected H. influenzae (PCR) Not detected Klebsiella aerogenes (PCR) Not detected Klebsiella oxytoca PCR Not detected Klebsiella pneumoniae Not detected List. monocytogenes PCR Not detected N. meningitidis (PCR) Not detected Proteus species (PCR) Not detected Salmonella spp. (PCR) Not detected Serratia marcescens PCR Not detected Staphylococcus sp PCR Not detected Staph aureus (PCR) Not detected mecA/C & MREJ Resist Gene Not applicable mecA/C-Methicil Resis Gene Not applicable mcr-1 Colistin Res Gene PCR Not applicable Staph epidermidis (PCR) Not detected Staph lugdunensis PCR Not detected S. maltophilia (PCR) Not detected Streptococcus sp PCR Not detected Group A Strep (PCR) Not detected Strep agalactiae (PCR) Not detected Strep pneumoniae (PCR) Not detected P. aeruginosa (PCR) Not detected Gee/B-Vanco Res Genes Not applicable blaIMP Car res Gene PCR Not applicable KPC-Carbap Res Gene PCR Not applicable blaNDM Car Res Gene PCR Not applicable OXA-48 Carbapenem Resis Gene (PCR) Not applicable blaVIM Car Res Gene PCR Not applicable CTX-M Gene Resistance (PCR) Not applicable 04/01/24 07:30 WBC 17.2 H RBC 2.40 L Hgb 7.1 L Hct 21.2 L MCV 88.4 MCH 29.7 MCHC 33.6 RDW 14.6 Plt Count 292 Neut % (Auto) 82.6 H Lymph % (Auto) 10.6 L Humphreys % (Auto) 5.0 Eos % (Auto) 1.6 L Baso % (Auto) 0.2 Neut # (Auto) 12478 H Lymph # (Auto) 1800 Humphreys # (Auto) 900 Eos # (Auto) 300 Baso # (Auto) 0 ABG Sample Site ABG pH ABG pCO2 ABG pO2 ABG HCO3 ABG Total CO2 ABG O2 Saturation ABG Base Excess Tacho Test Respiration Rate O2 Delivery Device FiO2 % PEEP or CPAP Sodium 139 Potassium 3.5 Chloride 108 H Carbon Dioxide 24 BUN 32 H Creatinine 0.96 Estimated GFR > 60 BUN/Creatinine Ratio 33.3 H Glucose 108 H Calcium 7.3 L Phosphorus 4.1 D Total Bilirubin 0.6 AST 177 H ALT 54 H Alkaline Phosphatase 199 H Total Protein 5.4 L Albumin 2.4 L Globulin 3.0 Albumin/Globulin Ratio 0.8 L Triglycerides 345 H Vancomycin Peak A.calcoaceticus-baumannii cmplx PCR Bacteroides fragilis Katie albicans (PCR) Katie auris (PCR) C. glabrata (PCR) C. krusei (PCR) C. parapsilosis (PCR) C. tropicalis (PCR) C. neoform/gattii (PCR) Enterobacterales (PCR) E. cloacae complex PCR Enterococc faecalis PCR Enterococc faecium PCR E. coli (PCR) H. influenzae (PCR) Klebsiella aerogenes (PCR) Klebsiella oxytoca PCR Klebsiella pneumoniae List. monocytogenes PCR N. meningitidis (PCR) Proteus species (PCR) Salmonella spp. (PCR) Serratia marcescens PCR Staphylococcus sp PCR Staph aureus (PCR) mecA/C & MREJ Resist Gene mecA/C-Methicil Resis Gene mcr-1 Colistin Res Gene PCR Staph epidermidis (PCR) Staph lugdunensis PCR S. maltophilia (PCR) Streptococcus sp PCR Group A Strep (PCR) Strep agalactiae (PCR) Strep pneumoniae (PCR) P. aeruginosa (PCR) Gee/B-Vanco Res Genes blaIMP Car res Gene PCR KPC-Carbap Res Gene PCR blaNDM Car Res Gene PCR OXA-48 Carbapenem Resis Gene (PCR) blaVIM Car Res Gene PCR CTX-M Gene Resistance (PCR) PFSH Medical History Eczema, dyshidrotic (~2020) Anxiety Chronic hepatitis C Osteoarthritis of both hands Hepatitis C antibody test positive Arthritis (Unknown) Chronic neck pain (Unknown) Hx of idiopathic thrombocytopenic purpura (2007) Surgical History Anesthesia H/O hernia repair Hx of arthroscopy of knee (~2002) History of splenectomy (2007) Status post knee replacement Family History Family/Other Adopted Social History household members: spouse Smoking Status: Current every day smoker quit status: considering quitting alcohol intake: current substance use type: does not use Assessment & Plan Post-op Postoperative Procedures: Procedures Operation Date: 03/26/24 13:15 Actual Procedure Side Surgeon p Exploratory Laparotomy GEN with colostomy and wound vac placement Molly Nugent MD Postoperative status narrative: Postoperative day 6 status post laparotomy with end colostomy. Remains intubated difficulty weaning from the vent -postoperative ileus. Continue nasogastric tube to suction as needed. Okay to use tube for medication and trickle feed as able. -continue TPN -extubate as able Quality VTE Deep Vein Thrombosis/Pulmonary Embolism Present on Admission: No
[2024-04-01] MEDS: chlordiazePOXIDE 25 MG CAPSULE 50 MG PO ×2 (12:01→18:25)
--- NOTE | 2024-04-01 12:42 | P.TELICUPN_ITS ---
Subjective Subjective IF CAMERA ACTIVATED, patient seen via real-time interactive audiovisual communication: Camera activated Date Patient Seen: 04/01/24 Consent obtained for tele-interior plant caretaker care: Yes Patient Location: ICU Provider location (State): [place] Other participants/roles: RN, Hospitalist Interval history: pt remains on TPN, however sedation remians the biggest challenge with her on multiple sedatives to maintain an adequate RASS. Current Medications Current Medications Medications: Home Medications ibuprofen 800 mg tablet 800 mg PO QD-TID PRN severe back or joint pain #90 tabs 11/30/23 [Rx Confirmed 03/21/24] estradiol 1 mg tablet 1 mg PO QDAY #90 tabs 03/07/24 [Rx Confirmed 03/21/24] albuterol sulfate 90 mcg/actuation aerosol inhaler 1 puff inhalation QID PRN Shortness Of Breath Or Wheezing 03/21/24 [History Confirmed 03/21/24] fluticasone 250 mcg-salmeterol 50 mcg/dose blistr powdr for inhalation (Racquel Inhub) 1 inh inhalation BID 03/21/24 [History Confirmed 03/21/24] Visit Medications (administered) Generic Name Dose Route Start Last Admin Trade Name Freq PRN Reason Stop Dose Admin Acetaminophen 650 mg 03/30/24 18:18 04/01/24 08:46 Acetaminophen Susp 650 Mg/20.3 Ml Udc PO 650 mg Q6H PRN Administration Fever/Mild Pain (1-3) Albuterol 2.5 mg 03/22/24 00:08 03/25/24 01:29 Albuterol 2.5 Mg/3 Ml Neb (Adult) INH 2.5 mg [id number] PRN Administration Shortness Of Breath Albuterol 2.5 mg 03/23/24 07:00 04/01/24 06:02 Albuterol 2.5 Mg/3 Ml Neb (Adult) INH 2.5 mg [id number] SHAHRAM Administration Alprazolam 0.25 mg 03/22/24 04:38 03/26/24 10:06 Alprazolam 0.25 Mg Tablet PO 0.25 mg Q6H PRN Administration Anxiety Bisacodyl 10 mg 03/22/24 17:36 03/23/24 17:48 Bisacodyl 10 Mg Supp NC 10 mg PRN PRN Administration Constipation Budesonide 0.5 mg 03/22/24 08:00 04/01/24 06:02 Budesonide 0.5 Mg/2 Ml Neb INH 0.5 mg RTBID SHAHRAM Administration Chlordiazepoxide HCl 50 mg 04/01/24 12:00 04/01/24 12:01 Chlordiazepoxide 25 Mg Capsule PO 50 mg Q6HR SHAHRAM Administration Chlorhexidine Gluconate 15 ml 03/26/24 18:00 04/01/24 12:05 Chlorhexidine Gluconate 15 Ml Cup PO 15 ml Q6HR SHAHRAM Administration Estradiol 1 mg 03/24/24 09:00 04/01/24 09:58 Estradiol 1 Mg Tablet PO Not Given DAILY SHAHRAM Heparin Sodium (Porcine) 5,000 unit 03/21/24 21:00 04/01/24 10:06 Heparin 5,000 Unit/Ml Vial SUBCUT 5,000 unit BID SHAHRAM Administration Heparin Sodium (Porcine) 50 unit 03/27/24 21:00 04/01/24 10:04 Heparin Flush (Cl/Picc/Mid-Line) 50 Unit/5 Ml Syringe IV Not Given BID SHAHRAM Hydromorphone HCl 0.5 mg 03/26/24 11:42 03/28/24 14:19 Hydromorphone 0.5 Mg Inj IV 0.5 mg Q1H PRN Administration Pain, Severe (7-10) Propofol 1,000 mg in 100 mls @ 2.04 mls/hr 03/26/24 16:15 04/01/24 07:57 Propofol IV 40 mcg/kg/min TITRATE SHAHRAM 16.32 mls/hr Administration Protocol 5 MCG/KG/MIN Fentanyl 1,000 mcg/ Dextrose 250 mls @ 11.9 mls/hr 03/26/24 17:15 04/01/24 03:33 IV 1.4 mcg/kg/hr TITRATE SHAHRAM 23.8 mls/hr Administration Protocol 0.7 MCG/KG/HR Sodium Chloride 500 mls @ 1,000 mls/hr 03/27/24 15:44 03/28/24 09:14 Normal Saline 0.9% IV Infused BOLUS PRN Infusion Fluid replacement dexmedeTOMIDine in 0.9 % NaCL 400 mcg in 100 mls @ 3.4 mls/hr 03/27/24 16:00 04/01/24 09:33 Precedex IV 1.5 mcg/kg/hr TITRATE SHAHRAM 25.5 mls/hr Administration Protocol 0.2 MCG/KG/HR NOREPINEPHRINE BITARTRATE/D5W 4 mg in 250 mls @ 25.5 mls/hr 03/27/24 20:39 03/31/24 18:31 Levophed IV 0 mcg/kg/min TITRATE SHAHRAM 0 mls/hr Titration Protocol 0.1 MCG/KG/MIN Meropenem 1 gm/ Sodium 100 mls @ 200 mls/hr 03/29/24 18:15 04/01/24 11:30 Chloride IV Infused Q8H SHAHRAM Infusion Midazolam HCl 50 mg/ Dextrose 50 mls @ 1.36 mls/hr 03/31/24 10:15 04/01/24 11:30 IV 0.06 mg/kg/hr TITRATE PRN 4 mls/hr Agitation Administration Protocol 0.02 MG/KG/HR Multivitamins 10 ml/ Chromium/ 522 mls @ 21.75 mls/hr 03/31/24 17:00 03/31/24 17:18 Copper/Manganese/Seleni/Zn 1 IV 04/01/24 16:59 21.75 mls/hr ml/ Thiamine HCl 100 mg/ 1700 SHAHRAM Administration Potassium Chloride 20 meq/ Amino Acids/Electrolytes Micafungin Sodium 100 mg/ 100 mls @ 100 mls/hr 03/31/24 17:30 03/31/24 20:14 Sodium Chloride IV Infused Q24H SHAHRAM Infusion Vancomycin HCl 1,250 mg in 250 mls @ 250 mls/hr 03/31/24 20:00 04/01/24 11:30 Vancomycin IV Infused Q12H SHAHRAM Infusion Insulin Human Lispro 0 unit 03/28/24 14:00 04/01/24 08:40 Insulin Lispro 100 Unit/Ml 3ml Vial SUBCUT Not Given Q6H [facility] Protocol Lorazepam 2 mg 03/29/24 18:01 03/30/24 19:25 Lorazepam 2 Mg/Ml Inj IV 2 mg Q2HR PRN Administration Anxiety Nicotine 14 mg 03/23/24 17:50 04/01/24 10:04 Nicotine 14 Patch TOP Not Given DAILY [facility] Ondansetron HCl 4 mg 03/21/24 11:20 03/21/24 11:29 Ondansetron 4 Mg/2 Ml Inj IV 4 mg NOW PRN Administration Nausea And Vomiting Pantoprazole Sodium 20 mg 03/27/24 09:00 04/01/24 10:06 Pantoprazole 40 Mg Vial IV 20 mg DAILY SHAHRAM Administration Sodium Chloride 10 ml 03/25/24 09:00 04/01/24 10:06 Sodium Chloride 0.9% Flush IV 10 ml BID SHAHRAM Administration Objective Ventilator Parameters: Ventilator Settings FiO2 35 RT Vent Frequency 24 Ventilator Tidal Volume 330 Exhaled Vt/kg IBW 6 Positive End Expiratory 5 Pressure Inspiratory Phase Time 0.55 I:E Ratio 1:1.6 Patient Position HOB >= 30 degrees Labs 04/01/24 07:30 04/01/24 07:30 Labs: Laboratory Results - last 24 hr 03/29/24 03/31/24 04/01/24 08:38 16:20 07:30 WBC 17.2 H RBC 2.40 L Hgb 7.1 L Hct 21.2 L MCV 88.4 MCH 29.7 MCHC 33.6 RDW 14.6 Plt Count 292 Neut % (Auto) 82.6 H Lymph % (Auto) 10.6 L [place] % (Auto) 5.0 Eos % (Auto) 1.6 L Baso % (Auto) 0.2 Neut # (Auto) 62741 H Lymph # (Auto) 1800 [place] # (Auto) 900 Eos # (Auto) 300 Baso # (Auto) 0 ABG Sample Site Left radial ABG pH 7.45 ABG pCO2 36.6 ABG pO2 75 L ABG HCO3 26 ABG Total CO2 26 ABG O2 Saturation 96 ABG Base Excess 1.9 Tacho Test Positive Respiration Rate 24 O2 Delivery Device Adult ventilator FiO2 % 35 % PEEP or CPAP 5 Sodium 139 Potassium 3.5 Chloride 108 H Carbon Dioxide 24 BUN 32 H Creatinine 0.96 Estimated GFR > 60 BUN/Creatinine Ratio 33.3 H Glucose 108 H Calcium 7.3 L Phosphorus 4.1 D Total Bilirubin 0.6 AST 177 H ALT 54 H Alkaline Phosphatase 199 H Total Protein 5.4 L Albumin 2.4 L Globulin 3.0 Albumin/Globulin Ratio 0.8 L Triglycerides 345 H A.calcoaceticus-baumannii cmplx PCR Not detected Bacteroides fragilis Not detected Katie albicans (PCR) Not detected Katie auris (PCR) Not detected C. glabrata (PCR) Not detected C. krusei (PCR) Not detected C. parapsilosis (PCR) Not detected C. tropicalis (PCR) Not detected C. neoform/gattii (PCR) Not detected Enterobacterales (PCR) Not detected E. cloacae complex PCR Not detected Enterococc faecalis PCR Not detected Enterococc faecium PCR Not detected E. coli (PCR) Not detected H. influenzae (PCR) Not detected Klebsiella aerogenes (PCR) Not detected Klebsiella oxytoca PCR Not detected Klebsiella pneumoniae Not detected List. monocytogenes PCR Not detected N. meningitidis (PCR) Not detected Proteus species (PCR) Not detected Salmonella spp. (PCR) Not detected Serratia marcescens PCR Not detected Staphylococcus sp PCR Not detected Staph aureus (PCR) Not detected mecA/C & MREJ Resist Gene Not applicable mecA/C-Methicil Resis Gene Not applicable mcr-1 Colistin Res Gene PCR Not applicable Staph epidermidis (PCR) Not detected Staph lugdunensis PCR Not detected S. maltophilia (PCR) Not detected Streptococcus sp PCR Not detected Group A Strep (PCR) Not detected Strep agalactiae (PCR) Not detected Strep pneumoniae (PCR) Not detected P. aeruginosa (PCR) Not detected Gee/B-Vanco Res Genes Not applicable blaIMP Car res Gene PCR Not applicable KPC-Carbap Res Gene PCR Not applicable blaNDM Car Res Gene PCR Not applicable OXA-48 Carbapenem Resis Gene (PCR) Not applicable blaVIM Car Res Gene PCR Not applicable CTX-M Gene Resistance (PCR) Not applicable Exam Vital Signs (past 8 hours): - 04/01/24 05:00 04/01/24 05:00 04/01/24 06:00 Temperature Pulse Rate 86 Respiratory Rate 41 H Blood Pressure 104/55 L Pulse Oximetry 95 Oxygen Delivery Method Mechanical Ventilation Fraction of Inspired Oxygen 04/01/24 06:00 04/01/24 06:00 04/01/24 06:02 Temperature Pulse Rate 89 89 Respiratory Rate 37 H 39 H Blood Pressure 100/59 L Pulse Oximetry 95 95 Oxygen Delivery Method Mechanical Ventilation Fraction of Inspired Oxygen 35 04/01/24 07:00 04/01/24 07:00 04/01/24 08:00 Temperature 100.4 F H Pulse Rate 95 H Respiratory Rate 43 H Blood Pressure 106/53 L 98/54 L Pulse Oximetry 94 Oxygen Delivery Method Fraction of Inspired Oxygen 04/01/24 08:00 04/01/24 08:46 04/01/24 09:00 Temperature 100.3 F H Pulse Rate 93 H Respiratory Rate 44 H Blood Pressure 102/55 L Pulse Oximetry 94 Oxygen Delivery Method Fraction of Inspired Oxygen 04/01/24 09:00 04/01/24 10:00 04/01/24 10:00 Temperature 100.7 F H Pulse Rate 91 H Respiratory Rate 41 H Blood Pressure 99/55 L Pulse Oximetry 95 Oxygen Delivery Method Mechanical Ventilation Fraction of Inspired Oxygen 04/01/24 10:00 04/01/24 11:00 04/01/24 11:00 Temperature Pulse Rate 88 87 Respiratory Rate 41 H 37 H Blood Pressure 97/52 L Pulse Oximetry 95 95 Oxygen Delivery Method Fraction of Inspired Oxygen 04/01/24 12:00 04/01/24 12:00 Temperature Pulse Rate 86 Respiratory Rate 40 H Blood Pressure 93/55 L Pulse Oximetry 96 Oxygen Delivery Method Fraction of Inspired Oxygen Fraction of Inspired Oxygen 35 SaO2/FiO2 Ratio 271 Oxygen Delivery Method Mechanical Ventilation Oxygen Flow Rate 0 Narrative Exam Narrative: inutbated sedated rate controlled symmetric chest rise Quality TeleICU VTE Deep Vein Thrombosis/Pulmonary Embolism Present on Admission: No Assessment & Plan Assessment & Plan narrative: A/P: Neuro: # Acute encephalopathy -- Secondary to sepsis and sedatives, concern for withdrawal -- Intubated and sedated -- Daily SAT -- On propofol ,fentayl & precedex gtt -- RASS goal -2 - -3 -- Continue clonidine. -- will add po methadone and librium to allow for weaning of drips RESP: # Acute respiratory insufficiency -- Intubated and sedated -- Secondary to sepsis w/ ALI -- LTVV --trend abg -- HOB elevation - Aspiration precaution -- Goal SpO2 > 88% -- Daily SAT and SBT -- lasix to 40 mg prn for euvolemia CVS: -- MAP goal > 65 -- Sepsis rx as below -- Now off pressors related to sedation. ID: # severe sepsis -- Secondary to bowel perforation -- On zosyn and fluconazole -- Follow up cx -- MAP goal > 65 -- fluid resuscitation GI: # Sterocoral colitis c/w perofration -- s/p ex-lap w/ Maye procedure -- Pending surgery rec in checking abdomen imaging, holding TF. -- TPN -- would hold prokinetic agetns ENDO: -- Goal BS < 180 -- Need accucheck every 6 hr Renal -- trend bmp -- monitoir UO -- bicarb is imrpoving heme -- trend h/u goal hgb > 7 VTE: Heparin SQ PPI: Protonix IV daily CCT 35 min Time-Based Coding :: [TOTAL MINUTES] spent with patient and on the chart (including review of chart, obtaining history, exam, reviewing outside data, placing orders, documenting exam and treatment plan, and counseling patient) on [DATE].
[2024-04-01] MEDS: METHADONE 10 MG TABLET 20 MG PO ×2 (15:00→20:36)
--- NOTE | 2024-04-01 15:31 | DIET.PN1 ---
Dietary Progress Note RD f/u: Pt continuing to have minimal bowel tones, overbreathing vent, bilious output from NG on LIS. Pt continuing 1L Clinimix 5/20 providing 95% EER for calories and 50% EER for protein. TPN volume limited by fluid overload status and high use propofol for sedation contributing +500kcals daily. If pts propofol decreases to 25mcg/kg/min, recc increasing TPN to 1.5L bag tomorrow with rate of 62mL/h to better meet protein needs for healing perforation. Surgery okay with restarting trickle enteral feed of Pivot 1.5 at 10mL/h when pt has signs of bowel function, pt not currently appropriate for EN. Recc continuing TPN, not stopping, as trickle feed not meant to provide appreciable nourishment. Ht: 162.56 cm Wt: 68 kg BMI: 23.3 UBW: 62kg Last BM: 03/26/24 (03/26/24 09:20) MNA: 12 Sven Score: 9 Diet: 03/26/24 12:15 NPO Diet Diet Modifications: May Advance Diet as Tolerated: No NPO Type: Strict 03/30/24 Lunch caregiver tray [Courtesy Tray (Peds, comfort care)] Diet Modifications: Labs: RBC 2.40 X10^6/uL (4.0-5.2) L 04/01/24 07:30 Hgb 7.1 g/dL (12.0-16.0) L 04/01/24 07:30 Hct 21.2 % (36-46) L 04/01/24 07:30 Creatinine 0.96 mg/dL (0.52-1.04) 04/01/24 07:30 Lactate 2.0 mmol/L (0.7-2.1) 03/28/24 06:10 Monitoring/Evaluations: following daily for changes Electronically Signed by: Chacha Jackson 04/01/24 15:31 Clinical Dietitian [address] [address]
--- NOTE | 2024-04-01 17:23 | PC.NURSE ---
Patient with bowel tones at start of shift, at most recent reassessment no bowel tones heard. Had second nurse confirm the absence of bowel tones. Provider made aware of change.
[2024-04-01] MEDS: AA 5 %/CALCIUM/LYTES/DEXT 20 % 1,000 ML with MULTIVITAMIN 10 ML, TRACE ELEMENTS 1 ML, T... 43 ML IV (17:32)
[2024-04-01] MEDS: MICAFUNGIN 100 MG in SODIUM CHLORIDE 0.9% 100 ML IV (17:32)
--- NOTE | 2024-04-01 18:16 | PC.NURSE ---
Patient's HR increased and oxygen saturations decreased @ 1800 during bed bath. RT called for evaluation, Dr Torres at bedside and made aware of changes. Patients lungs are coarse in comparison to last respiratory assessment by this RN after bed bath and turning for bed change and repositioning. RT increased Fio2 to 45 from 35.
--- NOTE | 2024-04-01 19:58 | PM.ICURNDS ---
- Date Patient Seen: 04/01/24 Time Patient Seen: 19:58 :: This patient was seen via real time interactive two-way audiovisual telecommunication. Note: Remains intubated and sedated. Reglan discontinued. Off pressor. On micafungin, meropenem, and vancomycin. Cont daily SAT and SBT. Pending transfer to tertiary care. D/w bedside RN.
[2024-04-02] VITALS (16 sets, daily range): BP systolic 90–97; BP diastolic 50–56; PULSE 88–93; RESP 28–35; TEMP 37.2; O2SAT 95–97
[2024-04-02] MEDS: CHLORHEXIDINE GLUCONATE 15 ML CUP PO ×2 (00:11→05:39)
[2024-04-02] MEDS: chlordiazePOXIDE 25 MG CAPSULE 50 MG PO ×2 (00:11→05:39)
[2024-04-02] MEDS: MIDAZOLAM 50 MG in DEXTROSE 5 % IN WATER 40 ML IV (00:12)
[2024-04-02] MEDS: propofoL 1,000 MG/100 ML VIAL 12.24 MG IV ×2 (01:04→08:10)
[2024-04-02] MEDS: fentaNYL 1,000 MCG in DEXTROSE 5% IN WATER 230 ML 20.4 MCG IV (01:15)
[2024-04-02] MEDS: MEROPENEM 1 GM in SODIUM CHLORIDE 0.9% 100 ML IV (01:17)
[2024-04-02] MEDS: dexmedeTOMIDine in 0.9 % NaCL 400 MCG/100 ML PLAST..BAG 20.4 MCG IV (01:17)
[2024-04-02] MEDS: dexmedeTOMIDine in 0.9 % NaCL 400 MCG/100 ML PLAST..BAG 17 MCG IV ×2 (06:19→11:39)
[2024-04-02] MEDS: ALBUTEROL 2.5 MG/3 ML NEB (ADULT) INH (06:27)
[2024-04-02] MEDS: BUDESONIDE 0.5 MG/2 ML NEB INH (06:28)
--- NOTE | 2024-04-02 07:13 | DI.RAD.S_ITS ---
PROCEDURE: XR CHEST 1V INDICATIONS: vented pts TECHNIQUE: One view of the chest was acquired. COMPARISON: [facility], CR, XR CHEST 1V, 03/31/2024, 9:20. FINDINGS: Surgical changes and devices: ET tube and NG tube in satisfactory position. Left upper abdominal clips. Lungs and pleura: Posteriorly layering right pleural effusion. Bibasilar atelectasis versus consolidation. Mediastinum: Mediastinal contours appear normal. Heart size is normal. Bones and chest wall: No suspicious bony lesions. Overlying soft tissues appear unremarkable. IMPRESSION: 1. Lines and tubes in satisfactory position. 2. Right pleural effusion. 3. Bibasilar atelectasis versus consolidation. Dictated by: Bob Coker M.D. on 04/02/2024 at 8:25 Approved by: Bob Coker M.D. on 04/02/2024 at 8:26
[2024-04-02 07:30] LABS: Mean Corpuscular HGB Conc 32.7 % (30-36); Mean Corpuscular Hemoglobin 29.1 PG (26-34); Platelet Count 350 X10^3/uL (150-400); Red Blood Cell Count 2.18 X10^6/uL (4.0-5.2); Red Cell Distribution Width 14.7 % (11.6-14.8); White Blood Cell Count 17.6 X10^3/uL (4.5-11.0)
[2024-04-02 07:36] LABS: BUN Creatinine Ratio 29.6 (6-22); Blood Urea Nitrogen 47 mg/dL (7-17); Calcium 7.4 mg/dL (8.4-10.2); Carbon Dioxide 20 mmol/L (22-32); Chloride 108 mmol/L (98-107); Estimated Glomerular Filt Rate 38 mL/min (>60); Glucose 114 mg/dL (70-100); HEMOLYSIS < 15 (0-50); Potassium 3.8 mmol/L (3.4-5.1); Sodium 138 mmol/L (137-145)
[2024-04-02 07:37] LABS: Phosphorous 6.6 mg/dL (2.5-4.5)
[2024-04-02 07:41] LABS: Hematocrit 19.5 % (36-46); Hemoglobin 6.4 g/dL (12.0-16.0)
[2024-04-02 07:43] LABS: Magnesium 2.2 mg/dL (1.6-2.3)
--- NOTE | 2024-04-02 08:04 | PM.PN.1 ---
Subjective Subjective Interval history: Interval summary: 58 F admitted with stercoral colitis which perfed now s/p Maye. She has remained intubated since her surgery. Unable to wean off sedation. Now spiking fever. Some fluid collections in her belly, blood cultures initially negative but now with yeast. Was on fluconazole but changed to Micafungin tonight. Also on meropenem and vanc. WBC is finally coming down. Unable to tolerated sedation vacations thus far.? Overnight events: The patient has developed anemia with a hemoglobin of 6. She was also developing EUGENIO, and hyperphosphatemia. She did have a high vanco trough this morning of 30.1. Exam Vital Signs (past 8 hours): - 04/02/24 01:00 04/02/24 01:00 04/02/24 02:00 Temperature Pulse Rate 88 Respiratory Rate 32 H Blood Pressure 91/53 L 96/54 L Pulse Oximetry 96 Oxygen Delivery Method 04/02/24 02:00 04/02/24 03:00 04/02/24 03:00 Temperature Pulse Rate 88 89 Respiratory Rate 35 H 34 H Blood Pressure 94/54 L Pulse Oximetry 97 96 Oxygen Delivery Method 04/02/24 04:00 04/02/24 04:00 04/02/24 04:00 Temperature 98.9 F Pulse Rate 89 Respiratory Rate 33 H Blood Pressure 91/50 L Pulse Oximetry 96 Oxygen Delivery Method Mechanical Ventilation 04/02/24 05:00 04/02/24 05:00 04/02/24 06:00 Temperature Pulse Rate 89 Respiratory Rate 35 H Blood Pressure 92/55 L 92/51 L Pulse Oximetry 97 Oxygen Delivery Method 04/02/24 06:00 Temperature Pulse Rate 90 Respiratory Rate 34 H Blood Pressure Pulse Oximetry 97 Oxygen Delivery Method Fraction of Inspired Oxygen 35 SaO2/FiO2 Ratio 271 Oxygen Delivery Method Mechanical Ventilation Oxygen Flow Rate 0 Narrative Exam Narrative: Intubated sedated, on the ventilator. PICC line in place. Conjugate pupils. Lungs are clear with some coarse sounds. Heart is regular, no murmur. Abdomen is somewhat distended, the wound is oozing. She was edema of the hands, feet and pelvic region. No ecchymosis. Carreno catheter is in place. Objective Labs 04/02/24 07:10 04/02/24 07:10 Labs: Laboratory Results - last 24 hr 04/01/24 04/02/24 07:30 07:10 WBC 17.6 H RBC 2.18 L Hgb 6.4 L* Hct 19.5 L* MCV 89.0 MCH 29.1 MCHC 32.7 RDW 14.7 Plt Count 350 Sodium 138 Potassium 3.8 Chloride 108 H Carbon Dioxide 20 L BUN 47 H Creatinine 1.59 H Estimated GFR 38 L BUN/Creatinine Ratio 29.6 H Glucose 114 H Calcium 7.4 L Phosphorus 6.6 H D Magnesium 2.2 Triglycerides 345 H Vancomycin Trough 31.0 H* PFSH Medical History Eczema, dyshidrotic (~2020) Anxiety Chronic hepatitis C Osteoarthritis of both hands Hepatitis C antibody test positive Arthritis (Unknown) Chronic neck pain (Unknown) Hx of idiopathic thrombocytopenic purpura (2007) Surgical History Anesthesia H/O hernia repair Hx of arthroscopy of knee (~2002) History of splenectomy (2007) Status post knee replacement Family History Family/Other Adopted Social History household members: spouse Smoking Status: Current every day smoker quit status: considering quitting alcohol intake: current substance use type: does not use Assessment & Plan Assessment & Plan narrative: 1. Sepsis with septic shock secondary to perforated colon due to stercoral colitis with bacteroides bacteremia, possible candidemia s/p Maye procedure with hypotension, EUGENIO, acute metabolic encephalopathy, acute respiratory failure with hypoxia. 2. Acute hypoxemic respiratory failure, new and improving. 3. Acute kidney injury, improved 4. Chronic hepatitis-C, present on admission and active. 5. Prior splenectomy, present on admission and active. This related to ITP. 6. Fentanyl abuse and opiate dependence, present on admission and active. 7. DVT prophylaxis: SCDs 8. Acute blood loss anemia. Worse on April 02. 9. Volume overload. 10. Ileus, new and active. 11. Acute kidney injury, new and active. 12. Hyperphosphatemia, new and active. Plan: -continue antibiotics and antifungals. -discuss with surgery. -request transfer ([facility]). Time-Based Coding :: 30 min spent with patient and on the chart (including review of chart, obtaining history, exam, reviewing outside data, placing orders, documenting exam and treatment plan, and counseling patient) on 04/02.. Quality VTE Deep Vein Thrombosis/Pulmonary Embolism Present on Admission: No
[2024-04-02] MEDS: VANCOMYCIN TROUGH 1 REQUEST MISC (08:12)
[2024-04-02] MEDS: METHADONE 10 MG TABLET 20 MG PO (09:09)
[2024-04-02] MEDS: PANTOPRAZOLE 40 MG VIAL 20 MG IV (09:09)
[2024-04-02] MEDS: SODIUM CHLORIDE 0.9% FLUSH 10 ML IV (09:10)
--- NOTE | 2024-04-02 10:57 | P.DS_ITS ---
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 States little bit of back pain but states it is mostly in the front. She states she has had bowel movements she denies black or bloody stools denies diarrhea or constipation. States she was felt like she is needed to urinate and felt very painful when she needs to urinate but has not been able to actually urinate since this morning. Patient appears quite uncomfortable during evaluation. She states she is on prescription medications but has trouble remembering what they are currently. States she has had prior splenectomy. Denies any drug allergies, uses tobacco daily denies alcohol denies recreational drugs but has history of methamphetamine and opiate abuse. Primary care physician is Dr. Sanchez. Additional informational: She has been ill for about 2 days. She was diffuse abdominal pain which feels cramping like gas pain. She has had some small amounts of diarrhea but nothing high volume or constant. She has had pain like this before which improved with a GI cocktail. She denies any fevers, chills, vomiting, or hematemesis. No hematuria, or dysuria. A Carreno was placed in the ED with a about 300 mL of urine out. She notes some difficulty getting her urine to come out recently but no bleeding, or burning. Discharge Providers Provider Date of admission: 03/21/24 18:14 Discharge Date: 04/02/24 Primary care physician: Tangela Sanchez DO Consults: 03/21/24 18:54 Consult to General Surgery Routine Comment: Consulting Provider: Kike Aquino Reason for consultation: Acute abdomen 03/26/24 16:12 Consult to Tele-tie mill operator Routine Comment: Consulting Provider: Antony [employer] Reason for consultation: [employer] Has provider been notified: Yes 03/26/24 16:52 Consult to Dietitian, Adult Routine Comment: Reason For Exam: Patient on Ventilator and NPO 03/27/24 09:12 Consult After Hours PICC Line RN Routine Comment: Discharge provider: Tacho Torres MD Summary Hospital Course Discharge Diagnosis: 1. Sepsis with septic shock secondary to perforated colon due to stercoral colitis with bacteroides bacteremia. 2. Acute hypoxemic respiratory failure, new and improving. 3. Acute kidney injury, improved 4. Chronic hepatitis-C, present on admission and active. 5. Prior splenectomy, present on admission and active. This related to ITP. 6. Fentanyl abuse and opiate dependence, present on admission and active. 7. DVT prophylaxis: SCDs 8. Acute blood loss anemia. Worse on April 02. 9. Volume overload. 10. Ileus, new and active. 11. Acute kidney injury, new and active. 12. Hyperphosphatemia, new and active. 13. Candidemia, new and active. 14. Bacteroides bacteremia, improving. Hospital Course: The patient initially [place] [id number]. This is in context of chronic fentanyl abuse. Her CT scan revealed a entero colitis. A stool PCR was negative. She was treated with empiric antibiotics. She would began stooling and improved over the next several days as did her white count. She then had acute abdominal pain and imaging revealed a perforation. She was taken to the operating room and found to have a perforation in the sigmoid colon. She underwent a diverting ileostomy in a Maye's pouch. She had significant fecal spillage and underwent a washout. In the post surgical phase she was intubated and has been on the ventilator for the last 7 days. She was not been able to tolerate any decreases in her sedation, which have included propofol, Versed, fentanyl infusion, as well as Precedex. She developed worsening EUGENIO in the morning of April 02 and had a vanco trough of 30.1. She has been on meropenem, micafungin, and vancomycin. Blood cultures were positive for Bacteroides distasonis on March 21. This is 1 of 2 cultures. Two cultures grew yeast on March 29. An abdominal wound culture revealed Katie dubliniensis. Due to the patient's failure to improve and move towards extubation as well as persistent leukocytosis and EUGENIO at transfer is felt to be warranted. Initially her voiced a preference for [facility]. I was able to get her accepted at [facility] after discussing the case with the tie mill operator, Dr. Wang. In addition her surgeon from a week prior is at [facility] today, Dr. Nugent. Initially the was not comfortable with this and I did called [facility]. They are able to give about a 90% probability of success of transfer over the next 24 hours. I discussed the possibilities with the and ultimately he agreed with [facility] and the patient will be transferred on the morning of April 02. She did develop hyperphosphatemia with her EUGENIO this morning. In addition she was had progressive volume overload with edema of hands feet and lower abdomen. She has had some bleeding from her incisional wound that has been controlled with packing gauze. A CT scan on March 31 was relatively stable with regard to her abdomen. She did have a period of desaturation on April 01 and her FiO2 has increased from 35-45. A chest x-ray reveals mild volume overload and a pleural effusion on the morning of April 02. Her hemoglobin was 6 and she was given 1 unit of blood on April 02 as well. Time Spent with Patient Time spent: Greater than 30 minutes Exam Vital Signs (past 8 hours): - 04/02/24 03:00 04/02/24 03:00 04/02/24 04:00 Temperature Pulse Rate 89 Respiratory Rate 34 H Blood Pressure 94/54 L Pulse Oximetry 96 Oxygen Delivery Method Mechanical Ventilation 04/02/24 04:00 04/02/24 04:00 04/02/24 05:00 Temperature 98.9 F Pulse Rate 89 Respiratory Rate 33 H Blood Pressure 91/50 L 92/55 L Pulse Oximetry 96 Oxygen Delivery Method 04/02/24 05:00 04/02/24 06:00 04/02/24 06:00 Temperature Pulse Rate 89 90 Respiratory Rate 35 H 34 H Blood Pressure 92/51 L Pulse Oximetry 97 97 Oxygen Delivery Method 04/02/24 07:00 04/02/24 07:00 04/02/24 08:00 Temperature Pulse Rate 90 Respiratory Rate 33 H Blood Pressure 91/53 L 95/51 L Pulse Oximetry 97 Oxygen Delivery Method 04/02/24 08:00 04/02/24 08:00 04/02/24 09:00 Temperature Pulse Rate 90 Respiratory Rate 35 H Blood Pressure 97/53 L Pulse Oximetry 96 Oxygen Delivery Method Mechanical Ventilation 04/02/24 09:00 04/02/24 09:32 04/02/24 10:00 Temperature Pulse Rate 90 90 90 Respiratory Rate 35 H 33 H 32 H Blood Pressure 97/53 L Pulse Oximetry 96 96 Oxygen Delivery Method 04/02/24 10:00 Temperature Pulse Rate Respiratory Rate Blood Pressure 96/53 L Pulse Oximetry Oxygen Delivery Method Fraction of Inspired Oxygen 35 SaO2/FiO2 Ratio 271 Oxygen Delivery Method Mechanical Ventilation Oxygen Flow Rate 0 Narrative Exam Narrative: Intubated sedated, on the ventilator. PICC line in place. Conjugate pupils. Lungs are clear with some coarse sounds. Heart is regular, no murmur. Abdomen is somewhat distended, the wound is oozing. She was edema of the hands, feet and pelvic region. No ecchymosis. Carreno catheter is in place. Objective Imaging Multiple studies:: Radiologist's impression: CXR 04/02: 1. Lines and tubes in satisfactory position. 2. Right pleural effusion. 3. Bibasilar atelectasis versus consolidation. CT A/P: 03/31. 1. Interval laparotomy. Small bowel is mildly dilated with diffuse wall thickening and no discrete transition point. Findings are suggestive of ileus/enteritis of infectious/inflammatory etiology. Interval evolution pneumoperitoneum which has decreased compared to prior. 2. Small to moderate volume free fluid, decreased compared to prior; however, there are loculated portions, for example in the perihepatic and gallbladder fossa. 3. Midline incision with areas of dehiscence. No focal fluid collection. Moderate body wall anasarca. 4. Moderate right and small left pleural effusion with compressive atelectasis. Focal right lower lobe hypodense consolidation may reflect superimposed infection. Additional ground-glass opacity in the anterior left lower lobe slightly increased compared to prior CT dated March 28, 2024 is suggestive of infection and/or inflammation. 5. Bladder is decompressed with Carreno catheter. Mucosal hyperenhancement which may reflect cystitis of infectious or inflammatory etiology. 6. Hyperdense material in the gallbladder which may reflect sludge versus vicarious excretion of contrast. ECHO: Normal sinus rhythm. Normal LV size; mildly increased wall thickness; normal wall motion and LV systolic function. EF is 60-65%. Normal chamber sizes. No significant valvular abnormalities. Moderate left-sided pleural effusion. No prior study available for comparison. CT A/P 03/28: 1. Interval proximal colectomy and colostomy for perforated viscus. 2. No evidence of acute intra-abdominal hemorrhage. 3. Mild ascites, diffuse anasarca. 4. Abdominal wound healing by secondary intention. 5. Moderate bilateral pleural effusions, bibasilar atelectasis. 6. Remote splenectomy. CT A/P 03/26: Constellation of findings concerning for perforation of small-bowel secondary to enteritis. CT A/P 03/21: Moderate multifocal findings of enterocolitis. There is no acute small bowel obstruction. Overall moderate to large fecal loading also seen. Nonspecific periportal edema in the liver, as well as small ascites. Mildly distended biliary tree and gallbladder, consider LFT correlation. Moderately patulous distal esophagus, possibly related to esophagitis and reflux. Consider endoscopy correlation if needed. Labs 04/02/24 07:10 04/02/24 07:10 Labs: Laboratory Results - last 24 hr 04/02/24 04/02/24 07:10 08:15 WBC 17.6 H RBC 2.18 L Hgb 6.4 L* Hct 19.5 L* MCV 89.0 MCH 29.1 MCHC 32.7 RDW 14.7 Plt Count 350 Sodium 138 Potassium 3.8 Chloride 108 H Carbon Dioxide 20 L BUN 47 H Creatinine 1.59 H Estimated GFR 38 L BUN/Creatinine Ratio 29.6 H Glucose 114 H Calcium 7.4 L Phosphorus 6.6 H D Magnesium 2.2 Vancomycin Trough 31.0 H* Blood Type A Positive Antibody Screen Negative Crossmatch See Detail [facility] Medical History Eczema, dyshidrotic (~2020) Anxiety Chronic hepatitis C Osteoarthritis of both hands Hepatitis C antibody test positive Arthritis (Unknown) Chronic neck pain (Unknown) Hx of idiopathic thrombocytopenic purpura (2007) Surgical History Anesthesia H/O hernia repair Hx of arthroscopy of knee (~2002) History of splenectomy (2007) Status post knee replacement Family History Family/Other Adopted Social History household members: spouse Smoking Status: Current every day smoker quit status: considering quitting alcohol intake: current substance use type: does not use Discharge Assessment & Plan Assessment and Plan Assessment: 1. Sepsis with septic shock secondary to perforated colon due to stercoral colitis with bacteroides bacteremia. 2. Acute hypoxemic respiratory failure, new and improving. 3. Acute kidney injury, improved 4. Chronic hepatitis-C, present on admission and active. 5. Prior splenectomy, present on admission and active. This related to ITP. 6. Fentanyl abuse and opiate dependence, present on admission and active. 7. DVT prophylaxis: SCDs 8. Acute blood loss anemia. Worse on April 02. 9. Volume overload. 10. Ileus, new and active. 11. Acute kidney injury, new and active. 12. Hyperphosphatemia, new and active. 13. Candidemia, new and active. 14. Bacteroides bacteremia, improving. Plan of Treatment: Transfer to [facility]. Discharge Plan Discharge Plan Patient Disposition: [facility] Other facility: [facility] Under care of provider: Dr Wang (ICU) Discharge orders & Medications Prescriptions: No Action ibuprofen 800 mg tablet 800 mg PO QD-TID PRN (Reason: severe back or joint pain) Qty: 90 2RF Hold Instructions: While on Ketorolac Rx Instructions: limit use as possible to avoid possible stomach or kidney damage over time at high doses estradiol 1 mg tablet 1 mg PO QDAY Qty: 90 1RF fluticasone propion-salmeterol [Wixela Inhub] 250-50 mcg/dose blister with device 1 inh INHALATION BID Patient Comments: INHALE 1 PUFF BY MOUTH TWICE DAILY albuterol sulfate 90 mcg/actuation HFA aerosol inhaler 1 puff INHALATION QID PRN (Reason: Shortness Of Breath Or Wheezing) Patient Comments: INHALE 1 PUFF INTO THE LUNGS FOUR TIMES DAILY NEEDED FOR SHORTNESS OF BREATH OR WHEEZING Follow up/Referrals: Tangela Sanchez DO [Primary Care Provider] - Discharge Health Status Multidrug resistant organism: No MDRO Discharge Data Primary Care Provider: Tangela Sanchez Quality VTE Deep Vein Thrombosis/Pulmonary Embolism Present on Admission: No MIPS - DC The patient has a history of heart transplant or Left Ventricular Assist Device (LVAD). If yes, STOP here.: No A. The patient was prescribed or already taking an Angiotensin-Converting Enzyme (PRESTON) Inhibitor, or Angiotensin Receptor Jazz (ARB).: No
--- NOTE | 2024-04-02 11:13 | P.PN_ITS ---
Subjective Subjective Date Patient Seen: 04/02/24 Interval history: Failure to improve from a critical care standpoint Drop in hemoglobin Receiving blood Exam Vital Signs (past 8 hours): - 04/02/24 04:00 04/02/24 04:00 04/02/24 04:00 Temperature 98.9 F Pulse Rate 89 Respiratory Rate 33 H Blood Pressure 91/50 L Pulse Oximetry 96 Oxygen Delivery Method Mechanical Ventilation 04/02/24 05:00 04/02/24 05:00 04/02/24 06:00 Temperature Pulse Rate 89 Respiratory Rate 35 H Blood Pressure 92/55 L 92/51 L Pulse Oximetry 97 Oxygen Delivery Method 04/02/24 06:00 04/02/24 07:00 04/02/24 07:00 Temperature Pulse Rate 90 90 Respiratory Rate 34 H 33 H Blood Pressure 91/53 L Pulse Oximetry 97 97 Oxygen Delivery Method 04/02/24 08:00 04/02/24 08:00 04/02/24 08:00 Temperature Pulse Rate 90 Respiratory Rate 35 H Blood Pressure 95/51 L Pulse Oximetry 96 Oxygen Delivery Method Mechanical Ventilation 04/02/24 09:00 04/02/24 09:00 04/02/24 09:32 Temperature Pulse Rate 90 90 Respiratory Rate 35 H 33 H Blood Pressure 97/53 L 97/53 L Pulse Oximetry 96 Oxygen Delivery Method 04/02/24 10:00 04/02/24 10:00 Temperature Pulse Rate 90 Respiratory Rate 32 H Blood Pressure 96/53 L Pulse Oximetry 96 Oxygen Delivery Method Fraction of Inspired Oxygen 35 SaO2/FiO2 Ratio 271 Oxygen Delivery Method Mechanical Ventilation Oxygen Flow Rate 0 Narrative Exam Narrative: superior and inferior aspects of the open wound are clean No bleeding or purulence from the incisions colostomy is well perfused Objective Labs 04/02/24 07:10 04/02/24 07:10 Labs: Laboratory Results - last 24 hr 04/02/24 04/02/24 07:10 08:15 WBC 17.6 H RBC 2.18 L Hgb 6.4 L* Hct 19.5 L* MCV 89.0 MCH 29.1 MCHC 32.7 RDW 14.7 Plt Count 350 Sodium 138 Potassium 3.8 Chloride 108 H Carbon Dioxide 20 L BUN 47 H Creatinine 1.59 H Estimated GFR 38 L BUN/Creatinine Ratio 29.6 H Glucose 114 H Calcium 7.4 L Phosphorus 6.6 H D Magnesium 2.2 Vancomycin Trough 31.0 H* Blood Type A Positive Antibody Screen Negative Crossmatch See Detail COUNTS INCLUDE 234 BEDS AT THE [facility] Medical History Eczema, dyshidrotic (~2020) Anxiety Chronic hepatitis C Osteoarthritis of both hands Hepatitis C antibody test positive Arthritis (Unknown) Chronic neck pain (Unknown) Hx of idiopathic thrombocytopenic purpura (2007) Surgical History Anesthesia H/O hernia repair Hx of arthroscopy of knee (~2002) History of splenectomy (2007) Status post knee replacement Family History Family/Other Adopted Social History household members: spouse Smoking Status: Current every day smoker quit status: considering quitting alcohol intake: current substance use type: does not use Assessment & Plan Assessment and plan (1) Sepsis: Status: Acute Plan Transfer to [facility] for critical care support Time-Based Coding :: [TOTAL MINUTES] spent with patient and on the chart (including review of chart, obtaining history, exam, reviewing outside data, placing orders, documenting exam and treatment plan, and counseling patient) on [DATE]. Quality VTE Deep Vein Thrombosis/Pulmonary Embolism Present on Admission: No
--- NOTE | 2024-04-02 12:06 | PC.NURSE ---
Pt had an uneventful night per hand-off report this morning from [facility]. Vent settings remained FiO2 45%, TV 330, RR 24, PEEP 5 sats 94-96%. BP has remained soft with MAP between 68-71, therefore not requiring Norepi to be restarted. Carreno patent with urine output 350, cloudy lorne urine, OG has had 350 bilious output. Critical labs this morning H/H 6.4/19.5 and Vanco trough 31.0, notified Dr Torres who ordered type and screen, with 1 unit of PRBC. It was also noted at this time that pt Liver enzymes and Creatinine/BUN took a significant jump from previous labs. Pt incision packing has needed frequent changes through the night and this morning. Dr Rucker at bedside to evaluate, no new orders. At the time pt daughter Nicole, brother and niece arrived Dr Torres at bedside and the discussion was had to transfer pt to [facility] pending ICU bed availability for nephrology and Dr Nugent (who performed the original surgery) to re-evaluate pt. Through communication with pt Bhanu (through pt daughter) very resistant to pt being transferred to [facility], stating [facility] is a step down from [facility], I want my to go to [facility] in [place] it was explained through pt daughter that we had a bed and accepting doctor at [facility] and there were no beds or accepting doctors at . Bhanu got off the phone and proceeded to contact the transfer center at [phone]. He called pt daughter Nicole back and stated is going to take my , they have a bed and accepting doctor if Dr Torres will call them right now. This nurse took the phone information and called the transfer center asking them what exactly Bhanu was told. Load Dispatcher Local at the transfer center stated I told him we could not deal with a bed/ care request from a pt family member, the request had to come from a doctor. This nurse informed Dr Torres of the conversation, Dr Torres called and was told there was a possibility that they could accept pt, but could not confirm that we would have a bed anytime soon. At this time Dr Torres called Bhanu directly, with this nurse and Charge nurse Francine in the office and explained the situation, the fact we had a bed with accepting doctor at [facility] and no guarantee placement, bed or accepting doctor at [facility]. kept repeating [facility] is a step down, she needs to go to after much discussion Dr Torres asked so you want me to cancel the transfer to [facility], and attempt to send pt to even though there is no guarantee how long it will take to get a bed? At this time mumbled Well, if they can transfer pt to from [place] then she can go there Dr Torres explained that if pt needed to be transferred to that [facility] would be able to, but she might not need to go anywhere else. repeated the statement a couple more times until Dr Torres stated So it is ok to send your to [facility]? Spouse agreed and the call was discontinued. At that time transport was called, packet was made, this nurse called report to Kusum ABDUL at [facility] ICU. Family remained at bedside until transport left with pt at 1157, Family took all pt belongings with Nicole, daughter. Pt was transported with all sedation medications (emar) and restraints in place for line safety. No further pt contact at this time.
== END 2024-04-02 11:57 | disposition short-term general hospital (02) | DRG 853 ==
LOC: ED 12:57 → AC 18:15 → ICU 03-26 14:32
PROVIDERS: Internal Medicine; Internal Medicine Critical Care Medicine; Internal Medicine Pulmonary Disease; Surgery; Admitting Provider Hospitalist; Emergency Provider Emergency Medicine; Family Provider Physician Assistant; PCP Family Medicine; Referring Provider Emergency Medicine; Visit Provider Hospitalist
PROC: 0DBN0ZZ Excision of Sigmoid Colon, Open Approach (ICD-10-PCS; CPT 49000; principal; 2024-03-26 13:15)
DX: A41.9 Sepsis, unspecified organism (principal); G93.41 Metabolic encephalopathy; J96.01 Acute respiratory failure with hypoxia; R65.21 Severe sepsis with septic shock; K63.1 Perforation of intestine (nontraumatic); K55.9 Vascular disorder of intestine, unspecified; J81.1 Chronic pulmonary edema; K56.7 Ileus, unspecified; N17.9 Acute kidney failure, unspecified; D62 Acute posthemorrhagic anemia; J90 Pleural effusion, not elsewhere classified; F11.23 Opioid dependence with withdrawal; K52.9 Noninfective gastroenteritis and colitis, unspecified; F17.200 Nicotine dependence, unspecified, uncomplicated; K73.2 Chronic active hepatitis, not elsewhere classified; K59.00 Constipation, unspecified; G89.4 Chronic pain syndrome; E87.70 Fluid overload, unspecified; E83.39 Other disorders of phosphorus metabolism; B96.89 Other specified bacterial agents as the cause of diseases classified elsewhere; B37.9 Candidiasis, unspecified; Z90.81 Acquired absence of spleen
CPT/HCPCS: 36415; 36430; 36573; 36592; 36600; 51798; 71045; 71260; 71275; 74018; 74176; 74177; 76705; 80048; 80053; 80202; 81001; 82140; 82805; 82962; 83605; 83690; 83735; 84100; 84134; 84145; 84478; 85007; 85025; 85027; 86850; 86900; 86901; 87040; 87070; 87075; 87077; 87154; 87185; 87205; 87507; 93005; 93010; 93306; 94002; 94003; 94640; 94799; 96365; 96375; 96376; 99285; 99291; 99406; P9016; A9270; B4189; J0136; J0171; J0330; J0612; J1100; J1170; J1450; J1642; J1644; J1815; J1940; J2060; J2185; J2248; J2250; J2270; J2405; J2470; J2543; J2704; J2765; J3010; J3480; J7613; P9041; Q9967

== ENCOUNTER 2025-01-16 07:12 | Emergency (ER) | payer OTHER, SELFPAY ==
[2024-12-26 08:53] VITALS: PULSE 90; RESP 17; RESP 34; O2SAT 96; BMI 23.3
[2025-01-16] VITALS (9 sets, daily range): BP systolic 107–182; BP diastolic 57–89; PULSE 67–86; RESP 20; TEMP 36.9; O2SAT 96–99; BMI 22.3
--- NOTE | 2025-01-16 07:34 | ED_ITS ---
HPI - Abdominal Pain General Chief Complaint: Abdominal Pain Stated Complaint: right sided abd pain Time Seen by Provider: 01/16/25 07:26 Source: patient Mode of arrival: Ambulatory Limitations: no limitations History of Present Illness HPI narrative: Patient is a 59-year-old female with history of chronic hep C, methamphetamine use disorder, opiate use disorder, asthma, prior DVT, atrial fibrillation, on Pradaxa, status post recent colostomy reversal on 12/13/2024, presenting with right-sided abdominal pain. Patient states that the pain began on the day prior to presentation and has gradually worsened prompting her visit today. She describes the pain as a burning although does have increased sharper pains with bending over. She has noticed a small amount of bulging in her abdomen. Continues to have normal bowel movements with most recent bowel movement on morning of presentation without blood or melanotic stool. Patient denies any nausea, vomiting, has had no fevers or chills, similarly denies any urinary symptoms. Patient states that she has been taking Tylenol and ibuprofen for this pain. Patient states that she had previously been prescribed oxycodone however did run out of her oxycodone 5 days prior and her PCP has had that she was unable to fill it until several days from now. MD complaint: abdominal pain Related Data Home Medications Medication Instructions Recorded Confirmed albuterol sulfate 90 mcg/actuation 1 puff inhalation QID PRN 03/21/24 01/05/25 aerosol inhaler Shortness Of Breath Or Wheezing mirtazapine 15 mg tablet (Remeron) 15 mg PO BEDTIME 05/12/24 01/05/25 polyethylene glycol 3350 17 17 g PO DAILY 05/12/24 01/05/25 gram/dose oral powder nicotine 21 mg/24 hr daily 1 patch topical DAILY 01/05/25 01/05/25 transdermal patch progesterone micronized 200 mg 200 mg PO ONCE PM 01/05/25 01/05/25 capsule Previous Rx's Medication Instructions Recorded estradiol 1 mg tablet 1 mg PO QDAY #90 tabs 03/07/24 oxycodone 5 mg tablet 5 mg PO BID PRN pain #55 tabs 01/13/25 Allergies Allergy/AdvReac Type Severity Reaction Status Date / Time No Known Drug Allergies Allergy Verified 01/05/25 08:00 Review of Systems Constitutional Constitutional: Denies chills and Denies fever(s) Eyes Eyes: Reports system reviewed and no additional complaints, except as documented ENT Ears, Nose, Mouth, and Throat: Denies dizziness Cardiovascular Cardiovascular: Denies chest pain and Denies dyspnea Respiratory Respiratory: Denies dyspnea Gastrointestinal Gastrointestinal: Reports abdominal pain, Denies melena, Denies hematochezia and Denies change in bowel habits Genitourinary Genitourinary: Denies dysuria Musculoskeletal Musculoskeletal: Denies back pain Neurologic Neurologic: Denies dizziness Patient History Medical History Tobacco use disorder Enterocolitis Sepsis Right anterior knee pain Eczema, dyshidrotic (~2020) Anxiety Chronic hepatitis C Osteoarthritis of both hands Hepatitis C antibody test positive Arthritis (Unknown) Chronic neck pain (Unknown) Hx of idiopathic thrombocytopenic purpura (2007) Surgical History Anesthesia H/O hernia repair Hx of arthroscopy of knee (~2002) History of splenectomy (2007) Status post knee replacement Family History Family/Other Adopted Social History household members: spouse Smoking Status: Former smoker quit status: considering quitting alcohol intake: current substance use type: does not use Smoking Status: Former smoker alcohol intake frequency: a few times a month Exam Initial Vital Signs Initial Vital Signs: Vital Signs Pulse Oximetry 99 01/16/25 07:16 Const General: cooperative, healthy appearing and No acute distress [facility] Head: normocephalic Mouth: oral mucosae normal Eyes General: Yes appearance normal, both eyes and all related structures Neck Neck: normal visual inspection Chest Chest: normal inspection of the chest Resp Effort & Inspection: normal respiratory effort, able to speak in complete sentences and no respiratory distress Cardio Rate: regular rate Rhythm: regular rhythm GI Inspection: scar (Extensive surgical scars across the midline and lateral abdomen) Palpation: soft and mass (Soft bulge/mass to the right side of midline scar, easily reducible) Auscultation: normal bowel sounds Back/Spine/Pelvis Cervical Spine: cervical ROM normal Skin General: no rashes or lesions noted Neuro General: patient alert Extrem General: full ROM Right lower extremity: no edema Left lower extremity: no edema Psych Appearance: grossly normal Mental Status: mental status grossly normal Course Orders Ordered: ED Orders 01/16/25 07:35 CT abdomen pelvis w con Stat 01/16/25 07:44 Complete Blood Count AUTO DIFF Stat Comprehensive Metabolic Panel Stat Lactate (Lactic Acid) Stat Lipase Stat MAG [Magnesium] Stat 01/16/25 08:20 Urinalysis and Microscopic Stat Discontinued Medications Morphine Sulfate (Morphine 4 Mg/Ml Inj) 4 mg IV NOW ONE Stop: 01/16/25 07:37 Last Admin: 01/16/25 07:52 Dose: 4 mg Documented By: RAI Vital Signs Vital signs: Vital Signs - 8 hr 01/16/25 07:16 01/16/25 07:17 01/16/25 07:17 Temperature Pulse Rate 86 Respiratory Rate Blood Pressure 182/89 H Pulse Oximetry 99 98 Oxygen Delivery Method 01/16/25 07:20 01/16/25 07:30 01/16/25 07:31 Temperature 98.5 F Pulse Rate 78 76 71 Respiratory Rate 20 Blood Pressure 182/89 H Pulse Oximetry 99 98 98 Oxygen Delivery Method Room Air 01/16/25 07:31 01/16/25 08:00 01/16/25 08:00 Temperature Pulse Rate 69 Respiratory Rate Blood Pressure 151/66 H 129/58 L Pulse Oximetry 96 Oxygen Delivery Method MDM - Abdominal Pain Differential Diagnosis Differential diagnosis: Likely abdominal pain, constipation, small bowel obstruction and other (Hernia, seroma) Medical Records Attestation: I reviewed the patient's medical records. Medical records narrative: PCP visit with Tangela Sanchez on 01/05/2025 notes discussion regarding tapering the use and cessation of oxycodone with plan for 20% taper at each fill Lab Data Attestation: I reviewed the patient's lab results. Lab results narrative: No leukocytosis, hemoglobin 11.7 demonstrating mild anemia although improved when compared to priors. CMP without evidence of EUGENIO, electrolyte abnormality, LFT elevations, lipase normal, lactate normal. Urinalysis without evidence of infection 01/16/25 07:44 01/16/25 07:44 Labs: Lab Results 01/16/25 01/16/25 Range/Units 07:44 08:20 WBC 7.5 (4.5-11.0) X10^3/uL RBC 3.77 L (4.0-5.2) X10^6/uL Hgb 11.7 L (12.0-16.0) g/dL Hct 35.4 L (36-46) % MCV 93.9 (80-100) fL MCH 31.0 (26-34) PG MCHC 33.1 (30-36) % RDW 14.6 (11.6-14.8) % Plt Count 288 (150-400) X10^3/uL Neut % (Auto) 51.3 (50-75) % Lymph % (Auto) 34.0 (25-40) % [place] % (Auto) 7.3 (3-14) % Eos % (Auto) 6.1 H (2-4) % Baso % (Auto) 1.3 (0-2) % Neut # (Auto) 3800 (2383-9509) /uL Lymph # (Auto) 2600 (3658-2176) /uL [place] # (Auto) 600 (0-900) /uL Eos # (Auto) 500 H (0-450) /uL Baso # (Auto) 100 (0-100) /uL Sodium 139 (137-145) mmol/L Potassium 4.5 (3.4-5.1) mmol/L Chloride 104 (98-107) mmol/L Carbon Dioxide 26 (22-32) mmol/L BUN 16 (7-17) mg/dL Creatinine 0.82 (0.52-1.04) mg/dL Estimated GFR > 60 (>60) mL/min BUN/Creatinine Ratio 19.5 (6-22) Glucose 94 (70-99) mg/dL Lactate 1.0 (0.7-2.1) mmol/L Calcium 9.5 (8.4-10.2) mg/dL Magnesium 2.0 (1.6-2.3) mg/dL Total Bilirubin 0.3 (0.2-1.3) mg/dL AST 18 (14-36) IU/L ALT 13 (<35) IU/L Alkaline Phosphatase 69 (38-126) U/L Total Protein 7.5 (6.3-8.2) g/dL Albumin 4.3 (3.5-5.0) g/dL Globulin 3.2 (1.7-4.1) g/dL Albumin/Globulin Ratio 1.3 (1.0-2.8) Lipase 52 (23-300) U/L Urine Color Yellow Urine Appearance Clear Urine pH 7.0 (4.5-8.0) Ur Specific [place] 1.010 (1.000-1.035) Urine Protein Negative (Negative) Urine Glucose (UA) Negative (Negative) g/dL Urine Ketones Negative (NEGATIVE) Urine Occult Blood Negative (Negative) Urine Nitrate Negative (Negative) Urine Bilirubin Negative (NEGATIVE) Urine Urobilinogen 0.2 (0.2) E.U./dL Ur Leukocyte Esterase Negative (NEGATIVE) Urine RBC None seen (0-5/HPF) Urine WBC None seen (0-5/HPF) Ur Squamous Epith Cells 1-5 /hpf (0-5/HPF) Urine Bacteria None seen (None) Ur Culture Indicated? Cult not indicated Vol Urine Centrifuged 10ml (spun) Imaging Data CT scan - abdomen/pelvis: Attestation: I personally reviewed and interpreted this imaging study as follows: My Impression: Without evidence of acute intra-abdominal pathology, no hernia or obstruction noted Radiologist's Impression: [place] [address] CT Scan Report Signed Patient: Debbie Dixon MR#: [id number] : 1965 Acct:[id number] Age/Sex: 59 / F Date of Service: 01/16/25 Loc: ED Accession Number: [id number] Procedure: CT abdomen pelvis w con Ordering Provider: Rosie Escobar MD PROCEDURE: CT ABDOMEN PELVIS W CON INDICATIONS: R sided abd pain, recent colostomy reversal TECHNIQUE: After the administration of intravenous contrast, axial sections acquired from the lung bases to the pubic symphysis. Coronal and sagittal reformats were performed. For radiation dose reduction, the following was used: automated exposure control, adjustment of mA and/or kV according to patient size. COMPARISON: [facility], CT, CT ABDOMEN PELVIS W CON, 03/26/2024, 11:47. [facility], CT, CT ABDOMEN PELVIS WITH CONTRAST, 05/01/2024, 15:19. FINDINGS: Image quality: Diagnostic. Lower Chest: No significant findings. ABDOMEN: Liver: No solid mass. Gallbladder: No radiopaque gallstones or wall thickening. Biliary ducts: No biliary dilation. Pancreas: No ductal dilation. Spleen: Absent Adrenal Glands: No adrenal nodules. Kidneys and Ureters: No hydronephrosis. No solid mass. No complex renal cystic lesion which requires follow up. Stomach and Bowel: Normal colonic caliber, without significant wall thickening. Previous partial colectomy. Appendix not visualized. Moderately large fecal load. Peritoneum: No abnormal intraperitoneal fluid. No free air. Ventral Wall: No significant ventral hernia. Abdominal Nodes: No retroperitoneal or mesenteric adenopathy by size criteria. Vessels: Aorta and inferior vena cava are normal in size. PELVIS: Pelvic Organs: Unremarkable. Bladder: No bladder wall thickening, accounting for underdistention. Pelvic Nodes: No enlarged lymph nodes. Miscellaneous: No inguinal hernias are seen. Bones: No aggressive osseous abnormality. Lumbar degenerative change. Canal stenosis at at L4-L5 may be as much as moderate. IMPRESSION: 1. No acute abdominal process noted. 2. Remote splenectomy and partial colectomy. 3. Moderately large fecal load. 4. Note made of canal stenosis at L4-L5. Dictated by: Bob Coker M.D. on 01/16/2025 at 8:55 Approved by: Bob Coker M.D. on 01/16/2025 at 8:59 MDM Narrative Medical decision making narrative: History and exam as above. Patient is a 59-year-old female with extensive past medical history including complex past surgical abdomen is with recent reversal of colostomy presenting with abdominal pain. Differential for patient's presentation is broad and includes possible hernia, incarcerated hernia, seroma, less likely abscess without induration or erythema surrounding superficial site of tenderness, may also represent obstruction although patient with regular bowel movements and without nausea or vomiting, UTI or pyelonephritis, unlikely to represent intra-abdominal infection given non peritonitic abdomen and overall reassuring exam. Given chart review and patient has history of opioid dependence, suspect likely aspect of medication seeking. We will plan for labs including CBC, CMP, Mag, lipase, lactate. We will also plan for urinalysis and CT abdomen pelvis with contrast. Given overall reassuring workup without acute abnormality on CT imaging or lab work, we will plan for discharge with close follow-up. Patient provided with strict return precautions and follow-up plan. Discussed managing pain medications at home through her PCP in order to provide safe further care. Discharged in stable condition. Discharge Plan Departure Patient Disposition: Home Clinical Impression: Abdominal pain Qualifiers: Abdominal location: periumbilical Qualified Code(s): R10.33 - Periumbilical pain Opioid dependence Qualifiers: Substance use status: uncomplicated Qualified Code(s): F11.20 - Opioid dependence, uncomplicated Instructions: DI for Abdominal Pain-Adult Activity Restrictions/Additional Instructions: You were seen in the emergency department for your abdominal pain. Evaluation here was reassuring that there are no complications from your prior surgeries or any other acute concerning issues ongoing at this time. There is no evidence of a concerning hernia or other complication. It is important that you follow-up with your primary care provider for further management of your opioid pain medications, these are best managed by a single provider for your safety. If you develop new fevers, chills, nausea or vomiting, are not having bowel movements or have blood in your stools, please return to the emergency department for further evaluation. Prescriptions: No Action estradiol 1 mg tablet 1 mg PO QDAY Qty: 90 1RF oxycodone 5 mg tablet 5 mg PO BID PRN (Reason: pain) Qty: 55 0RF mirtazapine [Remeron] 15 mg tablet 15 mg PO BEDTIME polyethylene glycol 3350 17 gram/dose powder 17 g PO DAILY nicotine 21 mg/24 hr patch 24 hour 1 patch topical DAILY progesterone micronized 200 mg capsule 200 mg PO ONCE PM albuterol sulfate 90 mcg/actuation HFA aerosol inhaler 1 puff INHALATION QID PRN (Reason: Shortness Of Breath Or Wheezing) Patient Comments: INHALE 1 PUFF INTO THE LUNGS FOUR TIMES DAILY NEEDED FOR SHORTNESS OF BREATH OR WHEEZING Referrals: Tangela Sanchez DO [Primary Care Provider] - Stand Alone Forms: Patient Portal/API/Survey
[2025-01-16] MEDS: MORPHINE 4 MG/ML INJ IV (07:52)
[2025-01-16 07:56] LABS: Add Manual Diff / Slide Review NO; Basophils Absolute Auto 100 /uL (0-100); Basophils Percent Auto 1.3 % (0-2); Eosinophils Absolute Auto 500 /uL (0-450); Eosinophils Percent Auto 6.1 % (2-4); Hematocrit 35.4 % (36-46); Hemoglobin 11.7 g/dL (12.0-16.0); Lymphocytes Absolute Auto 2600 /uL (1100-4500); Mean Corpuscular HGB Conc 33.1 % (30-36); Mean Corpuscular Volume 93.9 fL (80-100); Monocytes Absolute Auto 600 /uL (0-900); Monocytes Percent Auto 7.3 % (3-14); Neutrophils Absolute Auto 3800 /uL (1500-7000); Neutrophils Percent Auto 51.3 % (50-75); Platelet Count 288 X10^3/uL (150-400); Red Blood Cell Count 3.77 X10^6/uL (4.0-5.2); Red Cell Distribution Width 14.6 % (11.6-14.8); White Blood Cell Count 7.5 X10^3/uL (4.5-11.0)
[2025-01-16 08:07] LABS: Alanine Aminotransferase 13 IU/L (<35); Albumin 4.3 g/dL (3.5-5.0); Albumin Globulin Ratio 1.3 (1.0-2.8); Alkaline Phosphatase 69 U/L (38-126); Aspartate Aminotransferase 18 IU/L (14-36); BUN Creatinine Ratio 19.5 (6-22); Bilirubin Total 0.3 mg/dL (0.2-1.3); Blood Urea Nitrogen 16 mg/dL (7-17); Calcium 9.5 mg/dL (8.4-10.2); Carbon Dioxide 26 mmol/L (22-32); Chloride 104 mmol/L (98-107); Estimated Glomerular Filt Rate > 60 mL/min (>60); Globulin 3.2 g/dL (1.7-4.1); Glucose 94 mg/dL (70-99); HEMOLYSIS < 15 (0-50); Lipase 52 U/L (23-300); Potassium 4.5 mmol/L (3.4-5.1); Sodium 139 mmol/L (137-145); Total Protein 7.5 g/dL (6.3-8.2)
[2025-01-16 08:36] LABS: Appearance Urine UA CLEAR; Bilirubin Urine UA NEGATIVE (NEGATIVE); Color Urine UA YELLOW; Glucose Urine UA NEGATIVE (Negative); Ketones Urine UA NEGATIVE (NEGATIVE); Leukocyte Esterase Urine UA NEGATIVE (NEGATIVE); Nitrite Urine UA NEGATIVE (Negative); Occult Blood Urine UA NEGATIVE (Negative); Protein Urine UA NEGATIVE (Negative); Urine Volume 10mL (spun); Urobilinogen Urine UA 0.2 E.U./dL (0.2)
[2025-01-16 08:38] LABS: Bacteria Urine None Seen; Culture Indicated Urine Cult Not Indicated; RBC Urine None Seen (0-5/HPF); Squamous Epithelial Cell Urine 1-5 /HPF (0-5/HPF); WBC Urine None Seen (0-5/HPF)
== END 2025-01-16 09:41 | disposition home or self-care (01) ==
PROVIDERS: Emergency Provider Student in an Organized Health Care Education/Training Program; Family Provider Physician Assistant; PCP Family Medicine
DX: R10.33 Periumbilical pain (principal); F11.20 Opioid dependence, uncomplicated; Z79.01 Long term (current) use of anticoagulants
CPT/HCPCS: 36415; 74177; 80053; 81001; 83605; 83690; 83735; 85025; 96374; 99283; 99284; J2270; Q9967

== ENCOUNTER → 2025-01-26 15:41 | Outpatient (CLI) | payer OTHER, SELFPAY ==
[2024-12-26 08:53] VITALS: PULSE 90; RESP 17; RESP 34; O2SAT 96; BMI 23.3
--- NOTE | 2025-01-26 15:42 | DI.US.S_ITS ---
PROCEDURE: US PELVIC COMPLETE INDICATIONS: postmenopausal bleeding TECHNIQUE: Real-time scanning was performed of the pelvic organs, with image documentation. Additional endovaginal scanning was necessary due to incomplete visualization of the adnexal and endometrial structures by transabdominal scanning. COMPARISON: None. FINDINGS: Uterus: Uterus is anteverted and normal in size at 7.7 x 4.8 x 3.9 cm. The myometrium is homogeneous. The endometrium measures 3 mm combined thickness. Ovaries: Right ovary measures 2.3 x 1.5 x 1.3 cm, 2.3 cc. Less than 12 follicles. 1.2 cm complex cystic structure. No adnexal mass. Left ovary not visualized Other: No pathologic free abdominal or pelvic fluid. IMPRESSION: Right ovarian complex cyst. Consider 6-12 week follow-up Approved by: Jerad Powers M.D. on 01/27/2025 at 16:27
== END ==
PROVIDERS: Family Provider Physician Assistant; PCP Family Medicine; Referring Provider Family Medicine; Visit Provider Family Medicine
DX: N95.0 Postmenopausal bleeding (principal); N83.291 Other ovarian cyst, right side
CPT/HCPCS: 76830; 76856

== ENCOUNTER → 2025-05-21 10:06 | Outpatient (CLI) | payer OTHER, SELFPAY ==
[2024-12-26 08:53] VITALS: PULSE 90; RESP 17; RESP 34; O2SAT 96; BMI 23.3
--- NOTE | 2025-05-21 10:07 | DI.RAD.S_ITS ---
PROCEDURE: XR SHOULDER RT MIN 2V INDICATIONS: Right shoulder pain TECHNIQUE: 3 views of the shoulder were acquired. COMPARISON: [facility], CR, XR SHOULDER LT MIN 2V, 03/19/2018, 19:26. FINDINGS: Bones: No fractures or dislocations. No suspicious bony lesions. Visualized ribs appear intact. Mild osteophytes of the glenoid and acromioclavicular joint. Soft tissues: No suspicious soft tissue calcifications. IMPRESSION: No acute bony abnormality. Dictated by: Tejas Luna M.D. on 05/21/2025 at 9:37 Approved by: Tejas Luna M.D. on 05/21/2025 at 9:38
== END ==
LOC: RAD 10:07
PROVIDERS: Family Provider Family Medicine; PCP Family Medicine; Referring Provider Registered Nurse; Visit Provider Registered Nurse
DX: M25.511 Pain in right shoulder (principal)
CPT/HCPCS: 73030

== ENCOUNTER → 2025-07-05 11:43 | Outpatient (CLI) | payer OTHER, SELFPAY ==
[2024-12-26 08:53] VITALS: PULSE 90; RESP 17; RESP 34; O2SAT 96; BMI 23.3
--- NOTE | 2025-07-05 11:45 | DI.MRI.S_ITS ---
PROCEDURE: MR SHOULDER RT WO CON INDICATIONS: right shoulder pain TECHNIQUE: Noncontrast oblique coronal T2 fast spin echo with fat saturation, oblique sagittal T1 spin echo and T2 fast spin echo with fat saturation, axial T1 spin echo and T2 fast spin echo with fat saturation through the shoulder. COMPARISON: [facility], CR, XR SHOULDER RT 2+ VIEWS, 05/21/2025, 10:08. FINDINGS: Image quality: Excellent. Rotator cuff: Low to moderate grade articular surface partial-thickness tear involving distal supraspinatus at its insertion on humeral head extending to musculotendinous junction. Distal infraspinatus and subscapularis tendinosis. Sagittal images demonstrate no significant rotator cuff muscle atrophy. Bones and bursae: No bone marrow contusions or fractures. Moderate acromioclavicular joint osteoarthritic changes are seen with joint space narrowing and downward osteophyte formation depressing on musculotendinous junction of supraspinatus. Moderate glenohumeral joint osteoarthritic changes also noted. Type 2 acromion without an os acromiale. Small to moderate amount of joint fluid and subacromial subdeltoid bursal fluid, no loose bodies. Capsule and soft tissues: T2 hyperintense signal and fraying involving superior glenoid labrum suggestive of extensive superior glenoid labral tear. The long head of the biceps tendon demonstrates normal location and morphology. IMPRESSION: 1. Low to moderate grade articular surface partial thickness tear involving distal supraspinatus extending to musculotendinous junction. Distal infraspinatus and subscapularis tendinosis. No full-thickness rotator cuff tendon rupture. No significant rotator cuff muscle atrophy. 2. Moderate acromioclavicular joint and glenohumeral joint osteoarthritis. No fracture or dislocation. Small to moderate amount of joint fluid and subacromial subdeltoid bursal fluid, no loose bodies. 3. Suggestion of fairly extensive superior right glenoid labral tear. 4. Proximal long head of biceps tendon is intact. Dictated by: Celestine Hollingsworth M.D. on 07/06/2025 at 10:30 Approved by: Celestine Hollingsworth M.D. on 07/06/2025 at 10:42
== END ==
PROVIDERS: Family Provider Family Medicine; PCP Family Medicine; Referring Provider Orthopaedic Surgery; Visit Provider Orthopaedic Surgery
DX: M75.111 Incomplete rotator cuff tear or rupture of right shoulder, not specified as traumatic (principal); M25.511 Pain in right shoulder; M19.011 Primary osteoarthritis, right shoulder
CPT/HCPCS: 73221